=== PATIENT | male | born 1955 | race Caucasian/White ===

== ENCOUNTER 2017-06-12 23:48 | Emergency (ER) | payer OTHER ==
[2017-06-13] MEDS ORDERED: oxyCODONE/Acetamin 5/325 MG* TAB PO ONE (01:37)
[2017-06-13] MEDS ORDERED: Ketorolac INJ* 60 MG/2 ML VIAL IM ONE (01:37)
--- NOTE | 2017-06-13 01:38 | ED ---
Lower Extremity - HPI Summary HPI Summary: 62 male presents to ED with complaints left knee pain after a fall he sustained while trying to go up cement stairs just [employer] ~ 4 hours ago. Patient has been able to bear weight however it causes him significant pain. Pain is anterior knee. Denies bruising, swelling and numbness tingling. Patient has not taken any medication [employer]. Admits to some abrasions over both knees, no pain in right knee. No other complaints at this time. Did not hit head, no acute hip or back pain. PMHx significant for DM, diabetic neuropathy, chronic back pain and HTN. Pain is described as sharp and aching. Has some ROM with bending but causes pain. Patient states he is a chronic pain patient with Dr Cason. - History of Current Complaint Chief Complaint: EDExtremityLower Stated Complaint: LT KNEE PAIN Time Seen by Provider: 06/12/17 23:58 Hx Obtained From: Patient Mechanism Of Injury: Blunt Trauma, Fall From A Standing Position - walking up stairs Onset of Pain: Immediate Onset/Duration: Hours Severity Initially: Severe Severity Currently: Severe Pain Intensity: 9 Pain Scale Used: 0-10 Numeric Timing: Constant Location: Is Discrete @ - left anterior knee Character Of Pain: Sharp, Aching Associated Signs And Symptoms: Positive: Knee Pain - left Aggravating Factor(s): Standing, Ambulation, Weight Bearing Alleviating Factor(s): Rest Able to Bear Weight: Yes - but causes pain and favors right side - Allergies/Home Medications Allergies/Adverse Reactions: Allergies Allergy/AdvReac Type Severity Reaction Status Date / Time Sertraline [From Zoloft] Allergy Unknown Verified 12/30/15 14:50 Reaction Details PMH/Surg Hx/FS Hx/Imm Hx Endocrine/Hematology History: Reports: Hx Diabetes - DMII Cardiovascular History: Reports: Hx Cardiomegaly - FROM CARDIAC CATH, Hx Congestive Heart Failure, Hx Hypertension, Other Cardiovascular Problems/ Disorders - IDDM TYPE II Denies: Hx Pacemaker/ICD Respiratory History: Reports: Hx Chronic Obstructive Pulmonary Disease (COPD), Hx Sleep Apnea Denies: Hx Asthma GI History: Reports: Hx Gastroesophageal Reflux Disease - HX GASTRIC BYPASS, Other GI Disorders - PANCREATITIS Denies: Hx Cirrhosis History: Denies: Hx Dialysis, Hx Kidney Stones, Hx Renal Disease Musculoskeletal History: Reports: Hx Arthritis - BILATERAL SHOULDERS, Hx Tendonitis - BILATERAL SHOULDERS Denies: Other Musculoskeletal History Sensory History: Reports: Hx Contacts or Glasses - GLASSES Opthamlomology History: Reports: Hx Contacts or Glasses - GLASSES Neurological History: Reports: Hx Seizures - SEIZURE HISTORY LAST ONE 2004 ONLY TWO TIMES IN LIFE, Other Neuro Impairments/Disorders - SEIZURE R/T STOMACH ULCER - WITH ALCOHOL Denies: Hx Transient Ischemic Attacks (TIA) Comment Only: Hx Nerve Disease - DIABETIC NEUROPATHY Psychiatric History: Reports: Hx Anxiety, Hx Depression Denies: Hx Panic Disorder - Surgical History Surgery Procedure, Year, and Place: gastric bypass [facility], bilat elbows , [facility] Hx Anesthesia Reactions: No - Immunization History Immunizations Up to Date: Yes Infectious Disease History: No Infectious Disease History: Denies: Hx Hepatitis, Traveled Outside the [place] in Last 30 Days - Family History Known Family History: Positive: Other - mother - arthritis - Social History Alcohol Use: None Alcohol Amount: NONE FOR 10 YEARS AGO Hx Substance Use: No Substance Use Type: Reports: None Hx Tobacco Use: Yes Smoking Status (MU): Former Smoker Review of Systems Constitutional: Negative Cardiovascular: Negative Respiratory: Negative Positive: Arthralgia, Myalgia, Decreased ROM - left knee Neurological: Negative All Other Systems Reviewed And Are Negative: Yes Physical Exam Triage Information Reviewed: Yes Vital Signs On Initial Exam: Initial Vitals Temp Pulse Resp BP Pulse Ox 97.7 F 99 18 210/102 99 06/13/17 00:02 06/13/17 00:02 06/13/17 00:02 06/13/17 00:02 06/13/17 00:02 elevated BP, patient in pain and states he typically has that elevated of pressure, improved to 190/100. Encouraged follow up with PCP, patient states he was unable to take his meds today because of the fall. Wanted to take them at home, asymptomatic. States BP has been this high in past many times in times of pain. Vital Signs Reviewed: Yes Appearance: Positive: Well-Appearing, Well-Nourished, Pain Distress - with movement or palpation of left anterior knee Skin: Positive: Warm, Skin Color Reflects Adequate Perfusion, Dry, Other - abrasion not bleeding on both anterior knees. Negative: Cold, Numb, Cyanosis @ , Pale, Erythema @ Head/Face: Positive: Normal Head/Face Inspection Eyes: Positive: EOMI, Conjunctiva Clear ENT: Positive: Hearing grossly normal Neck: Positive: Supple, Nontender Respiratory/Lung Sounds: Positive: Clear to Auscultation, Breath Sounds Present. Negative: Rales, Rhonchi, Wheezes Cardiovascular: Positive: Normal, RRR, Pulses are Symmetrical in both Upper and Lower Extremities - 2+ pedal b/l. Negative: Murmur, Rub Abdomen Description: Positive: Nontender, Soft Bowel Sounds: Positive: Present Musculoskeletal: Positive: Normal, Limited @ - has some ROM of left knee with flexion, due to pain, able to extend, Pain @ - right anterior knee on palpation. no crepitus or step off, maybe some mild swelling over anterior knee , patella intact, no obvious deformity when compared to right. abrasion noted. distal tibia non tender. Negative: Interruption @ Neurological: Positive: Normal, Sensory/Motor Intact - sensation intact and normal for his baseline with neuropathy, Alert, Oriented to Person Place, Time, CN Intact II-III, NV Bundle Intact Distally, Unable to Assess Gait Psychiatric: Positive: Affect/Mood Appropriate Diagnostics - Vital Signs Vital Signs Temp Pulse Resp BP Pulse Ox 06/13/17 00:02 97.7 F 99 18 210/102 99 - Laboratory Lab Statement: Any lab studies that have been ordered have been reviewed, and results considered in the medical decision making process. - Radiology left knee Xray Interpretation: Positive (See Comments) - proximal tibial fracture, avulsion Radiology Interpretation Completed By: ED Physician - Dr Grant Lower Extremity Course/Dx - Course Course Of Treatment: given pain management. x-ray obtained and positive for fracture of proximal tibia, possibly avulsion. knee immobilzer, luci wrap, crutches, and ice applied. continue at home. patient already has pain management to take at home as needed. non weight bearing, follow up ortho. RICE. aware of worsening signs and symptoms to watch out for. no other concern at this time. - Diagnoses Differential Diagnosis/HQI/PQRI: Positive: Contusion, Dislocation, Fracture ( Closed), Sprain, Strain Provider Diagnoses: Fracture, tibia Discharge - Discharge Plan Condition: Stable Disposition: HOME Patient Education Materials: Leg Fracture (ED) Referrals: Stefan Bruno MD [Medical Doctor] - Maranda Lorenzana MD [Primary Care Provider] - Additional Instructions: Do not remove immobilizer. Do not bear weight, use crutches. Keep luci bandage applied. Rest, elevate and ice. Take prescribed pain medication as well as ibuprofen for pain and inflammation. Follow up with orthopedics, call tomorrow morning to make an appointment. If symptoms worsen or new symptoms develop please seek medical attention immediately.
[2017-06-13 02:29] VITALS: BP 198/108
--- NOTE | 2017-06-13 08:05 | RAD ---
INDICATION: Left knee injury COMPARISON: None TECHNIQUE: AP, lateral, tunnel, and sunrise views were obtained. FINDINGS: There is an incomplete, transverse fracture through the tibial apophysis. There is also small avulsion fracture from the inferior patella. The infrapatellar ligament is likely torn. This can be evaluated with MR imaging. 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 There is a joint effusion. IMPRESSION: TIBIAL APOPHYSEAL AND INFERIOR PATELLAR FRACTURES. PRESUMED INFRAPATELLAR LIGAMENT INJURY. JOINT EFFUSION
== END 2017-06-13 02:28 | disposition home or self-care (01) ==
LOC: ED 23:48
DX: S82.202A Unspecified fracture of shaft of left tibia, initial encounter for closed fracture (principal); M25.562 Pain in left knee; W19.XXXA Unspecified fall, initial encounter; Y93.9 Activity, unspecified; Y92.9 Unspecified place or not applicable
CPT/HCPCS: 96372; 99282; A9270-GY; J1885

== ENCOUNTER → 2017-06-21 12:30 | Day surgery (SDC) | payer OTHER ==
[~2017-06-21 12:30] MED LIST: Buffered Lidocaine 0.9% SYRIN* 5 ML/SYR SYRINGE INTRADERM ONE; Buffered Lidocaine 0.9% SYRIN* 5 ML/SYR SYRINGE ONE; Bupivacaine 0.5% SDV PF* 30 ML VIAL ONE; Dextrose 50% Syringe 50 ML* 25 GM/50 ML SYRINGE ONE; EPHEDrine (Pressors)* 50 MG/ML VIAL ONE; Famotidine IV* 10 MG/ML 2 ML (20 mg) IV ONE; Famotidine IV* 10 MG/ML 2 ML (20 mg) ONE; Flumazenil* 0.1 MG/ML 5 ML MDV ONE; KETAMINE HCL* 50 MG/ML 10 ML VIAL ONE; Lidocaine 2% EPI 1:200000 MPF* 20 ML VIAL ONE; Lidocaine 2% PF * 5 ML VIAL ONE; Lidocaine 2% PF* 10 ML AMP ONE; Metoclopramide IV* 5 MG/ML 2 ML VIAL IV SLOW PU ONE; Midazolam* 1 MG/ML 10 ML VIAL (10 MG) ONE; Morphine INJ* 10 MG/ML 1 ML CARPUJECT ONE; Morphine INJ* 2 MG/ML 1 ML CARPUJECT IV PRN; Ondansetron INJ* 2 MG/ML VIAL IV PRN; PROCHLORPERAZINE INJ 5 MG/ML 2 ML VIAL IV PRN; Phenylephrine INJ* 10 MG/ML 1 ML VIAL (10 MG) ONE; Propofol* 10 MG/ML 20 ML BTL IV PUSH ONE; Scopolamine 1.5 mg* PATCH TRANSDERM PRN; Scopolomine PATCH Remove* 1 NOTE MISC PATCH OFF ONE; ceFAZolin 2 GM PREMIX (*) 50 ML IVPB ONE; fentaNYL* 50 MCG/ML 2 ML VIAL (100 MCG VIAL) ONE; oxyCODONE/Acetamin 5/325 MG* TAB ONE; oxyCODONE/Acetamin 5/325 MG* TAB PO PRN
--- NOTE | 2017-06-21 19:13 | RAD ---
INDICATION: Tibial tuberosity surgery COMPARISON: None FINDINGS: 1 minute and 15 seconds seconds of fluoroscopy were provided for the with. 6 department. Fluoroscopic spot imaging of the left knee were obtained for operative control. CPT II Codes: 6045F (fluoro time doc)
[2017-06-21] MEDS: fentaNYL* 50 MCG/ML 2 ML VIAL (100 MCG VIAL) IV PRN ×2 (19:53→20:13)
[2017-06-21 21:33] VITALS: BP 160/82
--- NOTE | 2017-06-23 04:18 | OP ---
DATE OF OPERATION: 06/21/17 [facility] DATE OF : 59 SURGEON: Stefan Bruno MD EXECUTIVE ADMINISTRATIVE ASSISTANT: JOANN Fan. A physician assistant nurse manager was required for the length of the procedure for manipulation, instrumentation, retraction, and closure. ANESTHESIOLOGIST: Dr. Chris Nicole. ANESTHESIA: Epidural anesthesia. PRE-OP DIAGNOSIS: Left tibial tuberosity fracture, displaced. POST-OP DIAGNOSIS: Left tibial tuberosity fracture, displaced. OPERATIVE PROCEDURE: Open reduction internal fixation, left tibial tuberosity. ANTIBIOSIS: 2 g Ancef IV. IV FLUIDS: 1500cc crystalloid. TOURNIQUET TIME: 140 minutes at 300 mmHg. This was in several timed intervals with a long period of time down. The timing given to me by Anesthesia, led to the following calculations of 44 minutes up, then 17 minutes down, then 97 minutes up. These latter numbers cannot be entirely accurate as the total tourniquet time listed by the machine is 140 minutes and the times listed by those intervals add up to 151 minutes. COMPLICATIONS: None. SPECIMENS: None. IMPLANTS: 4.5 mm cannulated screw, partially threaded, 64 mm in length. A 2.7 mm screw, noncannulated, fully threaded, 50 mm in length. A double-loaded Mitek Gryphon suture anchor x1. Cancellous bone chips, 2 containers each of 5cc. ESTIMATED BLOOD LOSS: 100 cc. INDICATIONS FOR PROCEDURE: The patient is a 62-year-old man who does not work; who on 06/14/17, tripped and fell on to bilateral knees, and impacting ground about the anterior bilateral knees. The patient had significant left knee pain and was not able to walk well. An ambulance was called and the patient was brought to the ED at [facility] where x-rays demonstrated a displaced tibial tubercle fracture. The patient saw me in clinic 3 days later on 06/17/17. The patient's history is significant for a myocardial infarction, diabetes mellitus, and his weight as having formally been 460 pounds prior to having lost 200 pounds with a gastric bypass surgery. In clinic, the patient had tenderness to palpation at the tibial tuberosity. Straight leg raise could not be performed as the patient was in significant discomfort. X-rays were reviewed from the emergency department that showed 4 mm of diastasis or displacement at the distal fracture site. There was some irregularity of the distal patella on x-ray and the radiologist conjectured that this might be indicative of a proximal patellar tendon rupture. As the entire anterior aspect of the knee was tender and there was some irregularity of the distal patella on x-ray, I had chosen MRI for my advanced imaging modality rather than a CT, to both better define the fracture fragment, assess its amount of displacement, and determine whether there was in fact any patellar tendon injury. In the clinic with the patient, I spoke about the rarity of this injury, especially in the adult population. A literature review prior to clinic had revealed only 3 papers, 1 published in the [place]. The AO web site that did detail a technique for this fracture, despite its rarity. The patient and I in clinic spoke of nonoperative versus operative management. We spoke of how a fixation would allow for a sooner range of motion of the knee and how in some ways an avulsion in this location will be the functional equivalent of a patellar tendon rupture. Given the apparent 4 mm of displacement at the fracture site, difficult to determine the importance of that number, this was not intraarticular displacement of greater than 2 mm and there in fact was no evidence of any intraarticular extension of this fracture. I spoke to the patient about the rarity of this injury, that there was a described surgical technique and that, owing to the defect in his extensor mechanism and the displacement at the fracture site, surgical management might provide an advantage over nonoperative management, the latter of which would consist of immobilization in extension for a prolonged period of time. We do, however, certainly do that for nondisplaced patellar fractures and immobilize in extension and those patients do well. We discussed risks and potential complications of surgery including bleeding, infection, nerve and blood vessel injury, knee stiffness, knee pain and arthritis, hardware complications, blood clot, extensor mechanism reinjury. The patient understands that he is at a higher than average risk of infection because of his diabetes. The patient was cleared by his primary care physician for surgery. The patient had a trace amount of healed scab, partial thickness, minimal in clinic that I did not think should significantly delay surgery. DESCRIPTION OF PROCEDURE: Preoperative written consent was obtained. Operative extremity was marked in the preoperative holding. The patient was taken back to the operating room. Epidural anesthetic was placed by Dr. Nicole. Dr. Nicole had chosen epidural as it was not entirely clear how long the procedure would take and so he did not want to use a spinal anesthetic that would require a certain set period of anesthetic. The patient was placed supine. The patient's left lower extremity as well as his right both naturally externally rotates significantly at the hip. Therefore , we placed an aggressively large blanket bump under the left hemipelvis. A tourniquet was placed around the left proximal thigh, but not yet inflated. A bone foam was placed under the left lower leg. However, due to the large bump under the hemipelvis, we found that with the bone foam in place, there was only minimal, perhaps 5 degrees of angulation at the knee. Because I wanted more of this when the knee was in a resting position, we underlay the bone foam with a blanket bump. The left lower extremity was prepped. Due to the patient's diabetes, this was done with chlorhexidine foot to proximal thigh followed by ChloraPrep. The left lower extremity was draped. Gloves were changed. A surgical incision was marked. A tourniquet was inflated. A skin incision was made, anterior longitudinal midline. This incision started from the midpoint from proximal to distal of the patellar tendon level and continued distal to the level of the tibial tuberosity. Knifes were changed. With the deep knife, I continued this dissection straight down to the peritenon or just superficial to it and to the anterior aspect of the tibial tuberosity and tibial crest more distally. I extended the incision a little bit of the skin and soft tissues both proximally and distally. Fracture site was identified. A [place] was placed into the distal end of the fracture site and showed some clear mobility of the fracture fragments. I defined that fracture plane moving proximally both medial and lateral. As it had appeared in the MRI, the patellar tendon clearly inserted on to that fracture fragment. Attempted digital reduction with my digits of the fracture was not possible and it seemed as if there was some clear extension of the fracture fragment, consistent with MRI positioning on the sagittal slices of the MRI of the left knee. I wanted to make the fracture fragment reducible and to undo the extension of that fracture fragment caused by the injury. Therefore, my next step was to fully or partially outline the fracture line. I traced the fracture additionally proximal both medial and lateral. I did not fully visualize it superiorly as I did not want to compromise any patellar tendon in the process. I did create a small very limited, perhaps 1 cm, lateral parapatellar incision and a more lengthy incision about the medial aspect of the patellar tendon, perhaps half of its width from distal towards proximal. This allowed me to better define the extent superiorly of the tendon. But visibility was such that you could not quite see the fracture fragment proximally, but I was fine with that. With the knee in full extension and using my fingers, I was able to improve the reduction of the fracture fragment. Based on the appearance of the medullary bone in the fracture sites, the reduction of the bone, the MRI imaging, as well as the intraoperative position of the fragment, I decided that there may have been some impaction of bone and that some bone graft would help facilitate a more near anatomic reduction. I therefore called for cancellous bone chips. I used 2 containers, each containing 5 cc of cancellous bone chips. Using a rongeur and a flat object ( to smush), I made the cancellous bone chips a smaller size. I next placed them into the fracture site and reduced the fracture fragment. It should be noted that prior to placing the cancellous bone graft, I took a series of images using the C-arm, both confirming the reducibility of the fracture fragment as well as fully defining the extent superiorly of the fracture line. It was important for me to know for sure that the fracture did not propagate up into the joint. I wanted to know this for sure prior to placing any bone graft because I certainly wanted to avoid any bone graft entering the knee joint. This was the case and the fracture's superior extent was just superior to the incision of the patellar tendon and such was extraarticular. With the bone graft in place and the fragment of the tibial tuberosity manually reduced, the next step was to place hardware. My desire was to use a small screw as possible and place it just distal to the insertion of the patellar tendon such there be only minimal disruption of the tendon and that there would be an excellent bite near the center of the fracture fragment. Judging off of MRI preoperatively, I thought that a screw of length 56 mm would be required. This long length of screw limited me somewhat in terms of cannulated options and so I decided to try a 3.5 mm fully threaded screw using lag technique. I drilled this bicortical, overdrilled the near fragment, using standard lag technique. However, when I went to place the 3.5 mm screw, it would not exit the planned bone hole on the posterior aspect of the proximal tibia. This was tried several times. A different path was formed and I think that secondary to the larger aperture of the bone hole and the tibial tuberosity fracture fragment , different obliquities of flight could be chosen by this screw. Therefore, I decided to use a cannulated screw, which would obviate the same problem, but it would require a slightly larger screw to be placed. I therefore decided to use a cannulated partially threaded 4.5 mm screw. I placed a pin bicortical. I then used a cannulated drill. I then placed a partially threaded cannulated screw. The screw was placed bicortically with the distal end of the screw just past the second cortex within millimeters. Purchase was excellent. This was an incredible bite that the screw obtained. I considered placing a washer but due to the obliquity of the screw placement, I thought that it would be prominent and I did not want to disrupt anterior tissues any more than needed. At this point, C-arm imaging showed improved reduction of fracture fragment and well- placed 4.5 partially threaded cannulated screw. At this point, I had several options. One was to place K-wires. Another was to place a tension band construct. The third was to place an additional screw. Looking at the fracture fragment, I thought that another screw could be placed. The 4.5 mm cannulated screw had been placed more lateral in the fracture fragment, lateral and distal. This was different than the 3.5 mm screw hole that was more central. Therefore, I knew that I could place some hardware in the more lateral aspect of the distal fracture fragment. I decided to place a smaller screw, a 2.7 mm screw. I therefore drilled and then placed a 2.7 mm screw, noncannulated, 50 mm in length. This screw was placed bicortically and purchase was excellent. I was fortunate, given some limitations in screw length when you get to that length of screw, that my screw length fit very nicely for this fracture construct. With 2 screws well placed, confirmed on AP, lateral, and oblique views of the proximal tibia, I endeavored how to complete my construct. I considered a tension band. Tension bands have been described in literature for this as well as in the AO technique guide. I did not favor this as an option as I worried about the proximal aspect of the tension band putting unnecessary stress in the patellar tendon itself, causing a degloving or avulsing injury now or in the future. Seems like an unnecessary risk. Likewise , I did not favor K-wires, which can be used with or without a tension band construct. This is because the proximal tips would inevitably be more likely to cause hardware complications and pain and disrupt the patellar tendon and extensor mechanism. Therefore, I decided on using a suture anchor to reinforce my construct. I decided to use a Mitek Gryphon suture anchor. I drilled and then placed this a centimeter and a half distal to the distal fracture line. I next placed a whipstitch up to a third to a half of the patellar tendon length and then backed down with each of the two pairs of sutures from the Gryphon anchor. I then tied those. I then tested the construct. I flexed it to 90 degrees and saw no movement at the fracture site whatsoever. I took an x-ray image with the C-arm with the knee flexed 90 degrees. I then flexed the knee to perhaps 115 degrees with likewise no movement at the fracture site. I was convinced of the rigidity of my fixation construct and happy with my reduction. Irrigation. A closure of the medial stab and lateral partial parapatellar incisions with [id number] stitches using Vicryl 0 suture. A closure of stab incision in the distal patellar tendon used to place the 2.7 mm screw was closed with a [id number] stitch using Vicryl 0 suture. Closure of some periosteum about the fracture site with [id number] stitches using Vicryl 0 suture. Irrigation. Closure of the subcutaneous tissue with buried simple stitches using Vicryl 2-0 suture. Closure of the skin with silviano. Xeroform, 4x4, sterile Webril, Prosper bandage from foot to proximal thigh. A knee brace was placed on and locked in extension. It should be noted that the tourniquet was inflated after an Esmarch had been applied just prior to a skin incision on this case. The tourniquet was dropped when we were awaiting for some cancellous allograft, bone chips. It was then reinflated to minimize any bloody oozing from the fracture site after the bone graft had been placed. While the tourniquet time exceeded 120 minutes, there was at least a 17-minute period if not a 27-minute period of the tourniquet being down between periods of inflation. DISPOSITION: The patient was extubated and transferred to the PACU. The patient was discharged home when medically stable. The patient will be on crutches, touchdown weightbearing only, with the knee brace locked in extension. He will change his surgical dressing on postoperative day 3 and do a once daily dressing change thereafter. He will be on Keflex t.i.d. antibiotics for 7 days postoperative. Percocet for pain control. The patient is unable to take aspirin secondary to strict limitations by his medical, primary care, and information technology director physician secondary to being status post gastric bypass. We instead will use Lovenox but will limit it to 2 weeks because this is a knee procedure. Lovenox 40 mg subcu daily x2 weeks. The patient will follow up with me in clinic in 1 week rather than in 2 as I want to check on the patient's compliance. [id number]/CPS #: [id number] CHEN
== END | disposition home or self-care (01) ==
LOC: OR 12:30
PROVIDERS: ATTEND Orthopaedic Surgery
DX: S82.152A Displaced fracture of left tibial tuberosity, initial encounter for closed fracture (principal); W19.XXXA Unspecified fall, initial encounter; Y92.488 Other paved roadways as the place of occurrence of the external cause; E11.9 Type 2 diabetes mellitus without complications; Z79.4 Long term (current) use of insulin; I10 Essential (primary) hypertension; E66.01 Morbid (severe) obesity due to excess calories; I25.2 Old myocardial infarction
CPT/HCPCS: 76001; A9270-GY; C1713; C1776; J0690; J2001; J2250; J2270; J2704; J3010

== ENCOUNTER 2018-01-06 19:01 | Emergency (ER) | payer OTHER ==
--- OUTSIDE RECORDS SUMMARY | 2018-01-06 19:10 | XMS REPORT ---
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 CBC Auto Diff 12/20/2015 White Blood Count 5.3 10^3/uL 3.5-10.8 Red Blood Count 5.22 10^6/uL 4.0-5.4 Hemoglobin 13.9 g/dL Low 14.0-18.0 Hematocrit 43 % 42-52 Mean Corpuscular Volume 82 fL 80-94 Mean Corpuscular Hemoglobin 27 pg 27-31 Mean Corpuscular HGB Conc 33 g/dL 31-36 Red Cell Distribution Width 15 % 10.5-15 Platelet Count 126 10^3/uL Low 150-450 Mean Platelet Volume 10 um3 7.4-10.4 Abs Neutrophils 3.0 10^3/uL 1.5-7.7 Abs Lymphocytes 1.8 10^3/uL 1.0-4.8 Abs Monocytes 0.4 10^3/uL 0-0.8 Abs Eosinophils 0.2 10^3/uL 0-0.6 Abs Basophils 0 10^3/uL 0-0.2 Abs Nucleated RBC 0.01 10^3/uL Granulocyte % 55.3 % 38-83 Lymphocyte % 33.1 % 25-47 Monocyte % 7.1 % 1-9 Eosinophil % 3.6 % 0-6 Basophil % 0.9 % 0-2 Nucleated Red Blood Cells % 0.2 Laboratory test finding 12/20/2015 Erythrocyte Sed Rate 16 mm/Hr 0-20 Ua - Micro (Fma) 11/03/2015 Appearance CLEAR Color YELLOW Glucose, Urine (Fma/CMC/CTX) NEG Bilirubin NEG Ketones NEG SP Grav 1.015 Blood NEG PH 5.5 Protein NEG Urobil 0.2 Nitrite NEG Leukocytes (Fma/CMC/Centrex) NEG Hyaline - /Lpf Granular - /Lpf WBC (Fma,Centrex) - RBC - Mucus (Fma/CBC/Centrex) - /Lpf Epith RARE /Lpf Bacteria - /Hpf Amorphous (Fma/CMC/Centrex) - /Lpf Crystals, Fluid (Fma/CMC/CTX) - Z#Comments - Complete Blood Count 10/31/2015 WBC 4.3 x10^3/UL 3.6-9.6 RBC 5.75 x10^6/UL High 3.90-5.70 HGB 15.5 g/dL 12.1-17.2 HCT 48 % 36-50 MCV 84.0 fL 82.2-97.4 MCH 26.9 pg Low 27.6-33.3 MCHC 32.0 g/dL Low 33.0-35.5 RDW 13.9 % High 11.6-13.7 PLT 126 x10^3/UL Low 150-400 MPV 10.1 fL 7.4-10.4 Gran # 3.0 x10^3/UL 1.5-7.2 Lymph# 1.2 x10^3/UL 0.7-4.9 [place]# 0.1 x10^3/UL 0.1-0.9 Gran % 66.0 % 42.2-75.2 Lymph % 29.5 % 20.5-51.1 [place]% 4.5 % 1.7-9.3 Comprehensive Metabolic Prof 10/31/2015 Sodium 139 mEq/L 134-149 Potassium 4.4 mEq/L 3.6-5.5 Chloride 98 mEq/L 94-112 Carbon Dioxide 31 mEq/L 21-32 Glucose 110 mg/dL High 70-105 BUN 23 mg/dL 6-26 Creatinine 0.8 mg/dL 0.6-1.4 BUN/Creat Ratio 28.8 CALC 8.0-36.0 Calcium 8.7 mg/dL 8.6-10.2 Total Protein 7.0 g/dL 6.4-8.3 Albumin 4.3 g/dL 3.8-5.5 Globulin 2.7 g/dL 2.0-4.8 A/G Ratio 1.6 CALC 0.6-2.3 Alk. Phosphatase 91 U/L 22-95 Alt (SGPT) 15 U/L 7-35 Ast (Sgot) 23 U/L 5-34 Total Bilirubin 0.4 mg/dL 0.2-1.3 GFR Non- >60 ml/min/1.73m^ >=60 GFR >60 ml/min/1.73m^ >=60 Laboratory test finding 10/31/2015 Free T4 1.09 ng/dL 0.75-1.54 TSH 1.45 mIU/L 0.50-6.00 Lipid Profile 10/31/2015 Cholesterol 149 mg/dL 120-200 Triglycerides 96 mg/dL 30-200 HDL Cholesterol 40 mg/dL 30-70 LDL (Calculated) 90 CALC 0-129 VLDL Cholesterol 19 mg/dL 0-50 HDL Risk Factor 3.7 CALC 0.0-4.4 Laboratory test finding 03/18/2015 Blood Urea Nitrogen BUN 15 mg/dL 6-24 Creatinine 03/18/2015 Creatinine 0.92 mg/dL 0.67-1.17 Egfr Non- 84.5 >60 Egfr 108.7 >60 27 Laboratory test finding 03/18/2015 PSA Diagnostic 0.233 ng/mL 0-4.0 28 Testosterone 297.58 ng/dL 240-950 Laboratory test finding 03/15/2015 [facility] [place]ANNED PT + PTT No Therpy/Unkn 02/16/2015 PTT 36.4 seconds High 23.7-35.5 29 PT (No Therapy/Unknown) 12.8 seconds 11.7-14.5 29, 30 Inr 1.0 29, 31 Laboratory test finding 02/16/2015 Hemoglobin A1c 6.6 % High 4.1-5.7 (Fma/CMC,CX) Comprehensive Metabolic 02/16/2015 Sodium 141 mEq/L 134-149 Prof Potassium 4.4 mEq/L 3.6-5.5 Chloride 100 mEq/L 94-112 Carbon Dioxide 32 mEq/L 21-32 Glucose 80 mg/dL 70-105 BUN 11 mg/dL 6-26 Creatinine 0.8 mg/dL 0.6-1.4 BUN/Creat Ratio 13.8 CALC 8.0-36.0 Calcium 8.6 mg/dL 8.6-10.2 Total Protein 7.1 g/dL 6.4-8.3 Albumin 3.6 g/dL Low 3.8-5.5 Globulin 3.6 g/dL 2.0-4.8 A/G Ratio 1.0 CALC 0.6-2.3 Alk. Phosphatase 95 U/L 22-95 Alt (SGPT) 27 U/L 7-35 Ast (Sgot) 31 U/L 5-34 Total Bilirubin 0.4 mg/dL 0.2-1.3 Laboratory test finding 02/16/2015 PSA 0.2 ng/mL 0.0-4.0 Complete Blood Count 02/16/2015 WBC 4.6 x10^3/UL 3.6-9.6 RBC 5.25 x10^6/UL 3.90-5.70 HGB 14.0 g/dL 12.1-17.2 HCT 43 % 36-50 MCV 82.0 fL Low 82.2-97.4 MCH 26.6 pg Low 27.6-33.3 MCHC 32.6 g/dL Low 33.0-35.5 RDW 13.5 % 11.6-13.7 PLT 119 x10^3/UL Low 150-400 32 MPV 9.3 fL 7.4-10.4 Gran # 2.1 x10^3/UL 1.5-7.2 Lymph# 2.2 x10^3/UL 0.7-4.9 [place]# 0.3 x10^3/UL 0.1-0.9 Gran % 43.6 % 42.2-75.2 Lymph % 49.1 % 20.5-51.1 [place]% 7.3 % 1.7-9.3 Laboratory test finding 09/16/2014 Hemoglobin A1c 5.7 % 4.1-5.7 (Fma/CMC,CX) CBC Auto Diff 07/14/2014 White Blood Count 4.9 10^3/uL 4.8-10.8 33 Red Blood Count 4.41 10^6/uL 4.0-5.4 33 Hemoglobin 11.6 g/dL Low 14.0-18.0 33 Hematocrit 36 % Low 42-52 33 Mean Corpuscular Volume 82 fL 80-94 33 Mean Corpuscular Hemoglobin 26 pg Low 27-31 33 Mean Corpuscular HGB Conc 32 g/dL 31-36 33 Red Cell Distribution Width 17 % High 10.5-15 33 Platelet Count 215 10^3/uL 150-450 33 Mean Platelet Volume 11 um3 High 7.4-10.4 33 Abs Neutrophils 2.5 10^3/uL 1.5-7.7 33 Abs Lymphocytes 1.7 10^3/uL 1.0-4.8 33 Abs Monocytes 0.5 10^3/uL 0-0.8 33 Abs Eosinophils 0.1 10^3/uL 0-0.6 33 Abs Basophils 0 10^3/uL 0-0.2 33 Abs Nucleated RBC 0.01 10^3/uL 33 Granulocyte % 51.1 % 38-83 33 Lymphocyte % 35.5 % 25-47 33 Monocyte % 10.3 % High 1-9 33 Eosinophil % 2.2 % 0-6 33 Basophil % 0.9 % 0-2 33 Nucleated Red Blood Cells % 0.1 33 Comp Metabolic Panel 07/14/2014 Sodium 139 mmol/L 133-145 33 Potassium 4.1 mmol/L 3.7-5.6 33 Chloride 102 mmol/L 101-111 33 Co2 Carbon Dioxide 34 mmol/L High 22-32 33 Anion Gap 3 mmol/L 2-11 33 Glucose 83 mg/dL 70-100 33 Blood Urea Nitrogen 8 mg/dL 6-24 33 Creatinine 0.60 mg/dL Low 0.67-1.17 33 BUN/Creatinine Ratio 13.3 8-20 33 Calcium 9.1 mg/dL 8.6-10.3 33 Total Protein 6.6 g/dL 6.4-8.9 33 Albumin 3.3 g/dL 3.2-5.2 33 Globulin 3.3 g/dL 2-4 33 Albumin/Globulin Ratio 1.0 1-3 33 Total Bilirubin 1.80 mg/dL High 0.2-1.0 33 Alkaline Phosphatase 116 U/L High 34-104 33 Alt 25 U/L 7-52 33 Ast 26 U/L 13-39 33 Egfr Non- 138.9 >60 33 Egfr 178.6 >60 33, 34 Laboratory test finding 07/14/2014 Vitamin B12 1257 pg/mL High 180-914 33 , 35 Folate > 20.00 ng/mL >3.99 33, 36 Free T4 1.42 ng/mL High 0.61-1.12 33, 37 TSH (Thyroid Stimulating Horm) 0.90 IU/mL 0.34-5.60 33, 38 C Reactive Protein 4.47 mg/L < 5.00 33, 39 Anti Ssa/Ro Antibody <0.2 U 33, 40 SS-B/La Antibody <0.2 U 33, 41 Protein Electrophoresis 07/14/2014 Total Protein(Pep) 6.8 g/dL 6.3 - 7.9 33 Albumin 3.0 g/dL 3.4-4.7 33 Alpha-1 Globulin 0.3 g/dL 0.1-0.3 33 Alpha-2 Globulin 0.9 g/dL 0.6-1.0 33 Beta Globulin 1.0 g/dL 0.7-1.2 33 Gamma Globulin 1.7 g/dL 0.6-1.6 33 Albumin/Globulin Ratio 0.78 33 Impression See Comment 33, 42 Laboratory test finding 07/14/2014 Edna (Anti-Nuclear AB) Negative Negative 33 Screen Urinalysis Profile 06/29/2014 Urine Color Yellow Urine Appearance Clear Urine Specific [place] 1.023 1.010-1.030 Urine pH 6.0 5-9 Urine Urobilinogen Negative Negative Urine Ketones Negative Negative Urine Protein Negative Negative Urine Leukocytes Negative Negative Urine Blood Negative Negative Urine Nitrite Negative Negative Urine Bilirubin Negative Negative Urine Glucose 3+(>=500 mg/dL) Negative CBC Auto Diff 06/28/2014 White Blood Count 7.1 10^3/uL 4.8-10.8 Red Blood Count 5.50 10^6/uL High 4.0-5.4 Hemoglobin 14.6 g/dL 14.0-18.0 Hematocrit 45 % 42-52 Mean Corpuscular Volume 82 fL 80-94 Mean Corpuscular Hemoglobin 27 pg 27-31 Mean Corpuscular HGB Conc 32 g/dL 31-36 Red Cell Distribution Width 16 % High 10.5-15 Platelet Count 101 10^3/uL Low 150-450 Mean Platelet Volume 11 um3 High 7.4-10.4 Abs Neutrophils 5.6 10^3/uL 1.5-7.7 Abs Lymphocytes 1.2 10^3/uL 1.0-4.8 Abs Monocytes 0.2 10^3/uL 0-0.8 Abs Eosinophils 0 10^3/uL 0-0.6 Abs Basophils 0 10^3/uL 0-0.2 Abs Nucleated RBC 0 10^3/uL Granulocyte % 79.5 % 38-83 Lymphocyte % 17.0 % Low 25-47 Monocyte % 2.3 % 1-9 Eosinophil % 0.7 % 0-6 Basophil % 0.5 % 0-2 Nucleated Red Blood Cells % 0 Comp Metabolic Panel 06/28/2014 Sodium 137 mmol/L 133-145 Potassium 5.1 mmol/L 3.7-5.6 Chloride 101 mmol/L 101-111 Co2 Carbon Dioxide 29 mmol/L 22-32 Anion Gap 7 mmol/L 2-11 Glucose 186 mg/dL High 70-100 Blood Urea Nitrogen 12 mg/dL 6-24 Creatinine 0.80 mg/dL 0.67-1.17 BUN/Creatinine Ratio 15.0 8-20 Calcium 8.6 mg/dL 8.6-10.3 Total Protein 6.7 g/dL 6.4-8.9 Albumin 3.6 g/dL 3.2-5.2 Globulin 3.1 g/dL 2-4 Albumin/Globulin Ratio 1.2 1-3 Total Bilirubin 2.50 mg/dL High 0.2-1.0 Alkaline Phosphatase 323 U/L High 34-104 Alt 167 U/L High 7-52 Ast 292 U/L High 13-39 Egfr Non- 99.6 >60 Egfr 128.1 >60 43 Laboratory test finding 06/28/2014 Magnesium 1.9 mg/dL 1.9-2.7 Lipase 305 U/L High 11.0-82.0 Laboratory test finding 04/23/2014 Hemoglobin A1c (Fma/CMC,CX) 5.2 % 4.1- 5.7 Comp Metabolic Panel 02/21/2014 Sodium 140 mmol/L 133-145 Potassium 4.1 mmol/L 3.7-5.6 Chloride 100 mmol/L Low 101-111 Co2 Carbon Dioxide 35 mmol/L High 22-32 Anion Gap 5 mmol/L 2-11 Glucose 57 mg/dL Low 70-100 Blood Urea Nitrogen 11 mg/dL 6-24 Creatinine 0.82 mg/dL 0.67-1.17 BUN/Creatinine Ratio 13.4 8-20 Calcium 9.2 mg/dL 8.6-10.3 Total Protein 7.2 g/dL 6.4-8.9 Albumin 3.9 g/dL 3.2-5.2 Globulin 3.3 g/dL 2-4 Albumin/Globulin Ratio 1.2 1-3 Total Bilirubin 0.60 mg/dL 0.2-1.0 Alkaline Phosphatase 90 U/L 34-104 Alt 12 U/L 7-52 Ast 20 U/L 13-39 Egfr Non- 96.8 >60 Egfr 124.5 >60 44 Laboratory test 02/21/2014 D Dimer Quantitative 299 ng/mL High Less Than 230 45 finding CBC Auto Diff 02/21/2014 White Blood Count 6.6 10^3/uL 4.8-10.8 Red Blood Count 5.61 10^6/uL High 4.0-5.4 Hemoglobin 14.5 g/dL 14.0-18.0 Hematocrit 45 % 42-52 Mean Corpuscular Volume 80 fL 80-94 Mean Corpuscular Hemoglobin 26 pg Low 27-31 Mean Corpuscular HGB Conc 33 g/dL 31-36 Red Cell Distribution Width 17 % High 10.5-15 Platelet Count (SEE NOTE) 10^3/uL Low 150-450 46 Mean Platelet Volume (SEE NOTE) um3 High 7.4-10.4 47 Abs Neutrophils 3.6 10^3/uL 1.5-7.7 Abs Lymphocytes 2.3 10^3/uL 1.0-4.8 Abs Monocytes 0.4 10^3/uL 0-0.8 Abs Eosinophils 0.1 10^3/uL 0-0.6 Abs Basophils 0 10^3/uL 0-0.2 Abs Nucleated RBC 0.01 10^3/uL Granulocyte % 55.0 % 38-83 Lymphocyte % 35.3 % 25-47 Monocyte % 6.8 % 1-9 Eosinophil % 2.2 % 0-6 Basophil % 0.7 % 0-2 Nucleated Red Blood Cells % 0.1 Comprehensive Metabolic Prof 01/26/2014 Sodium 143 mEq/L 134-149 Potassium 4.3 mEq/L 3.6-5.5 Chloride 105 mEq/L 94-112 Carbon Dioxide 24 mEq/L 21-32 Glucose 85 mg/dL 70-105 BUN 12 mg/dL 6-26 Creatinine 0.8 mg/dL 0.6-1.4 BUN/Creat Ratio 15.0 CALC 8.0-36.0 Calcium 9.7 mg/dL 8.6-10.2 Total Protein 6.6 g/dL 6.3-8.1 Albumin 3.9 g/dL 3.8-5.5 Globulin 2.7 g/dL 2.0-4.8 A/G Ratio 1.4 CALC 0.6-2.3 Alk. Phosphatase 86 U/L 22-95 Alt (SGPT) 9 U/L Low 10-40 48 Ast (Sgot) 19 U/L 5-34 Total Bilirubin 0.5 mg/dL 0.2-1.3 Laboratory test finding 01/26/2014 TSH 1.02 mIU/L 0.50-6.00 Vitamin B-12 648 pg/mL 230-1050 Folate Level 15.29 ng/mL 3.00-16.00 CBC Manual Diff-Fma 01/26/2014 WBC 4.7 3.6-9.6 RBC 5.63 3.90-5.70 Hemoglobin (Fma/CMC/CTX) 14.8 g/dL 12.1 - 17.2 Hematocrit (Fma/CMC/CTX) 45.9 % 36.1 - 50.3 Mean Corpuscular Vol 81 Low 82.2-97.4 Mean Corpuscular Hemoglobin 26.4 Low 27.6-33.3 Mean Corpuscular Hemo Concen 32.4 32.0-36.0 Platelets 148 10^3/ul Low 150-400 49 RDW 15.3 High 11.6-13.7 Mean Platelet Volume 10.3 5.5-11.0 Neutrophil 39 Band 2 Lymphocytes 52 Monocyte 3 Eosinophils 3 Metamyelocytes 1 Microcytosis (Fma/CMC/Centrex) slight Z#Comment plts low norm Laboratory test finding 12/14/2013 Hemoglobin A1c 5.2 % 4.1-5.7 (Fma/CMC,CX) Laboratory test finding 11/13/2013 Testosterone 244.6 ng/dL 175-781 Laboratory test finding 10/12/2013 Testosterone 165.7 ng/dL Low 175-781 PSA Diagnostic 0.210 ng/mL 0-4.0 50 Laboratory test finding 09/18/2013 PSA 0.20 ng/mL 0.00-4.00 Iron/Tibc,%Sat Group 09/18/2013 Iron 59 g/dL 46-155 Total Iron Binding Cap. 216 g/dL Low 250-450 % Iron Saturation 27.3 % 13.0-45.0 CBC Electronic ([facility]) 09/18/2013 WBC 5.5 3.6-9.6 RBC 4.74 3.90-5.70 Hemoglobin (Fma/CMC/CTX) 12.5 g/dL 12.1 - 17.2 Hematocrit (Fma/CMC/CTX) 39.5 % 36.1 - 50.3 Platelets 154 10^3/ul 150-400 Lymph% 41.1 20.5-51.1 Mixed% 4.9 Neutrophils % 54.0 Mean Corpuscular Vol 93 82.2-97.4 Mean Corpuscular Hemoglobin 26.4 Low 27.6-33.3 Mean Corpuscular Hemo Concen 31.6 Low 32.0-36.0 RDW 13.2 11.6-13.7 Mean Platelet Volume 9.0 6.5-11.0 CBC Electronic ([facility]) 09/01/2013 WBC 6.1 3.6-9.6 RBC 4.90 3.90-5.70 Hemoglobin (Fma/CMC/CTX) 13.0 g/dL 12.1 - 17.2 Hematocrit (Fma/CMC/CTX) 40.1 % 36.1 - 50.3 Platelets 152 10^3/ul 150-400 Lymph% 21.7 20.5-51.1 Mixed% 3.9 Neutrophils % 74.4 Mean Corpuscular Vol 82 Low 82.2-97.4 Mean Corpuscular Hemoglobin 26.6 Low 27.6-33.3 Mean Corpuscular Hemo Concen 32.4 32.0-36.0 RDW 14.9 High 11.6-13.7 Mean Platelet Volume 9.1 6.5-11.0 Laboratory test finding 09/01/2013 Hemoglobin A1c 5.4 % 4.1-5.7 (Fma/CMC,CX) Comprehensive Metabolic 09/01/2013 Albumin 3.9 g/dL 3.8-5.5 Prof Alk. Phos. 141 U/L High 22-95 Alt (SGPT) 60 U/L High 10-40 Ast (Sgot) 21 U/L 5-34 BUN 12 mg/dL 6-26 Calcium 9.2 mg/dL 8.6-10.2 Chloride 100 mEq/L 94-112 Creatinine 0.7 mg/dL 0.6-1.4 Carbon Dioxide 28 mEq/L 21-32 Glucose 80 mg/dL 70-105 Sodium 142 mEq/L 134-149 Total Bilirubin 0.9 mg/dL 0.2-1.3 Total Protein 6.7 g/dL 6.3-8.1 Potassium 4.3 mEq/L 3.6-5.5 Globulin 2.8 g/dL 2.0-4.8 A/G Ratio 1.4 Calc 0.6-2.3 BUN/Creat Ratio 16.8 Calc 8.0-36.0 Laboratory test finding 09/01/2013 Testosterone, Serum 299 ng/dL Low 348- 1197 Laboratory test finding 07/20/2013 Inr 1.03 High 0.87-0.97 Activated Partial Thrombo Time 35.0 seconds 22.18-37.18 CBC Auto Diff 07/20/2013 White Blood Count 9.2 10^3/uL 4.8-10.8 Red Blood Count 5.07 10^6/uL 4.0-5.4 Hemoglobin 13.7 g/dL Low 14.0-18.0 Hematocrit 41 % Low 42-52 Mean Corpuscular Volume 81 fL 80-94 Mean Corpuscular Hemoglobin 27 pg 27-31 Mean Corpuscular HGB Conc 33 g/dL 31-36 Red Cell Distribution Width 17 % High 10.5-15 Platelet Count 143 10^3/uL Low 150-450 Mean Platelet Volume 11 um3 High 7.4-10.4 Abs Neutrophils 6.4 10^3/uL 1.5-7.7 Abs Lymphocytes 1.9 10^3/uL 1.0-4.8 Abs Monocytes 0.7 10^3/uL 0-0.8 Abs Eosinophils 0.1 10^3/uL 0-0.6 Abs Basophils 0 10^3/uL 0-0.2 Abs Nucleated RBC 0.01 10^3/uL Granulocyte % 69.5 % 38-83 Lymphocyte % 20.9 % Low 25-47 Monocyte % 7.5 % 1-9 Eosinophil % 1.6 % 0-6 Basophil % 0.5 % 0-2 Nucleated Red Blood Cells % 0.1 Laboratory test finding 07/20/2013 B Type Natriuretic Peptide 82.0 pg/mL 0-100 Comp Metabolic Panel 07/20/2013 Sodium 135 mmol/L 133-145 Potassium 3.8 mmol/L 3.5-5.0 Chloride 103 mmol/L 101-111 Co2 Carbon Dioxide 29.0 mmol/L 22-32 Anion Gap 3.0 mmol/L 2-11 Glucose 54 mg/dL Low 70-100 Blood Urea Nitrogen 12 mg/dL 6-24 Creatinine 0.70 mg/dL 0.50-1.40 BUN/Creatinine Ratio 17.1 8-20 Calcium 9.3 mg/dL 8.1-9.9 Total Protein 7.0 g/dL 6.2-8.1 Albumin 3.5 g/dL Low 3.6-5.4 Globulin 3.5 g/dL 2-4 Albumin/Globulin Ratio 1.0 1-3 Total Bilirubin 0.8 mg/dL 0.4-1.5 Alkaline Phosphatase 90 U/L 30-110 Alt 15 U/L 14-54 Ast 19 U/L 12-42 Egfr Non- 116.7 >60 Egfr 150.0 >60 51 Laboratory test finding 07/20/2013 Creatine Kinase 59 U/L 0-200 CKMB 07/20/2013 CKMB ng/mL 1.5 ng/mL 0.3-4.0 52 Laboratory test finding 07/20/2013 Troponin I 0.01 ng/mL 0-0.06 53 C Reactive Protein 0.8 mg/dL High Less than 0.5 Comprehensive Metabolic Prof 04/06/2013 Albumin 4.4 g/dL 3.8-5.5 Alk. Phos. 113 U/L High 22-95 54 Alt (SGPT) 17 U/L 10-40 Ast (Sgot) 24 U/L 5-34 BUN 25 mg/dL 6-26 Calcium 9.2 mg/dL 8.6-10.2 Chloride 96 mEq/L 94-112 Creatinine 1.0 mg/dL 0.6-1.4 Carbon Dioxide 34 mEq/L High 21-32 55 Glucose 106 mg/dL High 70-105 56 Sodium 139 mEq/L 134-149 Total Bilirubin 0.6 mg/dL 0.2-1.3 Total Protein 7.4 g/dL 6.3-8.1 Potassium 4.2 mEq/L 3.6-5.5 Globulin 2.9 g/dL 2.0-4.8 A/G Ratio 1.5 Calc 0.6-2.3 BUN/Creat Ratio 24.2 Calc 8.0-36.0 Laboratory test finding 04/06/2013 Hemoglobin A1c 8.0 % High 4.1-5.7 (Fma/CMC,CX) Lipid Profile 08/15/2012 Cholesterol 151 mg/dL 120-200 HDL 33 mg/dL 30-70 Triglycerides 158 mg/dL 30-200 HDL Risk Factor 4.6 CALC High 0.0-4.4 LDL (Calculated) 86 CALC 0-129 VLDL (Calculated) 32 mg/dL 0-50 Laboratory test finding 08/15/2012 Urine Culture No significant g <SEE 57 NOTE> Ua - Micro (a) 08/15/2012 Appearance CLEAR Color YELLOW Glucose NEG Bilirubin NEG Ketones NEG SP Grav 1.015 Blood NEG PH 5.0 Protein NEG Urobil 0.2 Nitrite NEG Leukocytes (Fma/CMC/Centrex) NEG Hyaline 30-40 /Lpf Granular - /Lpf WBC (a,Centrex) 2-3 RBC 0-3 Mucus SM AMT /Lpf Epith - /Lpf Bacteria TRACE /Hpf Amorphous - /Lpf Crystals, Fluid (Fma/CMC/CTX) - Z#Comments - CBC Electronic ([facility]) 08/15/2012 WBC 7.4 3.6-9.6 RBC 5.32 3.90-5.70 Hemoglobin (Fma/CMC/CTX) 13.6 g/dL 12.1 - 17.2 Hematocrit (Fma/CMC/CTX) 43.2 % 36.1 - 50.3 Platelets 114 10^3/ul Low 150-400 58 Lymph% 28.0 20.5-51.1 Mixed% 4.1 Neutrophils % 67.9 Mean Corpuscular Vol 81 Low 82.2-97.4 Mean Corpuscular Hemoglobin 25.6 Low 27.6-33.3 Mean Corpuscular Hemo Concen 31.5 Low 32.0-36.0 RDW 13.4 11.6-13.7 Mean Platelet Volume 9.2 6.5-11.0 Laboratory test finding 08/15/2012 Hemoglobin A1c 8.1 % High 4.1-5.7 (a/CMC,CX) Comprehensive Metabolic 08/15/2012 Albumin 4.2 g/dL 3.8-5.5 Prof Alk. Phos. 132 U/L High 22-95 59 Alt (SGPT) 20 U/L 10-40 Ast (Sgot) 28 U/L 5-34 BUN 29 mg/dL High 6-26 60 Calcium 9.1 mg/dL 8.6-10.2 Chloride 98 mEq/L 94-112 Creatinine 1.3 mg/dL 0.6-1.4 Carbon Dioxide 31 mEq/L 21-32 Glucose 153 mg/dL High 70-105 61 Sodium 138 mEq/L 134-149 Total Bilirubin 0.4 mg/dL 0.2-1.3 Total Protein 7.6 g/dL 6.3-8.1 Potassium 4.3 mEq/L 3.6-5.5 Globulin 3.4 g/dL 2.0-4.8 A/G Ratio 1.2 Calc 0.6-2.2 BUN/Creat Ratio 21.7 Calc 8.0-36.0 Urinalysis 10/11/2011 Ua Color YELLOW Yellow Appearance-Urine CLEAR Clear Specific [place]-Ur 1.004 Low 1.010-1.030 Esterase-Urine NEGATIVE Negative Nitrite NEGATIVE Negative [id number] NEGATIVE Negative Protein-Urine NEGATIVE Negative PH-Urine 7.5 5-9 Blood-Urine NEGATIVE Negative Ketones-Urine NEGATIVE Negative Bilirubin-Ur NEGATIVE Negative Glucose-Urine NEGATIVE Negative CBC Auto Diff 10/11/2011 White Blood Count 8.0 CUMM 4.8-10.8 Red Cell Count 5.66 CUMM 4.6-6.2 Hemoglobin 15.1 g/dL 14.0-18.0 Hematocrit 46 % 42-52 Mean Corpuscular Volume 81 um3 80-94 Mean Corpuscular Hemoglob 27 pg 27-31 Mean Corpuscular HGB Cone 33 g/dL 32-36 Redcell Distribution WDTH 18 % High 10.5-15 62 Platelet Count 105 CUMM Low 150-450 Mean Platelet Volume 10.3 um3 7.4-10.4 Gran % 75.0 % 38-83 Lymph % 15.0 % Low 25-47 Mononuclear % 6.5 % 1-9 Eosinophil % 2.3 % 0-6 Basophil % 1.2 % 0-2 Abs Lymphs 1.2 1.0-4.8 Abs Mononuclear 0.5 0-0.8 Absolute Neutrophil Count 6.0 1.5-7.7 Abs Eosinophils 0.2 0-0.6 Abs Basophils 0.1 0-0.2 Laboratory test finding 10/11/2011 BNP Evaluatr 46.0 pg/mL 0-100 Comp Metabolic Panel 10/11/2011 Sodium 135 mmol/L 135-145 Potassium 3.9 mmol/L 3.5-5.0 Chloride 91 mmol/L Low 101-111 Co2 (Carbon Dioxide) 37.0 mmol/L High 22-32 Anion Gap 7.0 mmol/L 2-11 63 Glucose 184 mg/dL High 70-100 BUN 14 mg/dL 6-24 Creatinine 0.8 mg/dL 0.50-1.40 One Over Creatinine 1.25 BUN/Creatinine Ratio 17.5 8-20 Calcium 8.8 mg/dL 8.1-9.9 Total Protein 7.9 GM/DL 6.2-8.1 Albumin 3.6 GM/DL 3.6-5.4 Globulin 4.3 GM/DL High 2-4 Albumin/Globulin Ratio 0.8 Low 1-3 Bilirubin Total 0.6 mg/dL 0.4-1.5 64 Alkaline Phosphatase 113 U/L 39-117 Alt (SGPT) 22 U/L 17-63 Ast (Sgot) 22 U/L 12-42 eGFR Non- 100.7 > 60 eGFR 129.6 > 60 65 Laboratory test finding 10/11/2011 CPK (Creatine Kinase) 113 U/L 0-200 CKMB 10/11/2011 CKMB In NG/ML 1.5 NG/ML 0.3-4.0 % CKMB 1 %MB 0-9 66 Laboratory test finding 10/11/2011 Troponin-I 0.01 NG/ML 0-0.06 67 D Dimer Quantitative 298 NG/ML High Less Than 230 68 Comp Metabolic Panel 08/13/2011 Sodium 140 mmol/L 135-145 Potassium 3.7 mmol/L 3.5-5.0 Chloride 97 mmol/L Low 101-111 Co2 (Carbon Dioxide) 35.0 mmol/L High 22-32 Anion Gap 8.0 mmol/L 2-11 69 Glucose 94 mg/dL 70-100 BUN 23 mg/dL 6-24 Creatinine 0.8 mg/dL 0.50-1.40 One Over Creatinine 1.25 BUN/Creatinine Ratio 28.8 High 8-20 Calcium 9.1 mg/dL 8.1-9.9 Total Protein 7.1 GM/DL 6.2-8.1 Albumin 3.5 GM/DL Low 3.6-5.4 Globulin 3.6 GM/DL 2-4 Albumin/Globulin Ratio 1.0 1-3 Bilirubin Total 1.1 mg/dL 0.4-1.5 70 Alkaline Phosphatase 90 U/L 39-117 Alt (SGPT) 29 U/L 17-63 Ast (Sgot) 25 U/L 12-42 eGFR Non- 100.7 > 60 eGFR 129.6 > 60 71 Laboratory test 08/13/2011 Hemoglobin A1c 8.7 % High Less Than 6.0 72 finding Surgical Pathology 08/07/2011 Surgical Pathology 73 --- <SEE NOTE> Basic Metabolic 07/26/2011 BUN 28 mg/dL High 6-26 74 Profile Calcium 9.5 mg/dL 8.6-10.2 Chloride 97 mEq/L 94-112 Creatinine 1.0 mg/dL 0.6-1.4 Carbon Dioxide 28 mEq/L 21-32 Glucose 100 mg/dL 70-105 Sodium 135 mEq/L 134-149 Potassium 3.9 mEq/L 3.6-5.5 BUN/Creat Ratio 27.0 Calc 8.0-36.0 CBC With Manual Diff 07/17/2011 White Blood Count 8.0 CUMM 4.8-10.8 Red Cell Count 6.68 CUMM High 4.6-6.2 Hemoglobin 16.6 g/dL 14.0-18.0 Hematocrit 51 % 42-52 Mean Corpuscular Volume 76 um3 Low 80-94 Mean Corpuscular Hemoglob 25 pg Low 27-31 Mean Corpuscular HGB Cone 33 g/dL 32-36 Redcell Distribution WDTH 19 % High 10.5-15 Platelet Count 136 CUMM Low 150-450 Mean Platelet Volume 10.9 um3 High 7.4-10.4 Polysegmented Neutrophil 72 % 38-83 Lymphocyte 21 % Low 25-47 Monocyte 4 % 0-13 Eosinophil 3 % 0-6 Absolute Neutrophil Count 5.7 Microcytosis 1+ Polychromasia SLIGHT Ovalocytes FEW Spherocytes FEW Basic Metabolic Panel 07/17/2011 Sodium 137 mmol/L 135-145 Potassium 4.7 mmol/L 3.5-5.0 Chloride 95 mmol/L Low 101-111 Co2 (Carbon Dioxide) 35.0 mmol/L High 22-32 Anion Gap 7.0 mmol/L 2-11 75 Glucose 100 mg/dL 70-100 BUN 25 mg/dL High 6-24 Creatinine 0.8 mg/dL 0.50-1.40 One Over Creatinine 1.25 BUN/Creatinine Ratio 31.3 High 8-20 Calcium 9.2 mg/dL 8.1-9.9 eGFR Non- 100.7 > 60 eGFR 129.6 > 60 76 Protime 07/17/2011 Inr 1.02 0.82-1.17 77 Protime 12.0 SEC 10.2-14.8 78 Laboratory test finding 07/17/2011 PTT (Aptt) 33.2 25.15-38.53 Laboratory test finding 05/24/2011 Vitamin B1 Whole SEE BELOW Blood H.Pylori Igg (Centrex) 05/24/2011 H Pylori Igg, Abs <0.9 U/mL 0.0-0.8 79 Laboratory test finding 05/24/2011 Vitamin D, 25 Oh 32.6 ng/mL 32.0- 100.0 80 Vitamin B1, Plasma 13.6 ug/L 4.0-20.0 Laboratory test finding 05/24/2011 Hemoglobin A1c (Fma/CMC,CX) 7.5 % High 4.1-5.7 CBC Electronic (Fma) 05/24/2011 WBC 7.0 3.6-9.6 RBC 6.33 High 3.90-5.70 Hemoglobin (Fma/CMC/CTX) 16.3 g/dL 12.1 - 17.2 Hematocrit (Fma/CMC/CTX) 52..3 % High 36.1 - 50.3 Platelets 186 10^3/ul 150-400 Lymph% 17.5 Low 20.5-51.1 Mixed% 6.3 Neutrophils % 76.2 Mean Corpuscular Vol 83 82.2-97.4 Mean Corpuscular Hemoglobin 25.7 Low 27.6-33.3 Mean Corpuscular Hemo Concen 31.1 Low 32.0-36.0 RDW 13.6 11.6-13.7 Mean Platelet Volume 10.1 6.5-11.0 Comprehensive Metabolic Prof 05/24/2011 Albumin 4.3 g/dL 3.8-5.5 Alk. Phos. 93 U/L 22-95 Alt (SGPT) 23 U/L 10-40 Ast (Sgot) 21 U/L 5-34 BUN 13 mg/dL 6-26 Calcium 9.5 mg/dL 8.6-10.2 Chloride 95 mEq/L 94-112 Creatinine 0.8 mg/dL 0.6-1.4 Carbon Dioxide 28 mEq/L 21-32 Glucose 210 mg/dL High 70-105 81 Sodium 137 mEq/L 134-149 Total Bilirubin 0.7 mg/dL 0.2-1.3 Total Protein 7.5 g/dL 6.3-8.1 Potassium 4.4 mEq/L 3.6-5.5 Globulin 3.2 g/dL 2.0-4.8 A/G Ratio 1.3 Calc 0.6-2.2 BUN/Creat Ratio 15.6 Calc 8.0-36.0 Laboratory test finding 05/24/2011 Iron 50 g/dL Low 60-150 82 Ferritin 38 ng/mL 22-415 Folate >22.00 ng/mL High 3.00-16.00 B12 793 pg/mL 230-1050 TSH 1.98 mIU/L 0.50-6.00 CBC With Manual Diff 04/25/2011 White Blood Count 6.5 CUMM 4.8-10.8 Red Cell Count 4.95 CUMM 4.6-6.2 Hemoglobin 13.5 g/dL Low 14.0-18.0 Hematocrit 42 % 42-52 Mean Corpuscular Volume 84 um3 80-94 Mean Corpuscular Hemoglob 27 pg 27-31 Mean Corpuscular HGB Cone 32 g/dL 32-36 Redcell Distribution WDTH 15 % 10.5-15 Platelet Count 129 CUMM Low 150-450 Mean Platelet Volume 10.9 um3 High 7.4-10.4 Polysegmented Neutrophil 69 % 38-83 Lymphocyte 23 % Low 25-47 Monocyte 6 % 0-13 Eosinophil 2 % 0-6 Absolute Neutrophil Count 4.4 RBC Morphology NORMAL Comp Metabolic Panel 04/25/2011 Sodium 139 mmol/L 135-145 Potassium 4.7 mmol/L 3.5-5.0 Chloride 97 mmol/L Low 101-111 Co2 (Carbon Dioxide) 36.0 mmol/L High 22-32 Anion Gap 6.0 mmol/L 2-11 83 Glucose 197 mg/dL High 70-100 BUN 12 mg/dL 6-24 Creatinine 0.80 mg/dL 0.50-1.40 One Over Creatinine 1.20 BUN/Creatinine Ratio 15.0 8-20 Calcium 8.9 mg/dL 8.1-9.9 Total Protein 6.1 GM/DL Low 6.2-8.1 Albumin 3.3 GM/DL Low 3.6-5.4 Globulin 2.8 GM/DL 2-4 Albumin/Globulin Ratio 1.2 1-3 Bilirubin Total 0.4 mg/dL 0.4-1.5 84 Alkaline Phosphatase 93 U/L 39-117 Alt (SGPT) 22 U/L 17-63 Ast (Sgot) 22 U/L 12-42 eGFR Non- 100.7 > 60 eGFR 129.6 > 60 85 Laboratory test finding 04/25/2011 Thyroxine 7.1 g/dL 5-12 T3 Free 2.73 pg/mL 2.39-6.79 TSH 2.49 MIU/ML 0.34-5.60 Estradiol 21 pg/mL 86 Progesterone,17 Hydroxy <40 ng/dL <220 87 Somatomedin C/Ins Growth Fact 60 ng/mL 84-233 88 PSA Free And Total 04/25/2011 Total PSA 0.40 ng/mL <=3.5 Free PSA <0.1 ng/mL () Free PSA/PSA Ratio . () 89 Testosterone Free & Total 04/25/2011 Free Testosterone 2.2 ng/dL 9- 30 90 Total Testosterone 81 ng/dL 240-950 91 Comprehensive Metabolic Prof 04/02/2011 Albumin 3.9 g/dL 3.8-5.5 Alk. Phos. 127 U/L High 22-95 92 Alt (SGPT) 21 U/L 10-40 Ast (Sgot) 15 U/L 5-34 BUN 18 mg/dL 6-26 Calcium 9.3 mg/dL 8.6-10.2 Chloride 94 mEq/L 94-112 Creatinine 0.8 mg/dL 0.6-1.4 Carbon Dioxide 30 mEq/L 21-32 Glucose 204 mg/dL High 70-105 93 Sodium 139 mEq/L 134-149 Total Bilirubin 0.3 mg/dL 0.2-1.3 Total Protein 7.3 g/dL 6.3-8.1 Potassium 4.1 mEq/L 3.6-5.5 Globulin 3.4 g/dL 2.0-4.8 A/G Ratio 1.1 Calc 0.6-2.2 BUN/Creat Ratio 21.5 Calc 8.0-36.0 Laboratory test 04/02/2011 Magnesium 1.8 mEq/L 1.2-2.1 finding Laboratory test 04/02/2011 Hemoglobin A1c 8.8 % High 4.1-5.7 finding (Fma/CMC,CX) Surgical Pathology 01/18/2011 Surgical Pathology 94 <SEE NOTE> Laboratory test 01/18/2011 Clotest NEGATIVE finding Creatinine Clearance 01/05/2011 Creatinine Random 54.26 mg/dL Urine Creat Clearance 126 mL/min High 80-125 Hours Of Collection 24 HR 24- Urine Volume Measurement 2350 ML Laboratory test 01/05/2011 Serum Creatinine/Creat 0.7 mg/dL 0.5-1.4 finding CL Laboratory test 12/07/2010 Hemoglobin A1c 10.2 % High Less Than 6.0 33, 95 finding Liver Function 12/07/2010 Bilirubin Direct 0.1 mg/dL 0.1-0.5 33 Panel Indirect Bilirubin 0.7 mg/dL 0.3-1.0 33, 96 Lipid Profile (Trig/Chol/HDL) 12/07/2010 Triglyceride 56 mg/dL 40-200 33 Cholesterol 153 mg/dL Less Than 200 33, 97 High Density Lipoprotein 52 mg/dL 40-60 33, 98 Cholesterol/HDL Ratio 2.94 AVERAGE 1-4.97 33 Low Density Lipoprotein 90 mg/dL Less Than 100 33, 99 Comp Metabolic Panel 12/07/2010 Sodium 137 mmol/L 135-145 33 Potassium 4.3 mmol/L 3.5-5.0 33 Chloride 99 mmol/L Low 101-111 33 Co2 (Carbon Dioxide) 32.0 mmol/L 22-32 33 Anion Gap 6.0 mmol/L 2-11 33, 100 Glucose 127 mg/dL High 70-100 33 BUN 11 mg/dL 6-24 33 Creatinine 0.70 mg/dL 0.50-1.40 33 One Over Creatinine 1.40 33 BUN/Creatinine Ratio 15.7 8-20 33 Calcium 9.1 mg/dL 8.1-9.9 33 Total Protein 7.0 GM/DL 6.2-8.1 33 Albumin 3.5 GM/DL Low 3.6-5.4 33 Globulin 3.5 GM/DL 2-4 33 Albumin/Globulin Ratio 1.0 1-3 33 Bilirubin Total 0.8 mg/dL 0.4-1.5 33, 101 Alkaline Phosphatase 129 U/L High 39-117 33 Alt (SGPT) 29 U/L 17-63 33 Ast (Sgot) 21 U/L 12-42 33 eGFR Non- 118.0 > 60 33 eGFR 151.7 > 60 33, 102 Ua - Non Micro (Fma) 11/23/2010 Appearance CLEAR Color YELLOW Glucose, Urine (Fma/CMC/CTX) NEG Bilirubin NEG Ketones NEG SP Grav 1.015 Blood NEG PH 5.0 Protein NEG Urobil 0.2 Nitrite NEG Leukocytes (Fma/CMC/Centrex) NEG 1 Serum levels of PSA measured using the [employer] DXI Hybritech immunoassay should not be interpreted as absolute evidence of the presence or absence of disease. The PSA value should be used in conjunction with other pertinent clinical diagnostic procedures. A PSA value in the range of 0.1 to 0.6 ng/ml is indeterminate if being used as an indicator of recurrent or residual disease. The values obtained with different assay methods or kits cannot be used interchangeably. 2 Because ethnic data is not always readily available, this report includes an eGFR for both -Americans and non- Americans. The National Kidney Disease Education Program (NKDEP) does not endorse the use of the MDRD equation for patients that are not between the ages of 18 and 70, are , have extremes of body size, muscle mass, or nutritional status, or are non- or non-. According to the National Kidney Foundation, irrespective of diagnosis, the stage of the disease is based on the level of kidney function: Stage Description GFR(mL/min/1.73 m(2)) 1 Kidney damage with normal or decreased GFR 90 2 Kidney damage with mild decrease in GFR 60-89 3 Moderate decrease in GFR 30-59 4 Severe decrease in GFR 15-29 5 Kidney failure <15 (or dialysis) 3 Desirable <150 Borderline high 150-199 High 200-499 Very High >500 4 Desirable <200 Borderline high 200-239 High >239 5 Low <40 Desirable: 40-60 High: >60 6 Desirable: <100 mg/dL Near Optimal: 100-129 mg/dL Borderline High: 130-159 mg/dL High: 160-189 mg/dL Very High: >189 mg/dL 7 Therapeutic target for the treatment of diabetes Mellitus patients is <7% HBA1C, and in selective patients <6.0%.Please refer to [place] [employer] Diabetic care guidelines for further information. 8 Because ethnic data is not always readily available, this report includes an eGFR for both -Americans and non- Americans. The National Kidney Disease Education Program (NKDEP) does not endorse the use of the MDRD equation for patients that are not between the ages of 18 and 70, are , have extremes of body size, muscle mass, or nutritional status, or are non- or non-. According to the National Kidney Foundation, irrespective of diagnosis, the stage of the disease is based on the level of kidney function: Stage Description GFR(mL/min/1.73 m(2)) 1 Kidney damage with normal or decreased GFR 90 2 Kidney damage with mild decrease in GFR 60-89 3 Moderate decrease in GFR 30-59 4 Severe decrease in GFR 15-29 5 Kidney failure <15 (or dialysis) 9 Serum levels of PSA measured using the [employer] DXI A-STARbritech immunoassay should not be interpreted as absolute evidence of the presence or absence of disease. The PSA value should be used in conjunction with other pertinent clinical diagnostic procedures. A PSA value in the range of 0.1 to 0.6 ng/ml is indeterminate if being used as an indicator of recurrent or residual disease. The values obtained with different assay methods or kits cannot be used interchangeably. 10 RESULTS VERIFIED BY REPEAT ANALYSIS 11 RESULTS VERIFIED BY REPEAT ANALYSIS 12 consistent w/ previous results 13 Director Voice: [id number] GREENE 14 consistent w/ previous results 15 consistent w/ previous results 16 consistent w/ previous results 17 RESULTS VERIFIED BY REPEAT ANALYSIS 18 RESULTS VERIFIED BY REPEAT ANALYSIS 19 PROTECT FROM LIGHT 20 Please note reference interval change 21 Because ethnic data is not always readily available, this report includes an eGFR for both -Americans and non- Americans. The National Kidney Disease Education Program (NKDEP) does not endorse the use of the MDRD equation for patients that are not between the ages of 18 and 70, are , have extremes of body size, muscle mass, or nutritional status, or are non- or non-. According to the National Kidney Foundation, irrespective of diagnosis, the stage of the disease is based on the level of kidney function: Stage Description GFR(mL/min/1.73 m(2)) 1 Kidney damage with normal or decreased GFR 90 2 Kidney damage with mild decrease in GFR 60-89 3 Moderate decrease in GFR 30-59 4 Severe decrease in GFR 15-29 5 Kidney failure <15 (or dialysis) 22 Director Voice: [id number] ROGERS 23 Please note: The following may produce a false positive D Dimer test: - Rheumatoid factor greater than 60 IU/ml - Plasma hemoglobin greater than 0.05 gm/dl - Bilirubin greater than 50 mg/dl - Lipids greater than 1000 mg/dl - FDP greater than 20 ug/ml 24 Because ethnic data is not always readily available, this report includes an eGFR for both -Americans and non- Americans. The National Kidney Disease Education Program (NKDEP) does not endorse the use of the MDRD equation for patients that are not between the ages of 18 and 70, are , have extremes of body size, muscle mass, or nutritional status, or are non- or non-. According to the National Kidney Foundation, irrespective of diagnosis, the stage of the disease is based on the level of kidney function: Stage Description GFR(mL/min/1.73 m(2)) 1 Kidney damage with normal or decreased GFR 90 2 Kidney damage with mild decrease in GFR 60-89 3 Moderate decrease in GFR 30-59 4 Severe decrease in GFR 15-29 5 Kidney failure <15 (or dialysis) 25 Acute inflammation: >10.00 26 Reference Range and Interpretation: TnI (ng/mL) Interpretation Less Than 0.03 ng/mL Not supportive of diagnosis of [place] 0.03 - 0.50 ng/mL Indeterminate: suggest serial studies if clinically indicated. Greater than 0.5 ng/mL Consistent with diagnosis of [place] 27 Because ethnic data is not always readily available, this report includes an eGFR for both -Americans and non- Americans. The National Kidney Disease Education Program (NKDEP) does not endorse the use of the MDRD equation for patients that are not between the ages of 18 and 70, are , have extremes of body size, muscle mass, or nutritional status, or are non- or non-. According to the National Kidney Foundation, irrespective of diagnosis, the stage of the disease is based on the level of kidney function: Stage Description GFR(mL/min/1.73 m(2)) 1 Kidney damage with normal or decreased GFR 90 2 Kidney damage with mild decrease in GFR 60-89 3 Moderate decrease in GFR 30-59 4 Severe decrease in GFR 15-29 5 Kidney failure <15 (or dialysis) 28 Serum levels of PSA measured using the [employer] DXI Hybritech immunoassay should not be interpreted as absolute evidence of the presence or absence of disease. The PSA value should be used in conjunction with other pertinent clinical diagnostic procedures. A PSA value in the range of 0.1 to 0.6 ng/ml is indeterminate if being used as an indicator of recurrent or residual disease. The values obtained with different assay methods or kits cannot be used interchangeably. 29 FASTING; 1 POUR OFF PLASMA FROM BT -- FROZEN 30 . 31 INTERNATIONAL NORMALIZED RATIO(INR) INDICATIONS INR RANGE PATIENTS NOT ON ANTICOAGULANT THERAPY * DEEP VENOUS THROMBOSIS 2.0-3.0 PULMONARY EMBOLISM 2.0-3.0 ATRIAL FIBRILLATION 2.0-3.0 PROPHYLAXIS: 2.0-3.0 HIGH-RISK SURGERY TISSUE HEART VALVES ATRIAL FIBRILLATION ACUTE MYOCARDIAL INFARCTION VALVULAR HEART DISEASE MECHANICAL PROSTHETIC VALVE 2.5-3.5 * USE OF INR VALUES SHOULD BE LIMITED TO PATIENTS WHO ARE ON STABLE ORAL ANTICOAGULANT THERAPY. AN INR ABOVE 5.0-5.5 APPEARS TO BE ASSOCIATED WITH AN UNACCEPTABLY HIGH RISK OF BLEEDING. 32 RESULTS VERIFIED BY REPEAT ANALYSIS 33 FASTING 34 Because ethnic data is not always readily available, this report includes an eGFR for both -Americans and non- Americans. The National Kidney Disease Education Program (NKDEP) does not endorse the use of the MDRD equation for patients that are not between the ages of 18 and 70, are , have extremes of body size, muscle mass, or nutritional status, or are non- or non-. According to the National Kidney Foundation, irrespective of diagnosis, the stage of the disease is based on the level of kidney function: Stage Description GFR(mL/min/1.73 m(2)) 1 Kidney damage with normal or decreased GFR 90 2 Kidney damage with mild decrease in GFR 60-89 3 Moderate decrease in GFR 30-59 4 Severe decrease in GFR 15-29 5 Kidney failure <15 (or dialysis) 35 Normal Range 180 to 914 Indeterminate Range 145 to 180 Deficient Range <145 36 FASTING 37 FASTING 38 FASTING 39 Acute inflammation: >10.00 40 REFERENCE VALUE <1.0 (Negative) Test Performed by: [place] [address] Information Delivery Analyst: Twin Neri M.D. 41 REFERENCE VALUE <1.0 (Negative) Test Performed by: [place] [address] Information Delivery Analyst: Twin Neri M.D. 42 RESULT: Polyclonal hypergammaglobulinemia Test Performed by: [place] [address] Information Delivery Analyst: Twin Neri M.D. 43 Because ethnic data is not always readily available, this report includes an eGFR for both -Americans and non- Americans. The National Kidney Disease Education Program (NKDEP) does not endorse the use of the MDRD equation for patients that are not between the ages of 18 and 70, are , have extremes of body size, muscle mass, or nutritional status, or are non- or non-. According to the National Kidney Foundation, irrespective of diagnosis, the stage of the disease is based on the level of kidney function: Stage Description GFR(mL/min/1.73 m(2)) 1 Kidney damage with normal or decreased GFR 90 2 Kidney damage with mild decrease in GFR 60-89 3 Moderate decrease in GFR 30-59 4 Severe decrease in GFR 15-29 5 Kidney failure <15 (or dialysis) 44 Because ethnic data is not always readily available, this report includes an eGFR for both -Americans and non- Americans. The National Kidney Disease Education Program (NKDEP) does not endorse the use of the MDRD equation for patients that are not between the ages of 18 and 70, are , have extremes of body size, muscle mass, or nutritional status, or are non- or non-. According to the National Kidney Foundation, irrespective of diagnosis, the stage of the disease is based on the level of kidney function: Stage Description GFR(mL/min/1.73 m(2)) 1 Kidney damage with normal or decreased GFR 90 2 Kidney damage with mild decrease in GFR 60-89 3 Moderate decrease in GFR 30-59 4 Severe decrease in GFR 15-29 5 Kidney failure <15 (or dialysis) 45 Please note: The following may produce a false positive D Dimer test: - Rheumatoid factor greater than 60 IU/ml - Plasma hemoglobin greater than 0.05 gm/dl - Bilirubin greater than 50 mg/dl - Lipids greater than 1000 mg/dl - FDP greater than 20 ug/ml 46 Platelets clumped. Unable to perform accurate count. 47 Platelets clumped. Unable to perform accurate count. 48 RESULTS VERIFIED BY REPEAT ANALYSIS 49 MARTINE'D 50 Serum levels of PSA measured using the [employer] DXI Hybritech immunoassay should not be interpreted as absolute evidence of the presence or absence of disease. The PSA value should be used in conjunction with other pertinent clinical diagnostic procedures. A PSA value in the range of 0.1 to 0.6 ng/ml is indeterminate if being used as an indicator of recurrent or residual disease. The values obtained with different assay methods or kits cannot be used interchangeably. 51 Because ethnic data is not always readily available, this report includes an eGFR for both -Americans and non- Americans. The National Kidney Disease Education Program (NKDEP) does not endorse the use of the MDRD equation for patients that are not between the ages of 18 and 70, are , have extremes of body size, muscle mass, or nutritional status, or are non- or non-. According to the National Kidney Foundation, irrespective of diagnosis, the stage of the disease is based on the level of kidney function: Stage Description GFR(mL/min/1.73 m(2)) 1 Kidney damage with normal or decreased GFR 90 2 Kidney damage with mild decrease in GFR 60-89 3 Moderate decrease in GFR 30-59 4 Severe decrease in GFR 15-29 5 Kidney failure <15 (or dialysis) 52 CKMB interpretation should be made in conjunction with clinical symptoms, patient history and EKG changes. 53 Reference Range and Interpretation: TnI (ng/mL) Interpretation Less Than 0.06 ng/mL Not supportive of diagnosis of [place] 0.06 - 0.50 ng/mL Indeterminate: suggest serial studies if clinically indicated. Greater than 0.5 ng/mL Consistent with diagnosis of [place] 54 RESULT MARTINE'D 55 RESULT MARTINE'D 56 RESULT MARTINE'D 57 No significant growth. 58 RECHECKED 59 result martine'd 60 result martine'd 61 result martine'd 62 CONSISTENT WITH PREVIOUS RESULTS 63 Anion gap measurement may be of limited value in the presence of any alkalosis, especially in a combined acid base disorder. . 64 A metabolite of Naproxen, O-desmethylnaproxen, has been shown to interfere with the Jendrassik-Addy method for measuring total bilirubin. Samples from patients who have taken Naproxen have shown spurious elevation in total bilirubin levels. 65 Because ethnic data is not always readily available, this report includes an eGFR for both -Americans and non- Americans. The National Kidney Disease Education Program (NKDEP) does not endorse the use of the MDRD equation for patients that are not between the ages of 18 and 70, are , have extremes of body size, muscle mass, or nutritional status, or are non- or non-. According to the National Kidney Foundation, irrespective of diagnosis, the stage of the disease is based on the level of kidney function: Stage Description GFR(mL/min/1.73 m(2)) 1 Kidney damage with normal or decreased GFR 90 2 Kidney damage with mild decrease in GFR 60-89 3 Moderate decrease in GFR 30-59 4 Severe decrease in GFR 15-29 5 Kidney failure <15 (or dialysis) 66 INTERPRETATION %CK-MB < 5% NOT SUPPORTIVE OF DIAGNOSIS OF [place] 5 - <10% INDETERMINATE; SUGGEST SERIAL STUDIES IF CLINICALLY INDICATED 10% OR > CONSISTENT WITH DIAGNOSIS OF [place] . 67 New Reference Range and Interpretation effective 07/10/2002 TnI (ng/ml) INTERPRETATION Less Than 0.06 ng/mL NOT SUPPORTIVE OF DIAGNOSIS OF [place] 0.06 - 0.50 ng/ml INDETERMINATE: SUGGEST SERIAL STUDIES IF CLINICALLY INDICATED. Greater than 0.5 ng/mL CONSISTENT WITH DIAGNOSIS OF [place] . [address] PHELAN BY ASHLIE at 0149 on 10/12/11. Results read back accurately. Please note: The following may produce a false positive D Dimer test: - Rheumatoid factor greater than 1400 IU/ml - Plasma hemoglobin greater than 0.5 gm/dl - Bilirubin greater than 18 mg/dl - Triglycerides greater than 1327 mg/dl - FDP greater than 10 ug/ml . 69 Anion gap measurement may be of limited value in the presence of any alkalosis, especially in a combined acid base disorder. . 70 A metabolite of Naproxen, O-desmethylnaproxen, has been shown to interfere with the [place] method for measuring total bilirubin. Samples from patients who have taken Naproxen have shown spurious elevation in total bilirubin levels. 71 Because ethnic data is not always readily available, this report includes an eGFR for both -Americans and non- Americans. The National Kidney Disease Education Program (NKDEP) does not endorse the use of the MDRD equation for patients that are not between the ages of 18 and 70, are , have extremes of body size, muscle mass, or nutritional status, or are non- or non-. According to the National Kidney Foundation, irrespective of diagnosis, the stage of the disease is based on the level of kidney function: Stage Description GFR(mL/min/1.73 m(2)) 1 Kidney damage with normal or decreased GFR 90 2 Kidney damage with mild decrease in GFR 60-89 3 Moderate decrease in GFR 30-59 4 Severe decrease in GFR 15-29 5 Kidney failure <15 (or dialysis) 72 THERAPEUTIC TARGET FOR THE TREATMENT OF DIABETES MELLITUS PATIENTS IS <7% HBA1C, AND IN SELECTIVE PATIENTS <6.0%. PLEASE REFER TO [place] [employer] DIABETIC CARE GUIDELINES FOR FURTHER INFORMATION. 73 ---- RUN DATE: 08/09/11 [facility] NMI LIVE PAGE 1 RUN TIME: 1251 Specimen Inquiry RUN USER: INTERFACE -- Name: STEFAN WOODSON Status: REG REF Re08/07/11 Age/Sex: 56/M Unit#: [id number] Location: [place]. : [birth year] -- Specimen: [id number] SOUT Spec Date: 08/07/[address]: Chris luna MD Spec Type: SURGICAL P Received: 08/08/11 Copies to: Maranda mares MD SPECIMEN RIGHT FOREARM LESION HISTORY CLINICAL INFORMATION: Present many years GROSS DESCRIPTION The specimen is received in formalin labelled Stefan Woodson, Right Forearm Lesion, and consists of a skin ellipse with subcutaneous tissues measuring 1.4 x 1.0 x 0.8 cm. The specimen is inked, serially sectioned along it's short axis. Submitted entirely, one cassette. DIAGNOSIS Skin, right forearm, excision: A. Basal cell carcinoma, nodular type. B. Deep, tip and lateral margins of resection are clear. Signed Electronically by: PERFECTO CAT MD 08/09/11 1247 -- -- DEPARTMENT OF PATHOLOGY, [address] [place] [address] [facility] Permit #[id number] Perfecto Cat M.D. Director Seema Hartley M.D. International Editorial Producer Dir tung -- 74 RESULT MARTINE'Rai 75 Anion gap measurement may be of limited value in the presence of any alkalosis, especially in a combined acid base disorder. . 76 Because ethnic data is not always readily available, this report includes an eGFR for both -Americans and non- Americans. The National Kidney Disease Education Program (NKDEP) does not endorse the use of the MDRD equation for patients that are not between the ages of 18 and 70, are , have extremes of body size, muscle mass, or nutritional status, or are non- or non-. According to the National Kidney Foundation, irrespective of diagnosis, the stage of the disease is based on the level of kidney function: Stage Description GFR(mL/min/1.73 m(2)) 1 Kidney damage with normal or decreased GFR 90 2 Kidney damage with mild decrease in GFR 60-89 3 Moderate decrease in GFR 30-59 4 Severe decrease in GFR 15-29 5 Kidney failure <15 (or dialysis) 77 Recommended INR for Patients on Oral Anticoagulants Prophylaxis 2.0 - 3.0 Treatment of thrombosis 2.0 - 3.0 Prevention of embolism 2.0 - 3.0 Prevention of embolism from prosthetic heart valves 2.5 - 3.5 78 DIAGNOSIS,TREATMENT,AND THERAPY MUST BE BASED ON THE INR VALUE ALONE. 79 Negative <0.9 Indeterminate 0.9 - 1.0 Positive >1.0 80 Recent studies consider the lower limit of 32.0 ng/mL to be a threshold for optimal health. Des [employer]. J Nutr. 2005 Nov;135(2):317-22. 81 RESULT MARTINE'D 82 RESULT MARTINE'D 83 Anion gap measurement may be of limited value in the presence of any alkalosis, especially in a combined acid base disorder. . 84 A metabolite of Naproxen, O-desmethylnaproxen, has been shown to interfere with the [place] method for measuring total bilirubin. Samples from patients who have taken Naproxen have shown spurious elevation in total bilirubin levels. 85 Because ethnic data is not always readily available, this report includes an eGFR for both -Americans and non- Americans. The National Kidney Disease Education Program (NKDEP) does not endorse the use of the MDRD equation for patients that are not between the ages of 18 and 70, are , have extremes of body size, muscle mass, or nutritional status, or are non- or non-. According to the National Kidney Foundation, irrespective of diagnosis, the stage of the disease is based on the level of kidney function: Stage Description GFR(mL/min/1.73 m(2)) 1 Kidney damage with normal or decreased GFR 90 2 Kidney damage with mild decrease in GFR 60-89 3 Moderate decrease in GFR 30-59 4 Severe decrease in GFR 15-29 5 Kidney failure <15 (or dialysis) 86 EXPECTED RESULTS (pg/ml) MALES 20-75 POSTMENOPAUSAL FEMALES 20-88 NON FEMALES Mid-Follicular Phase 24-114 Periovulatory 62-534 Mid Luteal Phase 80-273 87 Test Performed by: [facility] Dpt of Lab Med and Pathology [address] [place] [address] Information Delivery Analyst: Gerardo Montana III, M.D. 88 Test Performed by: [facility] Dpt of Lab Med and Pathology [address] [place] [address] Information Delivery Analyst: Gerardo Montana III, M.D. 89 Ratio was not calculated because free PSA is less than 0.1 ng/mL. Ratio not calculated because clinical usefulness is not defined except in the range of total PSA 4.0-10.0 ng/mL. The testing method is an electrochemiluminescence assay manufactured by [employer] and performed on the Modular or Quoteroller system. Values obtained with different assay methods or kits may be different and cannot be used interchangeably. Test results cannot be interpreted as absolute evidence for the presence or absence of malignant disease. Test Performed by: [facility] Dpt of Lab Med and Pathology [address] [place] [address] Information Delivery Analyst: Gerardo Montana III, M.D. 90 Test Performed by: [facility] Dpt of Lab Med and Pathology [address] [place] [address] Information Delivery Analyst: Gerardo Montana III, M.D. 91 Test Performed by: [facility] Dpt of Lab Med and Pathology [address] [place] [address] Information Delivery Analyst: Gerardo Montana III, M.D. 92 RESULT MARTINE'D 93 RESULT MARTINE'D 94 ---- RUN DATE: 01/19/11 [facility] NMI LIVE PAGE 1 RUN TIME: 1310 Specimen Inquiry RUN USER: INTERFACE -- Name: STEFAN WOODSON Status: REG REF Re01/18/11 Age/Sex: 56/M Unit#: [id number] Location: END : 59 -- Specimen: [id number] SOUT Spec Date: 01/18/[address]: Alexis ware MD Spec Type: SURGICAL P Received: 01/18/11-1243 Copies to: Ammon mares MD SPECIMEN BIOPSY RECTAL POLYP HISTORY POST-OP DIAGNOSIS: Esophagus - at 39 cm. grade A eosinophilic esophagitis ; stomach - gastritis, biopsied x2; duodenum - normal; Colon - to cecum, rectal poly p CLINICAL INFORMATION: Obesity; family history of colon cancer GROSS DESCRIPTION The specimen is received in formalin labelled Stefan Woodson, Biopsy Rectal Polyp, and consists of one fragment of brown tissue measuring 0.3 x 0.3 x 0.2 cm. Submitted entirely, one cassette. DIAGNOSIS Rectum, polyp, biopsy: Hyperplastic polyp. Signed Electronically by: SEEMA HARTLEY 01/19/11 0490 -- -- DEPARTMENT OF PATHOLOGY, [address] [place] [address] [facility] Permit #[id number] Perfecto Cat M.D. Director Seema Hartley M.D. International Editorial Producer Dir tung -- 95 THERAPEUTIC TARGET FOR THE TREATMENT OF DIABETES MELLITUS PATIENTS IS <7% HBA1C, AND IN SELECTIVE PATIENTS <6.0%. PLEASE REFER TO [employer] DIABETIC CARE GUIDELINES FOR FURTHER INFORMATION. 96 Please note updated reference range, effective 04/27/10 97 CHOLESTEROL INTERPRETATION: Desirable: Less than 200 MG/DL Borderline-High Risk: 200-239 MG/DL High-Risk: 240 MG/DL and over 98 HDL INTERPRETATION: Undesirable: High Risk: Less than 40 MG/DL Desirable: Low Risk: Greater than 60 MG/DL 99 LDL INTERPRETATION: Low Risk Optimal Level: LDL Less than 100 MG/DL Near or Above Optimal: LDL 100-129 MG/DL Borderline High Risk: LDL 130-159 MG/DL High Risk: LDL 160-189 MG/DL Very High Risk: LDL Greater than 189 MG/DL 100 Anion gap measurement may be of limited value in the presence of any alkalosis, especially in a combined acid base disorder. . 101 A metabolite of Naproxen, O-desmethylnaproxen, has been shown to interfere with the Jenskye-Addy method for measuring total bilirubin. Samples from patients who have taken Naproxen have shown spurious elevation in total bilirubin levels. 102 Because ethnic data is not always readily available, this report includes an eGFR for both -Americans and non- Americans. The National Kidney Disease Education Program (NKDEP) does not endorse the use of the MDRD equation for patients that are not between the ages of 18 and 70, are , have extremes of body size, muscle mass, or nutritional status, or are non- or non-. According to the National Kidney Foundation, irrespective of diagnosis, the stage of the disease is based on the level of kidney function: Stage Description GFR(mL/min/1.73 m(2)) 1 Kidney damage with normal or decreased GFR 90 2 Kidney damage with mild decrease in GFR 60-89 3 Moderate decrease in GFR 30-59 4 Severe decrease in GFR 15-29 5 Kidney failure <15 (or dialysis) Procedures Date CPT Code Description Status Comment 06/18/2017 12468 Electrocardiogram Complete Completed 03/22/2016 Colonoscopy Completed Normal. Hyperplastic polyp in 2010. father had colon cancer x2. repeat in 5years. 03/12/2016 Colonoscopy Completed 01/23/2016 Colonoscopy Completed 03/07/2015 Diabetic Retinal Eye Exam Completed no diabetic retinopathy. 02/14/2015 18230 Electrocardiogram Complete Completed 09/16/2014 93635 Finger Or Heel Stick Completed 04/23/2014 44321 Finger Or Heel Stick Completed 12/14/2013 15825 Finger Or Heel Stick Completed 06/29/2011 22808 Pulse Oximetry Completed 01/18/2011 Colonoscopy Completed Encounters Type Date Location Provider CPT E/M Dx Office Visit 06/18/2017 3:40p [facility] John Paul Brower M.D. 99171 E11.40 I10 M54.5 S82.112A Z01.818 Office Visit 04/25/2017 3:20p [facility] Maranda Lorenzana M.D. 26368 E11.40 I10 K59.09 F43.21 Office Visit 02/28/2017 1:40p [facility] Maranda Lorenzana M.D. 75063 R10.84 M54.5 E11.40 E55.9 Office Visit 11/08/2016 10:40a [facility] Maranda Lorenzana M.D. 31548 M54.5 M54.16 Office Visit 06/12/2016 3:40p [facility] Maranda Lorenzana M.D. 90010 E11.40 F43.21 Office Visit 05/08/2016 3:00p [facility] Maranda Lorenzana M.D. 21526 E11.40 I10 M53.3 Z98.84 Office Visit 01/31/2016 2:00p [facility] Maranda Lorenzana M.D. 09574 Z00.01 M48.07 I10 E11.40 I73.89 M53.3 E55.9 Z98.84 Office Visit 01/05/2016 2:40p [facility] Maranda Lorenzana M.D. 95489 M48.07 I10 E11.40 Z85.038 M53.3 Office Visit 10/31/2015 1:15p [facility] Jaye Pathak [facility] 51605 Z98.84 R63.4 M48.07 Office Visit 08/09/2015 4:00p [facility] Maranda Lorenzana M.D. 13372 K62.89 Office Visit 05/03/2015 2:50p [facility] Maranda Lorenzana M.D. 27494 786.05 564.09 724.02 Office Visit 02/14/2015 7:50p [facility] Maranda Lorenzana M.D. 76435 780.4 V72.83 788.64 Office Visit 11/02/2014 1:40p [facility] Maranda Lorenzana M.D. 79681 401.1 250.60 338.4 357.2 Office Visit 09/16/2014 3:20p [facility] Maranda Lorenzana M.D. 95934 250.60 338.4 357.2 401.1 724.02 Office Visit 07/16/2014 3:00p [facility] Maranda Lorenzana M.D. 18763 574.21 250.60 401.1 E885.9 724.02 Office Visit 05/29/2014 10:45a [facility] Office Bradley Wang 98705 401.1 250.00 Office Visit 04/23/2014 3:40p [facility] Maranda Lorenzana M.D. 48096 724.02 250.60 V45.86 357.2 Office Visit 03/11/2014 3:20p [facility] Maranda Lorenzana M.D. 56301 338.4 250.60 724.2 724.02 Office Visit 12/14/2013 6:00p [facility] Maranda Lorenzana M.D. 17627 354.2 250.00 338.4 428.0 Office Visit 11/10/2013 2:40p [facility] Maranda Lorenzana M.D. 37273 724.2 E885.9 Office Visit 09/18/2013 11:10a [facility] Maranda Lorenzana M.D. 19977 E880.9 780.79 257.2 250.00 Office Visit 09/01/2013 3:40p [facility] Maranda Lorenzana M.D. 32457 354.2 250.00 401.1 327.23 257.2 V04.81 V72.83 V72.84 Office Visit 05/25/2013 8:30p [facility] Maranda Lorenzana M.D. 39655 278.00 401.1 250.00 729.2 Office Visit 04/06/2013 7:30p [facility] Maranda Lorenzana M.D. 50594 719.44 250.00 278.00 788.1 Office Visit 08/15/2012 9:00a [facility] Maranda Lorenzana M.D. 12310 788.1 250.00 401.1 428.0 309.0 V03.82 Office Visit 05/29/2012 3:30p [facility] Chana Medley Afnp-C 80164 719.45 250.00 368.10 Office Visit 09/10/2011 7:30p [facility] Maranda Lorenzana M.D. 73707 728.85 719.99 Office Visit 08/03/2011 10:20a [facility] Maranda Lorenzana M.D. 41595 250.00 726.19 782.9 525.9 278.00 Office Visit 07/12/2011 11:00a [facility] Maranda Lorenzana M.D. 44442 278.00 428.0 327.23 401.1 Office Visit 06/29/2011 11:00a [facility] Maranda Lorenzana M.D. 11812 428.0 Office Visit 05/24/2011 1:30p [facility] Maranda Lorenzana M.D. 69889 278.00 250.00 428.0 783.1 300.5 530.81 327.23 Office Visit 05/01/2011 10:30a [facility] Maranda Lorenzana M.D. 70335 278.00 250.00 729.2 368.8 Office Visit 04/02/2011 5:30p [facility] Maranda Lorenzana M.D. 97711 278.00 250.00 782.3 728.85 Office Visit 01/25/2011 2:10p [facility] Maranda Lorenzana M.D. 52321 278.00 250.00 729.2 428.0 Office Visit 12/12/2010 1:00p [facility] Maranda Lorenzana M.D. 39979 729.2 278.00 250.00 Office Visit 11/23/2010 2:10p [facility] Maranda Lorenzana M.D. 76360 V70.0 250.00 401.1 357.2 278.00 Plan of Care Future Appointment(s):01/15/2018 3:20 pm - Maranda Lorenzana M.D. at [id number]/18/2017 - Maranda Lorenzana M.D.E11.40 Type 2 diabetes mellitus with diabetic neuropathy, unspComments:well controlled. Hemoglobin A1c=65.Refer to Dr. Nagel for dilated eye exam.I10 Essential (primary) hypertensionComments: return in 6 weeks to discuss blood pressure control. take your blood 3-4 times a week, write it down and bring it in. goal is numbers less than 140/90.M48.061 Spinal stenosis, lumbar region without neurogenic claudComments:chronic pain. Will be figuring out pain medicine in the future.I25.10 Athscl heart disease of [place] coronary artery w/o ang pctrsComments:Stable. Continue present meds. continue to follow up with Dr. Troy.AllComments:~B_~U_Medication Management~b_~ u_ Patient Understands medications he's taking? Yes No Are there Barriers to Adherence? Yes No Has the patient been asked about herbal supplements and therapies, and OTC meds? Yes No
--- OUTSIDE RECORDS SUMMARY | 2018-01-06 19:11 | XMS REPORT ---
:1955 External Reference #:[id number] Author Organization [facility] Address [address] [address] Phone [phone] Care Team Providers Name Role Phone Maranda Lorenzana MD Primary Care Physician Unavailable Payers Type Date Identification Numbers Payment Provider Subscriber Commercial Effective: Policy Number: [id number] [employer] Stefan Woodson 2010 Medicaid PayID: [id number] [place] [id number] Problems Date Description Provider Status Onset: 06/27/2011 Preoperative cardiovascular Taylor Santana D.O. Active examination Onset: 07/09/2011 Congestive heart failure Taylor Santana D.O. Active Onset: 11/19/2011 Chronic diastolic heart failure Taylor Santana D.O. Active Onset: 01/29/2014 Benign essential hypertension Bienvenido Troy M.D. Active Onset: 01/29/2014 Morbid obesity Bienvenido Troy M.D. Active Onset: 02/24/2015 Unsteady gait Trini Payne M.D. Active Onset: 02/24/2015 Polyneuropathy Trini Payne M.D. Active Onset: 02/24/2015 Dizziness Trini Payne M.D. Active Onset: 02/16/2016 Seizure Trini Payne M.D. Active Onset: 05/10/2016 Essential hypertension Bienvenido Troy M.D. Active Onset: 12/03/2016 Spinal stenosis of lumbar region Jose A Jeong M.D. Active Family History Date Family Member(s) Problem(s) Comments General Stroke : (age 81 Father due to Unknown Years) Causes Father Diabetes, Insulin Dependent : (age 62 Mother due to Unknown Years) Causes Mother Diabetes, Insulin Dependent Children 5 Children 3 with one lady, 2 with States he believes all another children are healthy. 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[place] [address] Patient drives ETOH Use Denies alcohol use Smoking Patient has never smoked Recreational Drug Use Denies Drug Use Daily Caffeine Iced Tea Snapple "every day all day" Enjoy Exercising Enjoys exercising Exercise Type/Frequency Walks 2 times a week Allergies, Adverse Reactions, Alerts Date Description Reaction Status Severity Comments 08/31/2014 NKDA active Medications Medication Date Status Form Strength Qnty SIG Indications Ordering Provider Bumetanide Active Tablets 2mg 2 tabs po Unknown /0000 qam and 1 po q afternoon prn Singulair Active Tablets 10mg 30tab 1 po qd Unknown /0000 s Xanax Active Tablets 2mg 60tab 1 po qhs Unknown /0000 s Trental Active Tablets ER 400mg 90tab take 1 Unknown /0000 s tablet by mouth bid with meals Clonidine HCL Active Tablets 0.1mg 60tab 1 po bid Unknown /0000 s Diovan Active Tablets 160mg 1 po bid Unknown /0000 Multiple Active Tablets 1 by mouth Unknown Vitamins /0000 every day Potassium Active Capsules ER 10Meq 200ca 1 by mouth Unknown Chloride ER /0000 ps every day as needed Nucynta ER Active Tablets ER 150mg one by Unknown /0000 12HR mouth twice daily Cymbalta Active Caps DR Part 60mg 1 by mouth E11.42 Unknown /0000 bid Gabapentin Active Capsules 400mg 150ca 2 in in the Trini M. ps morning, 3 [place], at at M.D. bedtime Oxycodone HCL Active Concentrate 100mg/5ML as needed Unknown Omeprazole Active Capsules DR 20mg 1 po qd Harriett, MD Tulio Lemus Active long acting Unknown insulin, not sure of name Oxycodone-Acet 06/21 Hx Tablets 5-325mg 45tab 1-2 by Stefan Nino aminophen s mouth every Kiana, - 4-6 hours 08/21 as needed for pain. Enoxaparin 06/21 Hx Solution 40mg/0.4M 9unit administer Stefan Nino Sodium Madhav L s once per Kiana, - day until 08/21 done Cephalexin 06/21 Hx Tablets 500mg 20tab take 1 by Stefan Nino s mouth four Kiana, - times a day 08/21 x 5 days Cymbalta 06/[address] Hodges 30mg 60cap 1-2 tabs by 357.2 Trini Ortiz s mouth every Stackman, - day as M.D. 10/27. Gabapentin 02/24 Hx Tablets 600mg 120ta 2 tabs by Trini Ortiz bs mouth in am , - , 3 tabs at M.D. 02/15 Fentanyl 06/17 Hx Patches 72HR 100mcg/HR topical, /2012 change Ordering - every 3 Provider Toprol XL 07/09 Hx Tablets ER 25mg 90tab 1/2 (12.5 Taylor /2011 24HR s mg) po qd Esther, - D.OSaw 07/07 Oxygen 07/09 Hx 5L nasal cannula qhs - and prn 01/28 Diovan 06/26 Hx Tablets 160mg 30tab 1 tablet po s bid - 06/17 Lac-Hydrin Hx Cream 12% 385gm apply bid prn 385 - gm tube 3 /2012 supply Potassium Hx Granules 20Meq prn Unknown Chloride - 07/13 Plavix 00/00 Hx Tablets 75mg 90tab 1 po qd Unknown /0000 s - 07/07 Gabapentin 00/00 Hx Capsules 400mg 30cap 2 tablet po Unknown /0000 s qam and 3 - qhs 02/24 Morphine 00/00 Hx Tablets ER 100mg 60tab 1 tablet Unknown Sulfate ER /0000 12HR s every 12 - hours 06/17 Morphine 00/00 Hx Tablets 30mg Immediate Unknown Sulfate /0000 release - tid 06/17 Lantus 00 Hx Solution 100Unit/M 1mont sliding Unknown Solostar /0000 L ivory scale in - the evening 09/26 Humalog Mix 00/ Hx Suspension 75-25% Unknown 75/25 Kwikpen /0000 - 11/19 Procardia XL 00/ Hx Tablets ER 30mg 90tab 1 po qd Unknown /0000 24HR s - 07/09 Norvasc 00/00 Hx Tablets 10mg 100ta 1 po qd Unknown /0000 bs - 07/09 Fentanyl 00/00 Hx Patches 72HR 50mcg/HR 10uni one every Unknown /0000 ts 3rd day - 06/27 Fentanyl 00/00 Hx Patches 72HR 25mcg/HR 10uni apply one Unknown /0000 ts patch once - every 3 Nifedipine ER 00/00 Hx Tablets ER 30mg 60tab take one Unknown /0000 24HR s tablet by - mouth a Alpha Lipoic / Hx Capsules 600mg 1 tab daily Unknown Acid /0000 - 06/17 Vitamin D-3 00/ Hx Tablets 1000Unit 90tab 1 po qd Unknown /0000 s - 06/17 Calcium & 00/00 Hx Tablets 1000mg/50 2 po qam, 1 Unknown Magnesium /0000 0mg po qpm - 06/17 Novolog 00/00 Hx Solution 100Unit/M 1box sliding Unknown Flexpen /0000 L scale - insulin 02/24 meals Dilaudid 00/ Hx Tablets 4mg 180ta 1-2 po q12h Unknown /0000 bs - 06/17 Morphine 00/00 Hx Tablets 30mg 2 tablets Unknown Sulfate /0000 po daily - 06/17 Oxycontin 00/00 Hx Suspension 100ML/5ML 5mL q 4h Unknown /0000 - 05/09 [address]alta [address] Part 60mg 1 by mouth E11.42 Unknown /0000 bid - 02/15 Aripiprazole Hx Tablets 2mg 1 by mouth Unknown /0000 every day - 06/20 Medications Administered in Office Medication Date Status Form Strength Qnty SIG Indications Ordering Provider Depomedrol Administered Injection Urban 80MG 011 Geovanni Armenta Vital Signs Date Vital Result Comment 12/12/2017 Height 69 inches 5'9" Heart Rate 83 /min BP Systolic 168 mmHg BP Diastolic 90 mmHg Respiratory Rate 16 /min Body Temperature 97.6 F Pain Level 10 10/14/2017 Height 69 inches 5'9" Heart Rate 66 /min BP Systolic 140 mmHg BP Diastolic 58 mmHg Respiratory Rate 18 /min Body Temperature 97.5 F Pain Level 0 09/27/2017 Height 69 inches 5'9" Weight 260.00 lb with shoes and leg brace on Heart Rate 60 /min BP Systolic Sitting 142 mmHg Lue large cuff BP Diastolic Sitting 82 mmHg Lue large cuff BP Systolic Standing 136 mmHg Lue large cuff BP Diastolic Standing 72 mmHg Lue large cuff Respiratory Rate 16 /min BMI (Body Mass Index) 38.4 kg/m2 Ejection Fraction 50-55% echo 01/21/13 08/22/2017 Height 69 inches 5'9" Weight 253.00 lb Heart Rate 71 /min Respiratory Rate 19 /min Pain Level 8 BMI (Body Mass Index) 37.4 kg/m2 08/19/2017 Height 69 inches 5'9" Weight 253.00 lb BMI (Body Mass Index) 37.4 kg/m2 07/22/2017 Height 69 inches 5'9" Weight 253.00 lb BP Systolic 160 mmHg BP Diastolic 90 mmHg Respiratory Rate 18 /min Body Temperature 96.4 F Pain Level 8 BMI (Body Mass Index) 37.4 kg/m2 06/25/2017 Heart Rate 92 /min BP Systolic Sitting 165 mmHg BP Diastolic Sitting 100 mmHg Body Temperature 96.8 F 06/17/2017 Height 69 inches 5'9" Weight 260.00 lb pt. states Heart Rate 68 /min BP Systolic Sitting 210 mmHg BP Diastolic Sitting 135 mmHg Body Temperature 97.7 F BMI (Body Mass Index) 38.4 kg/m2 02/22/2017 Height 69 inches 5'9" Weight 268.00 lb Heart Rate 65 /min BP Systolic Sitting 122 mmHg BP Diastolic Sitting 64 mmHg Respiratory Rate 15 /min Pain Level 10 BMI (Body Mass Index) 39.6 kg/m2 12/03/2016 Height 69 inches 5'9" Weight 270.00 lb Heart Rate 58 /min BP Systolic Sitting 140 mmHg BP Diastolic Sitting 88 mmHg Pain Level 9 BMI (Body Mass Index) 39.9 kg/m2 06/21/2016 Height 69 inches 5'9" Weight 261.00 lb Heart Rate 56 /min BP Systolic Sitting 132 mmHg BP Diastolic Sitting 80 mmHg Respiratory Rate 18 /min O2 % BldC Oximetry 89 % BMI (Body Mass Index) 38.5 kg/m2 05/10/2016 Height 69 inches 5'9" Weight 267.00 lb Heart Rate 64 /min BP Systolic Sitting 144 mmHg LA large cuff BP Diastolic Sitting 100 mmHg LA large cuff BP Systolic Standing 140 mmHg LA BP Diastolic Standing 88 mmHg LA Respiratory Rate 18 /min BMI (Body Mass Index) 39.4 kg/m2 Ejection Fraction 50-55% 01/21/13 02/16/2016 Height 69 inches 5'9" Weight 242.00 lb Heart Rate 72 /min BP Systolic Sitting 128 mmHg BP Diastolic Sitting 84 mmHg Respiratory Rate 16 /min BMI (Body Mass Index) 35.7 kg/m2 10/27/2015 Height 69 inches 5'9" Weight 242.00 lb Heart Rate 52 /min BP Systolic Sitting 122 mmHg BP Diastolic Sitting 70 mmHg Respiratory Rate 14 /min BMI (Body Mass Index) 35.7 kg/m2 06/23/2015 Height 69 inches 5'9" Heart Rate 64 /min BP Systolic Sitting 134 mmHg BP Diastolic Sitting 76 mmHg Respiratory Rate 16 /min 02/24/2015 Height 69 inches 5'9" Weight 241.00 lb Heart Rate 52 /min BP Systolic Sitting 126 mmHg BP Diastolic Sitting 68 mmHg Respiratory Rate 20 /min BMI (Body Mass Index) 35.6 kg/m2 08/31/2014 Height 69 inches 5'9" Weight 241.25 lb Heart Rate 56 /min BP Systolic Sitting 128 mmHg BP Diastolic Sitting 76 mmHg Respiratory Rate 16 /min BMI (Body Mass Index) 35.6 kg/m2 07/13/2014 Height 69 inches 5'9" Weight 242.00 lb Heart Rate 72 /min BP Systolic Sitting 154 mmHg BP Diastolic Sitting 72 mmHg Respiratory Rate 16 /min BMI (Body Mass Index) 35.7 kg/m2 01/29/2014 Height 69 inches 5'9" Weight 242.00 lb without shoes Heart Rate 56 /min BP Systolic Sitting 160 mmHg Ra lg cuff BP Diastolic Sitting 80 mmHg Ra lg cuff BP Systolic Standing 154 mmHg Ra lg cuff BP Diastolic Standing 70 mmHg Ra lg cuff Respiratory Rate 16 /min BMI (Body Mass Index) 35.7 kg/m2 12/24/2013 Heart Rate 51 /min BP Systolic 133 mmHg BP Diastolic 70 mmHg 12/03/2013 Heart Rate 55 /min BP Systolic 114 mmHg BP Diastolic 66 mmHg 09/10/2013 Height 69 inches 5'9" Weight 260.00 lb Heart Rate 60 /min BP Systolic Sitting 140 mmHg BP Diastolic Sitting 84 mmHg BMI (Body Mass Index) 38.4 kg/m2 06/18/2013 Height 69 inches 5'9" Weight 291.81 lb Heart Rate 62 /min BP Systolic 125 mmHg BP Diastolic 72 mmHg BMI (Body Mass Index) 43.1 kg/m2 06/17/2013 Height 69 inches 5'9" Weight 286.00 lb Heart Rate 60 /min Regular BP Systolic Sitting 132 mmHg BP Diastolic Sitting 70 mmHg BMI (Body Mass Index) 42.2 kg/m2 03/31/2013 Height 69 inches 5'9" Weight 340.00 lb Heart Rate 72 /min BP Systolic Sitting 120 mmHg BP Diastolic Sitting 64 mmHg BMI (Body Mass Index) 50.2 kg/m2 11/19/2011 Height 69 inches 5'9" Weight 340.00 lb with heavy steel toe boots on Heart Rate 96 /min BP Systolic Sitting 158 mmHg BP Diastolic Sitting 68 mmHg BMI (Body Mass Index) 50.2 kg/m2 08/01/2011 Height 69 inches 5'9" Weight 327.00 lb Heart Rate 78 /min BP Systolic 122 mmHg BP Diastolic 64 mmHg BMI (Body Mass Index) 48.3 kg/m2 07/09/2011 Height 69 inches 5'9" Weight 331.00 lb Heart Rate 72 /min BP Systolic 126 mmHg BP Diastolic 70 mmHg O2 % BldC Oximetry 80 % on room air ` BMI (Body Mass Index) 48.9 kg/m2 06/27/2011 Height 69 inches 5'9" Weight 338.00 lb Heart Rate 74 /min BP Systolic Sitting 118 mmHg BP Diastolic Sitting 64 mmHg Respiratory Rate 22 /min BMI (Body Mass Index) 49.9 kg/m2 Results Test Date Test Result H/L Range Note Laboratory test finding 07/14/2014 Anti Ssa/Ro Antibody <0.2 U 1, 2 SS-B/La Antibody <0.2 U 1, 3 Protein Electrophoresis 07/14/2014 Total Protein(Pep) 6.8 g/dL 6.3 - 7.9 1 Albumin 3.0 g/dL 3.4-4.7 1 Alpha-1 Globulin 0.3 g/dL 0.1-0.3 1 Alpha-2 Globulin 0.9 g/dL 0.6-1.0 1 Beta Globulin 1.0 g/dL 0.7-1.2 1 Gamma Globulin 1.7 g/dL 0.6-1.6 1 Albumin/Globulin Ratio 0.78 1 Impression See Comment 1, 4 Laboratory test finding 07/14/2014 TSH (Thyroid 0.90 IU/mL 0.34-5.60 1, 5 Stimulating Horm) Free T4 1.42 ng/mL High 0.61-1.12 1, 6 Vitamin B12 1257 pg/mL High 180-914 1, 7 Folate > 20.00 ng/mL >3.99 1, 8 Edna (Anti-Nuclear AB) Screen Negative Negative 1 C Reactive Protein 4.47 mg/L < 5.00 1, 9 Comp Metabolic Panel 07/14/2014 Sodium 139 mmol/L 133-145 1 Potassium 4.1 mmol/L 3.7-5.6 1 Chloride 102 mmol/L 101-111 1 Co2 Carbon Dioxide 34 mmol/L High 22-32 1 Anion Gap 3 mmol/L 2-11 1 Glucose 83 mg/dL 70-100 1 Blood Urea Nitrogen 8 mg/dL 6-24 1 Creatinine 0.60 mg/dL Low 0.67-1.17 1 BUN/Creatinine Ratio 13.3 8-20 1 Calcium 9.1 mg/dL 8.6-10.3 1 Total Protein 6.6 g/dL 6.4-8.9 1 Albumin 3.3 g/dL 3.2-5.2 1 Globulin 3.3 g/dL 2-4 1 Albumin/Globulin Ratio 1.0 1-3 1 Total Bilirubin 1.80 mg/dL High 0.2-1.0 1 Alkaline Phosphatase 116 U/L High 34-104 1 Alt 25 U/L 7-52 1 Ast 26 U/L 13-39 1 Egfr Non- 138.9 >60 1 Egfr 178.6 >60 1, 10 CBC Auto Diff 07/14/2014 White Blood Count 4.9 10^3/uL 4.8-10.8 1 Red Blood Count 4.41 10^6/uL 4.0-5.4 1 Hemoglobin 11.6 g/dL Low 14.0-18.0 1 Hematocrit 36 % Low 42-52 1 Mean Corpuscular Volume 82 fL 80-94 1 Mean Corpuscular Hemoglobin 26 pg Low 27-31 1 Mean Corpuscular HGB Conc 32 g/dL 31-36 1 Red Cell Distribution Width 17 % High 10.5-15 1 Platelet Count 215 10^3/uL 150-450 1 Mean Platelet Volume 11 um3 High 7.4-10.4 1 Abs Neutrophils 2.5 10^3/uL 1.5-7.7 1 Abs Lymphocytes 1.7 10^3/uL 1.0-4.8 1 Abs Monocytes 0.5 10^3/uL 0-0.8 1 Abs Eosinophils 0.1 10^3/uL 0-0.6 1 Abs Basophils 0 10^3/uL 0-0.2 1 Abs Nucleated RBC 0.01 10^3/uL 1 Granulocyte % 51.1 % 38-83 1 Lymphocyte % 35.5 % 25-47 1 Monocyte % 10.3 % High 1-9 1 Eosinophil % 2.2 % 0-6 1 Basophil % 0.9 % 0-2 1 Nucleated Red Blood Cells % 0.1 1 Protime 07/17/2011 Inr 1.02 0.82-1.17 11 Protime 12.0 SEC 10.2-14.8 12 Basic Metabolic Panel 07/17/2011 Sodium 137 mmol/L 135-145 Potassium 4.7 mmol/L 3.5-5.0 Chloride 95 mmol/L Low 101-111 Co2 (Carbon Dioxide) 35.0 mmol/L High 22-32 Anion Gap 7.0 mmol/L 2-11 13 Glucose 100 mg/dL 70-100 BUN 25 mg/dL High 6-24 Creatinine 0.8 mg/dL 0.50-1.40 One Over Creatinine 1.25 BUN/Creatinine Ratio 31.3 High 8-20 Calcium 9.2 mg/dL 8.1-9.9 eGFR Non- 100.7 > 60 eGFR 129.6 > 60 14 CBC With Manual Diff 07/17/2011 White Blood [...] 1+ Polychromasia SLIGHT Ovalocytes FEW Spherocytes FEW Cath Panel 07/17/2011 PTT (Aptt) 33.2 25.15-38.53 Basic Metabolic Panel 07/12/2011 Sodium 134 mmol/L Low 135-145 Potassium 5.1 mmol/L High 3.5-5.0 Chloride 98 mmol/L Low 101-111 Co2 (Carbon Dioxide) 26.0 mmol/L 22-32 Anion Gap 10.0 mmol/L 2-11 15 Glucose 160 mg/dL High 70-100 BUN 31 mg/dL High 6-24 Creatinine 0.9 mg/dL 0.50-1.40 One Over Creatinine 1.11 BUN/Creatinine Ratio 34.4 High 8-20 Calcium 8.7 mg/dL 8.1-9.9 eGFR Non- 87.9 > 60 eGFR 113.1 > 60 16 1 FASTING 2 REFERENCE VALUE <1.0 (Negative) Test Performed by: [facility] - [address] [address] Bin Filler: Twin Neri M.D. 3 REFERENCE VALUE <1.0 (Negative) Test Performed by: [facility] [place] [address] Bin Filler: Twin Neri M.D. 4 RESULT: Polyclonal hypergammaglobulinemia Test Performed by: [facility] [place] [address] Bin Filler: Twin Neri M.D. 5 FASTING 6 FASTING 7 Normal Range 180 to 914 Indeterminate Range 145 to 180 Deficient Range <145 8 FASTING 9 Acute inflammation: >10.00 10 Because ethnic data is not always readily [...] 15-29 5 Kidney failure <15 (or dialysis) 11 Recommended INR for Patients on Oral Anticoagulants Prophylaxis 2.0 - 3.0 Treatment of thrombosis 2.0 - 3.0 Prevention of embolism 2.0 - 3.0 Prevention of embolism from prosthetic heart valves 2.5 - 3.5 12 DIAGNOSIS,TREATMENT,AND THERAPY MUST BE BASED ON THE INR VALUE ALONE. 13 Anion gap measurement may be of limited value in the presence of any alkalosis, especially in a combined acid base disorder. . 14 Because ethnic data is not always readily [...] 15-29 5 Kidney failure <15 (or dialysis) 15 Anion gap measurement may be of limited value in the presence of any alkalosis, especially in a combined acid base disorder. . 16 Because ethnic data is not always readily [...] Procedures Date CPT Code Description Status Comment 09/27/2017 58266 EKG Tracing & Completed Interpretation 06/21/2017 75371 Open TX Intercondylar Completed Spine(S) And/Or Tuberosity FX Of Knee 06/21/2017 18188 Open TX Intercondylar Completed Spine(S) And/Or Tuberosity FX Of Knee 06/22/2016 37713 EEG Recording Awake & Completed Asleep 05/10/2016 76385 EKG Tracing & Completed Interpretation 09/14/2014 09681 Nerve Conduction 03-04 Completed Studies 08/31/2014 81184 Nerve Conduction 03-04 Completed Studies 07/02/2014 64364 Laparoscopy Cholecystectomy Completed 06/29/2014 61262 EKG, Interpretation Only Completed 01/29/2014 75282 EKG Tracing & Completed Interpretation 12/11/2013 54452 Neuroplasty &/Or Completed Transposition; Ulnar Nerve At Elbow 09/15/2013 02212 Neuroplasty &/Or Completed Transposition; Ulnar Nerve At Elbow 08/15/2011 80329 Inject/Drain Joint/Bursa Completed Major 07/19/2011 31519 Left Heart Cath. Incl S/I Completed Coronaries, Angio S/I V Gram If Done 07/19/2011 19000 EKG, Interpretation Only Completed 06/27/2011 91337 EKG Tracing & Completed Interpretation 01/18/2011 Colonoscopy Completed Hyperplastic polyp repeat in 5 years 09/19/2010 64506 Color Flow Doppler/Interp Completed & Reprt 09/19/2010 76284 Pulse Completed Wave/Continuous-Interp.RPT 09/19/2010 00267 ECHO Transthorasic Realtime Completed 2D W Doppler & Color Flow Hosp Encounters Type Date Location Provider CPT E/M Dx Office Visit 10/14/2017 [facility] Stefan Bruno, 43017 S82.152D 3:00p Of Amanda VILLEGAS Office Visit 09/27/2017 [facility] Bienvenido Troy, 90703 R94.31 2:30p Jamshid Galarza I10 I25.10 Office Visit 06/17/2017 2:15p [facility] Stefan Nino 03153 S82.152A Of Amanda Bruno MD Office Visit 02/22/2017 3:15p [place]Ronak Payne, 56250 R55 [facility] Of Geovanni Breen R26.81 Office Visit 12/03/2016 4:00p [facility] Of Summer Ba PA-C 25600 M48.06 [facility] Office Visit 06/21/2016 2:30p Ronak Payne 88518 R26.81 Services Of Jamshid Galarza R55 Office Visit 05/10/2016 11:30a [facility] Tiffani Troy 40507 R94.31 Jamshid Galarza I10 E66.01 Z68.39 Office Visit 02/16/2016 2:00p Ronak Payne 62146 R55 Services Of Jamshid Galarza E11.40 Office Visit 10/27/2015 2:45p [facility] Trini Payne, 61774 E11.42 Services Of Tool Trouble Shooter M.D. R26.81 Office Visit 06/23/2015 1:45p [facility] Trini Payne, 91209 250.60 Services Of Tool Trouble Shooter M.D. 357.2 781.2 780.4 Office Visit 02/24/2015 2:15p [facility] Trini Payne, 85441 357.2 Services Of Tool Trouble Shooter M.D. 781.2 780.4 250.60 Office Visit 09/14/2014 2:00p [facility] Trini Payne, 39545 356.9 Services Of Tool Trouble Shooter M.D. 780.4 Office Visit 07/13/2014 11:00a [facility] Trini Payne, 92274 250.60 Services Of Tool Trouble Shooter M.D. 357.2 781.2 Office Visit 07/06/2014 10:33a [facility], Samia Sesay, 37696 790.7 Hospitalists M.DSaw 576.1 038.9 250.00 Office Visit 07/05/2014 10:32a [facility], Samia Sesay, 69285 576.1 Hospitalists M.DSaw 790.7 250.00 038.9 Office Visit 07/04/2014 10:32a [facility], Samia Sesay, 33770 576.1 Hospitalists M.DSaw 790.7 038.9 250.00 Office Visit 07/03/2014 10:32a [facility], Samia Sesay, 75055 576.1 Hospitalists M.DSaw 574.50 038.9 250.00 Office Visit 07/02/2014 10:31a [facility], Samia Sesay, 18620 575.0 Hospitalists M.DSaw 576.1 250.00 038.9 Office Visit 07/01/2014 10:31a [facility], Samia Sesay, 88946 576.1 Hospitalists M.DSaw 574.50 575.0 038.9 Office Visit 06/30/2014 10:30a [facility] Naun Fernando M.D. 74747 576.1 Hospitalists 574.50 038.9 250.00 Office Visit 06/29/2014 10:30a [facility] [place], [address] 575.0 Assoc,pc Hospitalists Geovanni 577.0 535.60 250.00 Office Visit 01/29/2014 12:45p [facility] Of Bienvenido Troy, 40272 401.1 Jamshid Galarza 278.01 428.32 Office Visit 09/10/2013 1:20p [facility] At [place], 78826 V72.81 [facility] D.O. 401.1 250.02 278.01 Office Visit 08/27/2013 11:45a [facility] Taylor Garvey 01886 354.2 Of Amanda Galarza Office Visit 06/18/2013 9:30a [facility] Taylor Garvey 19015 354.2 Of Amanda Galarza Office Visit 06/17/2013 10:20a [facility] Taylor Santana 04732 V45.89 D.O. 401.1 250.02 278.01 Office Visit 03/31/2013 2:00p [facility] [place], 29809 V72.81 [facility] D.O. 401.1 428.32 250.02 278.01 780.53 Office Visit 11/19/2011 2:20p [facility] Taylor Santana D.O. 90730 278.01 428.32 250.02 401.1 Office Visit 10/15/2011 11:15a [facility] Of Urban Armenta M.D. 33591 726.10 CGregg 726.2 Office Visit 08/15/2011 9:30a [facility] Urban Armenta M.D. 77945 726.10 Of C.M.Greg Office Visit 08/01/2011 1:20p [facility] Taylor Santana 87353 V72.81 D.O. 428.33 250.02 278.01 Office Visit 07/17/2011 3:00p [facility] Nurse Visit 90113 V72.81 428.0 780.53 250.02 401.9 278.01 Office Visit 07/09/2011 2:40p [facility] Taylor Santana D.O. 42401 428.0 V72.81 780.53 250.02 401.9 278.01 Office Visit 06/27/2011 10:20a [facility] Taylor Santana D.O. 42384 V72.81 250.02 401.9 278.03 Plan of Care Future Appointment(s):06/12/2018 3:30 pm - Stefan Bruno MD at [facility].12/12/2017 - Stefan Bruno, MDS82.152D Disp fx of l tibial tuberosity, 7thDFollow up:Follow up: 6 months with xrays
[2018-01-06] MEDS ORDERED: Tetan/Diph/Pertus SYR(Tdap)* 0.5 ML SYR(BOOSTRIX) use SYR IM ONE (19:21)
[2018-01-06] MEDS ORDERED: Amoxicillin/Clavulanate TAB* 875 MG PO ONE (19:29)
[2018-01-06 19:30] VITALS: BP 132/64
--- NOTE | 2018-01-06 20:10 | UC ---
Master Redmond Stephanie, scribed for Rodney Vanegas MD on 01/06/18 at 1923 . Bite Injury/Animal HPI - HPI Summary HPI Summary: The pt is a 62 y/o M presenting to with c/o finger pain that occurred at 18: 00 s/p wild animal bite. The pt states a wild squirrel bit him on his R index finger. He states he attempted to feed the squirrel a peanut when the squirrel attempted to bite the peanut but it bit his finger instead. The pt states he attempted to clean out the bite with rubbing alcohol. - History of Current Complaint Stated Complaint: ANIMAL BITE Time Seen by Provider: 01/06/18 19:20 Hx Obtained From: Patient Severity Initially: Mild Onset/Duration: Sudden Onset, Lasting Hours - 1, Still Present Type of Bite: Animal Has Animal Been Immunized?: No Character: Abrasion/Laceration Aggravating Factor(s): Nothing Alleviating Factor(s): Nothing Associated Signs And Symptoms: Positive: Negative Animal Available for Observation: No Animal Control Notified: Yes - Allergies/Home Medications Allergies/Adverse Reactions: Allergies Allergy/AdvReac Type Severity Reaction Status Date / Time No Known Allergies Allergy Verified 01/06/18 19:11 Home Medications: Home Medications Insulin Glargine,Hum.rec.anlog [Basaglar Kwikpen U-100] 100 unit SQ BEDTIME 11/24 [History Confirmed 01/06/18] Morphine Sulfate [Morphine Sulfate ER] 30 mg PO Q8H 01/06/18 [History Confirmed 01/06/18] PMH/Surg Hx/FS Hx/Imm Hx Previously Healthy: Yes - The pt denies past medical hx. - Surgical History Surgical History: Yes Surgery Procedure, Year, and Place: gastric bypass [facility], bilat elbows , [facility]. HEART STENT 07/17 [facility]. G[facility]DER [facility] - Family History Known Family History: Positive: Other - mother - arthritis - Social History Occupation: Unemployed Lives: Dormitory/Roommates Alcohol Use: None Alcohol Amount: NONE FOR 14 YEARS AGO Substance Use Type: None Smoking Status (MU): Never Smoked Tobacco Have You Smoked in the Last Year: No Review of Systems Constitutional: Negative Skin: Other - 3 mm lac on R index finger Eyes: Negative ENT: Negative Respiratory: Negative Cardiovascular: Negative Gastrointestinal: Negative Genitourinary: Negative Motor: Negative Neurovascular: Negative Musculoskeletal: Negative Neurological: Negative Psychological: Negative Is Patient Immunocompromised?: No All Other Systems Reviewed And Are Negative: Yes Physical Exam - Summary Physical Exam Summary: General: well-appearing, no pain distress Skin: warm, color reflects adequate perfusion, dry, on the distal ulnar aspect of the R index finger there is a 3 mm laceration. No active bleeding. Head: normal Eyes: EOMI, NIA ENT: normal Neck: supple, nontender Respiratory: CTA, breath sounds present Cardiovascular: RRR Abdomen: soft, nontender Bowel: present Musculoskeletal: normal, strength/ROM intact Neurological: normal, sensory/motor intact, A&O x3 Psychological: affect/mood appropriate Triage Information Reviewed: Yes Vital Signs: Initial Vital Signs Temp 96.1 F 01/06/18 19:24 Pulse 60 01/06/18 19:24 Resp 20 01/06/18 19:24 BP 132/64 01/06/18 19:24 Pulse Ox 95 01/06/18 19:24 Vital Signs Reviewed: Yes Bite Injury Course/Dx - Course Course Of Treatment: DISCUSSED WITH RESHMA GALEANO. NO NEED FOR PEP. RX AUGMENTIN. F/U PMD OR RETURN IF WORSE. - Differential Dx/Diagnosis Provider Diagnoses: SQUIRREL BITE RIGHT INDEX FINGER Discharge - Sign-Out/Discharge Documenting (check all that apply): Discharge - Discharge Plan Condition: Stable Disposition: HOME Prescriptions: Amoxicillin/Clavulanate TAB* [Augmentin TAB 875*] 875 mg PO BID #13 tab Patient Education Materials: Animal Bite (ED) Referrals: Maranda Lorenzana MD [Primary Care Provider] - Additional Instructions: FOLLOW UP WITH YOUR DOCTOR IF NOT COMPLETELY IMPROVED. GET RECHECKED FOR ANY WORSENING OF YOUR CONDITION; SIGNS OF INFECTION OR QUESTIONS OR CONCERNS. - Billing Disposition and Condition Condition: STABLE Disposition: HOME The documentation as recorded by the Master light Stephanie accurately reflects the service I personally performed and the decisions made by me, Rodney Vanegas MD.
== END 2018-01-06 20:05 | disposition home or self-care (01) ==
LOC: UCEAST 19:01
DX: S61.210A Laceration without foreign body of right index finger without damage to nail, initial encounter (principal); W53.21XA Bitten by squirrel, initial encounter; Y93.89 Activity, other specified; Y92.9 Unspecified place or not applicable; Z23 Encounter for immunization
CPT/HCPCS: 90471; 90715; 96372; 99212; A9270-GY; G0463

== ENCOUNTER 2018-04-17 16:31 | Observation (INO) | payer OTHER ==
[2018-04-17 17:08] LABS: ABS Basophils 0 10^3/ul (0-0.2); ABS Eosinophils 0 10^3/ul (0-0.6); ABS Lymphocytes 0.4 10^3/ul (1.0-4.8); ABS Monocytes 0.4 10^3/ul (0-0.8); ABS Neutrophils 5.6 10^3/ul (1.5-7.7); ABS Nucleated RBC 0 10^3/ul; Eosinophil % 0.4 % (0-6); Hematocrit 43 % (42-52); Hemoglobin 14.2 g/dl (14.0-18.0); Lymphocyte % 5.9 % (25-47); Mean Corpuscular HGB Conc 33 g/dl (31-36); Mean Corpuscular Hemoglobin 26 pg (27-31); Mean Corpuscular Volume 79 fL (80-94); Mean Platelet Volume 9.8 um3 (7.4-10.4); Nucleated Red Blood Cells % 0.2; Platelet Count 108 10^3/ul (150-450); Red Blood Count 5.46 10^6/ul (4.00-5.40); Red Cell Distribution Width 16 % (10.5-15); White Blood Count 6.4 10^3/ul (3.5-10.8)
[2018-04-17 17:29] LABS: EGFR Non-African American 104.3 (>60)
--- NOTE | 2018-04-17 17:29 | RAD ---
Indication: Chest pain. Shortness of breath. Comparison: December 20, 2015 Technique: Upright AP 1710 hours Report: Clear lungs and pleural spaces. Negative for pneumothorax. The heart, pulmonary vasculature, and mediastinal contours are unremarkable. Unremarkable osseous structures and soft tissue contours. IMPRESSION: #. No evidence for acute intrathoracic disease.
--- NOTE | 2018-04-17 17:38 | ED ---
HPI Chest Pain - HPI Summary HPI Summary: 63 y/o male presents to the ED c/o sudden onset CP at 03:00 last night. Associated sx: diaphoresis, CP, SOB, bilateral arm tingling. Chest felt like "someone was sitting on it". Not alleviated with home O2. PMHx DM, sleep apnea, [place] 1983 - pt has a stent done by Dr. Santana. CP now resolved. Pt seen at PCP this morning; given 81 mg ASA and NTG. - History of Current Complaint Chief Complaint: EDChestPainROMI Time Seen by Provider: 04/17/18 17:24 Hx Obtained From: Patient Onset/Duration: Started Hours Ago, Resolved Pain Intensity: 4 Pain Scale Used: 0-10 Numeric Character: Other: - "someone sitting on it" Aggravating Factor(s): Nothing Alleviating Factor(s): Nothing Associated Signs and Symptoms: Positive: Chest Pain, Tingling, Shortness of Breath, Diaphoresis - Allergy/Home Medications Allergies/Adverse Reactions: Allergies Allergy/AdvReac Type Severity Reaction Status Date / Time No Known Allergies Allergy Verified 04/17/18 16:38 Home Medications: Home Medications Ciloxan 0.3% 2 drop LEFT EYE .Q1-6H 04/17/18 [History Confirmed 04/17/18] DULoxetine DR CAP* [Cymbalta CAP*] 60 mg PO BID 04/17/18 [History Confirmed 09/23] Gabapentin CAP(*) [Neurontin 400 mg CAP(*)] 1,200 mg PO BEDTIME 04/17/18 [ History Confirmed 04/17/18] Gabapentin CAP(*) [Neurontin 400 mg CAP(*)] 800 mg PO BID 04/17/18 [History Confirmed 04/17/18] Insulin Glargine,Hum.rec.anlog [Basaglar Kwikpen U-100] 36 unit SUBCUT DAILY 09/23 [History Confirmed 04/17/18] Lactic Acid CR 12% (NF) [Lac-Hydrin 12% (NF)] 12 % TOPICAL BID 04/17/18 [ History Confirmed 04/17/18] Montelukast Sodium TAB* [Singulair 10 MG TAB*] 10 mg PO DAILY 04/17/18 [History Confirmed 04/17/18] Morphine TAB (NF) [Morphine 30 MG TAB (NF)] 30 mg PO TID PRN 04/17/18 [History Confirmed 04/17/18] Multivitamins/Minerals TAB* [Theragran/minerals TAB*] 1 tab PO DAILY 04/17/18 [ History Confirmed 04/17/18] Pentoxifylline CR TAB* [Trental CR TAB*] 400 mg PO BID 04/17/18 [History Confirmed 04/17/18] busPIRone TAB* [Buspar TAB*] 7.5 mg PO BID 04/17/18 [History Confirmed 04/17/18] cloNIDine TAB* [Catapres 0.1 MG TAB*] 0.1 mg PO BID 04/17/18 [History Confirmed 04/17/18] PMH/Surg Hx/FS Hx/Imm Hx Previously Healthy: No Endocrine/Hematology History: Reports: Hx Diabetes - DMII Cardiovascular History: Reports: Hx Cardiomegaly - FROM CARDIAC CATH, Hx Congestive Heart Failure - on prn bumex, Hx Hypertension - on meds, Hx Valvular Heart Disease - had a cardiac stent, Other Cardiovascular Problems/Disorders - IDDM TYPE II Denies: Hx Pacemaker/ICD Respiratory History: Reports: Hx Asthma - as a child- outgrew, Hx Chronic Obstructive Pulmonary Disease (COPD), Hx Sleep Apnea GI History: Reports: Hx Gastroesophageal Reflux Disease - omeprazole, Other GI Disorders - hx of PANCREATITIS Denies: Hx Cirrhosis History: Denies: Hx Dialysis, Hx Kidney Stones, Hx Renal Disease Musculoskeletal History: Reports: Hx Arthritis - BILATERAL SHOULDERS, Hx Tendonitis - BILATERAL SHOULDERS Denies: Other Musculoskeletal History Sensory History: Reports: Hx Contacts or Glasses Denies: Hx Hearing Aid Opthamlomology History: Reports: Hx Contacts or Glasses Neurological History: Reports: Hx Nerve Disease - DM neuropathy, Hx Seizures - SEIZURE HISTORY LAST 2004 ONLY TWO TIMES IN LIFE, Other Neuro Impairments/ Disorders - SEIZURE R/T STOMACH ULCER - WITH ALCOHOL Denies: Hx Transient Ischemic Attacks (TIA) Psychiatric History: Reports: Hx Anxiety, Hx Depression Denies: Hx Panic Disorder - Cancer History Hx Chemotherapy: No - Surgical History Surgery Procedure, [place], and [place] [facility] Hx Anesthesia Reactions: Yes - woke up angry and swinging after 1 surgery Infectious Disease History: No Infectious Disease History: Denies: Hx Hepatitis, Traveled Outside the [place] in Last 30 Days - Family History Known Family History: Positive: Other - mother - arthritis - Social History Alcohol Use: None Alcohol Amount: NONE FOR 14 YEARS AGO Hx Substance Use: No Substance Use Type: Reports: None Hx Tobacco Use: Yes Smoking Status (MU): Never Smoked Tobacco Have You Smoked in the Last Year: No Review of Systems Positive: Skin Diaphoresis. Negative: Fever, Chills Negative: Erythema Negative: Sore Throat Positive: Chest Pain Positive: Shortness Of Breath. Negative: Cough Negative: Abdominal Pain, Vomiting, Nausea Negative: dysuria, hematuria Negative: Myalgia, Edema Negative: Rash Neurological: Other - Dizziness Positive: Numbness - bilateral arms All Other Systems Reviewed And Are Negative: Yes Physical Exam - Summary Physical Exam Summary: Constitutional: Well-developed, Well-nourished, Alert. (-) Distressed Skin: Warm, Dry HENT: Normocephalic; Atraumatic Eyes: Conjunctiva normal Neck: Musculoskeletal ROM normal neck. (-) JVD, (-) Stridor, (-) Tracheal deviation Cardio: Rhythm regular, rate normal, Heart sounds normal; Intact distal pulses; The pedal pulses are 2+ and symmetric. Radial pulses are 2+ and symmetric. (-) Murmur Pulmonary/Chest wall: Effort normal. (-) Respiratory distress, (-) Wheezes, (-) Rales Abd: Soft, (-), epigastric tenderness, (-) Distension, (-) Guarding, (-) Rebound Musculoskeletal: (-) Edema Lymph: (-) Cervical adenopathy Neuro: Alert, Oriented x3 Psych: Mood and affect Normal Triage Information Reviewed: Yes Vital Signs On Initial Exam: Initial Vitals Temp Pulse Resp BP Pulse Ox 97.5 F 76 18 139/62 92 04/17/18 16:35 04/17/18 16:35 04/17/18 16:35 04/17/18 16:35 04/17/18 16:35 Vital Signs Reviewed: Yes Diagnostics - Vital Signs Vital Signs Temp Pulse Resp BP Pulse Ox 04/17/18 16:35 97.5 F 76 18 139/62 92 - Laboratory Lab Results: Lab Results 04/17/18 04/17/18 04/17/18 Range/Units 16:56 16:56 16:56 WBC 6.4 (3.5-10.8) 10^3/ul RBC 5.46 H (4.00-5.40) 10^6/ul Hgb 14.2 (14.0-18.0) g/dl Hct 43 (42-52) % MCV 79 L (80-94) fL MCH 26 L (27-31) pg MCHC 33 (31-36) g/dl RDW 16 H (10.5-15) % Plt Count 108 L (150-450) 10^3/ul MPV 9.8 (7.4-10.4) um3 Neut % (Auto) 87.6 H (38-83) % Lymph % (Auto) 5.9 L (25-47) % [place] % (Auto) 5.7 (0-7) % Eos % (Auto) 0.4 (0-6) % Baso % (Auto) 0.4 (0-2) % Absolute Neuts (auto) 5.6 (1.5-7.7) 10^3/ul Absolute Lymphs (auto) 0.4 L (1.0-4.8) 10^3/ul Absolute Monos (auto) 0.4 (0-0.8) 10^3/ul Absolute Eos (auto) 0 (0-0.6) 10^3/ul Absolute Basos (auto) 0 (0-0.2) 10^3/ul Absolute Nucleated RBC 0 10^3/ul Nucleated RBC % 0.2 Sodium 131 L (135-145) mmol/L Potassium 3.9 (3.5-5.0) mmol/L Chloride 95 L (101-111) mmol/L Carbon Dioxide 30 (22-32) mmol/L Anion Gap 6 (2-11) mmol/L BUN 15 (6-24) mg/dL Creatinine 0.76 (0.67-1.17) mg/dL Est GFR ( Amer) 126.2 (>60) Est GFR (Non-Af Amer) 104.3 (>60) BUN/Creatinine Ratio 19.7 (8-20) Glucose 178 H (70-100) mg/dL Lactic Acid 0.9 (0.5-2.0) mmol/L Calcium 8.7 (8.6-10.3) mg/dL Total Bilirubin 1.50 H (0.2-1.0) mg/dL AST 88 H (13-39) U/L ALT 159 H (7-52) U/L Alkaline Phosphatase 168 H (34-104) U/L Troponin I 0.06 H* (<0.04) ng/mL Total Protein 6.0 L (6.4-8.9) g/dL Albumin 3.1 L (3.2-5.2) g/dL Globulin 2.9 (2-4) g/dL Albumin/Globulin Ratio 1.1 (1-3) Result Diagrams: 04/18/18 05:47 04/18/18 05:47 Lab Statement: Any lab studies that have been ordered have been reviewed, and results considered in the medical decision making process. - Radiology CXR Xray Interpretation: No Acute Changes - No evidence for acute intrathoracic disease Radiology Interpretation Completed By: Radiologist - EKG 1 EKG Interpretation: 16:45 - SR @ 75 BPM. No STEMI Chest Pain Course/Dx - Course Assessment/Plan: Chest pain resolved. Known CAD. EKG wnl. Trop will be trended, likely cardiology consult. - Diagnoses Provider Diagnoses: NSTEMI (non-ST elevated myocardial infarction) - Provider Notifications Discussed Care Of Patient With: Samia Sesay Time Discussed With Above Provider: 19:15 Instructed by Provider To: Admit As Inpatient Discharge - Sign-Out/Discharge Documenting (check all that apply): Patient Departure - Discharge Plan Condition: Stable Disposition: ADMITTED TO [facility] - Billing Disposition and Condition Condition: STABLE Disposition: Admitted to [facility]
[2018-04-17] MEDS ORDERED: Aspirin 81 mg CHEW TAB* 81 MG TAB.CHEW PO ONE (17:59)
[2018-04-17] MEDS ORDERED: Nitroglycerin 2% OINT* 1 GM PAK TOPICAL ONE (17:59)
[2018-04-17 18:26] LABS: INR 1.06 (0.77-1.02)
[2018-04-17] MEDS ORDERED: Dextrose 50% Syringe 50 ML* 25 GM/50 ML SYRINGE IV PUSH PRN (18:45)
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
--- NOTE | 2018-04-17 18:53 | RAD ---
Indication: Elevated LFTs. Comparison: June 29, 2014 CT Technique: RIGHT upper quadrant ultrasound. Report: Acoustic window limited due to morbid obesity and bowel gas. Appropriate direction flow documented in the portal and hepatic veins. 18.2 cm liver is increased in echogenicity. Negative for focal hepatic lesions. Negative for intrahepatic biliary dilatation. 11 mm common bile duct. No conspicuous stones within the visualized segment of the common bile duct. Post cholecystectomy. The pancreas is largely obscured due to bowel gas with the visualized pancreas is echogenic consistent with partial fatty replacement. Negative for ascites. 12.1 cm RIGHT kidney is unremarkable. IMPRESSION: #. Hepatosteatosis. #. Post cholecystectomy which may account for dilated common bile duct measuring up to 11 mm. Negative for intrahepatic biliary dilatation to suggest true biliary dilatation.
--- NOTE | 2018-04-17 20:59 | HP ---
HISTORY AND PHYSICAL: DATE OF ADMISSION: 04/17/18 PROVIDER: Chuy Cunningham NP ATTENDING PHYSICIAN: Dr. Sesay * (report dictated by Chuy Cunningham NP). PRIMARY CARE PROVIDER: Dr. Maranda Lorenzana. NURSERY NURSE: Dr. Troy. CHIEF COMPLAINT: Chest pain. HISTORY OF PRESENT ILLNESS: Mr. Woodson is a 63-year-old male with a past medical history of coronary artery disease status post [place] and stent placement; insulin- dependent type 2 diabetes; morbid obesity, status post bypass; hypertension; GERD, who presents to the emergency department today with report of chest pain at 3 a.m. in the morning lasting approximately 15 minutes. The patient reports that he was awake at 3 a.m. when all of a sudden he had right upper chest wall pain that radiated to his back and which he then noted bilateral arm numbness. At that time, he reports that he took some of his oral morphine and then took some ibuprofen and states that he fell asleep and when he woke up this morning, the chest pain had resolved. He does report when he experienced the chest pain, he had accompanied symptoms of diaphoresis, nausea, and mild shortness of breath. He reports "it felt like someone was sitting on my chest." Again, when he woke up this morning, the chest pain was gone, but he did not feel that he was at his baseline. He had had a previously scheduled followup appointment with his PCP, Dr. Lorenzana, and went to the office and she noted that he looked reilly when he came in and reported what had happened. In the office, he was given 1 nitro and an aspirin and EKG was performed. The EKG showed no acute changes compared to prior EKGs. He was recommended to come to the emergency department and refused an ambulance and drove himself to the hospital. In the emergency department, he was found to have a troponin of 0.06. He has had no return of chest pain since 3 a.m. this morning. EKG was repeated and showing no acute ST changes or changes compared to prior EKGs. He was noted to have an elevated C-reactive protein of 62 and elevated liver enzymes with an AST of 88, an ALT of 159, and a bilirubin of 1.50. Of note, he had elevated liver enzymes in 2013; however, that was around the time that he had his gallbladder out. Per the patient, he denies alcohol use. He denies any abdominal or right upper quad pain. He does report approximately 3 months ago, he started taking "fat burner supplements," reporting he is taking 3 different types of supplements he buys at [employer] that he thinks has herbal products in it. He denies drug or alcohol use. He reports otherwise he has been feeling that he is in good health and denies any recent illnesses. He does report he gets pretty winded easily going upstairs. He thinks this is secondary to his weight. He denies ever having chest pain at rest or exertion. He denies any recent fevers or chills. He reports his diabetes is fairly well controlled, but he reports his hemoglobin A1c was close to 11 and reporting now is down to 5.8; however, I do note the last hemoglobin A1c we have on him is 7.7. PAST MEDICAL HISTORY: 1. Insulin-dependent type 2 diabetes. 2. Morbid obesity. 3. Hypertension. 4. Coronary artery disease status post WA, 1983 and stent placement in 2010. 5. Chronic pain. 6. Diabetic neuropathy. 7. GERD. 8. Asthma. 9. Anxiety/depression. 10. Thrombocytopenia. PAST SURGICAL HISTORY: 1. Gastric bypass in 2012. 2. Carpal tunnel release. 3. Ulnar nerve decompression. ALLERGIES: No known allergies. FAMILY HISTORY: Both mother and father are . There is a family history of diabetes, coronary artery disease. SOCIAL HISTORY: Denies any tobacco or alcohol use. Denies recreational drug use. 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 He is currently , has 4 children, and lists Dr. Cason as his healthcare proxy. He currently reports Dr. Johann Cason is his roommate. REVIEW OF SYSTEMS: A 14-point review of systems was performed. All the pertinent positives and negatives are mentioned in the history of present illness, otherwise negative. PHYSICAL EXAMINATION GENERAL APPEARANCE: A morbidly obese 63-year-old male, lying on the emergency department stretcher, alert and oriented x3, in no acute distress. VITAL SIGNS: Temperature 97.5, heart rate 76, respirations 18, O2 sat 96% on room air, blood pressure is 139/62. HEENT: Head is normocephalic, atraumatic. Pupils are equal and reactive to light. Oropharynx is clear. Moist mucous membranes. LUNGS: Clear to auscultation bilaterally. Good aeration throughout. CARDIAC: S1, S2. Regular rate and rhythm. No murmur, rub, or gallop appreciated. No lower extremity edema noted. ABDOMEN: Obese, soft, nontender, nondistended. Normal bowel sounds throughout. EXTREMITIES: No clubbing, cyanosis, or edema. NEURO: Cranial nerves II through XII are grossly intact. Strength is 5/5 throughout. No focal deficits noted. DIAGNOSTIC STUDIES/LAB DATA: Sodium 131, potassium 3.9, chloride 95, carbon dioxide 30, anion gap 6, BUN 15, creatinine 0.76, glucose 178, lactic acid 0.9, calcium 8.7. Total bilirubin 1.50, AST 88, ALT 159, alkaline phosphatase 168. Troponin 0.06. C-reactive protein 62.02. Total protein 6.0, albumin 3.1. Amylase 14, lipase 21. INR 1.06. WBC is 6.4, RBC 5.46, Hgb 14.2, Hct 43, MCV 79, MCH 26, MCHC 33, RDW 16, platelet count 108. Chest x-ray, impression: "No evidence for acute intrathoracic disease." EKG: Sinus rhythm with a rate of 75. In comparison to prior EKGs, there are no acute changes noted. ASSESSMENT AND PLAN: Mr. Woodson is a 63-year-old male with past medical history of morbid obesity, insulin-dependent type 2 diabetes, coronary artery disease, gastroesophageal reflux disease, hypertension, who presents to the emergency department today with report of acute onset of chest pain at 3 a.m. this morning lasting approximately 15 minutes. 1. Chest pain. The patient will be admitted to observation on telemetry. Again, he has had no further chest pain since 3 a.m. this morning. He was seen and evaluated by his primary, who was concerned that he looked reilly and he continued to feel unwell. His initial troponin was 0.06. He has no EKG changes. Plan will be to monitor him on telemetry, trend troponins, obtain EKGs if he has any further acute onset of chest pain. Plan will be for n.p.o. after midnight with cardiac nuclear stress test in the morning. His FARHANA score is 3. His primary district loss prevention manager is Dr. Troy, who he follows with once a year. The patient did receive aspirin in the emergency department. He will continue on aspirin 81 mg p.o. daily. 2. Transaminitis, unclear etiology. Right upper quadrant ultrasound had been obtained in the emergency department and results are pending at this time. His amylase and lipase are normal. I do have high suspicion for these "fat burning " supplements he has been taking in the last 3 months, which could possibly have increased his liver enzymes. He denies alcohol or recreational drug abuse. I will add on a drug tox screen. 3. Elevated CRP, unclear etiology. No obvious signs of infection. 4. Insulin-dependent type 2 diabetes. Hold oral diabetic medication. We will start lispro sliding scale a.c. and h.s. 5. Peripheral neuropathy. Continue home dose gabapentin. 6. Hypertension, controlled. Continue home dose valsartan, clonidine. 7. Anxiety/depression. Continue BuSpar and Cymbalta. 8. Gastroesophageal reflux disease. Continue omeprazole. 9. Thrombocytopenia. It appears the patient has a history of thrombocytopenia. Appears to be around his baseline. Continue to monitor. 10. DVT prophylaxis: Heparin subcu. 11. Code status: Full code. TIME SPENT: Approximately 60 minutes was spent on this admission. CHUY CUNNINGHAM, LIBBY [id number]/CPS #: [id number] CHEN
[2018-04-17] MEDS ORDERED: Gabapentin CAP(*) 400 MG PO SCH (21:00)
[2018-04-17] MEDS: Valsartan TAB* 160 MG PO SCH (21:09)
[2018-04-17] MEDS: cloNIDine TAB* 0.1 MG PO SCH (21:09)
[2018-04-17] MEDS: busPIRone TAB* 5 MG PO SCH (21:09)
[2018-04-17] MEDS: Insulin LISPRO* 1 UNITS UNIT SUBCUT SCH (21:10)
[2018-04-17] MEDS: DULoxetine DR CAP* 60 MG CAP.DR PO SCH (21:11)
[2018-04-17] MEDS: Pentoxifylline CR TAB* 400 MG PO SCH (21:11)
[2018-04-17] MEDS: Heparin VIAL(*) 5000 UNITS/ML VIAL (FIVE THOUSAND) SUBCUT SCH (21:12)
[2018-04-17] MEDS ORDERED: Metoprolol Tartrate IV* 1 MG/ML 5 ML VIAL IV ONE (23:47)
[2018-04-18] MEDS ORDERED: hydrALAZINE IV* 20 MG/ML VIAL IV ONE (03:56)
[2018-04-18] MEDS: Morphine ORAL.SOLN 10 mg* 2 MG/ML UDC 5 ml PO PRN ×2 (05:25→14:22)
[2018-04-18] MEDS: Heparin VIAL(*) 5000 UNITS/ML VIAL (FIVE THOUSAND) SUBCUT SCH ×2 (05:27→14:22)
[2018-04-18 06:34] LABS: ABS Basophils 0 10^3/ul (0-0.2); ABS Eosinophils 0 10^3/ul (0-0.6); ABS Lymphocytes 0.7 10^3/ul (1.0-4.8); ABS Monocytes 0.3 10^3/ul (0-0.8); ABS Neutrophils 3.6 10^3/ul (1.5-7.7); ABS Nucleated RBC 0 10^3/ul; Eosinophil % 0.3 % (0-6); Hematocrit 48 % (42-52); Hemoglobin 15.9 g/dl (14.0-18.0); Mean Corpuscular HGB Conc 34 g/dl (31-36); Mean Corpuscular Hemoglobin 26 pg (27-31); Mean Corpuscular Volume 79 fL (80-94); Mean Platelet Volume 10.5 um3 (7.4-10.4); Nucleated Red Blood Cells % 0.2; Platelet Count 114 10^3/ul (150-450); Red Blood Count 6.05 10^6/ul (4.00-5.40); Red Cell Distribution Width 16 % (10.5-15); White Blood Count 4.6 10^3/ul (3.5-10.8)
[2018-04-18 06:59] LABS: EGFR Non-African American 112.8 (>60)
[2018-04-18] MEDS ORDERED: hydrALAZINE IV* 20 MG/ML VIAL IV SLOW PU ONE (08:30)
[2018-04-18] MEDS: Valsartan TAB* 160 MG PO SCH (08:31)
[2018-04-18] MEDS: Gabapentin CAP(*) 400 MG PO SCH ×2 (08:31→11:59)
[2018-04-18] MEDS: busPIRone TAB* 5 MG PO SCH (08:32)
[2018-04-18] MEDS: Pentoxifylline CR TAB* 400 MG PO SCH (08:33)
[2018-04-18] MEDS: DULoxetine DR CAP* 60 MG CAP.DR PO SCH (08:33)
[2018-04-18] MEDS: cloNIDine TAB* 0.1 MG PO SCH (08:33)
[2018-04-18] MEDS: Insulin LISPRO* 1 UNITS UNIT SUBCUT SCH ×2 (08:34→12:00)
[2018-04-18] MEDS ORDERED: Multivitamins/Minerals TAB PO SCH (09:00)
[2018-04-18] MEDS ORDERED: Montelukast Sodium TAB* 10 MG PO SCH (09:00)
[2018-04-18] MEDS ORDERED: Omeprazole CAP* 20 MG PO SCH (09:00)
[2018-04-18] MEDS ORDERED: Labetalol IV* 5 MG/ML 20 ML VIAL IV PUSH ONE (11:25)
[2018-04-18] MEDS ORDERED: oxyCODONE TAB* 5 MG TAB PO ONE (11:26)
--- NOTE | 2018-04-18 11:52 | RAD ---
Edited for charges. Indication: Chest pain, elevated troponin. Myocardial perfusion scan was performed utilizing 1 day protocol. Rest myocardial perfusion was performed after intravenous injection of 10.5 mCi of technetium 99m tetrofosmin. Pharmacological stress was applied and 25.8 mCi of technetium 99m tetrofosmin was injected. No CT for attenuation correction couldn't be performed. There is a small to moderate-sized area of photopenia involving the lateral wall extending to the anterior wall. This is close to the apex. This appears to improve on the rest images and may represent a small area of anterior apical ischemia. The ejection fraction at stress is 68%. Evaluation of wall motion demonstrates no evidence of focal wall motion abnormality. IMPRESSION: There is a small area of photopenia in the anterior apical wall which appears to thicken on the rest images and is consistent with a small area of anterior reversible change. Normal ejection fraction. ASSESSMENT: Low risk Based on imaging criteria from ACC/AHA 2002 Guideline Update for the Management of Patients With Chronic Stable Angina Table 23. Noninvasive Risk Stratification. Reference. MTDD
[2018-04-18] MEDS ORDERED: Tapentadol(NF) 50 MG TAB PO ONE (12:40)
[2018-04-18] MEDS ORDERED: Regadenoson* 0.4 MG/5 ML SYRINGE ONE (13:26)
[2018-04-18] MEDS ORDERED: amLODIPine TAB* 5 MG PO ONE (14:09)
[2018-04-18] MEDS ORDERED: cloNIDine TAB* 0.1 MG PO ONE (14:09)
--- NOTE | 2018-04-18 14:22 | PN ---
Hospitalist Progress Note Date of Service: 04/18/18 patient missed his long acting pain medication last night Tapentadol and this morning. One time dose of short acting Tapentadol 100 mg was given around 1245. Pt reports he has a SOSA and has a lot of back pain which is his chronic, he appears to be comfortable on exam. His blood pressures have been quite elevated thought to be secondary to narcotic withdrawal?? He has been given hydralazine x2 (once by crm marketing manager) and labetolol 20 mg IV w/o any response. Plan to give clonidine 0.1 mg x 1 and norvasc 5 mg x 1 - can be discharged when blood pressure is better controlled.
[2018-04-18 15:14] VITALS: BP 155/67
[2018-04-18] MEDS ORDERED: TAPENTADOL 200 MG PO SCH (21:00)
--- NOTE | 2018-04-19 00:52 | DS ---
CC: Dr. Maranda Lorenzana; Dr. Troy * DISCHARGE SUMMARY: DATE OF ADMISSION: 04/17/18 DATE OF DISCHARGE: 04/18/18 PROVIDER: Chuy Cunningham NP ATTENDING PHYSICIAN: Dr. Sesay * (report dictated by Chuy Cunningham NP) PRIMARY CARE PROVIDER: Dr. Maranda Lorenzana. PACKAGING SALES CONSULTANT: Dr. Troy. DISCHARGE DIAGNOSES: 1. Chest pain, unclear etiology. 2. Transaminitis. 3. Chronic pain. 4. Hypertension. SECONDARY DIAGNOSES: 1. Insulin dependent type 2 diabetes. 2. Morbid obesity, status post bypass. 3. History of coronary artery disease, status post stent placement. 4. Gastroesophageal reflux disease. HISTORY OF PRESENT ILLNESS AND HOSPITAL COURSE: Please see history and physical by this author for full admission details; but in summary, this is a 63 -year-old male who presented to the emergency department yesterday, on 04/17/18 , after report of having acute onset of chest pain around 3 a.m. the morning prior reporting that he was already awake watching TV when he had right upper chest wall pain which radiated to his back and felt mildly short of breath, nauseous and may be as he reports "little sweaty." He reports this lasted for approximately 15 minutes and then he took some pain medication and fell asleep and when he woke up, reported the chest pain had resolved. He followed up with his primary care that day due to an already previously scheduled appointment and he noted to look slightly reilly when he came in, he explained what happened and EKG was performed and he was referred to the emergency department for further evaluation. EKG showed no acute ST changes and there was no change when compared to prior EKGs. The patient has had no further chest pain since 3 a.m. that morning. The patient underwent a cardiac nuclear stress test this morning, which placed this patient at low risk. The patient is noted to have some noted hypertension throughout his hospitalization, but his home medication , Nucynta, was held last night and this morning due to being non formulary, this is an opiate medication. I did discuss this with the pharmacy and we are giving him a short acting 100 mg p.o. x1 now. The patient reports that he is in more pain than normal. As well, he has a headache. I suspect his headache is secondary to missing 2 doses of this medication from slight withdrawal. Otherwise, the patient reports that he is doing well today. Offers no complaints. States he has had no further chest pain, shortness of breath, diaphoresis. He was steady on his feet, would like to go home. On admission, the patient was noted to have elevated liver enzymes, which are trending down on labs this morning. He does report that he started taking the supplements approximately 2 months ago from [employer] reporting 3 different supplements, one being "fat burner." He is instructed to discontinue these. He denies any alcohol or recreational drug use. I did run a tox screen on him and his urine is positive for opiates which is to be expected with his pain medication, but also positive for benzodiazepines which I do not see that he has a prescription for. The patient was instructed to hold alcohol use; however , he states that he does not drink alcohol. He did undergo a liver ultrasound, which showed no stones and did show hepatosteatosis. Postcholecystectomy which may account for dilatated common bile duct measuring up to 11 cm. Negative for intrahepatic biliary dilatation to suggest true biliary dilatation. The patient was instructed to have his labs drawn on Saturday with results going to his PCP and follow up with his primary care next week. As well, he was noted to be slightly hypertensive again which I believe this is from his narcotic medication being held. His high blood pressures are right now resolving. However, I did mention this to the patient to check his blood pressures at home and follow up with his primary care provider and/or Dr. Troy as an outpatient. REVIEW OF SYSTEMS: A 14-point review of systems was performed. All the pertinent positives and negatives are mentioned up above, otherwise were negative. PHYSICAL EXAMINATION: Vital Signs: Temperature 98.3, heart rate 74, respirations 18, O2 sat 95% on room air, blood pressure is 142/64. Appearance: Obese male, lying in bed, alert and oriented x3, in no acute distress. HEENT : Head is normocephalic, atraumatic. Pupils are equal and reactive to light. Oropharynx is clear. Moist mucous membranes. Neck: Supple. Cardiac: S1, S2. Regular rate and rhythm. No murmur, rub, or gallop appreciated. No lower extremity edema noted. Lungs: Clear to auscultation bilaterally. Good aeration throughout. Abdomen: Soft, nontender, nondistended. Normal bowel sounds throughout. Extremities: Lower extremity strength is 5/5. Neuro: Alert and oriented x3. No focal deficits noted. DISCHARGE PLAN: 1. Follow up with Dr. Lorenzana next week. He is to have his labs drawn on Saturday with a CMP to monitor transaminitis. He was instructed to hold all supplements. As well, he will need to have his blood pressure rechecked. 2. The patient is stable for discharge to home. TIME SPENT: Approximately 60 minutes were spent on this discharge. CHUY CUNNINGHAM, LIBBY [id number]/CPS #: [id number] CHEN
== END 2018-04-18 16:06 | disposition home or self-care (01) ==
LOC: ED 16:31 → MEDTELE 18:43
PROVIDERS: ADMIT Internal Medicine; ATTEND Internal Medicine
DX: R07.9 Chest pain, unspecified (principal); R74.0 Nonspecific elevation of levels of transaminase and lactic acid dehydrogenase [LDH]; R06.02 Shortness of breath; G89.29 Other chronic pain; I10 Essential (primary) hypertension; R61 Generalized hyperhidrosis; I25.2 Old myocardial infarction; G47.30 Sleep apnea, unspecified; E11.9 Type 2 diabetes mellitus without complications; Z87.19 Personal history of other diseases of the digestive system; E66.01 Morbid (severe) obesity due to excess calories; Z98.84 Bariatric surgery status; I25.10 Atherosclerotic heart disease of native coronary artery without angina pectoris; Z95.5 Presence of coronary angioplasty implant and graft; K21.9 Gastro-esophageal reflux disease without esophagitis
CPT/HCPCS: 36415; 71045; 76705; 78452; 80053; 80307; 82150; 83605; 83690; 84484; 85025; 85610; 85730; 86140; 93005; 93017; 96374; 96375; 99282; A9270-GY; A9502; G0378; J0360; J1644; J2785; J3490

== ENCOUNTER 2018-04-30 14:36 | Inpatient (IN) | payer OTHER ==
[2018-04-30] MEDS ORDERED: NS 0.9% 1000 ML* 1,000 ML IV ONE (14:43)
--- NOTE | 2018-04-30 14:47 | ED ---
Headache - History Of Current Complaint Chief Complaint: EDNeurologicalDeficit Stated Complaint: HEADACHE - Allergies/Home Medications Allergies/Adverse Reactions: Allergies Allergy/AdvReac Type Severity Reaction Status Date / Time No Known Allergies Allergy Verified 04/17/18 16:38 Home Medications: Home Medications ALPRAZolam TAB* [Xanax TAB*] 2 mg PO QPM 04/30/18 [History Confirmed 04/30/18] Albuterol/Ipratropium RESP(NF) [Combivent Respimat(NF)] 1 aer IN BID 04/30/18 [ History Confirmed 04/30/18] DULoxetine CAP* [Cymbalta CAP*] 60 mg PO Q12H 04/30/18 [History Confirmed ] Fluticasone-Salmeterol 500-50* [Advair Diskus 500-50*] 1 puff INH BID 04/30/18 [ History Confirmed 04/30/18] Hydrochlorothiazide TAB* [Hydrodiuril TAB*] 25 mg PO DAILY 04/30/18 [History Confirmed 04/30/18] Insulin Glargine,Hum.rec.anlog [Basaglar Kwikpen] 36 unit SC DAILY 04/30/18 [ History Confirmed 04/30/18] Lisinopril TAB* [Prinivil TAB*] 30 mg PO DAILY 04/30/18 [History Confirmed 04/30] Morphine ORAL CONCENTRATE* 1 ml PO Q4H PRN 04/30/18 [History Confirmed 04/30/18] Morphine Sulfate [Morphine Sulfate ER] 30 mg PO Q8H 04/30/18 [History Confirmed 04/30/18] Nitroglycerin TAB 0.4 MG* 0.4 mg SL Q5M PRN 04/30/18 [History Confirmed 04/30/18 ] Pentoxifylline CR TAB* [TRENtal CR TAB*] 400 mg PO Q8H PRN 04/30/18 [History Confirmed 04/30/18] Polyethylene Glycol 3350* [Miralax*] 17 gm PO DAILY PRN 04/30/18 [History Confirmed 04/30/18] Sildenafil (NF) [Viagra (NF)] 100 mg PO DAILY PRN 04/30/18 [History Confirmed ] Tadalafil (Nf) [Cialis (NF)] 20 mg PO DAILY PRN 04/30/18 [History Confirmed ] Tapentadol ER (NF) [Nucynta ER (NF)] 150 mg PO Q12H PRN 04/30/18 [History Confirmed 04/30/18] busPIRone TAB* [Buspar TAB*] 7.5 mg PO BID 04/30/18 [History Confirmed 04/30/18] PMH/Surg Hx/FS Hx/Imm Hx Endocrine/Hematology History: Reports: Hx Diabetes - DMII Cardiovascular History: Reports: Hx Angina, Hx Cardiomegaly - FROM CARDIAC CATH , Hx Congestive Heart Failure - on prn bumex, Hx Coronary Artery Disease, Hx Hypertension - on meds, Hx Myocardial Infarction, Hx Valvular Heart Disease - had a cardiac stent, Other Cardiovascular Problems/Disorders - IDDM TYPE II Denies: Hx Hypercholesterolemia, Hx Pacemaker/ICD Respiratory History: Reports: Hx Asthma - as a child- outgrew, Hx Chronic Obstructive Pulmonary Disease (COPD), Hx Sleep Apnea GI History: Reports: Hx Gastroesophageal Reflux Disease - omeprazole, Other GI Disorders - hx of PANCREATITIS Denies: Hx Cirrhosis History: Denies: Hx Dialysis, Hx Kidney Stones, Hx Renal Disease Musculoskeletal History: Reports: Hx Arthritis - BILATERAL SHOULDERS, Hx Tendonitis - BILATERAL SHOULDERS Denies: Other Musculoskeletal History Sensory History: Reports: Hx Contacts or Glasses Denies: Hx Hearing Aid Opthamlomology History: Reports: Hx Contacts or Glasses Neurological History: Reports: Hx Nerve Disease - DM neuropathy, Hx Seizures - SEIZURE HISTORY LAST 2004 ONLY TWO TIMES IN LIFE, Other Neuro Impairments/ Disorders - SEIZURE R/T STOMACH ULCER - WITH ALCOHOL Denies: Hx Transient Ischemic Attacks (TIA) Psychiatric History: Reports: Hx Anxiety, Hx Depression Denies: Hx Panic Disorder - Cancer History Hx Chemotherapy: No - Surgical History Surgery Procedure, Year, and Place: gastric bypass [facility], bilat elbows , [facility]. HEART STENT 07/17 [facility]. GALLBLADDER [facility] Hx Anesthesia Reactions: Yes - woke up angry and swinging after 1 surgery Infectious Disease History: No Infectious Disease History: Denies: Hx Hepatitis, Traveled Outside the [place] in Last 30 Days - Family History Known Family History: Positive: Other - mother - arthritis - Social History Alcohol Use: None Alcohol Amount: NONE FOR 14 YEARS AGO Hx Substance Use: No Substance Use Type: Reports: None Hx Tobacco Use: Yes Smoking Status (MU): Never Smoked Tobacco Have You Smoked in the Last Year: No Physical Exam Vital Signs On Initial Exam: Initial Vitals Temp Pulse Resp BP Pulse Ox 98 F 77 17 122/60 94 04/30/18 14:37 04/30/18 14:37 04/30/18 14:37 04/30/18 14:37 04/30/18 14:37 Diagnostics - Vital Signs Vital Signs Temp Pulse Resp BP Pulse Ox 04/30/18 14:37 98 F 77 17 122/60 94 - Laboratory Lab Statement: Any lab studies that have been ordered have been reviewed, and results considered in the medical decision making process. Discharge - Discharge Plan Referrals: Maranda Lorenzana MD [Primary Care Provider] -
--- NOTE | 2018-04-30 15:03 | ED ---
Neurological HPI - HPI Summary HPI Summary: This is scribe Freddy Narayanan documenting for attending William Richard M.D. Patient is a 63 y/o M w/ c/o SOSA, difficulty walking, blurred vision, and dizziness onsetting yesterday at around 1400. Headache is rated 10/10, located in frontal area and radiates to occipital area. Before Sx onset, patient reports having been in normal health. Fever, chills, neck pain, chest pain, and palpitations are denied. Patient has PMHx of diabetes, HTN, CAD, GERD, insulin- dependent diabetes, morbid obesity, and chronic pain, PSHx of stomach reduction , and FMHx of CVA (sister). - History of Current Complaint Chief Complaint: EDNeurologicalDeficit Stated Complaint: HEADACHE Time Seen by Provider: 04/30/18 14:49 Hx Obtained From: Patient Onset/Duration: Started days ago - yesterday at around 1400 Current Severity: Severe Headache Location: Frontal, Radiates to : - occipital area Pain Intensity: 10 Pain Scale Used: 0-10 Numeric - 10/10 Character: Dizzy, Other: - POSITIVE: headache, dizziness, blurred vision, difficulty walking NEGATIVE: fever, chills, neck pain, chest pain, and palpitations - Allergy/Home Medications Allergies/Adverse Reactions: Allergies Allergy/AdvReac Type Severity Reaction Status Date / Time No Known Allergies Allergy Verified 04/17/18 16:38 Home Medications: Home Medications ALPRAZolam TAB* [Xanax TAB*] 2 mg PO QPM 04/30/18 [History Confirmed 04/30/18] Albuterol/Ipratropium RESP(NF) [Combivent Respimat(NF)] 1 aer IN BID 04/30/18 [ History Confirmed 04/30/18] DULoxetine DR CAP* [Cymbalta CAP*] 60 mg PO Q12H 04/30/18 [History Confirmed ] Fluticasone-Salmeterol 500-50* [Advair Diskus 500-50*] 1 puff INH BID 04/30/18 [ History Confirmed 04/30/18] Hydrochlorothiazide TAB* [Hydrodiuril TAB*] 25 mg PO DAILY 04/30/18 [History Confirmed 04/30/18] Insulin Glargine,Hum.rec.anlog [Chaseshaynequentin Reddybran] 36 unit SC DAILY 04/30/18 [ History Confirmed 04/30/18] Lisinopril TAB* [Prinivil TAB*] 30 mg PO DAILY 04/30/18 [History Confirmed 04/30] Morphine ORAL CONCENTRATE* 1 ml PO Q4H PRN 04/30/18 [History Confirmed 04/30/18] Morphine Sulfate [Morphine Sulfate ER] 30 mg PO Q8H 04/30/18 [History Confirmed 04/30/18] Nitroglycerin TAB 0.4 MG* 0.4 mg SL Q5M PRN 04/30/18 [History Confirmed 04/30/18 ] Pentoxifylline CR TAB* [TRENtal CR TAB*] 400 mg PO Q8H PRN 04/30/18 [History Confirmed 04/30/18] Polyethylene Glycol 3350* [Miralax*] 17 gm PO DAILY PRN 04/30/18 [History Confirmed 04/30/18] Sildenafil (NF) [Viagra (NF)] 100 mg PO DAILY PRN 04/30/18 [History Confirmed ] Tadalafil (Nf) [Cialis (NF)] 20 mg PO DAILY PRN 04/30/18 [History Confirmed ] Tapentadol ER (NF) [Nucynta ER (NF)] 150 mg PO Q12H PRN 04/30/18 [History Confirmed 04/30/18] busPIRone TAB* [Buspar TAB*] 7.5 mg PO BID 04/30/18 [History Confirmed 04/30/18] PMH/Surg Hx/FS Hx/Imm Hx Endocrine/Hematology History: Reports: Hx Diabetes - DMII Cardiovascular History: Reports: Hx Angina, Hx Cardiomegaly - FROM CARDIAC CATH , Hx Congestive Heart Failure - on prn bumex, Hx Coronary Artery Disease, Hx Hypertension - on meds, Hx Myocardial Infarction, Hx Valvular Heart Disease - had a cardiac stent, Other Cardiovascular Problems/Disorders - IDDM TYPE II Denies: Hx Hypercholesterolemia, Hx Pacemaker/ICD Respiratory History: Reports: Hx Asthma - as a child- outgrew, Hx Chronic Obstructive Pulmonary Disease (COPD), Hx Sleep Apnea GI History: Reports: Hx Gastroesophageal Reflux Disease - omeprazole, Other GI Disorders - hx of PANCREATITIS Denies: Hx Cirrhosis History: Denies: Hx Dialysis, Hx Kidney Stones, Hx Renal Disease Musculoskeletal History: Reports: Hx Arthritis - BILATERAL SHOULDERS, Hx Tendonitis - BILATERAL SHOULDERS Denies: Other Musculoskeletal History Sensory History: Reports: Hx Contacts or Glasses Denies: Hx Hearing Aid Opthamlomology History: Reports: Hx Contacts or Glasses Neurological History: Reports: Hx Nerve Disease - DM neuropathy, Hx Seizures - SEIZURE HISTORY LAST 2004 ONLY TWO TIMES IN LIFE, Other Neuro Impairments/ Disorders - SEIZURE R/T STOMACH ULCER - WITH ALCOHOL Denies: Hx Transient Ischemic Attacks (TIA) Psychiatric History: Reports: Hx Anxiety, Hx Depression Denies: Hx Panic Disorder - Cancer History Hx Chemotherapy: No - Surgical History Surgery Procedure, Year, and Place: gastric bypass [facility], bilat elbows , [facility]. HEART STENT 07/17 [facility] [place]. [facility] Hx Anesthesia Reactions: Yes - woke up angry and swinging after 1 surgery Infectious Disease History: No Infectious Disease History: Denies: Hx Hepatitis, Traveled Outside the [place] in Last 30 Days - Family History Known Family History: Positive: Other - mother - arthritis - Social History Alcohol Use: None Alcohol Amount: NONE FOR 14 YEARS AGO Hx Substance Use: No Substance Use Type: Reports: None Hx Tobacco Use: Yes Smoking Status (MU): Never Smoked Tobacco Have You Smoked in the Last Year: No Review of Systems Negative: Fever, Chills Positive: Blurred Vision Negative: Palpitations, Chest Pain Positive: Other - NEGATIVE: neck pain Neurological: Other - dizziness, confusion, difficulty walking Positive: Headache All Other Systems Reviewed And Are Negative: Yes Physical Exam - Summary Physical Exam Summary: VITAL SIGNS: Reviewed. GENERAL: Patient is an obese male who is lying comfortable in the stretcher. Patient is not in any acute respiratory distress. HEAD AND FACE: No signs of trauma. No ecchymosis, hematomas or skull depressions. No sinus tenderness. EYES: PERRLA, EOMI x 2, No injected conjunctiva, no nystagmus. No photophobia. EARS: Hearing grossly intact. Ear canals and tympanic membranes are within normal limits. MOUTH: Oropharynx within normal limits. NECK: Supple, trachea is midline, no adenopathy, no JVD, no carotid bruit, no c- spine tenderness, neck with full ROM. No meningeal signs, no Kernig's or brudzinskis signs. CHEST: Symmetric, no tenderness at palpation LUNGS: Clear to auscultation bilaterally. No wheezing or crackles. CVS: Regular rate and rhythm, S1 and S2 present, no murmurs or gallops appreciated. ABDOMEN: Soft, non-tender. No signs of distention. No rebound no guarding, and no masses palpated. Bowel sounds are normal. EXTREMITIES: FROM in all major joints, no edema, no cyanosis or clubbing. NEURO: Alert and oriented x 3. patient seems to be ataxic. He is unable to stay standing. He has hemianopsia. GCS score: 15 SKIN: Dry and warm Triage Information Reviewed: Yes Vital Signs On Initial Exam: Initial Vitals Temp Pulse Resp BP Pulse Ox 98 F 77 17 122/60 94 04/30/18 14:37 04/30/18 14:37 04/30/18 14:37 04/30/18 14:37 04/30/18 14:37 Vital Signs Reviewed: Yes Diagnostics - Vital Signs Vital Signs Temp Pulse Resp BP Pulse Ox 04/30/18 14:37 98 F 77 17 122/60 94 - Laboratory Result Diagrams: 04/30/18 14:55 04/30/18 14:55 Lab Statement: Any lab studies that have been ordered have been reviewed, and results considered in the medical decision making process. - Radiology CXR Xray Interpretation: No Acute Changes Radiology Interpretation Completed By: Radiologist - No evidence for acute disease. This report was reviewed by ED physician. - CT CT Head CT Interpretation: No Acute Changes CT Interpretation Completed By: Radiologist - no acute intracranial findings. This report was reviewed by ED physician. - EKG 1455 Cardiac Rate: NL - Rate of 75 BPM EKG Rhythm: Sinus Rhythm EKG Interpretation: No ST elevation, q-wave in 3 and avF; similar EKG to one taken on 04/17/18 NIH Scale - NIH Scale Level of Consciousness: Alert/Keenly Responsive Ask Patient the Month and His/Her Age: Both Correct Ask Pt to Open/Close Eyes and Hospital Intern/Release Non-Paretic Hand: Both Correctly Best Gaze (Only Horizontal Eye Movement): Normal Visual Field Testing: Partial Hemianopia Facial Paresis-Pt to Smile & Close Eyes or Grimace Symmetry: Normal/Symmetrical Motor Function - Right Arm: No Drift-Holds 10 Seconds Motor Function - Left Arm: No Drift-Holds 10 Seconds Motor Function - Right Leg: No Drift-Holds 10 Seconds Motor Function - Left Leg: No Drift-Holds 10 Seconds Limb Ataxia-Must be out of Proportion to Weakness Present: Present in Two Limbs Sensory (Use Pinprick to Test Arms/Legs/Trunk/Face): Normal Best Language (Describe Picture, Name Items): No Aphasia Dysarthria (Read Several Words): Normal Extinction and Inattention: No Abnormality Total Score: 3 Re-Evaluation - Re-Evaluation First Eval Re-Evaluation Time: 17:00 Comment: Discussed care of patient and admission to hospital. Course/Dx - Course Assessment/Plan: This patient is a 63-year-old male who presents to the emergency room with a friend with a chief complaint of the patient has inability to ambulate on his own since yesterday. Patient reports that he was in his usual state of health until yesterday when he noticed that he was not able to ambulate. The patient has a any chest pain shows about palpitations. Patient also reports days he is having a headache since yesterday. The pain is in the frontal area with radiation to the occipital area. Patient denies any fever or chills he denies any neck pain. His past medical history significant for morbid obesity, diabetes, hypertension, chronic pain, coronary artery disease, GERD and insulin-dependent diabetes. EKG is a sinus rhythm at [address] elevations. Blood test results without any significant abnormality except for albumin of 30 and creatinine of 2 which seems to have an acute renal failure. Head CT impression: No acute interconnected findings. I discussed the case with Dr. Triplett from neurology and he will be coming to consult for the patient. After Dr. Triplett from neurology son examined the patient and reviewed the CAT scan he thinks that the patient has a ischemic subacute stroke. He thinks that at this point the patient is not candidate for TPA. The patient was given an aspirin and he recommends admission to the hospitalist services. Therefore, I discussed my physical exam, findings and test results with Dr. Eaton who accepted the patient for admission. Patient is hemodynamically stable alert and oriented 3. - Diagnoses Provider Diagnoses: Ischemic stroke - Physician Notifications Discussed Care Of Patient With: Nereyda Triplett Time Discussed With Above Provider: 16:21 Instructed by Provider To: Other - 16:21 -- Dr. Triplett was consulted with regards to this case, will come to consult the patient. 16:50 -- Dr. Triplett reviewed patient and discussed with Dr. Richard; believes he had a ischemic stroke and recommends admission to hospital 16:57 -- Dr. Eaton was consulted on this case. She accepts patient for admission to hospital. Discharge - Sign-Out/Discharge Documenting (check all that apply): Patient Departure - admit - Discharge Plan Condition: Good Disposition: ADMITTED TO [facility] Referrals: Maranda Lorenzana MD [Primary Care Provider] -
[2018-04-30 15:04] LABS: ABS Basophils 0.1 10^3/ul (0-0.2); ABS Eosinophils 0.2 10^3/ul (0-0.6); ABS Lymphocytes 2.1 10^3/ul (1.0-4.8); ABS Monocytes 0.8 10^3/ul (0-0.8); ABS Neutrophils 5.5 10^3/ul (1.5-7.7); ABS Nucleated RBC 0 10^3/ul; Eosinophil % 2.4 % (0-6); Hematocrit 44 % (42-52); Hemoglobin 14.1 g/dl (14.0-18.0); Mean Corpuscular HGB Conc 32 g/dl (31-36); Mean Corpuscular Hemoglobin 26 pg (27-31); Mean Corpuscular Volume 80 fL (80-94); Mean Platelet Volume 9.1 um3 (7.4-10.4); Nucleated Red Blood Cells % 0.2; Platelet Count 169 10^3/ul (150-450); Red Blood Count 5.45 10^6/ul (4.00-5.40); Red Cell Distribution Width 17 % (10.5-15); White Blood Count 8.6 10^3/ul (3.5-10.8)
[2018-04-30 15:12] LABS: INR 0.94 (0.77-1.02)
--- NOTE | 2018-04-30 15:22 | RAD ---
INDICATION: Ataxia COMPARISON: None TECHNIQUE: Noncontrast axial source images were acquired from the skull base to the vertex. FINDINGS: Ventricles/sulci: The ventricles and cisterns are normal in size and configuration for age. Brain parenchyma: There is no focal parenchymal finding, evidence of intracranial mass, or intracranial mass effect. Intracranial hemorrhage:None. Extra-axial spaces: There are no abnormal extra axial fluid collections or evidence of extra-axial mass. Calvarium: There is no calvarial fracture or other calvarial abnormality. There is mild calvarial thickening Scalp: There is no evidence of scalp or extracalvarial soft tissue abnormality. Paranasal sinuses/mastoid: The paranasal sinuses and mastoid air cells are clear. Other: None. IMPRESSION: NO ACUTE INTRACRANIAL FINDINGS
[2018-04-30 15:25] LABS: EGFR Non-African American 34.1 (>60)
--- NOTE | 2018-04-30 15:28 | RAD ---
INDICATION: Shortness of breath. COMPARISON: Comparison is made with prior study from April 17, 2018. TECHNIQUE: A portable view of the chest was obtained. FINDINGS: Cardiac and mediastinal contours appear to be within normal limits. The lungs are clear. No pleural effusion is seen. IMPRESSION: NO EVIDENCE FOR ACUTE DISEASE.
[2018-04-30] MEDS ORDERED: Ondansetron INJ* 2 MG/ML VIAL IV PRN (18:26)
[2018-04-30] MEDS ORDERED: Magnesium Hydroxide LIQ* 30 ML UDC PO PRN (18:26)
[2018-04-30] MEDS ORDERED: Albuterol 2.5 MG/3 ML NEB.SOL* (0.083%) INH PRN (18:26)
[2018-04-30] MEDS ORDERED: Al Hydrox/Mg Hydrox/Simet LIQ* 30 ML UDC PO PRN (18:26)
[2018-04-30] MEDS ORDERED: Morphine ORAL.SOLN 10 mg* 2 MG/ML UDC 5 ml PO PRN (18:30)
[2018-04-30] MEDS ORDERED: Pentoxifylline CR TAB* 400 MG PO PRN (18:30)
[2018-04-30] MEDS ORDERED: Tapentadol(NF) 50 MG TAB PO PRN (18:30)
[2018-04-30] MEDS ORDERED: NS 0.9% 1000 ML* 1,000 ML IV SCH (18:30)
[2018-04-30] MEDS ORDERED: Nitroglycerin TAB 0.4 MG* 0.4 MG TAB SL PRN (18:30)
[2018-04-30] MEDS ORDERED: Dextrose 50% Syringe 50 ML* 25 GM/50 ML SYRINGE IV PUSH PRN (18:33)
[2018-04-30] MEDS ORDERED: DULoxetine DR CAP* 60 MG CAP.DR PO SCH (19:00)
[2018-04-30] MEDS: Mometasone/Formoter 200/5 MDI INH SCH (19:50)
[2018-04-30] MEDS ORDERED: Fluticasone-Salmeterol 500-50* DISKUS INH SCH (21:00)
--- NOTE | 2018-04-30 22:21 | HP ---
ADMISSION HISTORY AND PHYSICAL: DATE OF ADMISSION: 04/30/18 PATIENT OF: Li Eaton DO * (DICTATED BY JOANN PAIZ) PRIMARY CARE PROVIDER: Maranda Lorenzana MD PRIMARY SOFTWARE LEAD: Dr. Troy. CHIEF COMPLAINT: Headache, dizziness, and confusion today. HISTORY OF PRESENT ILLNESS: Mr. Woodson is a 63-year-old gentleman with past medical history significant for hypertension, asthma, GERD, and insulin- dependent diabetes mellitus as well as history of coronary artery disease, status post OK and stent placement in 2010, who presented to the emergency room today after he started feeling dizzy since yesterday approximately 2 o'clock in the afternoon. He reports episode of severe headaches with associated difficulty walking, blurred vision, dizziness, described as some of the worst headache of his life. He denies any stroke symptoms in the past. The patient himself is very vague about his symptoms. He appears drowsy at times, but easily aroused and answered question properly; however, he is quickly to close his eye and go back to sleep. He reports that he has been feeling tired and he did not sleep much last night. He reports occasional headache that still persists, but denies any chest pain, double vision, weakness or numbness in the extremities. He reports some confusion as well; however, he answers questions properly and he is oriented to place and person. He was evaluated in the emergency room and had a neurological consult by Dr. Triplett, who reviewed the CT scan of his head that was read as being negative. The patient had multiple risk factors for ischemic stroke for which he was kept n.p.o. and we will obtain a swallowing evaluation and Dr. Triplett already ordered MRI of the head as well as MRA of the head and neck. We were asked to see the patient to arrange for admission and to rule out any ischemic stroke. PAST MEDICAL HISTORY: As mentioned above significant for: 1. Insulin-dependent type 2 diabetes mellitus. 2. Morbid obesity. 3. Hypertension. 4. Coronary artery disease status post OK in 1983 and stent placement in 2010. 5. Chronic pain. 6. Diabetic neuropathy. 7. GERD. 8. Asthma. 9. Anxiety and depression. 10. Thrombocytopenia. PAST SURGICAL HISTORY: Significant for: 1. Gastric bypass in [place] in 2012. 2. Also history of carpal tunnel release. 3. Ulnar nerve decompression. CURRENT MEDICATIONS: His medications at home include: 1. Combivent inhaler 1 puff MDI b.i.d. 2. Xanax 2 mg p.o. q.h.s. 3. BuSpar 7.5 mg p.o. b.i.d. 4. Cymbalta 60 mg p.o. q.12 hours. 5. Advair Diskus 500/50 one puff inhaled b.i.d. 6. Hydrochlorothiazide 25 mg p.o. daily. 7. Lantus insulin 36 units subcu q.h.s. 8. Morphine oral concentrate 20 mg p.o. q.4 hours p.r.n. 9. Morphine sulfate 30 mg p.o. q.8 hours as needed for pain. 10. Nitroglycerin 0.4 mg sublingual q.5 minutes as needed for angina. 11. Trental 400 mg q.8 hours p.r.n. for pain. 12. MiraLAX 17 g p.o. daily. Viagra and Cialis as needed for erectile dysfunction, and Nucynta 150 mg p.o. q.12 hours as needed for pain. ALLERGIES: He has no known drug allergies. SOCIAL HISTORY: The patient is retired. 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 He is and has four children. He lists Dr. Cason as healthcare proxy and also his roommate. He is a nonsmoker, who denies alcohol intake. FAMILY HISTORY: Significant for diabetes and coronary artery disease. REVIEW OF SYSTEMS: See HPI. Otherwise, 14 points of review of systems were examined and were essentially negative. PHYSICAL EXAMINATION GENERAL: He is a morbidly obese gentleman, drowsy at times; however, alert when awakened and answers questions properly. He appears comfortable and in no acute distress or discomfort at the time of admission. VITAL SIGNS: Reveal blood pressure of 109/77, temperature of 98, pulse of 92, respiratory rate of 10 with O2 sats of 98%. HEENT: Head is normocephalic, atraumatic. Sclerae anicteric. PERRLA. EOMs intact. Oropharynx is pink and moist. NECK: Supple. Trachea midline. No cervical adenopathy, thyromegaly or JVD. LUNGS: Clear to auscultation bilaterally. HEART: Regular rate and rhythm. Normal S1 and S2 without rubs, murmurs, or gallops. BACK: With normal curvature. No CVA tenderness. ABDOMEN: Soft, nontender, and nondistended. No hernias, masses, or hepatosplenomegaly. RECTAL: Exam deferred at this time. EXTREMITIES: Without cyanosis, clubbing, or edema. There is dark pigmentation on both lower extremities consistent with chronic venous ulceration. NEUROLOGIC: He is awake at times, alert upon arousing him with orientation to place, time, and person. His handgrip is equally bilaterally. His tongue is midline and his sensation is intact throughout. The remainder of the neurological exam is deferred to the neurological consult. LABORATORY WORKUP: CBC with white count of 8600, hemoglobin of 14.1, hematocrit of 44, and platelets of 169. His chemistry panel with sodium of 137 , potassium 4.5, chloride 100, CO2 of 28, BUN of 30, and creatinine of 2, which appears to be significantly elevated compared to his baseline from last admission. His LFTs, lactic acid are all within normal limits. Serum alcohol was less than 10. ACCESSORY DIAGNOSTIC DATA: CT scan of the head was read as being negative with no evidence of hemorrhagic event in the brain. Chest x-ray with no evidence for acute disease. IMPRESSION: A 63-year-old gentleman with complex past medical history significant for morbid obesity, hypertension, coronary artery disease, insulin- dependent diabetes mellitus with diabetic neuropathy and nephropathy given his elevated BUN and creatinine who presented to the emergency room with intermittent dizziness, blurred vision and headaches since yesterday afternoon. ASSESSMENT AND PLAN: 1. Questionable cerebrovascular accident. CT was reviewed by Dr. Triplett and he ordered an MRI and MRA as well. The patient has experiencing some periods of confusion as well as occasional headaches with blurred vision and dizziness. His history of present illness is difficult to obtain due to his drowsiness and unwillingness to answer questions in full. He will be admitted to the telemetry unit for close observation. We will obtain a swallowing study and await the results of the MRI as well as MRA of his head and neck for further evaluation of possible carotid occlusion or ischemic stroke. We will keep him n.p.o. until passing the swallowing evaluation and to hold his blood pressure medication as well since he is borderline hypotensive and we would like to increase his blood pressure in case of ischemic event. 2. History of coronary artery disease. I would like to start the patient back on aspirin, but we will wait for him to pass his swallowing evaluation. He has significant risk factors and we will continue to observe him at the telemetry unit. His troponin today was negative and his EKG showed no significant ST changes. 3. Insulin-dependent diabetes mellitus. I will continue covering him with a sliding scale q.6 hours while he is fasting. 4. Peripheral neuropathy. We will continue his gabapentin. 5. Anxiety and depression. We will continue his BuSpar and Cymbalta. 6. Gastroesophageal reflux disease. We will continue his PPI coverage. 7. DVT prophylaxis. For the time being, we will use SCDs to covert to heparin subcu since he is a high risk. 8. Code status. He is a full code. TIME SPENT: Approximately 60 minutes were spent admitting this patient with greater than 50% on obtaining history, performing physical exam. I have discussed the case with my attending, Dr. Eaton who agreed to plan of care and we will await recommendation from Neurology after MRI hopefully done this evening. JOANN PAIZ [id number]/[facility] #: [id number] CHEN
[2018-04-30] MEDS: DULoxetine DR CAP* 30 MG CAP.DR PO SCH (22:34)
[2018-04-30] MEDS: busPIRone TAB* 5 MG PO SCH (22:34)
[2018-04-30] MEDS: Morphine VIAL* 4 MG/ML VIAL (1 ml vial) IV PRN (23:26)
--- NOTE | 2018-05-01 00:48 | CONS ---
CC: Dr. Richard* NEUROLOGY CONSULTATION REPORT: DATE OF CONSULT: 04/30/18 CONSULTING PHYSICIAN: Dr. William Richard. REASON FOR NEUROLOGICAL CONSULTATION: Ataxia and visual disturbance. CHIEF COMPLAINT: Headaches and inability to ambulate. HISTORY OF PRESENT ILLNESS: Mr. Woodson is a 63-year-old right handed obese man with a past medical history of coronary artery disease, status post NH and stent placement, insulin-dependent type 2 diabetes for 15 years, hypertension, GERD, who presented to the emergency department today with a 24 hour history of unsteady gait, visual disturbance, and abnormal behavior. The patient lives within the same building complex as Dr. 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 I personally contacted Dr. Cason today to obtain further history. Apparently, yesterday the patient went to Dr. Cason's office at approximately 12 -1 p.m. The patient was not feeling well. The patient did independently drive to the office. At the office, the patient slept for [address] Cason informed me that he examined the patient around 2:30-3 o'clock yesterday and did not notice any neurological deficits. The patient was then advised to go home. At 5:45 in the morning today, the patient woke up and was knocking on Dr. Cason's home door. He was waking Dr. Cason up to make sure he does not miss work. When asked what time it was, the patient stated that it was 10:45 when it was actually 5:45 a.m. The patient was informed to go back to his apartment complex and get some more rest. Dr. Cason went to check up on the patient at around 12-1 p.m. to notice that the patient was lying on his bed ill appearing. He had some disconjugate gaze and was having trouble seeing on the left side. He was swaying towards the left when ambulating as if he was drunk. That is when EMS was contacted to take the patient to the hospital for further evaluation. The patient today is complaining of mostly occipital headache 5/10 in severity, nonradiating, and not associated with any photo or phonophobia. He denied any nausea or vomiting. He denied any Valsalva-induced headaches. The patient was hospitalized at [facility] last week for chest pain, which ACS was ruled out. He was then discharged on lisinopril. He presents today with abnormal kidney function and what appears to be asterixis on examination. PAST MEDICAL HISTORY: Type 2 diabetes, coronary artery disease, hypertension, dyslipidemia, morbidly obese, peripheral neuropathy, probable undiagnosed obstructive sleep apnea. The patient has a history of chronic pain syndrome and is on morphine and duloxetine. MEDICATIONS: 1. Insulin glargine 36 units subcutaneously daily. 2. Morphine sulfate 30 mg p.o. every 8 hours. 3. Albuterol 1 puff twice daily. 4. Viagra 100 mg p.o. daily as needed. 5. Alprazolam 2 mg p.o. at night. 6. Tapentadol 150 mg p.o. every 12 hours. 7. Duloxetine 60 mg p.o. every 12 hours. 8. Pentoxifylline 400 mg p.o. every 8 hours as needed. 9. Tadalafil 20 mg p.o. daily as needed. 10. BuSpar 7.5 mg p.o. twice daily. 11. Lisinopril 30 mg p.o. daily. 12. Nitroglycerin 0.4 mg by mouth p.r.n. every 5 minutes for chest pain. FAMILY HISTORY: The patient's both parents suffered from strokes. His sister had stroke at a young age. 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 He denied any tobacco or alcohol use. He used to live in [place]. He moved to [place] and now he is in [place]. He denied any drug use. REVIEW OF SYSTEMS: A 14-point review of systems was obtained and otherwise negative except for what was mentioned in the HPI. In addition, the patient denied any chest pain, shortness of breath, palpations, or fever/chills. NIH stroke scale total score is 4, 1 for spastic dysarthria, 2 for partial homonymous hemianopsia, and 1 for tactile extension. PHYSICAL EXAMINATION: Vital Signs: Temperature of 98, heart rate of 87, respiratory rate of 21, oxygen saturation of 98, blood pressure of 120/70. General: Ill appearing, obese man, in no acute distress. He is resting comfortably near his friend, Mendez. Head is normocephalic, atraumatic without any obvious abnormality. Eyes: Conjunctivae/corneas are clear with no scleral icterus. Neck is supple and symmetrical with no carotid bruits. Lungs are clear to auscultation bilaterally and nonlabored breathing. Cardiovascular: Regular rate and rhythm and normal S1, S2 with radial pulses that are palpable. Extremities: Normal range of motion with no cyanosis. Skin: No skin lesions or lacerations. Psych: Affect is broad and normal mood. Easy to establish rapport. Neurological Examination: Mental Status: Awake and alert, oriented to person, place, time, and general circumstances. He does have spastic dysarthria. Cranial Nerves: Abnormal confrontation bilaterally. He has left homonymous hemianopsia. Pupils mid range and reactive to light. Normal consensual response. Extraocular muscles are intact. Sensation is intact on the forehead, cheeks, and jaw region bilaterally. He does have mild left facial droop. Able to hear throughout the history process. Symmetrical palatal elevation. Normal strength against resistance to shoulder shrug. The tongue is symmetrical and midline with no atrophy or fasciculation. Motor: He does have abnormal movements. He has negative myoclonus (asterixis). He has pronator drift on the left upper extremity. Otherwise, strength is 5/5 in the upper and lower extremities. Reflexes Right/Left: Brachioradialis trace/trace , biceps trace/trace, triceps trace/trace, patella trace/trace, ankle 0/0, plantar flexor/extensor. Sensation: He has left hemineglect and left tactile extinction. Otherwise, absent vibratory sensation at the toes and ankles. Impaired proprioception at the great toes bilaterally. He has got hammertoes and distal to proximal sensory gradient up to the knees bilaterally. Coordination: Normal [id number], but decreased rapid alternating movement on the left. Gait was not assessed as the patient has visual disturbance, but it was reported to me that the patient was ataxic and having difficulty ambulating earlier today. LABS/IMAGING AND OTHER DIAGNOSTIC TESTING: WBC 8.6, hemoglobin 14.1, hematocrit 44, platelet count 169. INR is 0.94. Sodium of 137, potassium 4.5, chloride of 100, carbon dioxide 28, BUN is 30, creatinine of 2.00. I reviewed his creatinine level and it has always been within normal range. Serum alcohol level is less than 10. CT head was completed today and it was read to show no acute intracranial abnormality. However, upon review, the patient has evidence of hypodensity in the right occipital region, which is moderate in size consistent with an acute- subacute right PIPELINES MANAGER infarction. ASSESSMENT: 1. Mr. Stefan Woodson is a 63-year-old man with a history of type 2 diabetes, coronary artery disease, status post stenting, hypertension, morbid obesity, probable obstructive sleep apnea, peripheral neuropathy, who presented with gait imbalance and visual disturbance. The patient was found to have an acute right PIPELINES MANAGER ischemic infarction on brain and head CT. NIH stroke scale was 4. The patient is not a candidate for IV TPA given that his known well time was approximately 2-3 p.m. yesterday on 04/29/18. The mechanism of the stroke can be cardioembolic, although the patient has numerous risk factors for intracranial atherosclerosis. The patient is aspirin naive, although he was advised to take aspirin last week when he was discharged after he was evaluated for chest pain. 2. Coronary artery disease, status post stent placement. 3. Acute kidney injury - the patient was recently started on lisinopril. He is also taking hydrochlorothiazide. Both may contribute to his current acute kidney injury. 4. Diabetic neuropathy, on Cymbalta. 5. History of hypertension, allow permissive hypertension given the acute stroke. RECOMMENDATIONS: Again, the patient is outside the therapeutic window for IV TPA or mechanical thrombectomy. Admit to the hospitalist service for further stroke workup and post stroke monitoring. The patient may benefit from ICU admission for at least 24 hours given his multiple comorbid conditions including the JORDIN, history of chest pain last week, current PIPELINES MANAGER stroke. Neuro checks every 4 hours for the next 24 hours. Check fasting lipid panel, TSH, B12. Start him on aspirin 325 mg once now and continue aspirin 81 mg daily thereafter. Follow up with the lipid panel and LFT and start statin therapy if indicated. Permissive blood pressure control of systolic blood pressure keep less than 180 and diastolic blood pressure less than 110 mmHg. Please give 1 bolus of normal saline 500 cc x1 now to elevate his blood pressure. Please hold all antihypertensive agents for the next 24 hours. If his systolic blood pressure goes above 180 mmHg, then restart one of his antihypertensive agent, preferably not the SHANKAR or diuretics in the setting of JORDIN, with holding parameters of hold if systolic blood pressure drops less than 140 mmHg. Bedside swallow evaluation should be done. Secondary stroke education was implemented and we discussed the importance of taking antiplatelet agent on a regular basis. Do not place the urinary catheter unless there is evidence of urinary retention. DVT prophylaxis subcutaneous heparin injection 5000 units 3 times a day. Anticoagulation therapy - there is no indication for atrial fibrillation or documented arrhythmia, therefore, there is no indication for anticoagulation therapy. TIME SPENT: I spent a total of 75 minutes and greater than 50% was spent directly reviewing the medical chart, obtaining history, examining the patient, reviewing the imaging, education and counseling, and discussing the treatment plan as mentioned above. I also discussed the prognosis where hopefully the ataxia will improve over time; however, the vision is unlikely to improve. The visual deficit is unlikely to improve. I also briefly discussed the case with Dr. Rodney Morris to discuss the brain CT, head results, but unfortunately due to phone signal, we were unable to complete our conversation. We will repeat the CT head if an MRI cannot be obtained. ADDENDUM 05/01/2018 at 830 a.m.: I was contacted multiple times last night by the geospatial information technologist. The patient was unable to lay still to complete the study. The study had to be aborted due to the lack of cooperation. We will try to repeat the study today or obtain a repeat CT head without contrast [id number] #: [id number] [facility] HOSPITALRai
[2018-05-01] MEDS: Insulin LISPRO* 1 UNITS UNIT SUBCUT SCH ×4 (01:47→18:14)
[2018-05-01] MEDS: Morphine VIAL* 4 MG/ML VIAL (1 ml vial) IV PRN ×2 (04:13→13:28)
[2018-05-01 05:56] LABS: Urine Appearance Cloudy; Urine Blood Negative (Negative); Urine Color Yellow; Urine Ketones Negative (Negative); Urine Protein Negative (Negative); Urine Specific Gravity 1.011 (1.010-1.030); Urine Urobilinogen Negative (Negative)
[2018-05-01 06:18] LABS: ABS Basophils 0 10^3/ul (0-0.2); ABS Eosinophils 0.1 10^3/ul (0-0.6); ABS Lymphocytes 1.3 10^3/ul (1.0-4.8); ABS Monocytes 0.9 10^3/ul (0-0.8); ABS Neutrophils 5.7 10^3/ul (1.5-7.7); ABS Nucleated RBC 0 10^3/ul; Eosinophil % 1.7 % (0-6); Hematocrit 44 % (42-52); Hemoglobin 14.3 g/dl (14.0-18.0); Lymphocyte % 16.2 % (25-47); Mean Corpuscular HGB Conc 33 g/dl (31-36); Mean Corpuscular Hemoglobin 26 pg (27-31); Mean Corpuscular Volume 81 fL (80-94); Mean Platelet Volume 10.2 um3 (7.4-10.4); Nucleated Red Blood Cells % 0.1; Platelet Count 161 10^3/ul (150-450); Red Blood Count 5.42 10^6/ul (4.00-5.40); Red Cell Distribution Width 17 % (10.5-15); White Blood Count 8.2 10^3/ul (3.5-10.8)
[2018-05-01 06:33] LABS: EGFR Non-African American 26.5 (>60)
[2018-05-01] MEDS: Mometasone/Formoter 200/5 MDI INH SCH ×2 (08:09→21:52)
--- NOTE | 2018-05-01 09:13 | PN ---
Subjective Date of Service: 05/01/18 Interval History: Mr. Woodson did not cooperate with obtaining the MRIs yesterday. I was contacted multiple times by the x ray technologist last night trying to work-out a way to not give him sedation since he was disoriented but still obtain the MRI. That was not successful. This morning, the patient is more awake and cooperative. He is in no distress. He has significant visual deficits with neglect towards the left side. He also has word finding difficulties. The patient was able to drive 2 days ago without assistance. He continues to have involuntary myoclonus. ROS: He denied CP, SOB, or palpitations. He has chronic low back pain. He denied any headaches this morning. Objective Active Medications: Acetaminophen (Tylenol Tab*) 650 mg PO Q4H PRN PRN Reason: FEVER/PAIN Al Hydrox/Mg Hydrox/Simethicone (Maalox Plus*) 30 ml PO Q6H PRN PRN Reason: INDIGESTION Albuterol (Ventolin 2.5 Mg/3 Ml Neb.Yancy*) 2.5 mg INH [id number] AWAKE PRN PRN Reason: sob/wheezing Alprazolam (Xanax Tab*) 2 mg PO QPM LATANYA Buspirone HCl (Buspar Tab*) 7.5 mg PO BID [facility] Last Admin: 04/30/18 22:34 Dose: Not Given Dextrose (D50w Syringe 50 Ml*) 12.5 gm IV PUSH .FOR FS < 60 - SS PRN PRN Reason: FS < 60 Duloxetine HCl (Cymbalta Cap*) 60 mg PO Q12H [facility] Last Admin: 04/30/18 22:34 Dose: Not Given Insulin Human Lispro (Humalog*) 0 units SUBCUT Q6HR [facility]; Protocol Last Admin: 05/01/18 06:03 Dose: Not Given Magnesium Hydroxide (Milk Of Magnesia Liq*) 30 ml PO Q4H PRN PRN Reason: CONSTIPATION Mometasone Furoate/Formoterol Fumar (Dulera 200/5 Mdi*) 2 puff INH BID LATANYA Last Admin: 05/01/18 08:09 Dose: 2 puff Morphine Sulfate (Morphine Vial*) 2 mg IV Q2H PRN PRN Reason: PAIN Last Admin: 05/01/18 04:13 Dose: 2 mg Nitroglycerin (Nitroglycerin Tab 0.4 Mg*) 0.4 mg SL Q5M PRN PRN Reason: PAIN - CHEST Ondansetron HCl (Zofran Inj*) 4 mg IV Q4H PRN PRN Reason: NAUSEA/VOMITING Pentoxifylline (Trental Cr Tab*) 400 mg PO Q8H PRN PRN Reason: PAIN Tapentadol (Nucynta(Nf)) 150 mg PO Q12H PRN PRN Reason: PAIN Vital Signs 04/30/18 04/30/18 04/30/18 14:37 16:04 16:06 Temperature 98 F Pulse Rate 77 77 Respiratory 17 12 Rate Blood Pressure 122/60 113/69 (mmHg) O2 Sat by Pulse 94 98 98 Oximetry 04/30/18 04/30/18 04/30/18 16:12 16:35 17:00 Temperature Pulse Rate 79 Respiratory 16 21 17 Rate Blood Pressure 120/70 (mmHg) O2 Sat by Pulse 98 Oximetry 04/30/18 04/30/18 04/30/18 17:05 17:35 18:00 Temperature Pulse Rate 91 Respiratory 12 21 12 Rate Blood Pressure 133/73 127/75 (mmHg) O2 Sat by Pulse 98 Oximetry 04/30/18 04/30/18 04/30/18 18:06 19:00 20:46 Temperature 98.0 F Pulse Rate 92 Respiratory 10 14 18 Rate Blood Pressure 109/77 101/92 (mmHg) O2 Sat by Pulse 98 Oximetry 04/30/18 04/30/18 04/30/18 21:30 22:11 23:15 Temperature 98.5 F 99.5 F Pulse Rate 72 106 Respiratory 20 20 16 Rate Blood Pressure 148/65 134/100 (mmHg) O2 Sat by Pulse 95 98 Oximetry 04/30/18 05/01/18 05/01/18 23:26 01:18 01:47 Temperature 100.2 F Pulse Rate Respiratory 18 18 Rate Blood Pressure (mmHg) O2 Sat by Pulse Oximetry 05/01/18 05/01/18 05/01/18 03:15 04:13 06:01 Temperature 98.9 F Pulse Rate 84 Respiratory 16 16 16 Rate Blood Pressure 142/71 (mmHg) O2 Sat by Pulse 98 Oximetry 05/01/18 08:17 Temperature 100.1 F Pulse Rate 99 Respiratory 20 Rate Blood Pressure 154/58 (mmHg) O2 Sat by Pulse 87 Oximetry Oxygen Devices in Use Now: Nasal Cannula Neurology Exam: General: Ill appearing obese man in no significant distress. He informed me that he gets sad when we talk about his stroke. He is very pleasant and cooperate but dysphasic. Generalized asterixis worse when standing. HEENT: Normocephelic/atraumstic, sclera anicteric, mucous membranes moist Neck: Supple Chest: Clear to auscultation bilaterally Cardiovascular: Regular rate and rhythm without murmurs, rubs, gallops Extremities: No clubbing, cyanosis, or edema. Hammer toes. Neurological Findings: Awake, alert and oriented to self, place and time. He has mild-moderate expressive aphasia where he is able to comprehend but is not fluent and cannot repeat long sentences. Mild right-left confusion. Cranial Nerve: dysconjugate gaze. He left visual neglect and cannot cross eyes past midline to left. He has severe homonymous hemianopsia. Right facial droop this morning. Motor: s/s throughout, proximal and distal extremities x4 tone/bulk normal. Partial daniel-neglect towards the left. Sensation: distal to proximal sensory gradient demarcated at the mid shins bilaterally. Absent vibration and impaired propioception at the toes. Deep Tendon Reflex: trace throughout, absent at knees and ankles bilaterally. Finger to nose, rapid alternating movements intact Gait: moderate to severe ataxia, wide based. Unsteady with swaying towards the right and left. Required one person assist. Result Diagrams: 05/01/18 05:55 05/01/18 05:55 Additional Lab and Data: Total cholesterol: 141 LDL: 85 Diagnostic Imaging: CT head without contrast 04/30/18: hypodensity in the right occipital lobe consistent with an acute infarction. Assessment/Plan Mr. Stefan Woodson is a 63-year-old man with history of hypertension, hypercholestrolemia, coronary artery disease, gastric bypass surgery, who presented with visual disturbance and abnormal movements. The patient was found to have stroke. 1. Suspect acute multifocal cerebral infarctions largest one in the right SUBWAY TRAIN OPERATOR vascular territory distribution- he has significant left hemianopsia, neglect, and expressive aphasia suggesting involvement in multiple vascular distribution. He has an Damian like syndrome where he is not aware of his visual deficits. Mechanism- rule out cardio-embolic etiology. He was not a candidate for IV tPA or mechanical thrombectomy since he was outside the therapeutic window on presentation. I don't see a hyperdense basilar or MCA signs on CT. We couldn't obtain CTAs due to his acute kidney injury which continues to worsen. He was unable to tolerate the MRI last night. I spoke to Kasia from MRI this morning who will be taking the patient to MRI at 1030 a.m. I informed Kasia that the most important sequences to obtain for now are the DWI, ADC, T2 flair, then MRA of the head without contrast. We can cancel the MRA neck if he cannot tolerate the study and order a carotid ultrasound instead. Plan: - re-attempt the MRI today. If we cannot get this done, then repeat CT head without contrast to evaluate for evolution of stroke. - I started him on aspirin 325 mg daily. - We need a TTE, and if negative, then MARCO to evaluate for atrial or ventricular thrombus. 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 He will need acute rehabilitation. - I also started him on high intensity atorvastatin 80 mg nightly. - SBP goal: 140-<180 mmHg for the next 24 hours. - VTE prophylaxis: heparin 5,000 units subcutaneous injection every 8 hours. He is not a candidate for anticoagulation therapy at this time. - We discussed stroke education again today and the important of a health diet and routine exercise. 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 - Discussed fall precautions with patient and bedside nurse aid. - Neuro checks every 4 hours. 2. JORDIN- creatinine is worst this morning. Please continue IV fluids. Hold all nephrotoxic medications. Defer to the primary team. 3. Negative myoclonus- probably related to a metabolic disturbance such JORDIN or hyperammonemia. Ordered ammonia level. The patient is extremely ill and will require close monitoring. Time spent: 40 minutes examining the patient, reviewing imaging study, and discussing his plan with the team including radiology.
[2018-05-01] MEDS ORDERED: LORazepam INJ* 2 MG/ML 1 ML VIAL IV PUSH ONE ×2 (09:20→10:23)
[2018-05-01] MEDS ORDERED: NS 0.9% 1000 ML* 1,000 ML IV ONE ×2 (11:48→12:04)
[2018-05-01] MEDS ORDERED: NS 0.9% 1000 ML* 1,000 ML IV SCH (12:00)
--- NOTE | 2018-05-01 12:01 | PN ---
Subjective Date of Service: 05/01/18 Interval History: Continues to have unpurposeful movements to all ext. Patient unable to carry on conversation, responds with unrelated sentences Patient asked when he is and answers with "my eyes are green and need to go in the trash". Unable to obtain review of systems d/t patients capacity. MRI/MRA pending Family History: Unchanged from Admission Social History: Unchanged from Admission Past Medical History: Unchanged from Admission Objective Active Medications: Acetaminophen (Tylenol Tab*) 650 mg PO Q4H PRN PRN Reason: FEVER/PAIN Al Hydrox/Mg Hydrox/Simethicone (Maalox Plus*) 30 ml PO Q6H PRN PRN Reason: INDIGESTION Albuterol (Ventolin 2.5 Mg/3 Ml Neb.Yancy*) 2.5 mg INH [id number] AWAKE PRN PRN Reason: sob/wheezing Alprazolam (Xanax Tab*) 2 mg PO QPM [facility] Aspirin (Aspirin Tab*) 325 mg PO DAILY [facility] Atorvastatin Calcium (Lipitor*) 80 mg PO 1700 [facility] Buspirone HCl (Buspar Tab*) 7.5 mg PO BID [facility] Last Admin: 04/30/18 22:34 Dose: Not Given Dextrose (D50w Syringe 50 Ml*) 12.5 gm IV PUSH .FOR FS < 60 - SS PRN PRN Reason: FS < 60 Duloxetine HCl (Cymbalta Cap*) 60 mg PO Q12H [facility] Last Admin: 04/30/18 22:34 Dose: Not Given Sodium Chloride (Ns 0.9% 1000 Ml*) 1,000 mls @ 1,000 mls/hr IV ONCE ONE Stop: 05/01/18 12:47 Sodium Chloride (Ns 0.9% 1000 Ml*) 1,000 mls @ 100 mls/hr IV PER RATE [facility] Stop: 05/01/18 21:59 Insulin Human Lispro (Humalog*) 0 units SUBCUT Q6HR [facility]; Protocol Last Admin: 05/01/18 06:03 Dose: Not Given Magnesium Hydroxide (Milk Of Magnesia Liq*) 30 ml PO Q4H PRN PRN Reason: CONSTIPATION Mometasone Furoate/Formoterol Fumar (Dulera 200/5 Mdi*) 2 puff INH BID [facility] Last Admin: 07/26/18 08:09 Dose: 2 puff Morphine Sulfate (Morphine Vial*) 2 mg IV Q2H PRN PRN Reason: PAIN Last Admin: 05/01/18 04:13 Dose: 2 mg Nitroglycerin (Nitroglycerin Tab 0.4 Mg*) 0.4 mg SL Q5M PRN PRN Reason: PAIN - CHEST Ondansetron HCl (Zofran Inj*) 4 mg IV Q4H PRN PRN Reason: NAUSEA/VOMITING Pentoxifylline (Trental Cr Tab*) 400 mg PO Q8H PRN PRN Reason: PAIN Tapentadol (Nucynta(Nf)) 150 mg PO Q12H PRN PRN Reason: PAIN Thiamine HCl (Vitamin B-1 Tab*) 100 mg PO DAILY [facility] Vital Signs - 8 hr 05/01/18 05/01/18 05/01/18 03:59 04:13 06:01 Temperature 98.9 F Pulse Rate 84 Respiratory 16 16 16 Rate Blood Pressure 142/71 (mmHg) O2 Sat by Pulse 98 Oximetry 05/01/18 05/01/18 05/01/18 08:00 08:17 10:00 Temperature 100.1 F 100.1 F Pulse Rate 99 99 Respiratory 20 20 16 Rate Blood Pressure 154/58 154/58 (mmHg) O2 Sat by Pulse 87 87 Oximetry 05/01/18 10:32 Temperature Pulse Rate Respiratory 16 Rate Blood Pressure (mmHg) O2 Sat by Pulse Oximetry Oxygen Devices in Use Now: Nasal Cannula Appearance: appears restless, respirations easy and even. Ears/Nose/Mouth/Throat: Mucous Membranes Moist Neck: NL Appearance and Movements; NL JVP, Trachea Midline Respiratory: Symmetrical Chest Expansion and Respiratory Effort, Clear to Auscultation Cardiovascular: NL Sounds; No Murmurs; No JVD, No Edema Abdominal: NL Sounds; No Tenderness; No Distention Extremities: No Edema, No Clubbing, Cyanosis Skin: No Rash or Ulcers Neurological: - - responds to name, responds with unpurposeful statements Nutrition: Taking PO's Result Diagrams: 05/01/18 05:55 05/01/18 05:55 Additional Lab and Data: Total cholesterol: 141 LDL: 85 Diagnostic Imaging: CT head without contrast 04/30/18: hypodensity in the right occipital lobe consistent with an acute infarction. Assess/Plan/Problems-Billing Mr. Stefan Woodson is a 63-year-old man with history of hypertension, hypercholestrolemia, coronary artery disease, gastric bypass surgery, who presented with visual disturbance and abnormal movements. The patient was found to have stroke. 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 OPERATOR infarct on CT - Will continue ASA - Lipitor 80 mg po daily - neurology consulted- MRI/MRA attempted but unsuccessful today - will need PT/OT - Neuro checks Q 4 hours (2) Altered mental status Current Visit: No Status: Acute Priority: High Onset Date: 06/29/14 Code (s): R41.82 - ALTERED MENTAL STATUS, UNSPECIFIED SNOMED Code(s): 518105010 Comment: -suspect this is related to CVA- Right AUTOMATIC NAILING MACHINE OPERATOR - Supportive care - Ammonia level pending - (3) JORDIN (acute kidney injury) Current Visit: Yes Status: Acute Code(s): N17.9 - ACUTE KIDNEY FAILURE, UNSPECIFIED SNOMED Code(s): 88213534 Comment: - will give 1000 cc no NS and then ns at 100 cc/ hr - will repeat BMP in the AM - I suspect that this could be related to lisinopril as the patient recently was started on lisinopril or could be related to dehydration. (4) Hypertension Current Visit: No Status: Chronic Priority: Medium Code(s): I10 - ESSENTIAL (PRIMARY) HYPERTENSION SNOMED Code(s): 21328144 Comment: Per Neurology blood pressure should remain between 140 and less than 180 - will hold HCTZ. Lisinopril (5) Chronic pain Current Visit: Yes Status: Acute Code(s): G89.29 - OTHER CHRONIC PAIN SNOMED Code(s): 16262940 Comment: - Patient is on several medications as an outpatient for chronic pain - Will continue morphine iv as needed for pain - continue Nucynta (6) DVT prophylaxis Current Visit: Yes Status: Acute Code(s): LFS2021 - SNOMED Code(s): 137355284 Comment: HSQ ok - per neurology (7) Full code status Current Visit: Yes Status: Acute Code(s): Z78.9 - OTHER SPECIFIED HEALTH STATUS SNOMED Code(s): 831280162
[2018-05-01] MEDS ORDERED: NS 0.9% 500 ML* 500 ML IV ONE (12:11)
[2018-05-01] MEDS: busPIRone TAB* 5 MG PO SCH (12:28)
[2018-05-01] MEDS: DULoxetine DR CAP* 30 MG CAP.DR PO SCH (12:28)
--- NOTE | 2018-05-01 12:28 | RAD ---
HISTORY: right homonymous hemianopsia- hemiballismus COMPARISONS: April 30, 2018 TECHNIQUE: Multiple contiguous axial CT scans were obtained of the head without intravenous contrast. FINDINGS: The study is technically limited. HEMORRHAGE/INFARCT: There is loss of reilly-white differentiation within the right posterior temporal lobe and occipital lobe consistent with subacute nonhemorrhagic infarct. Elsewhere, there is no hemorrhage or acute infarct. MASSES/SHIFT: There is no mass or shift. EXTRA-AXIAL SPACES: There are no extra-axial fluid collections. SULCI AND VENTRICLES: The sulci and ventricles are normal in size and position for the patient's stated age. CEREBRUM: As noted above, there is hypoattenuation within the right posterior temporal lobe and occipital lobe. BRAINSTEM: There are no focal parenchymal abnormalities. CEREBELLUM: There are no focal parenchymal abnormalities. VESSELS: The vessels are grossly normal. PARANASAL SINUSES: The paranasal sinuses are clear. ORBITS: The orbits are unremarkable. BONES AND SOFT TISSUE: No bone or soft tissue abnormalities are noted. OTHER: None IMPRESSION: 1. LIMITED STUDY. 2. HYPOATTENUATION CONSISTENT WITH SUBACUTE NONHEMORRHAGIC INFARCT OF THE RIGHT POSTERIOR TEMPORAL AND OCCIPITAL LOBES, CORRESPONDING TO THE RIGHT BELT BUILDER TERRITORY.
[2018-05-01] MEDS: Aspirin TAB* 325 MG PO SCH (13:14)
[2018-05-01] MEDS: Thiamine TAB* 100 MG TAB PO SCH (13:14)
[2018-05-01] MEDS: Atorvastatin* 80 MG TAB PO SCH (18:06)
[2018-05-01] MEDS: ALPRAZolam TAB* 0.5 MG PO SCH (18:07)
[2018-05-01] MEDS: Heparin VIAL(*) 5000 UNITS/ML VIAL (FIVE THOUSAND) SUBCUT SCH (21:43)
[2018-05-02] MEDS: Insulin LISPRO* 1 UNITS UNIT SUBCUT SCH ×4 (01:10→20:04)
[2018-05-02] MEDS: hydrALAZINE IV* 20 MG/ML VIAL IV PRN (01:31)
[2018-05-02] MEDS ORDERED: amLODIPine TAB* 5 MG PO SCH (04:00)
[2018-05-02 05:26] LABS: ABS Basophils 0.1 10^3/ul (0-0.2); ABS Eosinophils 0 10^3/ul (0-0.6); ABS Lymphocytes 0.7 10^3/ul (1.0-4.8); ABS Monocytes 0.5 10^3/ul (0-0.8); ABS Neutrophils 6.3 10^3/ul (1.5-7.7); ABS Nucleated RBC 0 10^3/ul; Eosinophil % 0.3 % (0-6); Hematocrit 47 % (42-52); Hemoglobin 15.1 g/dl (14.0-18.0); Lymphocyte % 9.4 % (25-47); Mean Corpuscular HGB Conc 33 g/dl (31-36); Mean Corpuscular Hemoglobin 26 pg (27-31); Mean Corpuscular Volume 81 fL (80-94); Mean Platelet Volume 9.8 um3 (7.4-10.4); Nucleated Red Blood Cells % 0.1; Platelet Count 128 10^3/ul (150-450); Red Blood Count 5.76 10^6/ul (4.00-5.40); Red Cell Distribution Width 17 % (10.5-15); White Blood Count 7.6 10^3/ul (3.5-10.8)
[2018-05-02 05:43] LABS: EGFR Non-African American 31.2 (>60)
[2018-05-02] MEDS: Heparin VIAL(*) 5000 UNITS/ML VIAL (FIVE THOUSAND) SUBCUT SCH ×3 (05:52→23:14)
[2018-05-02] MEDS: Acetaminophen TAB* 325 MG PO PRN ×2 (06:10→13:59)
[2018-05-02] MEDS: Mometasone/Formoter 200/5 MDI INH SCH ×2 (07:38→20:02)
[2018-05-02] MEDS ORDERED: Perflutren Lipid Microsphere* 3 ML VIAL ONE (08:43)
[2018-05-02] MEDS ORDERED: Morphine INJ* 2 MG/ML 1 ML SYRINGE (TWO MG - NEW SYRINGE VERSION) IV PRN (11:00)
[2018-05-02] MEDS: Morphine TAB Extended Release (*) 15 MG TAB.ER PO SCH ×2 (11:25→19:29)
[2018-05-02] MEDS: Thiamine TAB* 100 MG TAB PO SCH (11:26)
[2018-05-02] MEDS: Aspirin TAB* 325 MG PO SCH (11:27)
--- NOTE | 2018-05-02 11:48 | ECHO ---
Patient: JOHN HOROWITZ [facility] Rec#: [id number] : 1955 Date: 05/02/2018 Age: 63y Height: 175 cm / 68.9 in Weight: 117.9 kg / 259.9 lbs Sex: M BSA: 2.3 Room#: [facility] Admit Date#: 04/30/2018 Type: Inpatient Referring: Nereyda Triplett Reading: Greg Yoon MD Color Separation Photographer: Alie Painter RN RDCS CC: Bienvenido Troy MD CC: CHIVO VALDERRAMA Transthoracic Echocardiogram Indication: CVA BP: 180/78 HR: 71 Rhythm: NSR with PACs Findings History: CAD, MS, PCI, DM, HTN, HLD, asthma, morbid obesity Technical Comments: The study is technically limited due to poor acoustic windows. The study is technically limited due to patient body habitus. A bubble study was not performed due to poor image quality. Dr. Triplett aware. Left Ventricle: The left ventricular chamber size is normal. Moderate concentric left ventricular hypertrophy is observed. Global left ventricular wall motion and contractility are within normal limits. The left ventricle appears hyperdynamic. The estimated ejection fraction is greater than 65%. There is an E to A reversal in the mitral valve flow pattern suggestive of diastolic dysfunction.grade is indeterminate. Left Atrium: The left atrium is not well visualized. The left atrium is mild to moderately dilated. Right Ventricle: The right ventricle is mildly dilated. The right ventricular global systolic function is normal. Right Atrium: The right atrium is not well visualized. Aortic Valve: The aortic valve leaflets are mildly thickened. There is no evidence of aortic regurgitation. There is no evidence of aortic stenosis. Mitral Valve: The mitral valve structure is not well visualized. Moderate mitral annular calcification present.with restriction of the posterior leaflet. The mitral valve leaflets are mildly thickened. There is a trace of mitral regurgitation. There is mild to moderate mitral stenosis. by mean gradient whci can vary with heart rate. The mean gradient across the mitral valve is 5.6 mmHg. The peak gradient across the mitral valve is 10.7 mmHg. The pressure half time of the mitral valve is 94 msec. The mitral valve area, by pressure half time, is calculated at 2.3 cm2. Tricuspid Valve: The tricuspid valve structure is not well visualized. There is trace tricuspid regurgitation. Unable to estimate the right ventricular systolic pressure. Pulmonic Valve: The pulmonic valve appears normal. There is mild pulmonic regurgitation. There is no pulmonic stenosis. Pericardium: There is no significant pericardial effusion. A pericardial fat pad is visualized. Aorta: There is mild dilatation of the ascending aorta. The aortic arch is not well visualized. There is mild dilatation of the aortic root. Pulmonary Artery: The main pulmonary artery is not well visualized. Venous: The venous system is not well visualized. The inferior vena cava is not visualized. Contrast: Definity was used to optimize study. A total of 5 ml of diluted Definity was given IV. Conclusions The study is suboptimal due to patient body habitus. A bubble study was not performed due to poor image quality. Moderate concentric left ventricular hypertrophy is observed. The left ventricle appears hyperdynamic. The estimated ejection fraction is greater than 65%. There is an E to A reversal in the mitral valve flow pattern suggestive of diastolic dysfunction; grade is indeterminate. Moderate mitral annular calcification present with restriction of the posterior leaflet. There is mild to moderate mitral stenosis. by mean gradient whci can vary with heart rate. There is trace tricuspid regurgitation. There is mild pulmonic regurgitation. There is mild dilatation of the aortic root. There is mild dilatation of the ascending aorta. Prior study of 01/2013 reported an ef of 50-55% and did not mention MS. There was LVH measured but not reported. Images were suboptimal at that time. Measurements Name Value Normal Range RVIDd (AP) 2D 3.1 cm (0.9 - 2.6) IVSd (2D) 1.7 cm (0.6 - 1) LVPWd (2D) 1.4 cm (0.6 - 1) LVIDd (2D) 4 cm (3.6 - 5.4) LVIDs (2D) 2.8 cm - LV FS (2D) 30 % (25 - 45) Aortic Annulus 2.5 cm (1.4 - 2.6) Ao root diameter (2D) 3.7 cm (2.1 - 3.5) Ascending Ao 3.6 cm (2.1 - 3.4) LA dimension (AP) 2D 4 cm (2.3 - 3.8) LAd ISD 4CH 6.2 cm (2.9 - 5.3) LA ISD 4CH W 5.5 cm (2.5 - 4.5) Name Value Normal Range MV E-wave Vmax 1.2 m/sec - MV deceleration time 393 msec - MV A-wave Vmax 1.6 m/sec - MV E:A ratio 0.79 ratio - LV septal e' Vmax 0.08 m/sec - LV lateral e' Vmax 0.1 m/sec - LV E:e' septal ratio 15 ratio - LV E:e' lateral ratio 12 ratio - Name Value Normal Range AV Vmax 1.5 m/sec - AV VTI 44.9 cm - AV peak gradient 9.3 mmHg - AV mean gradient 6.2 mmHg - LVOT Vmax 1.4 m/sec - LVOT VTI 28.7 cm - LVOT peak gradient 8.1 mmHg - LVOT mean gradient 4.9 mmHg - Name Value Normal Range MV Vmax 1.6 m/sec - MV VTI 45.4 cm - MV peak gradient 10.7 mmHg - MV mean gradient 5.6 mmHg - MV PHT 94 msec - MVA (PHT) 2.3 cm2 - Name Value Normal Range PV Vmax 1.1 m/sec -
--- NOTE | 2018-05-02 12:41 | PN ---
Subjective Date of Service: 05/02/18 Interval History: He had episodes where he was desaturating to the low 80's throughout the night and this morning. he also has abnormal telemetry finding of 4-5 second pauses. Pt is asymptomatic. He snores at night and does not use a CPAP. He complains of abdominal pain. he denied any headaches or visual disturbance. He denied any new weakness or paresthesia. he does not recognize his visual deficits until informed that he cannot see on the left. ROS: as per HPI Family History: Unchanged from Admission Social History: Unchanged from Admission Past Medical History: Unchanged from Admission Objective Active Medications: Acetaminophen (Tylenol Tab*) 650 mg PO Q4H PRN PRN Reason: FEVER/PAIN Last Admin: 05/02/18 06:10 Dose: 650 mg Al Hydrox/Mg Hydrox/Simethicone (Maalox Plus*) 30 ml PO Q6H PRN PRN Reason: INDIGESTION Albuterol (Ventolin 2.5 Mg/3 Ml Neb.Yancy*) 2.5 mg INH [id number] AWAKE PRN PRN Reason: sob/wheezing Alprazolam (Xanax Tab*) 2 mg PO QPM [facility] Last Admin: 05/01/18 18:07 Dose: 2 mg Amlodipine Besylate (Norvasc Tab*) 5 mg PO DAILY [facility] Last Admin: 05/02/18 04:20 Dose: 5 mg Aspirin (Aspirin Tab*) 325 mg PO DAILY [facility] Last Admin: 05/02/18 11:27 Dose: 325 mg Atorvastatin Calcium (Lipitor*) 80 mg PO 1700 [facility] Last Admin: 05/01/18 18:06 Dose: 80 mg Dextrose (D50w Syringe 50 Ml*) 12.5 gm IV PUSH .FOR FS < 60 - SS PRN PRN Reason: FS < 60 Duloxetine HCl (Cymbalta Cap*) 60 mg PO 2100 [facility] Heparin Sodium (Porcine) (Heparin Vial(*)) 5,000 units SUBCUT Q8HR [facility] Last Admin: 05/02/18 05:52 Dose: 5,000 units Hydralazine HCl (Apresoline Iv*) 10 mg IV Q4H PRN PRN Reason: Systolic >170 Last Admin: 05/02/18 01:31 Dose: 10 mg Insulin Human Lispro (Humalog*) 0 units SUBCUT Q6HR [facility]; Protocol Last Admin: 05/02/18 05:52 Dose: 3 units Magnesium Hydroxide (Milk Of Magnesia Liq*) 30 ml PO Q4H PRN PRN Reason: CONSTIPATION Mometasone Furoate/Formoterol Fumar (Dulera 200/5 Mdi*) 2 puff INH BID [facility] Last Admin: 05/02/18 07:38 Dose: 2 puff Morphine Sulfate (Morphine Inj (Syringe)*) 2 mg IV Q2H PRN PRN Reason: PAIN Morphine Sulfate (Ms Contin(*)) 15 mg PO Q8H [facility] Last Admin: 05/02/18 11:25 Dose: 15 mg Nitroglycerin (Nitroglycerin Tab 0.4 Mg*) 0.4 mg SL Q5M PRN PRN Reason: PAIN - CHEST Ondansetron HCl (Zofran Inj*) 4 mg IV Q4H PRN PRN Reason: NAUSEA/VOMITING Pentoxifylline (Trental Cr Tab*) 400 mg PO Q8H PRN PRN Reason: PAIN Tapentadol (Nucynta(Nf)) 150 mg PO Q12H PRN PRN Reason: PAIN Thiamine HCl (Vitamin B-1 Tab*) 100 mg PO DAILY [facility] Last Admin: 05/02/18 11:26 Dose: 100 mg Vital Signs 05/01/18 05/01/18 05/01/18 13:28 13:32 13:49 Temperature 99.1 F Pulse Rate Respiratory 16 16 20 Rate Blood Pressure 107/73 (mmHg) O2 Sat by Pulse 97 Oximetry 05/01/18 05/01/18 05/01/18 15:33 15:48 18:07 Temperature 99.4 F Pulse Rate 96 Respiratory 16 16 16 Rate Blood Pressure 135/53 (mmHg) O2 Sat by Pulse 97 Oximetry 05/01/18 05/01/18 05/01/18 19:23 20:00 21:45 Temperature 96.9 F Pulse Rate 83 Respiratory 16 16 20 Rate Blood Pressure 182/75 (mmHg) O2 Sat by Pulse 98 Oximetry 05/01/18 05/02/18 05/02/18 23:48 03:10 03:58 Temperature 97.6 F Pulse Rate 83 80 Respiratory 16 Rate Blood Pressure 185/64 189/71 180/78 (mmHg) O2 Sat by Pulse 97 Oximetry 05/02/18 05/02/18 05/02/18 08:00 11:20 11:25 Temperature 98.1 F Pulse Rate 94 Respiratory 16 24 18 Rate Blood Pressure 187/76 (mmHg) O2 Sat by Pulse 98 Oximetry Oxygen Devices in Use Now: OxyMask Neurology Exam: General: Ill appearing obese man in no acute distress. He is sleeping most of the time. He wakes to verbal command but keeps eyes closed. He told examiner today, " I just want to sleep." HEENT: Normocephelic/atraumstic, sclera anicteric, mucous membranes moist Neck: Supple Chest: Clear to auscultation bilaterally Cardiovascular: Regular rate and rhythm without murmurs, rubs, gallops Abdomen: Soft, but tender in the right upper and middle quadrant. Extremities: No clubbing, cyanosis, or edema. He has hammer toes. Neurological Findings: Drowsy but alert and oriented to self, place and time. No aphasia today. It may have been that he was encephalopathic yesterday rather than aphasic. He is able to comprehend complicated commands. Mild right-left confusion. Mild dysarthria. Cranial Nerve: dysconjugate gaze. left homonymous hemianopsia. No facial droop today. Motor: Malcolm-neglect towards the left. Mild left pronator drift. Otherwise moves all 4 extremities to command. Sensation: Distal to proximal sensory gradient demarcated to the mid shins bilaterally. Deep Tendon Reflex: Trace throughout. Babinski - extensor plantar response on the left. He is too drowsy today to participate with finger to nose. Gait: not assessed Result Diagrams: 05/02/18 05:09 05/02/18 05:09 Additional Lab and Data: Total cholesterol: 141 LDL: 85 Ammonia: 45 Microbiology and Other Data: Microbiology 04/30/18 15:24 Aerobic Blood Culture - Preliminary Blood Venous No Growth Day 1 Anaerobic Blood Culture - Preliminary No Growth Day 1 04/30/18 15:24 Aerobic Blood Culture - Preliminary Blood Venous No Growth Day 1 Anaerobic Blood Culture - Preliminary No Growth Day 1 Diagnostic Imaging: CT head without contrast 04/30/18: hypodensity in the right occipital lobe consistent with an acute infarction. Assessment/Plan Assessment/Plan Mr. Stefan Woodson is a 63-year-old man with history of hypertension, hypercholestrolemia, coronary artery disease, gastric bypass surgery, who presented with visual disturbance and abnormal movements. The patient was found to have an ischemic stroke in the right LATHE SET UP OPERATOR distribution. 1. Acute right LATHE SET UP OPERATOR ischemic stroke involving the right occipital and temporal lobes- He has an Damian like syndrome where he is not aware of his visual deficits. Mechanism- rule out cardio-embolic etiology. He was not a candidate for IV tPA or mechanical thrombectomy since he was outside the therapeutic window on presentation. He was unable to sit still for an MRI. We have attempted an MRI twice with Ativan. A repeat CT head showed the right LATHE SET UP OPERATOR stroke so an MRI is not really needed; however, we have not been able to assess his intracranial vasculature. Given his kidney function, he cannot have a CTA and he was unable to cooperate for the MRA. A CTA can be done once his kidney function improves. 2. Acute toxic and hypoxic encephalopathy- the patient has fluctuation in mentation. I suspect this is multifactorial and related to severe ASHLEE as he had desaturation down to the low 80's when sleeping despite oxygen. He also is probably over medicated with narcotics and benzodiazepine for his chronic pain and anxiety. We have to be extremely careful with the dose of morphine given and to cut down from his home dose-making sure his pain is well controlled. 3. JORDIN-Please continue IV fluids. Hold all nephrotoxic medications. Defer to the primary team. 4. Negative myoclonus- improved. Seems to be correlate with the improvement of his kidney function. Ammonia is normal. 5. Abdominal pain- defer to the primary team. 6. Abnormal telemetry and EKG with 4-5 second pauses seen on telemetry- defer to the primary team. He has no electrolyte abnormalities. Consider cardiac consultation. 7. ASHLEE- CPAP/BiPAP use was encouraged. Plan: - Start DAPT with aspirin 81 mg and Plavix 75 mg daily for 30 days. After that , continue aspirin 81 mg daily (he was aspirin naive) - Pending TTE. If quality is poor, he may need a MARCO. 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 He will need acute rehabilitation. - High intensity atorvastatin 80 mg nightly. - SBP goal: 140-<180 mmHg - Please check a lactate level to rule out any ischemic changes in the GI tract. - VTE prophylaxis: heparin 5,000 units subcutaneous injection every 8 hours. He is not a candidate for anticoagulation therapy at this time. - We discussed stroke education again today and the important of a health diet and routine exercise. - Prognosis- unfortunately retirement disability given his visual deficits. - Discussed fall precautions with patient and bedside nurse aid. - Neuro checks every 4 hours. Time spent: 25 minutes examining the patient, reviewing imaging study, and discussing his plan with the team including radiology.
--- NOTE | 2018-05-02 15:53 | PN ---
Subjective Date of Service: 05/02/18 Interval History: continues to have periods of lucidness and then period of confusion with word salad. Patient was originally evaluated and would respond with yes when name was called, then would start constantly saying " i am so sorry GOD" to all further question. Evaluated approx 1 hour later and patient was able to respond to questions and follow direction appropriately. seems to have no left eye vision. When hold up 2 finger he is able to see them with his right eye and when asked how many finger he saw with the left eye he responded with 7. Denies chest pain or shortness of breath. denies does report abd pain, and back pain. Denies nausea or vomiting. Family History: Unchanged from Admission Social History: Unchanged from Admission Past Medical History: Unchanged from Admission Objective Active Medications: Acetaminophen (Tylenol Tab*) 650 mg PO Q4H PRN PRN Reason: FEVER/PAIN Last Admin: 05/02/18 13:59 Dose: 650 mg Al Hydrox/Mg Hydrox/Simethicone (Maalox Plus*) 30 ml PO Q6H PRN PRN Reason: INDIGESTION Albuterol (Ventolin 2.5 Mg/3 Ml Neb.Yancy*) 2.5 mg INH [id number] AWAKE PRN PRN Reason: sob/wheezing Alprazolam (Xanax Tab*) 2 mg PO QPM COUNTS INCLUDE 234 BEDS AT THE [facility] Last Admin: 05/01/18 18:07 Dose: 2 mg Amlodipine Besylate (Norvasc Tab*) 5 mg PO DAILY COUNTS INCLUDE 234 BEDS AT THE [facility] Last Admin: 05/02/18 04:20 Dose: 5 mg Aspirin (Aspirin Tab*) 325 mg PO DAILY COUNTS INCLUDE 234 BEDS AT THE [facility] Last Admin: 05/02/18 11:27 Dose: 325 mg Atorvastatin Calcium (Lipitor*) 80 mg PO 1700 COUNTS INCLUDE 234 BEDS AT THE [facility] Last Admin: 05/01/18 18:06 Dose: 80 mg Dextrose (D50w Syringe 50 Ml*) 12.5 gm IV PUSH .FOR FS < 60 - SS PRN PRN Reason: FS < 60 Duloxetine HCl (Cymbalta Cap*) 60 mg PO 2100 COUNTS INCLUDE 234 BEDS AT THE [facility] Heparin Sodium (Porcine) (Heparin Vial(*)) 5,000 units SUBCUT Q8HR COUNTS INCLUDE 234 BEDS AT THE [facility] Last Admin: 05/02/18 13:22 Dose: 5,000 units Hydralazine HCl (Apresoline Iv*) 10 mg IV Q4H PRN PRN Reason: Systolic >170 Last Admin: 05/02/18 01:31 Dose: 10 mg Insulin Human Lispro (Humalog*) 0 units SUBCUT Q6HR COUNTS INCLUDE 234 BEDS AT THE [facility]; Protocol Last Admin: 05/02/18 13:21 Dose: 2 units Magnesium Hydroxide (Milk Of Magnesia Liq*) 30 ml PO Q4H PRN PRN Reason: CONSTIPATION Mometasone Furoate/Formoterol Fumar (Dulera 200/5 Mdi*) 2 puff INH BID COUNTS INCLUDE 234 BEDS AT THE [facility] Last Admin: 05/02/18 07:38 Dose: 2 puff Morphine Sulfate (Morphine Inj (Syringe)*) 2 mg IV Q2H PRN PRN Reason: PAIN Morphine Sulfate (Ms Contin(*)) 15 mg PO Q8H COUNTS INCLUDE 234 BEDS AT THE [facility] Last Admin: 05/02/18 11:25 Dose: 15 mg Nitroglycerin (Nitroglycerin Tab 0.4 Mg*) 0.4 mg SL Q5M PRN PRN Reason: PAIN - CHEST Ondansetron HCl (Zofran Inj*) 4 mg IV Q4H PRN PRN Reason: NAUSEA/VOMITING Pentoxifylline (Trental Cr Tab*) 400 mg PO Q8H PRN PRN Reason: PAIN Tapentadol (Nucynta(Nf)) 150 mg PO Q12H PRN PRN Reason: PAIN Thiamine HCl (Vitamin B-1 Tab*) 100 mg PO DAILY COUNTS INCLUDE 234 BEDS AT THE [facility] Last Admin: 05/02/18 11:26 Dose: 100 mg Vital Signs - 8 hr 05/02/18 05/02/18 05/02/18 08:00 11:20 11:25 Temperature 98.1 F Pulse Rate 94 Respiratory 16 24 18 Rate Blood Pressure 187/76 (mmHg) O2 Sat by Pulse 98 Oximetry Oxygen Devices in Use Now: Nasal Cannula Appearance: appears comfortable at times. no acute distress. Ears/Nose/Mouth/Throat: Clear Oropharnyx, Mucous Membranes Moist Neck: NL Appearance and Movements; NL JVP, Trachea Midline Respiratory: Symmetrical Chest Expansion and Respiratory Effort, Clear to Auscultation Cardiovascular: NL Sounds; No Murmurs; No JVD, No Edema Abdominal: NL Sounds; No Tenderness; No Distention, - - obese Extremities: No Edema, No Clubbing, Cyanosis Skin: No Rash or Ulcers Neurological: Alert and Oriented x 3, - - limited fine motor movement of the left arm. able to movement both feet when asked, able to follow simple directions. Nutrition: Taking PO's Result Diagrams: 05/02/18 05:09 05/02/18 05:09 Additional Lab and Data: Total cholesterol: 141 LDL: 85 Microbiology and Other Data: Microbiology 04/30/18 15:24 Aerobic Blood Culture - Preliminary Blood Venous No Growth Day 1 Anaerobic Blood Culture - Preliminary No Growth Day 1 04/30/18 15:24 Aerobic Blood Culture - Preliminary Blood Venous No Growth Day 1 Anaerobic Blood Culture - Preliminary No Growth Day 1 Diagnostic Imaging: CT head without contrast 04/30/18: hypodensity in the right occipital lobe consistent with an acute infarction. Assess/Plan/Problems-Billing Mr. Stefan Woodson is a 63-year-old man with history of hypertension, hypercholestrolemia, coronary artery disease, gastric bypass surgery, who presented with visual disturbance and abnormal movements. The patient was found to have stroke. - Patient Problems (1) CVA (cerebral vascular accident) Current Visit: Yes Status: Acute Code(s): I63.9 - CEREBRAL INFARCTION, UNSPECIFIED SNOMED Code(s): 126284422 Comment: -acute Right INNER LAYER SCRUBBER TENDER infarct on CT - Will continue ASA and start plavix today- he will need dual platelet therapy for 30 days then ASA 81 after - per neurology - Lipitor 80 mg po daily - neurology consulted- MRI/MRA attempted but unsuccessful - will need PT/OT - Neuro checks Q 4 hours - echo with poor quality - Neurology has recommended MARCO for further evaluation of cardioembolic source of his CVA (2) Altered mental status Current Visit: No Status: Acute Priority: High Onset Date: 06/29/14 Code (s): R41.82 - ALTERED MENTAL STATUS, UNSPECIFIED SNOMED Code(s): 728561231 Comment: - Suspect this is related to CVA- Right INNER LAYER SCRUBBER TENDER, could also be related to hypoxia d/ t his sleep apnea as well as over medication - Supportive care - Ammonia level 45 WNL (3) JORDIN (acute kidney injury) Current Visit: Yes Status: Acute Code(s): N17.9 - ACUTE KIDNEY FAILURE, UNSPECIFIED SNOMED Code(s): 35148237 Comment: - continue NS at 100 cc/ hr - BuN and creatinine continue to improve - will repeat BMP in the AM - I suspect that this could be related to lisinopril as the patient recently was started on lisinopril or could be related to dehydration. (4) Diabetes Current Visit: Yes Status: Acute Code(s): E11.9 - TYPE 2 DIABETES MELLITUS WITHOUT COMPLICATIONS SNOMED Code(s): 04274238 Comment: Lispro sliding scale Fingersticks - patient is starting to increase po intake may need to restart his lantus tomorrow (5) Hypertension Current Visit: No Status: Chronic Priority: Medium Code(s): I10 - ESSENTIAL (PRIMARY) HYPERTENSION SNOMED Code(s): 39904032 Comment: Per Neurology blood pressure should 130 to 140 - will hold HCTZ. Lisinopril d/t kidney function - norvasc 5 mg - will increase to 10 mg (6) Chronic pain Current Visit: Yes Status: Acute Code(s): G89.29 - OTHER CHRONIC PAIN SNOMED Code(s): 95377856 Comment: - Patient is on several medications as an outpatient for chronic pain - Will continue morphine iv as needed for pain -restarted Morphine ER 15 mg today - may need to titrate dose as patient was taking 30 mg Q 8 hours at home - continue Nucynta (7) DVT prophylaxis Current Visit: Yes Status: Acute Code(s): ONN1231 - SNOMED Code(s): 720991104 Comment: HSStephanie ok - per neurology (8) Full code status Current Visit: Yes Status: Acute Code(s): Z78.9 - OTHER SPECIFIED HEALTH STATUS SNOMED Code(s): 153554380 Status and Disposition: Will most likely need acute rehab
[2018-05-02] MEDS ORDERED: NS 0.9% 1000 ML* 1,000 ML IV SCH (16:15)
--- NOTE | 2018-05-02 16:53 | RAD ---
INDICATION: Stroke. COMPARISON: Comparison is made with a prior study from June 14, 2011. TECHNIQUE: Multiple grayscale, color and Doppler tracings of the common, internal and external carotid and vertebral arteries were obtained. Stenosis estimations reflect velocity criteria that it been correlated to angiographic stenosis calculations based on the distal internal carotid diameter. The study is limited. The patient was unable to cooperate for the study and the exam was limited due to large body habitus. The carotid arteries were nonvisualized beyond the proximal internal carotid artery. The vertebral arteries were also not visualized. RIGHT CAROTID: There is no plaque within the right carotid artery. The peak systolic velocity in the proximal right internal carotid artery is 50 to cm/s and the maximum end-diastolic velocity is 17 cm/s. The peak systolic velocity in the distal right common carotid artery is 86 cm/s and the maximum end-diastolic velocity is 20 cm/s. The internal to common carotid artery ratio is 0.7. There is no evidence for hemodynamically significant stenosis. LEFT CAROTID: There is no plaque within the left carotid artery. The peak systolic velocity in the proximal left internal carotid artery is 36 cm/s and the maximum end-diastolic velocity is 13 cm/s. The peak systolic velocity in the distal left common carotid artery is 64 cm/s and the maximum end-diastolic velocity is 14 cm/s. The internal to common carotid artery ratio is 0.6. There was no evidence for hemodynamically significant stenosis. VERTEBRALS: The vertebral arteries were not visualized. IMPRESSION: LIMITED STUDY NOTED ABOVE NO EVIDENCE FOR HEMODYNAMICALLY SIGNIFICANT STENOSIS. CPT II Codes: 3100F
[2018-05-02] MEDS: Clopidogrel TAB* 75 MG PO SCH (19:29)
[2018-05-02] MEDS: Atorvastatin* 80 MG TAB PO SCH (19:33)
[2018-05-02] MEDS: ALPRAZolam TAB* 0.5 MG PO SCH (19:49)
[2018-05-02] MEDS ORDERED: DULoxetine DR CAP* 30 MG CAP.DR PO SCH (21:00)
[2018-05-02] MEDS: Morphine INJ* 2 MG/ML 1 ML SYRINGE (TWO MG - NEW SYRINGE VERSION) IV PRN (23:20)
[2018-05-03] MEDS: hydrALAZINE IV* 20 MG/ML VIAL IV PRN ×3 (00:08→18:40)
[2018-05-03] MEDS: Insulin LISPRO* 1 UNITS UNIT SUBCUT SCH ×5 (00:22→23:57)
[2018-05-03] MEDS ORDERED: Metoprolol Tartrate IV* 1 MG/ML 5 ML VIAL IV ONE ×2 (01:15→02:48)
[2018-05-03] MEDS: Acetaminophen TAB* 325 MG PO PRN ×2 (01:51→19:58)
[2018-05-03] MEDS ORDERED: Metoprolol Tartrate IV* 1 MG/ML 5 ML VIAL ONE (02:52)
[2018-05-03] MEDS: Morphine TAB Extended Release (*) 15 MG TAB.ER PO SCH ×3 (02:56→18:11)
[2018-05-03] MEDS: niCARdipine 0.1MG/ML IVPREMIX* 20 MG/200 ML BAG IV SCH ×3 (05:53→18:42)
[2018-05-03] MEDS: Heparin VIAL(*) 5000 UNITS/ML VIAL (FIVE THOUSAND) SUBCUT SCH ×3 (06:19→22:37)
--- NOTE | 2018-05-03 07:28 | PN ---
Progress Note - Progress Note Date of Service: 05/03/18 Note: Transferred to ICU 2nd despite 2 IV doses metoprolol 5mg each his BP continued to escalate becoming a hypertensive urgency due to his admitting diagnosis if CVA. As such, he was transferred to ICU for initiation of nicardipine GTT.
[2018-05-03 08:24] LABS: ABS Basophils 0.1 10^3/ul (0-0.2); ABS Eosinophils 0 10^3/ul (0-0.6); ABS Lymphocytes 0.7 10^3/ul (1.0-4.8); ABS Monocytes 0.6 10^3/ul (0-0.8); ABS Neutrophils 6.8 10^3/ul (1.5-7.7); ABS Nucleated RBC 0 10^3/ul; Eosinophil % 0.2 % (0-6); Hematocrit 50 % (42-52); Hemoglobin 16.8 g/dl (14.0-18.0); Lymphocyte % 9.1 % (25-47); Mean Corpuscular HGB Conc 33 g/dl (31-36); Mean Corpuscular Hemoglobin 26 pg (27-31); Mean Corpuscular Volume 79 fL (80-94); Mean Platelet Volume 9.8 um3 (7.4-10.4); Nucleated Red Blood Cells % 0.1; Platelet Count 154 10^3/ul (150-450); Red Blood Count 6.42 10^6/ul (4.00-5.40); Red Cell Distribution Width 16 % (10.5-15); White Blood Count 8.2 10^3/ul (3.5-10.8)
[2018-05-03] MEDS: Morphine INJ* 2 MG/ML 1 ML SYRINGE (TWO MG - NEW SYRINGE VERSION) IV PRN (09:15)
[2018-05-03 09:16] LABS: EGFR Non-African American 55.6 (>60)
[2018-05-03] MEDS: Aspirin TAB* 325 MG PO SCH (09:36)
[2018-05-03] MEDS: Thiamine TAB* 100 MG TAB PO SCH (09:36)
[2018-05-03] MEDS: amLODIPine TAB* 5 MG PO SCH (09:37)
[2018-05-03] MEDS: Clopidogrel TAB* 75 MG PO SCH (09:37)
[2018-05-03] MEDS: Mometasone/Formoter 200/5 MDI INH SCH ×2 (09:50→22:18)
--- NOTE | 2018-05-03 09:57 | PN ---
Subjective Date of Service: 05/03/18 Interval History: Mr. Woodson is intermittently confused but does not offer any complaint. He denies chest pain, SOB, nausea, abdominal pain, or back pain. Family History: Unchanged from Admission Social History: Unchanged from Admission Past Medical History: Unchanged from Admission Objective Active Medications: Acetaminophen (Tylenol Tab*) 650 mg PO Q4H PRN Al Hydrox/Mg Hydrox/Simethicone (Maalox Plus*) 30 ml PO Q6H PRN Albuterol (Ventolin 2.5 Mg/3 Ml Neb.Yancy*) 2.5 mg INH [id number] AWAKE PRN Alprazolam (Xanax Tab*) 2 mg PO QPM [facility] Amlodipine Besylate (Norvasc Tab*) 10 mg PO DAILY [facility] Aspirin (Aspirin Tab*) 325 mg PO DAILY [facility] Atorvastatin Calcium (Lipitor*) 80 mg PO 1700 [facility] Clopidogrel Bisulfate (Plavix Tab*) 75 mg PO DAILY [facility] Dextrose (D50w Syringe 50 Ml*) 12.5 gm IV PUSH .FOR FS < 60 - SS PRN Duloxetine HCl (Cymbalta Cap*) 60 mg PO 2100 [facility] Heparin Sodium (Porcine) (Heparin Vial(*)) 5,000 units SUBCUT Q8HR [facility] Hydralazine HCl (Apresoline Iv*) 10 mg IV Q4H PRN Sodium Chloride (Ns 0.9% 1000 Ml*) 1,000 mls @ 100 mls/hr IV PER RATE [facility] Nicardipine/Sodium Chloride (Cardene 0.1mg/Ml Ivpremix*) 20 mg in 200 mls @ 50 mls/hr IV .(as Initial Rate) [facility] Insulin Human Lispro (Humalog*) 0 units SUBCUT Q6HR [facility]; Protocol Magnesium Hydroxide (Milk Of Magnesia Liq*) 30 ml PO Q4H PRN Mometasone Furoate/Formoterol Fumar (Dulera 200/5 Mdi*) 2 puff INH BID [facility] Morphine Sulfate (Ms Contin(*)) 15 mg PO Q8H [facility] Morphine Sulfate (Morphine Inj ((Syringe))*) 2 mg IV Q4H PRN Nitroglycerin (Nitroglycerin Tab 0.4 Mg*) 0.4 mg SL Q5M PRN Ondansetron HCl (Zofran Inj*) 4 mg IV Q4H PRN Pentoxifylline (Trental Cr Tab*) 400 mg PO Q8H PRN Tapentadol (Nucynta(Nf)) 150 mg PO Q12H PRN Thiamine HCl (Vitamin B-1 Tab*) 100 mg PO DAILY [facility] Vital Signs: Temp Pulse Resp BP Pulse Ox 99.1 F 108 20 175/84 93 05/03/18 08:00 05/03/18 07:00 05/03/18 09:15 05/03/18 07:00 05/03/18 07:00 Oxygen Devices in Use Now: None Appearance: Male sitting up in bed in NAD Eyes: No Scleral Icterus Ears/Nose/Mouth/Throat: Mucous Membranes Moist Neck: Trachea Midline Respiratory: Symmetrical Chest Expansion and Respiratory Effort, Clear to Auscultation Cardiovascular: NL Sounds; No Murmurs; No JVD, No Edema Abdominal: NL Sounds; No Tenderness; No Distention Extremities: No Edema Skin: No Rash or Ulcers Neurological: NL Muscle Strength and Tone - Left UE weakness, - - Alert, oriented to self, some clear conversation, but not able to state where he is Nutrition: Taking PO's Result Diagrams: 05/03/18 08:15 05/03/18 08:15 Assess/Plan/Problems-Billing Assessment: Mr. 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 - Patient Problems (1) CVA (cerebral vascular accident) Comment: - Persistent waxing and waning mental status. Left sided weakness. - Acute right SURVEILLANCE SENSOR OPERATOR infarct on CT. - Appreciate neurology consultation. Continue atorvastatin, aspirin, plavix - he will need dual platelet therapy for 30 days then ASA 81mg thereafter. - MRI/MRA attempted but unsuccessful. Echo with poor quality - MARCO pending for Saturday. - Continue PT/OT. (2) Altered mental status Comment: - Continues to have waxing and waning confusion. Suspect this is related to CVA as it has not significantly improved despite reduction in narcotics. - Ammonia level 45 WNL, B12 normal. (3) Hypertension Comment: - SBP 120-200s, goal SBP 130-140. - Stop IVF. Continue nicardipine gtt. Continue amlodpine, started this admission. Hold lisinopril and hctz due to JORDIN. (4) JORDIN (acute kidney injury) Comment: - Resolving. Stop IVF given hypertension. - Suspect that this could be related to lisinopril as the patient recently was started on lisinopril or could be related to dehydration. - However, patient also with reported 2L urinary retention overnight? Urinating well without retention since, ? obstruction as cause of JORIDN as well. Monitor closely. (5) Chronic pain Comment: - No complaint of pain this AM. - Continue outpatient meds at reduced dose given altered mental status. Continue Morphine ER 15 mg q 8 (on 30 mg Q 8 hours at home). Continue decreased dose nucynta prn. (6) Diabetes Comment: - BGs 190s. - Continue lispro SSI coverage with meals. - Home lantus on hold for now due to inconsistent oral intake. (7) GERD (gastroesophageal reflux disease) Comment: - Continue omeprazole (8) DVT prophylaxis Comment: - Heparin SQ. Approved per neurology. (9) DNR (do not resuscitate) Comment: Status and Disposition: Inpatient. Will most likely need acute rehab
[2018-05-03] MEDS ORDERED: TAPENTADOL 50 MG PO PRN (10:45)
[2018-05-03] MEDS: Metoprolol Tartrate TAB* 25 MG PO SCH ×2 (15:39→20:00)
[2018-05-03] MEDS: Potassium Chloride LIQUID* 20 MEQ PACKET PO ONE ×2 (15:39→18:31)
[2018-05-03] MEDS ORDERED: Potassium Chlor TAB* 20 MEQ TAB.ER PO ONE (15:53)
[2018-05-03] MEDS ORDERED: guaiFENesin LIQ* 100 MG/5 ML UDC PO PRN (17:33)
[2018-05-03] MEDS: ALPRAZolam TAB* 0.5 MG PO SCH (17:57)
[2018-05-03] MEDS: Atorvastatin* 80 MG TAB PO SCH (18:11)
[2018-05-03] MEDS: DULoxetine DR CAP* 60 MG CAP.DR PO SCH (19:59)
--- NOTE | 2018-05-03 20:28 | CONS ---
NEUROLOGY FOLLOWUP NOTE: DATE OF FOLLOWUP: 05/03/18 HOSPITALIST: Angelic Sher NP. LOCATION: He is ICU bed 6. CHIEF COMPLAINT: Stroke. INTERVAL HISTORY: Since yesterday, Mr. Woodson was transferred back to the intensive care unit because of uncontrolled hypertension. He was put on nicardipine and it is back under control. Currently, luis rosales is pretty alert and conversant. He denies headache. He complaints of back pain. He notes there i s something wrong with his vision, but he cannot specify it. He states that everything looks blue. He denies double vision. MEDICATIONS: Reviewed and he is on: 1. Albuterol p.r.n. wheezing. 2. Alprazolam 2 mg p.o. q.p.m., it was held yesterday. 3. Amlodipine 10 mg p.o. q. day. 4. Aspirin 325 mg p.o. q. day. 5. Atorvastatin 80 mg p.o. q. day. 6. Plavix 75 mg p.o. q. day. 7. Cymbalta 60 mg p.o. q. day. 8. Heparin subcutaneous 5000 units q.8 hours. 9. Hydralazine 10 mg IV q.4 hours as needed for systolic over 170. 10. Insulin sliding scale. 11. Dulera 2 puffs b.i.d. 12. Morphine 15 mg p.o. q.8 hours. 13. Nicardipine drip. 14. Zofran 4 mg IV q.4 hours p.r.n. nausea. 15. Trental 400 mg p.o. q.8 hours. 16. Nucynta 50 mg p.o. q.12 hours. 17. Thiamine 100 mg p.o. q. day. PHYSICAL EXAMINATION: He is obese. Temperature most recently 99.3 temporally, heart rate running in the low 100s, blood pressure most recently 161/99, respiratory rate is 19 and oxygen saturation is 9 2% on room air. Neurologically, facial musculature symmetric. He has right gaze deviation, but is a ble to track fully to the left side. He is a dense left homonymous hemianopsia. He is able to read. He has great difficulty writing brief sentence, but is able to finish it after a prolonged effort. His language is fluent. Facial sensation and sensation in the upper extremities are symmetric and t here is no extinction to double simultaneous stimulation. He is oriented to person and place. DIAGNOSTIC STUDIES/LAB DATA: Laboratory data reviewed. I reviewed his CT scans from the 04/30/18 an d 05/01/18 revealing right occipital infarction extending in to the medial temporal lobe. Carotid ul trasound study did not show the vertebral arteries and there was no significant carotid stenosis. He was not able to tolerate an MRI scan or MR angiogram or CT angiogram was not attempted because of hi s acute renal injury. Other laboratory data from this morning, chemistries notable for potassium at 3.4, creatinine is impr elle at 1.3, it was 2.16 yesterday. Glucose this morning 199. Cholesterol on 05/01/18 was 141, LDL 85. IMPRESSION: Impression is that of resolved encephalopathy and in the setting of a right posterior he misphere stroke. He had a transthoracic echocardiogram, which was suboptimal, and in my understandin g there is a plan to do a transesophageal echocardiogram either tomorrow or Saturday. If his sensorium remains improved, then an MRI of the brain and MR angiogram is recommended to make sure there is mul tiple infarction suggesting emboli or significant posterior circulation stenosis. Meanwhile, his luci l function is improving and his diabetes under improved control as his blood pressure. I will contin carlos to follow along with you. [id number]/[facility] #: [id number]
[2018-05-04] MEDS: niCARdipine 0.1MG/ML IVPREMIX* 20 MG/200 ML BAG IV SCH ×2 (02:59→08:55)
[2018-05-04] MEDS: hydrALAZINE IV* 20 MG/ML VIAL IV PRN (03:21)
[2018-05-04] MEDS: Morphine TAB Extended Release (*) 15 MG TAB.ER PO SCH ×3 (05:06→21:33)
[2018-05-04 06:03] LABS: EGFR Non-African American 55.1 (>60)
[2018-05-04] MEDS: Insulin LISPRO* 1 UNITS UNIT SUBCUT SCH ×3 (06:12→18:08)
[2018-05-04] MEDS: Heparin VIAL(*) 5000 UNITS/ML VIAL (FIVE THOUSAND) SUBCUT SCH ×3 (06:12→21:33)
[2018-05-04] MEDS: Mometasone/Formoter 200/5 MDI INH SCH ×3 (07:54→20:02)
--- NOTE | 2018-05-04 08:25 | PN ---
Subjective Date of Service: 05/04/18 Interval History: Mr. Woodson is much more awake today. His exam is complicated by the fact that he is making jokes throughout. He denies complaint including chest pain, SOB, nausea, or abdominal pain. Family History: Unchanged from Admission Social History: Unchanged from Admission Past Medical History: Unchanged from Admission Objective Active Medications: Acetaminophen (Tylenol Tab*) 650 mg PO Q4H PRN Al Hydrox/Mg Hydrox/Simethicone (Maalox Plus*) 30 ml PO Q6H PRN Albuterol (Ventolin 2.5 Mg/3 Ml Neb.Yancy*) 2.5 mg INH [id number] AWAKE PRN Alprazolam (Xanax Tab*) 2 mg PO QPM [facility] Amlodipine Besylate (Norvasc Tab*) 10 mg PO DAILY [facility] Aspirin (Aspirin Tab*) 325 mg PO DAILY [facility] Atorvastatin Calcium (Lipitor*) 80 mg PO 1700 [facility] Clopidogrel Bisulfate (Plavix Tab*) 75 mg PO DAILY [facility] Dextrose (D50w Syringe 50 Ml*) 12.5 gm IV PUSH .FOR FS < 60 - SS PRN Duloxetine HCl (Cymbalta Cap*) 60 mg PO 2100 [facility] Guaifenesin (Robitussin*) 5 ml PO Q6H PRN Heparin Sodium (Porcine) (Heparin Vial(*)) 5,000 units SUBCUT Q8HR [facility] Hydralazine HCl (Apresoline Iv*) 10 mg IV Q4H PRN Nicardipine/Sodium Chloride (Cardene 0.1mg/Ml Ivpremix*) 20 mg in 200 mls @ 50 mls/hr IV .(as Initial Rate) [facility] Insulin Human Lispro (Humalog*) 0 units SUBCUT Q6HR [facility]; Protocol Magnesium Hydroxide (Milk Of Magnesia Liq*) 30 ml PO Q4H PRN Metoprolol Tartrate (Lopressor Tab*) 25 mg PO BID [facility] Mometasone Furoate/Formoterol Fumar (Dulera 200/5 Mdi*) 2 puff INH BID [facility] Morphine Sulfate (Ms Contin(*)) 15 mg PO Q8H [facility] Nitroglycerin (Nitroglycerin Tab 0.4 Mg*) 0.4 mg SL Q5M PRN Ondansetron HCl (Zofran Inj*) 4 mg IV Q4H PRN Pentoxifylline (Trental Cr Tab*) 400 mg PO Q8H PRN Tapentadol (Nucynta(Nf)) 50 mg PO Q12H PRN Thiamine HCl (Vitamin B-1 Tab*) 100 mg PO DAILY [facility] Vital Signs: Temp Pulse Resp BP Pulse Ox 99.1 F 104 25 171/86 92 05/04/18 08:00 05/04/18 06:16 05/04/18 06:16 05/04/18 06:16 05/04/18 06:16 Oxygen Devices in Use Now: None Appearance: Male lying in bed in NAD Eyes: No Scleral Icterus Ears/Nose/Mouth/Throat: Mucous Membranes Moist Neck: Trachea Midline Respiratory: Clear to Auscultation Cardiovascular: NL Sounds; No Murmurs; No JVD, No Edema Abdominal: NL Sounds; No Tenderness; No Distention Neurological: Alert and Oriented x 3, - - Question if patient has 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 Otherwise, +5 strength throughout. Nutrition: Taking PO's Result Diagrams: 05/03/18 08:15 05/04/18 05:32 Assess/Plan/Problems-Billing Assessment: Mr. 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 - Patient Problems (1) CVA (cerebral vascular accident) Comment: - Mental status much improved this AM, decreased left sided weakness. However, he was impulsive overnight and required one-to-one observation. - Acute right LASER SET UP OPERATOR infarct on CT. - Appreciate neurology consultation. Continue atorvastatin, aspirin, plavix - he will need dual platelet therapy for 30 days then ASA 81mg thereafter. - MRI/MRA attempted but unsuccessful. Echo with poor quality - MARCO pending for Saturday. - Continue PT/OT. (2) Altered mental status Comment: - Resolving. Suspect related to CVA, delirium and possibly narcotics for chronic pain. - Ammonia level 45 WNL, B12 normal. (3) Hypertension Comment: - SBP 170s, goal SBP 130-140. Back on nicardipine gtt overnight. - Continue newly started amlodipine and resume lisinopril and hctz. (4) JORDIN (acute kidney injury) Comment: - Resolving. Stop IVF given hypertension. - Creatine at 1.3, BUN normal. Plan to resume lisinopril and hctz and monitor creatinine closely. (5) Chronic pain Comment: - No complaint of pain this AM. - Continue outpatient meds at reduced dose given altered mental status. Continue Morphine ER 15 mg q 8 (on 30 mg Q 8 hours at home). Continue decreased dose nucynta prn. (6) Diabetes Comment: - BGs 220s. - Continue lispro SSI coverage with meals. - Resume decreased dose home lantus. (7) GERD (gastroesophageal reflux disease) Comment: - Continue omeprazole (8) DVT prophylaxis Comment: - Heparin SQ. Approved per neurology. (9) DNR (do not resuscitate) Comment: Status and Disposition: Inpatient. Anticipate discharge to home when medically stable if continues to improve.
[2018-05-04] MEDS: Lisinopril TAB* 10 MG PO SCH (09:22)
[2018-05-04] MEDS: Thiamine TAB* 100 MG TAB PO SCH (09:22)
[2018-05-04] MEDS: Metoprolol Tartrate TAB* 25 MG PO SCH ×2 (09:22→21:33)
[2018-05-04] MEDS: Clopidogrel TAB* 75 MG PO SCH (09:22)
[2018-05-04] MEDS: Aspirin TAB* 325 MG PO SCH (09:23)
[2018-05-04] MEDS: Hydrochlorothiazide TAB* 25 MG PO SCH (09:23)
[2018-05-04] MEDS: amLODIPine TAB* 5 MG PO SCH (09:23)
[2018-05-04] MEDS: Insulin GLARGINE(*) 1 UNITS UNIT SUBCUT SCH (10:42)
[2018-05-04] MEDS ORDERED: Potassium Chloride LIQUID* 20 MEQ PACKET PO ONE (10:47)
[2018-05-04] MEDS: DULoxetine DR CAP* 60 MG CAP.DR PO SCH (21:33)
[2018-05-04] MEDS: Atorvastatin* 80 MG TAB PO SCH (21:33)
[2018-05-04] MEDS: ALPRAZolam TAB* 0.5 MG PO SCH (21:33)
[2018-05-05] MEDS: Insulin LISPRO* 1 UNITS UNIT SUBCUT SCH ×4 (06:33→17:29)
[2018-05-05] MEDS: Morphine TAB Extended Release (*) 15 MG TAB.ER PO SCH ×4 (06:40→21:46)
[2018-05-05] MEDS: Heparin VIAL(*) 5000 UNITS/ML VIAL (FIVE THOUSAND) SUBCUT SCH ×3 (06:53→21:45)
[2018-05-05] MEDS: Mometasone/Formoter 200/5 MDI INH SCH ×2 (07:17→20:11)
[2018-05-05] MEDS: Thiamine TAB* 100 MG TAB PO SCH (07:35)
[2018-05-05] MEDS: Hydrochlorothiazide TAB* 25 MG PO SCH (07:35)
[2018-05-05] MEDS: Clopidogrel TAB* 75 MG PO SCH (07:35)
[2018-05-05] MEDS: Aspirin TAB* 325 MG PO SCH (07:35)
[2018-05-05] MEDS: Metoprolol Tartrate TAB* 25 MG PO SCH ×2 (07:36→21:45)
[2018-05-05] MEDS: amLODIPine TAB* 5 MG PO SCH (07:37)
[2018-05-05] MEDS: Lisinopril TAB* 10 MG PO SCH (07:37)
[2018-05-05 09:14] LABS: EGFR Non-African American 53.7 (>60)
[2018-05-05] MEDS ORDERED: Lidocaine 2% VISCOUS* 15 ML UDC ONE (10:29)
[2018-05-05] MEDS ORDERED: Naloxone* 0.4 MG/ML 1 ML VIAL ONE (10:29)
[2018-05-05] MEDS ORDERED: Flumazenil* 0.1 MG/ML 5 ML MDV ONE (10:29)
[2018-05-05] MEDS ORDERED: Midazolam* 1 MG/ML 10 ML VIAL (10 MG) ONE (10:29)
[2018-05-05] MEDS ORDERED: fentaNYL* 50 MCG/ML 2 ML VIAL (100 MCG VIAL) ONE (10:29)
--- NOTE | 2018-05-05 10:33 | PN ---
Subjective Date of Service: 05/05/18 Interval History: Alert, ambulating with PT today, gate steady. Denies chest pain or shortness of breath. Denies abd pain ,n/v/d. Family History: Unchanged from Admission Social History: Unchanged from Admission Past Medical History: Unchanged from Admission Objective Active Medications: Acetaminophen (Tylenol Tab*) 650 mg PO Q4H PRN PRN Reason: FEVER/PAIN Last Admin: 05/03/18 19:58 Dose: 650 mg Al Hydrox/Mg Hydrox/Simethicone (Maalox Plus*) 30 ml PO Q6H PRN PRN Reason: INDIGESTION Albuterol (Ventolin 2.5 Mg/3 Ml Neb.Yancy*) 2.5 mg INH [id number] AWAKE PRN PRN Reason: sob/wheezing Alprazolam (Xanax Tab*) 2 mg PO QPM [facility] Last Admin: 05/04/18 21:33 Dose: 2 mg Amlodipine Besylate (Norvasc Tab*) 10 mg PO DAILY [facility] Last Admin: 05/05/18 07:37 Dose: 10 mg Aspirin (Aspirin Tab*) 325 mg PO DAILY [facility] Last Admin: 05/05/18 07:35 Dose: 325 mg Atorvastatin Calcium (Lipitor*) 80 mg PO 1700 [facility] Last Admin: 05/04/18 21:33 Dose: 80 mg Clopidogrel Bisulfate (Plavix Tab*) 75 mg PO DAILY [facility] Last Admin: 05/05/18 07:35 Dose: 75 mg Dextrose (D50w Syringe 50 Ml*) 12.5 gm IV PUSH .FOR FS < 60 - SS PRN PRN Reason: FS < 60 Duloxetine HCl (Cymbalta Cap*) 60 mg PO 2100 [facility] Last Admin: 05/04/18 21:33 Dose: 60 mg Guaifenesin (Robitussin*) 5 ml PO Q6H PRN PRN Reason: COUGH Heparin Sodium (Porcine) (Heparin Vial(*)) 5,000 units SUBCUT Q8HR [facility] Last Admin: 05/05/18 06:53 Dose: 5,000 units Hydralazine HCl (Apresoline Iv*) 10 mg IV Q4H PRN PRN Reason: Systolic >170 Last Admin: 05/04/18 03:21 Dose: 10 mg Hydrochlorothiazide (Hydrodiuril Tab*) 25 mg PO DAILY [facility] Last Admin: 05/05/18 07:35 Dose: 25 mg Insulin Glargine (Lantus(*)) 10 units SUBCUT Q24H [facility] Last Admin: 05/04/18 10:42 Dose: 10 units Insulin Human Lispro (Humalog*) 0 units SUBCUT Q6HR [facility]; Protocol Last Admin: 05/05/18 06:33 Dose: 3 units Lisinopril (Prinivil Tab*) 30 mg PO DAILY [facility] Last Admin: 05/05/18 07:37 Dose: 30 mg Magnesium Hydroxide (Milk Of Magnesia Liq*) 30 ml PO Q4H PRN PRN Reason: CONSTIPATION Metoprolol Tartrate (Lopressor Tab*) 25 mg PO BID [facility] Last Admin: 05/05/18 07:36 Dose: 25 mg Mometasone Furoate/Formoterol Fumar (Dulera 200/5 Mdi*) 2 puff INH BID [facility] Last Admin: 05/05/18 07:17 Dose: Not Given Morphine Sulfate (Ms Contin(*)) 15 mg PO Q8H [facility] Last Admin: 05/05/18 06:40 Dose: Not Given Nitroglycerin (Nitroglycerin Tab 0.4 Mg*) 0.4 mg SL Q5M PRN PRN Reason: PAIN - CHEST Ondansetron HCl (Zofran Inj*) 4 mg IV Q4H PRN PRN Reason: NAUSEA/VOMITING Pentoxifylline (Trental Cr Tab*) 400 mg PO Q8H PRN PRN Reason: PAIN Last Admin: 05/03/18 14:49 Dose: 400 mg Tapentadol (Nucynta(Nf)) 50 mg PO Q12H PRN PRN Reason: PAIN Last Admin: 05/03/18 23:57 Dose: 50 mg Thiamine HCl (Vitamin B-1 Tab*) 100 mg PO DAILY [facility] Last Admin: 05/05/18 07:35 Dose: 100 mg Vital Signs - 8 hr 05/05/18 05/05/18 05/05/18 03:43 06:00 06:40 Temperature 97.8 F Pulse Rate 96 Respiratory 22 18 18 Rate Blood Pressure 174/80 (mmHg) O2 Sat by Pulse 96 Oximetry 05/05/18 05/05/18 05/05/18 07:18 08:00 08:55 Temperature 97.5 F Pulse Rate 86 66 Respiratory 20 Rate Blood Pressure 188/87 186/75 (mmHg) O2 Sat by Pulse 95 Oximetry 05/05/18 05/05/18 08:59 09:39 Temperature Pulse Rate Respiratory 16 Rate Blood Pressure 176/90 (mmHg) O2 Sat by Pulse Oximetry Oxygen Devices in Use Now: None Appearance: Appears comfortable, alert and oreinted x 3, no acute distress Eyes: No Scleral Icterus Ears/Nose/Mouth/Throat: Clear Oropharnyx, Mucous Membranes Moist Neck: NL Appearance and Movements; NL JVP, Trachea Midline Respiratory: Symmetrical Chest Expansion and Respiratory Effort, Clear to Auscultation Cardiovascular: NL Sounds; No Murmurs; No JVD, No Edema Abdominal: NL Sounds; No Tenderness; No Distention Extremities: No Clubbing, Cyanosis Skin: No Rash or Ulcers Neurological: Alert and Oriented x 3 Nutrition: Taking PO's Result Diagrams: 05/06/18 10:28 05/06/18 10:28 Additional Lab and Data: Total cholesterol: 141 LDL: 85 Microbiology and Other Data: Microbiology 04/30/18 15:24 Aerobic Blood Culture - Preliminary Blood Venous No Growth Day 1 Anaerobic Blood Culture - Preliminary No Growth Day 1 04/30/18 15:24 Aerobic Blood Culture - Preliminary Blood Venous No Growth Day 1 Anaerobic Blood Culture - Preliminary No Growth Day 1 Diagnostic Imaging: CT head without contrast 04/30/18: hypodensity in the right occipital lobe consistent with an acute infarction. Assess/Plan/Problems-Billing Assessment: Mr. 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 - Patient Problems (1) CVA (cerebral vascular accident) Current Visit: Yes Status: Acute Code(s): I63.9 - CEREBRAL INFARCTION, UNSPECIFIED SNOMED Code(s): 808274173 Comment: - Mental status much improved this AM, decreased left sided weakness. However, he was impulsive overnight and required one-to-one observation. - Acute right STEWARD RACETRACK infarct on CT. - Appreciate neurology consultation. Continue atorvastatin, aspirin, plavix - he will need dual platelet therapy for 30 days then ASA 81mg thereafter. - MRI/MRA attempted but unsuccessful. -Echo with poor quality - MARCO attempted today - unable to sedate patient - will schedule for tomorrow with anesthesia to assist with sedation - Continue PT/OT. (2) Altered mental status Current Visit: No Status: Acute Priority: High Onset Date: 06/29/14 Code (s): R41.82 - ALTERED MENTAL STATUS, UNSPECIFIED SNOMED Code(s): 988572272 Comment: - Resolving. Suspect related to CVA, delirium and possibly narcotics for chronic pain. - patient alert today- able to follow commands and answer questions appropriately. - Ammonia level 45 WNL, B12 normal. (3) JORDIN (acute kidney injury) Current Visit: Yes Status: Acute Code(s): N17.9 - ACUTE KIDNEY FAILURE, UNSPECIFIED SNOMED Code(s): 99072748 Comment: - Resolving. Stop IVF given hypertension. - Creatine at 1.3, BUN normal. Plan to resume lisinopril and hctz and monitor creatinine closely. - repeat BMP in the AM (4) Diabetes Current Visit: Yes Status: Acute Code(s): E11.9 - TYPE 2 DIABETES MELLITUS WITHOUT COMPLICATIONS SNOMED Code(s): 93421809 Comment: - BGs 220s. - Continue lispro SSI coverage with meals. - increased Lantus to 12 units (5) Hypertension Current Visit: No Status: Chronic Priority: Medium Code(s): I10 - ESSENTIAL (PRIMARY) HYPERTENSION SNOMED Code(s): 34929743 Comment: - SBP 170s, goal SBP 130-140. Back on nicardipine gtt overnight. - Continue newly started amlodipine and resume lisinopril and hctz. (6) Chronic pain Current Visit: Yes Status: Acute Code(s): G89.29 - OTHER CHRONIC PAIN SNOMED Code(s): 93635068 Comment: - No complaint of pain this AM. - Continue outpatient meds at reduced dose given altered mental status. Continue Morphine ER 15 mg q 8 (on 30 mg Q 8 hours at home). Continue decreased dose nucynta prn. (7) DVT prophylaxis Current Visit: Yes Status: Acute Code(s): BEE4146 - SNOMED Code(s): 852107377 Comment: - Heparin SQ. Approved per neurology. Status and Disposition: Inpatient. Anticipate discharge to home when medically stable if continues to improve.
[2018-05-05] MEDS: Insulin GLARGINE(*) 1 UNITS UNIT SUBCUT SCH (13:10)
[2018-05-05] MEDS: Atorvastatin* 80 MG TAB PO SCH (17:28)
[2018-05-05] MEDS: Acetaminophen TAB* 325 MG PO PRN ×2 (17:28→21:44)
[2018-05-05] MEDS: ALPRAZolam TAB* 0.5 MG PO SCH (17:28)
[2018-05-05] MEDS: hydrALAZINE IV* 20 MG/ML VIAL IV PRN (17:28)
--- NOTE | 2018-05-05 19:52 | CONS ---
NEUROLOGY FOLLOWUP NOTE: DATE OF FOLLOWUP: 05/05/18 HOSPITALIST: Kimberly Cohen NP LOCATION: He is an inpatient in room 449. CHIEF COMPLAINT: Stroke. INTERVAL HISTORY: Since last visit day before yesterday, he has been transferred out of to the intensive care unit. He continues to be somewhat encephalopathic, apparently on and off. He was able to ambulate, according to Kimberly Cohen's note, with a gait belt. Currently, he is sleepy again, but he does nod and answer questions with his eyes closed. He denies headaches or problems with his vision. Reviewing the records also indicates that he is still unable to get an MRI scan or tolerate the transesophageal echocardiogram. MEDICATIONS: Reviewed and he is on: 1. Nucynta 50 mg p.o. q.12 hours p.r.n. pain. 2. Thiamine 100 mg p.o. q. day. 3. Zofran 4 mg IV q.4 hours as needed for nausea. 4. MS Contin 15 mg p.o. q.8 hours. 5. Metoprolol 25 mg p.o. b.i.d. 6. Lisinopril 30 mg p.o. q. day. 7. Sliding scale insulin. 8. HydroDIURIL 25 mg p.o. q. day. 9. Subcutaneous heparin 5000 units q.8 hours. 10. Duloxetine 60 mg p.o. q. day. 11. Plavix 75 mg p.o. q. day. 12. Aspirin 325 mg p.o. q. day. 13. Alprazolam 2 mg p.o. p.m. 14. Amlodipine 10 mg p.o. q. day. PHYSICAL EXAM: He is somnolent, but answers questions with his eyes closed and nods his head. Temperature 97.8, most recent blood pressure 183/76, heart rate is running in the 60s, oxygen saturation is 96% on room air. He is somnolent, but I can briefly get him to open his eyes. There is no myoclonus or asterixis. He seems to have better and more full eye movements gaze preference. I cannot keep him awake long enough to do much else in terms of testing his visual zhao. LABORATORY DATA: Indicates a stable creatinine of 1.35. Blood sugars are running in the high 100s and low 200s. IMPRESSION AND PLAN: Impression is that of a right posterior cerebral artery stroke. There has been no evidence of cardioembolic source, but we have not been able to get a transesophageal echocardiogram. I would also like to see imaging of his posterior circulation. I would recommend minimizing sedative medications and continuing to try to get a transesophageal echocardiogram and MRI of the brain and MR angiogram of the brain. If that is not possible, getting a CT angiogram of the brain if his renal function is adequate enough for the radiology is another option. I will continue to follow him with you. [id number]/[facility] #: [id number] CHEN
[2018-05-05] MEDS: DULoxetine DR CAP* 60 MG CAP.DR PO SCH (21:45)
[2018-05-06] MEDS: Morphine TAB Extended Release (*) 15 MG TAB.ER PO SCH ×2 (04:32→13:44)
[2018-05-06] MEDS: Heparin VIAL(*) 5000 UNITS/ML VIAL (FIVE THOUSAND) SUBCUT SCH ×3 (06:17→22:03)
[2018-05-06] MEDS: Insulin LISPRO* 1 UNITS UNIT SUBCUT SCH ×4 (06:17→17:12)
[2018-05-06] MEDS: hydrALAZINE IV* 20 MG/ML VIAL IV PRN (07:39)
[2018-05-06] MEDS ORDERED: Ondansetron INJ* 2 MG/ML VIAL IV PRN (08:07)
[2018-05-06] MEDS ORDERED: Naloxone* 0.4 MG/ML 1 ML VIAL IV PRN (08:07)
[2018-05-06] MEDS ORDERED: Acetaminophen TAB* 325 MG PO PRN (08:07)
[2018-05-06] MEDS: Aspirin TAB* 325 MG PO SCH (08:21)
[2018-05-06] MEDS: Lisinopril TAB* 10 MG PO SCH (08:21)
[2018-05-06] MEDS: Thiamine TAB* 100 MG TAB PO SCH (08:21)
[2018-05-06] MEDS: Hydrochlorothiazide TAB* 25 MG PO SCH (08:21)
[2018-05-06] MEDS: Clopidogrel TAB* 75 MG PO SCH (08:21)
[2018-05-06] MEDS: Metoprolol Tartrate TAB* 25 MG PO SCH ×2 (08:21→22:03)
[2018-05-06] MEDS: amLODIPine TAB* 5 MG PO SCH (08:21)
[2018-05-06] MEDS: Acetaminophen TAB* 325 MG PO PRN ×2 (08:22→17:11)
[2018-05-06] MEDS ORDERED: Midazolam* 1 MG/ML 10 ML VIAL (10 MG) ONE (08:37)
[2018-05-06] MEDS ORDERED: Propofol* 10 MG/ML 20 ML BTL IV PUSH ONE (08:37)
[2018-05-06] MEDS: Mometasone/Formoter 200/5 MDI INH SCH ×2 (08:59→20:40)
[2018-05-06] MEDS ORDERED: Insulin GLARGINE(*) 1 UNITS UNIT SUBCUT SCH (09:00)
[2018-05-06 10:36] LABS: ABS Basophils 0 10^3/ul (0-0.2); ABS Eosinophils 0 10^3/ul (0-0.6); ABS Lymphocytes 1.1 10^3/ul (1.0-4.8); ABS Monocytes 0.6 10^3/ul (0-0.8); ABS Neutrophils 5.5 10^3/ul (1.5-7.7); ABS Nucleated RBC 0 10^3/ul; Eosinophil % 0.4 % (0-6); Hematocrit 48 % (42-52); Lymphocyte % 15.5 % (25-47); Mean Corpuscular HGB Conc 34 g/dl (31-36); Mean Corpuscular Hemoglobin 26 pg (27-31); Mean Corpuscular Volume 78 fL (80-94); Mean Platelet Volume 9.4 um3 (7.4-10.4); Nucleated Red Blood Cells % 0.1; Platelet Count 168 10^3/ul (150-450); Red Blood Count 6.06 10^6/ul (4.00-5.40); Red Cell Distribution Width 16 % (10.5-15); White Blood Count 7.3 10^3/ul (3.5-10.8)
[2018-05-06] MEDS ORDERED: KETAMINE HCL* 50 MG/ML 10 ML VIAL ONE (11:05)
[2018-05-06 11:20] LABS: EGFR Non-African American 59.3 (>60)
--- NOTE | 2018-05-06 15:50 | TEE ---
Patient: JOHN HOROWITZ [facility] Rec#: [id number] : 1955 Date: 05/05/2018 Age: 63y Height: 175.26 cm / 69.0 in Weight: 113.4 kg / 249.9 lbs Sex: M BSA: 2.27 Room#: [facility] Type: Inpatient Referring: Kimberly Cohen Performing: Bienvenido Troy MD Reading: Bienvenido Troy MD Transfer Car Operator Drier: Lisa Jay RDCS Nurse: OR nurse Nurse: Veronica Rey RN CC: CHIVO VALDERRAMA Transesophageal Echocardiogram Indication: CVA BP: 155/74 HR: 93 Rhythm: NSR with PACs Findings History: CAD, MD, s/p PCI, HTN, HLD, asthma, MO. This study was performed in the Operating Room with the assistance of Anesthesiologist, Dr. Jacqueline Johnson. Technical Comments: The study quality is good. Left Ventricle: The left ventricular chamber size is normal. Global left ventricular wall motion and contractility are within normal limits. There is normal left ventricular systolic function. The estimated ejection fraction is 60-65%. Abnormal left ventricular diastolic function is observed. There is an E to A reversal in the mitral valve flow pattern suggestive of diastolic dysfunction. Left Atrium: The left atrium is mild to moderately dilated. The left atrial appendage velocity is normal. No thrombus is visualized within the left atrium. There is no thrombus visualized in the left atrial appendage. Right Ventricle: The right ventricle is mildly dilated. The right ventricular global systolic function is normal. Right Atrium: The right atrium is mild to moderately dilated. Interatrial septum appears intact without evidence of shunting. The bubble study is negative. A patent foramen ovale is not demonstrated with color Doppler and agitated contrast. Aortic Valve: The aortic valve is trileaflet. The aortic valve leaflets are mildly thickened. There is no evidence of aortic regurgitation. There is no evidence of aortic stenosis. Mitral Valve: The mitral valve leaflets are mildly thickened. There is a trace of mitral regurgitation. There is borderline mitral stenosis. Tricuspid Valve: The tricuspid valve leaflets are normal. There is trace tricuspid regurgitation. Unable to estimate the right ventricular systolic pressure. There is no tricuspid stenosis. Pulmonic Valve: The pulmonic valve appears normal. There is a trace pulmonic regurgitation. There is no pulmonic stenosis. Pericardium: There is no significant pericardial effusion. Aorta: There is mild dilatation of the ascending aorta. There is mild dilatation of the aortic root. There is plaque visualized in the transverse aorta. There is mild non-mobile atherosclerotic plaque in the visualized segments of the aorta. There is plaque visualized in the descending aorta. Pulmonary Artery: The main pulmonary artery appears normal. Venous: The bicaval view was obtained and appears normal. The pulmonary veins appear normal. 2 of 4 visualized. The pulmonary veins appear normal in size. MARCO Procedures: All standard views were attempted within the limitations of patient tolerance and safety. History and physical as well as labs were reviewed. The patient was in a fasting state. Risks and benefits of the procedure, including alternatives, were discussed and written informed consent was obtained. The patient and/or their health care apprenticeship representative expressed understanding of the procedure, risks and benefits. Baseline and continuous monitoring of blood pressure, heart rate, pulse oximetry and heart rhythm was performed throughout the procedure. The appropriate time-out procedure was performed as per [facility] [place] protocol. The patient was placed in the supine position. Sedation administered by the anesthesiologist in the operating room. Please see Anesthesiology report for medications administered. An oral bite block was inserted for protection of oral dentition. The multiplane transesophageal echocardiogram probe was inserted through the posterior oropharynx and advanced into the esophagus without difficulty. Multiple 2D images were obtained of the heart and its related structures. Color flow Doppler was used for evaluation. Spectral Doppler was also used. The atrial septum was interrogated with color flow Doppler. At the conclusion of the procedure the probe was removed with continuous suction without complications. The patient tolerated the procedure with no apparent complications. Contrast: Normal saline was used as contrast for the bubble study. Image 30. Intravenous contrast was used to help determine presence of intracardiac shunting. Conclusions Global left ventricular wall motion and contractility are within normal limits. There is normal left ventricular systolic function. The estimated ejection fraction is 60-65%. No thrombus is visualized within the left atrium. There is no thrombus visualized in the left atrial appendage. A patent foramen ovale is not demonstrated with color Doppler and agitated contrast. There is no evidence of aortic stenosis. There is a trace of mitral regurgitation. There is trace tricuspid regurgitation. Unable to estimate the right ventricular systolic pressure. There is no significant pericardial effusion. Measurements Name Value Normal Range Ao root diameter (2D) 3.9 cm (2.1 - 3.5) Ascending Ao 3.9 cm (2.1 - 3.4) Name Value Normal Range MV E-wave Vmax 0.99 m/sec - MV deceleration time 120.31 msec - MV A-wave Vmax 1.53 m/sec - MV E:A ratio 0.64 ratio -
[2018-05-06] MEDS: Atorvastatin* 80 MG TAB PO SCH (17:12)
[2018-05-06] MEDS: ALPRAZolam TAB* 0.5 MG PO SCH (17:12)
--- NOTE | 2018-05-06 21:07 | PN ---
Subjective Date of Service: 05/06/18 Interval History: Alert and oriented x 3, sitting on the edge of the bed talking on the phone to his son, following commands, Denies chest pain or shortness of breath, denies visual disturbances, Abdoul abd pain n/v/d Family History: Unchanged from Admission Social History: Unchanged from Admission Past Medical History: Unchanged from Admission Objective Active Medications: Acetaminophen (Tylenol Tab*) 650 mg PO Q4H PRN PRN Reason: FEVER/PAIN Last Admin: 05/06/18 17:11 Dose: 650 mg Al Hydrox/Mg Hydrox/Simethicone (Maalox Plus*) 30 ml PO Q6H PRN PRN Reason: INDIGESTION Albuterol (Ventolin 2.5 Mg/3 Ml Neb.Yancy*) 2.5 mg INH [id number] AWAKE PRN PRN Reason: sob/wheezing Alprazolam (Xanax Tab*) 2 mg PO QPM [facility] Last Admin: 05/06/18 17:12 Dose: 2 mg Amlodipine Besylate (Norvasc Tab*) 10 mg PO DAILY [facility] Last Admin: 05/06/18 08:21 Dose: 10 mg Aspirin (Aspirin Tab*) 325 mg PO DAILY [facility] Last Admin: 05/06/18 08:21 Dose: 325 mg Atorvastatin Calcium (Lipitor*) 80 mg PO 1700 [facility] Last Admin: 05/06/18 17:12 Dose: 80 mg Clopidogrel Bisulfate (Plavix Tab*) 75 mg PO DAILY [facility] Last Admin: 05/06/18 08:21 Dose: 75 mg Dextrose (D50w Syringe 50 Ml*) 12.5 gm IV PUSH .FOR FS < 60 - SS PRN PRN Reason: FS < 60 Duloxetine HCl (Cymbalta Cap*) 60 mg PO 2100 [facility] Last Admin: 05/05/18 21:45 Dose: 60 mg Guaifenesin (Robitussin*) 5 ml PO Q6H PRN PRN Reason: COUGH Heparin Sodium (Porcine) (Heparin Vial(*)) 5,000 units SUBCUT Q8HR [facility] Last Admin: 05/06/18 13:44 Dose: 5,000 units Hydralazine HCl (Apresoline Iv*) 10 mg IV Q4H PRN PRN Reason: Systolic >170 Last Admin: 05/06/18 07:39 Dose: 10 mg Hydrochlorothiazide (Hydrodiuril Tab*) 25 mg PO DAILY [facility] Last Admin: 05/06/18 08:21 Dose: 25 mg Lactated Ringer's (Lactated Ringers 1000 Ml Bag*) 1,000 mls @ 75 mls/hr IV PER RATE [facility] Last Admin: 05/06/18 08:24 Dose: 75 mls/hr Insulin Glargine (Lantus(*)) 12 units SUBCUT Q24H [facility] Last Admin: 05/06/18 08:22 Dose: 12 unit Insulin Human Lispro (Humalog*) 0 units SUBCUT Q6HR [facility]; Protocol Last Admin: 05/06/18 17:12 Dose: 12 units Lisinopril (Prinivil Tab*) 30 mg PO DAILY [facility] Last Admin: 05/06/18 08:21 Dose: 30 mg Magnesium Hydroxide (Milk Of Magnesia Liq*) 30 ml PO Q4H PRN PRN Reason: CONSTIPATION Metoprolol Tartrate (Lopressor Tab*) 25 mg PO BID [facility] Last Admin: 05/06/18 08:21 Dose: 25 mg Mometasone Furoate/Formoterol Fumar (Dulera 200/5 Mdi*) 2 puff INH BID [facility] Last Admin: 05/06/18 20:40 Dose: Not Given Morphine Sulfate (Ms Contin(*)) 15 mg PO Q8H [facility] Last Admin: 05/06/18 13:44 Dose: 15 mg Nitroglycerin (Nitroglycerin Tab 0.4 Mg*) 0.4 mg SL Q5M PRN PRN Reason: PAIN - CHEST Ondansetron HCl (Zofran Inj*) 4 mg IV Q4H PRN PRN Reason: NAUSEA/VOMITING Pentoxifylline (Trental Cr Tab*) 400 mg PO Q8H PRN PRN Reason: PAIN Last Admin: 05/03/18 14:49 Dose: 400 mg Tapentadol (Nucynta(Nf)) 50 mg PO Q12H PRN PRN Reason: PAIN Last Admin: 05/03/18 23:57 Dose: 50 mg Thiamine HCl (Vitamin B-1 Tab*) 100 mg PO DAILY [facility] Last Admin: 05/06/18 08:21 Dose: 100 mg Vital Signs - 8 hr 05/06/18 05/06/18 05/06/18 13:44 13:49 15:29 Temperature 98.1 F 97.7 F Pulse Rate 88 91 Respiratory 18 18 16 Rate Blood Pressure 166/88 179/75 (mmHg) O2 Sat by Pulse 97 97 Oximetry 05/06/18 05/06/18 15:54 17:12 Temperature Pulse Rate Respiratory 18 18 Rate Blood Pressure (mmHg) O2 Sat by Pulse Oximetry Oxygen Devices in Use Now: None Appearance: alert male, oriented x3, cooperative, no acute distress. Eyes: No Scleral Icterus Ears/Nose/Mouth/Throat: Clear Oropharnyx, Mucous Membranes Moist Neck: NL Appearance and Movements; NL JVP, Trachea Midline Respiratory: Symmetrical Chest Expansion and Respiratory Effort, Clear to Auscultation Cardiovascular: NL Sounds; No Murmurs; No JVD, No Edema Abdominal: NL Sounds; No Tenderness; No Distention Extremities: No Edema, No Clubbing, Cyanosis Skin: No Rash or Ulcers, No Nodules or Sclerosis Neurological: Alert and Oriented x 3, - - CN 2- 12 intact Nutrition: Taking PO's Result Diagrams: 05/06/18 10:28 05/06/18 10:28 Additional Lab and Data: Total cholesterol: 141 LDL: 85 Microbiology and Other Data: Microbiology 04/30/18 15:24 Aerobic Blood Culture - Preliminary Blood Venous No Growth Day 1 Anaerobic Blood Culture - Preliminary No Growth Day 1 04/30/18 15:24 Aerobic Blood Culture - Preliminary Blood Venous No Growth Day 1 Anaerobic Blood Culture - Preliminary No Growth Day 1 Diagnostic Imaging: CT head without contrast 04/30/18: hypodensity in the right occipital lobe consistent with an acute infarction. Assess/Plan/Problems-Billing Assessment: Mr. Stefan Woodson is a 63-year-old man with history of hypertension, hypercholestrolemia, coronary artery disease, gastric bypass surgery, who presented with visual disturbance and abnormal movements, found to have a acute R ACCOUNTING ADVISORY SERVICES MANAGER CVA. - Patient Problems (1) CVA (cerebral vascular accident) Current Visit: Yes Status: Acute Code(s): I63.9 - CEREBRAL INFARCTION, UNSPECIFIED SNOMED Code(s): 287904815 Comment: - Mental status much improved this AM, minimal left sided weakness. 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 - Acute right ACCOUNTING ADVISORY SERVICES MANAGER infarct on CT. - Appreciate neurology consultation. Continue atorvastatin, aspirin, plavix - he will need dual platelet therapy for 30 days then ASA 81mg thereafter. - will re attempt MRI/MRA ordered for tomorrow - MARCO - No thrombus/ no PFO - EF 60-65% - Continue PT/OT. (2) Altered mental status Current Visit: No Status: Acute Priority: High Onset Date: 06/29/14 Code (s): R41.82 - ALTERED MENTAL STATUS, UNSPECIFIED SNOMED Code(s): 354819434 Comment: - Resolving. Suspect related to CVA, delirium and possibly narcotics for chronic pain. - patient alert today- able to follow commands and answer questions appropriately. - Ammonia level 45 WNL, B12 normal. (3) JORDIN (acute kidney injury) Current Visit: Yes Status: Acute Code(s): N17.9 - ACUTE KIDNEY FAILURE, UNSPECIFIED SNOMED Code(s): 37989593 Comment: - Resolving. - Creatine at 1.24, BUN normal. - resume lisinopril and hctz and monitor creatinine closely. - repeat BMP in the AM (4) Diabetes Current Visit: Yes Status: Acute Code(s): E11.9 - TYPE 2 DIABETES MELLITUS WITHOUT COMPLICATIONS SNOMED Code(s): 64564763 Comment: - BGs 220- 333 - Continue lispro SSI coverage with meals. - increased Lantus to 20 units (5) Hypertension Current Visit: No Status: Chronic Priority: Medium Code(s): I10 - ESSENTIAL (PRIMARY) HYPERTENSION SNOMED Code(s): 31626406 Comment: - SBP 170- 180's, goal SBP 130-140 - Continue newly started amlodipine and resume lisinopril and hctz. - hydralizine as needed for SBP >180 (6) Chronic pain Current Visit: Yes Status: Acute Code(s): G89.29 - OTHER CHRONIC PAIN SNOMED Code(s): 85767812 Comment: - No complaint of pain this AM. - Continue outpatient meds at reduced dose given altered mental status. Continue Morphine ER 15 mg q 8 (on 30 mg Q 8 hours at home). Continue decreased dose nucynta prn. (7) DVT prophylaxis Current Visit: Yes Status: Acute Code(s): KDZ2315 - SNOMED Code(s): 525027864 Comment: - Heparin SQ. Approved per neurology. Status and Disposition: Inpatient. Anticipate discharge to home when medically stable if continues to improve.
[2018-05-06] MEDS ORDERED: Potassium Chlor TAB* 10 MEQ TAB.ER PO ONE (21:08)
[2018-05-06] MEDS: DULoxetine DR CAP* 60 MG CAP.DR PO SCH (21:41)
[2018-05-07] MEDS: Insulin LISPRO* 1 UNITS UNIT SUBCUT SCH ×4 (00:35→17:28)
[2018-05-07] MEDS: Morphine TAB Extended Release (*) 15 MG TAB.ER PO SCH ×4 (01:36→22:00)
[2018-05-07] MEDS: Heparin VIAL(*) 5000 UNITS/ML VIAL (FIVE THOUSAND) SUBCUT SCH ×3 (06:44→22:00)
[2018-05-07] MEDS: Mometasone/Formoter 200/5 MDI INH SCH ×2 (08:14→20:47)
[2018-05-07] MEDS: Aspirin TAB* 325 MG PO SCH (08:48)
[2018-05-07] MEDS: Lisinopril TAB* 10 MG PO SCH (08:48)
[2018-05-07] MEDS: Clopidogrel TAB* 75 MG PO SCH (08:49)
[2018-05-07] MEDS: Hydrochlorothiazide TAB* 25 MG PO SCH (08:49)
[2018-05-07] MEDS: Metoprolol Tartrate TAB* 25 MG PO SCH ×2 (08:49→22:00)
[2018-05-07] MEDS: amLODIPine TAB* 5 MG PO SCH (08:49)
[2018-05-07] MEDS: Thiamine TAB* 100 MG TAB PO SCH (08:49)
[2018-05-07] MEDS: Insulin GLARGINE(*) 1 UNITS UNIT SUBCUT SCH (08:51)
[2018-05-07] MEDS: hydrALAZINE IV* 20 MG/ML VIAL IV PRN (09:22)
--- NOTE | 2018-05-07 12:25 | RAD ---
HISTORY: CVA COMPARISONS: Head CT dated May 01, 2018 TECHNIQUE: The following sequences were obtained of the head: Sagittal T1-weighted images, axial FLAIR images, axial susceptibility weighted images, axial T1-weighted images. Additionally, axial diffusion-weighted images were obtained with calculated apparent diffusion coefficients. According to the technologist, the patient was unable to tolerate further imaging. FINDINGS: The study is limited by patient motion artifact. HEMORRHAGE/INFARCT: There is elevated FLAIR signal with restricted diffusion within the right mesial temporal lobe and occipital lobe and inferior thalamus consistent with nonhemorrhagic infarct of the right IMMUNOCHEMIST territory. Elsewhere, there is no hemorrhage or acute infarct. MASSES/SHIFT: There is no mass or shift. EXTRA-AXIAL SPACES/MENINGES: There are no extra-axial fluid collections. SULCI AND VENTRICLES: The sulci and ventricles are normal in size and position for the patient's stated age. CEREBRUM: There is elevated FLAIR signal within the right mesial temporal lobe, right inferior thalamus, and right occipital lobe corresponding to the area of subacute infarct., BRAINSTEM: There are no focal parenchymal abnormalities. CEREBELLUM: There are no focal parenchymal abnormalities. The cerebellar tonsils are normal in size and position. SELLA: The sella is normal. PINEAL: The pineal region is clear. CP ANGLE/TEMPORAL BONES: The labyrinthine structures are grossly normal. VESSELS: Normal flow-voids are noted within the visualized vertebral vasculature. DIFFUSION ABNORMALITIES: There is restricted diffusion within the right mesial temporal lobe, inferior thalamus, and occipital lobe consistent with subacute nonhemorrhagic infarct. PARANASAL SINUSES/MASTOIDS: The paranasal sinuses are clear. ORBITS: The orbits are unremarkable. BONES AND SOFT TISSUE: No bone or soft tissue abnormalities are noted. OTHER: None IMPRESSION: SUBACUTE NONHEMORRHAGIC INFARCT OF THE RIGHT MESIAL TEMPORAL LOBE, OCCIPITAL LOBE, AND INFERIOR THALAMUS CONSISTENT WITH RIGHT IMMUNOCHEMIST TERRITORY INFARCT.
--- NOTE | 2018-05-07 12:29 | RAD ---
HISTORY: cva COMPARISONS: None TECHNIQUE: 3-D axial [id number] MR angiography was performed of the head to include the [place] of [place]. Multiple 3-D maximum intensity projection reconstructions are also submitted for review. FINDINGS: The study is limited by patient motion artifact. RIGHT VERTEBRAL ARTERY: The distal right vertebral artery is unremarkable, without stenosis. LEFT VERTEBRAL ARTERY: The distal left vertebral artery is unremarkable, without stenosis. DOMINANCE: The right vertebral artery is dominant. DISTAL RIGHT CERVICAL INTERNAL CAROTID ARTERY: The distal right cervical internal carotid artery is unremarkable. DISTAL LEFT CERVICAL INTERNAL CAROTID ARTERY: The distal left cervical internal carotid artery is unremarkable. INTRACRANIAL CIRCULATION: There is attenuation of the right posterior cerebral artery beginning at the P1 segment, with decreasing flow related enhancement as it proceeds distally. There is partial distal reconstitution of of the posterior temporal branch. Elsewhere, there is no aneurysm, vascular aspiration, occlusion, or stenosis of the visualized intravenous circulation.. The anterior communicating artery complex is clear, and is dominant over the A1 segment of the left anterior cerebral artery.. The posterior communicating arteries are diminutive if present. OTHER FINDINGS: None IMPRESSION: OCCLUSION OF THE RIGHT POSTERIOR CEREBRAL ARTERY WITH PARTIAL DISTAL RECONSTITUTION.
[2018-05-07] MEDS ORDERED: Potassium Chlor TAB* 10 MEQ TAB.ER PO ONE (12:37)
[2018-05-07] MEDS: Atorvastatin* 80 MG TAB PO SCH (17:19)
[2018-05-07] MEDS: ALPRAZolam TAB* 0.5 MG PO SCH (17:19)
[2018-05-07] MEDS: DULoxetine DR CAP* 60 MG CAP.DR PO SCH (22:00)
[2018-05-07] MEDS: hydrALAZINE TAB* 10 MG PO SCH (22:00)
--- NOTE | 2018-05-08 01:04 | PN ---
Subjective Date of Service: 05/08/18 Interval History: No complaints , denies chest pain or shortness of breath , denies abd pain,n/v/ d. denies headache or dizziness. denies any visual changes Family History: Unchanged from Admission Social History: Unchanged from Admission Past Medical History: Unchanged from Admission Objective Active Medications: Acetaminophen (Tylenol Tab*) 650 mg PO Q4H PRN PRN Reason: FEVER/PAIN Last Admin: 05/06/18 17:11 Dose: 650 mg Al Hydrox/Mg Hydrox/Simethicone (Maalox Plus*) 30 ml PO Q6H PRN PRN Reason: INDIGESTION Albuterol (Ventolin 2.5 Mg/3 Ml Neb.Yancy*) 2.5 mg INH [id number] AWAKE PRN PRN Reason: sob/wheezing Alprazolam (Xanax Tab*) 2 mg PO QPM [facility] Last Admin: 05/07/18 17:19 Dose: 2 mg Amlodipine Besylate (Norvasc Tab*) 10 mg PO DAILY [facility] Last Admin: 05/07/18 08:49 Dose: 10 mg Aspirin (Aspirin 81 Mg Chew Tab*) 81 mg PO DAILY [facility] Atorvastatin Calcium (Lipitor*) 80 mg PO 1700 [facility] Last Admin: 05/07/18 17:19 Dose: 80 mg Clopidogrel Bisulfate (Plavix Tab*) 75 mg PO DAILY [facility] Last Admin: 05/07/18 08:49 Dose: 75 mg Dextrose (D50w Syringe 50 Ml*) 12.5 gm IV PUSH .FOR FS < 60 - SS PRN PRN Reason: FS < 60 Duloxetine HCl (Cymbalta Cap*) 60 mg PO 2100 [facility] Last Admin: 05/07/18 22:00 Dose: 60 mg Guaifenesin (Robitussin*) 5 ml PO Q6H PRN PRN Reason: COUGH Heparin Sodium (Porcine) (Heparin Vial(*)) 5,000 units SUBCUT Q8HR [facility] Last Admin: 05/07/18 22:00 Dose: 5,000 units Hydralazine HCl (Apresoline Iv*) 10 mg IV Q4H PRN PRN Reason: Systolic >170 Last Admin: 05/07/18 09:22 Dose: 10 mg Hydralazine HCl (Apresoline Tab*) 10 mg PO 0900,1400,2100 [facility] Last Admin: 05/07/18 22:00 Dose: 10 mg Hydrochlorothiazide (Hydrodiuril Tab*) 25 mg PO DAILY [facility] Last Admin: 05/07/18 08:49 Dose: 25 mg Insulin Glargine (Lantus(*)) 20 units SUBCUT Q24H [facility] Last Admin: 05/07/18 08:51 Dose: 20 units Insulin Human Lispro (Humalog*) 0 units SUBCUT Q6HR [facility]; Protocol Last Admin: 05/07/18 17:28 Dose: 2 units Lisinopril (Prinivil Tab*) 30 mg PO DAILY [facility] Last Admin: 05/07/18 08:48 Dose: 30 mg Magnesium Hydroxide (Milk Of Magnesia Liq*) 30 ml PO Q4H PRN PRN Reason: CONSTIPATION Metoprolol Tartrate (Lopressor Tab*) 25 mg PO BID [facility] Last Admin: 05/07/18 22:00 Dose: 25 mg Mometasone Furoate/Formoterol Fumar (Dulera 200/5 Mdi*) 2 puff INH BID [facility] Last Admin: 05/07/18 20:47 Dose: 2 puff Morphine Sulfate (Ms Contin(*)) 15 mg PO Q8H [facility] Last Admin: 05/07/18 22:00 Dose: 15 mg Nitroglycerin (Nitroglycerin Tab 0.4 Mg*) 0.4 mg SL Q5M PRN PRN Reason: PAIN - CHEST Ondansetron HCl (Zofran Inj*) 4 mg IV Q4H PRN PRN Reason: NAUSEA/VOMITING Pentoxifylline (Trental Cr Tab*) 400 mg PO Q8H PRN PRN Reason: PAIN Last Admin: 05/03/18 14:49 Dose: 400 mg Tapentadol (Nucynta(Nf)) 50 mg PO Q12H PRN PRN Reason: PAIN Last Admin: 05/03/18 23:57 Dose: 50 mg Thiamine HCl (Vitamin B-1 Tab*) 100 mg PO DAILY [facility] Last Admin: 05/07/18 08:49 Dose: 100 mg Vital Signs - 8 hr 05/07/18 05/07/18 05/07/18 17:19 19:27 20:00 Temperature 98.3 F Pulse Rate 85 Respiratory 18 18 17 Rate Blood Pressure 162/81 (mmHg) O2 Sat by Pulse 97 Oximetry 05/07/18 05/07/18 20:51 22:00 Temperature Pulse Rate 80 Respiratory 14 19 Rate Blood Pressure (mmHg) O2 Sat by Pulse 97 Oximetry Oxygen Devices in Use Now: None Appearance: alert and oriented , sitting in the chair, no acute distress. Eyes: No Scleral Icterus Ears/Nose/Mouth/Throat: Clear Oropharnyx, Mucous Membranes Moist Neck: NL Appearance and Movements; NL JVP, Trachea Midline Respiratory: Symmetrical Chest Expansion and Respiratory Effort, Clear to Auscultation Cardiovascular: NL Sounds; No Murmurs; No JVD, No Edema Abdominal: NL Sounds; No Tenderness; No Distention Extremities: No Edema, No Clubbing, Cyanosis Skin: No Rash or Ulcers Neurological: Alert and Oriented x 3 Nutrition: Taking PO's Result Diagrams: 05/06/18 10:28 05/07/18 10:59 Additional Lab and Data: Total cholesterol: 141 LDL: 85 Microbiology and Other Data: Microbiology 04/30/18 15:24 Aerobic Blood Culture - Preliminary Blood Venous No Growth Day 1 Anaerobic Blood Culture - Preliminary No Growth Day 1 04/30/18 15:24 Aerobic Blood Culture - Preliminary Blood Venous No Growth Day 1 Anaerobic Blood Culture - Preliminary No Growth Day 1 Diagnostic Imaging: CT head without contrast 04/30/18: hypodensity in the right occipital lobe consistent with an acute infarction. Assess/Plan/Problems-Billing Assessment: Mr. 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 - Patient Problems (1) CVA (cerebral vascular accident) Current Visit: Yes Status: Acute Code(s): I63.9 - CEREBRAL INFARCTION, UNSPECIFIED SNOMED Code(s): 815571789 Comment: - Mental status much improved, minimal left sided weakness. 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 - Acute right FIRE LOSS PREVENTION ENGINEER infarct on CT - MRI with subacute Right FIRE LOSS PREVENTION ENGINEER infarct - MRA with total occulsion to the right posterior cerebral artery with partial distal reconstitution - Appreciate neurology consultation. Continue atorvastatin, aspirin, plavix - he will need dual platelet therapy for 30 days then plavix 75 mg daily thereafter- follow up with neurology in 3 weeks - MARCO - No thrombus/ no PFO - EF 60-65% - Continue PT/OT. (2) Altered mental status Current Visit: No Status: Acute Priority: High Onset Date: 06/29/14 Code (s): R41.82 - ALTERED MENTAL STATUS, UNSPECIFIED SNOMED Code(s): 066249111 Comment: - Resolving. Suspect related to CVA, delirium and possibly narcotics for chronic pain. - patient alert today- able to follow commands and answer questions appropriately. - Ammonia level 45 WNL, B12 normal. (3) JORDIN (acute kidney injury) Current Visit: Yes Status: Acute Code(s): N17.9 - ACUTE KIDNEY FAILURE, UNSPECIFIED SNOMED Code(s): 46325879 Comment: - Resolving. - Creatine at 1.24, BUN normal. - resume lisinopril and hctz and monitor creatinine closely. - repeat BMP in the AM (4) Diabetes Current Visit: Yes Status: Acute Code(s): E11.9 - TYPE 2 DIABETES MELLITUS WITHOUT COMPLICATIONS SNOMED Code(s): 06228706 Comment: - BGs 220- 333 - Continue lispro SSI coverage with meals. - increased Lantus to 20 units (5) Hypertension Current Visit: No Status: Chronic Priority: Medium Code(s): I10 - ESSENTIAL (PRIMARY) HYPERTENSION SNOMED Code(s): 76033307 Comment: - SBP 170- 180's, goal SBP 130-140 - Continue newly started amlodipine and resume lisinopril and hctz. - hydralizine as needed for SBP >180 - will add hydralzine 10 mg Tid for continued htn- (6) Chronic pain Current Visit: Yes Status: Acute Code(s): G89.29 - OTHER CHRONIC PAIN SNOMED Code(s): 58266615 Comment: - No complaint of pain this AM. - Continue outpatient meds at reduced dose given altered mental status. Continue Morphine ER 15 mg q 8 (on 30 mg Q 8 hours at home). Continue decreased dose nucynta prn. (7) DVT prophylaxis Current Visit: Yes Status: Acute Code(s): MBG8208 - SNOMED Code(s): 701464893 Comment: - Heparin SQ. Approved per neurology. Status and Disposition: Inpatient. Anticipate discharge to home in AM
[2018-05-08] MEDS: Insulin LISPRO* 1 UNITS UNIT SUBCUT SCH ×4 (05:55→17:32)
[2018-05-08] MEDS: Morphine TAB Extended Release (*) 15 MG TAB.ER PO SCH ×2 (06:19→13:42)
[2018-05-08] MEDS: Heparin VIAL(*) 5000 UNITS/ML VIAL (FIVE THOUSAND) SUBCUT SCH ×2 (06:24→13:43)
[2018-05-08] MEDS ORDERED: Aspirin 81 mg CHEW TAB* 81 MG TAB.CHEW PO SCH (09:00)
[2018-05-08] MEDS ORDERED: Insulin LISPRO* 1 UNITS UNIT SUBCUT ONE (09:19)
[2018-05-08] MEDS: Thiamine TAB* 100 MG TAB PO SCH (09:28)
[2018-05-08] MEDS: Metoprolol Tartrate TAB* 25 MG PO SCH (09:28)
[2018-05-08] MEDS: Clopidogrel TAB* 75 MG PO SCH (09:28)
[2018-05-08] MEDS: Lisinopril TAB* 10 MG PO SCH (09:29)
[2018-05-08] MEDS: hydrALAZINE TAB* 10 MG PO SCH ×2 (09:30→13:42)
[2018-05-08] MEDS: amLODIPine TAB* 5 MG PO SCH (09:30)
[2018-05-08] MEDS: Hydrochlorothiazide TAB* 25 MG PO SCH (09:30)
[2018-05-08] MEDS: Insulin GLARGINE(*) 1 UNITS UNIT SUBCUT SCH (09:31)
[2018-05-08] MEDS: Mometasone/Formoter 200/5 MDI INH SCH (09:42)
[2018-05-08 16:00] VITALS: BP 172/89
[2018-05-08] MEDS: Atorvastatin* 80 MG TAB PO SCH (17:33)
[2018-05-08] MEDS: ALPRAZolam TAB* 0.5 MG PO SCH (17:42)
--- NOTE | 2018-05-08 21:30 | DS ---
DISCHARGE SUMMARY: DATE OF ADMISSION: 04/30/18. DATE OF DISCHARGE: 05/08/18. PROVIDER: Kimberly Cohen NP. ATTENDING PHYSICIAN: Dr. Li Eaton * (dictated by Kimberly Cohen NP). PRIMARY CARE PROVIDER: Dr. Maranda Lorenzana. PRIMARY DIAGNOSES: 1. Subacute nonhemorrhagic infarct of the right medial temporal lobe, occipital lobe, and inferior thalamus consistent with a right OUTPATIENT THERAPIST territory infarct. 2. Acute kidney injury. SECONDARY DIAGNOSES: 1. Insulin-dependent diabetes. 2. Morbid obesity. 3. Hypertension. 4. Coronary artery disease, status post myocardial infarction in 1979, first stent placement in 2010. 5. Chronic pain. 6. Diabetic neuropathy. 7. Gastroesophageal reflux disease. 8. Asthma. 9. Anxiety and depression. 10. Thrombocytopenia. STUDIES COMPLETED WHILE IN THE HOSPITAL: He had an MRI on 05/07/18, which showed subacute non- hemorrhagic infarct of the right medial temporal lobe, occipital lobe, and inferior thalamus consistent with a right OUTPATIENT THERAPIST territory infarct. He also had an MRA of the head, which showed occlusion of the right posterior cerebral artery with partial distal reconstitution. He had a transesophageal echocardiogram, which showed global ventricular wall motion contractility within normal limits. There are normal left ventricular systolic functions. The estimated ejection fraction is 60% to 65%. There is no thrombus visualized in the left atrium. There is no thrombus visualized in the left atrial appendage with a patent foramen ovale is not demonstrated with color Doppler and agitated contrast. There was no evidence of aortic stenosis. There was trace mitral regurgitation, trace tricuspid regurgitation. Unable to estimate the right ventricular systolic pressure and no significant pericardial effusion. DISCHARGE MEDICATIONS: 1. Amlodipine 10 mg p.o. daily. 2. MiraLax 17 g p.o. daily p.r.n. 3. Nitroglycerin 0.4 mg sublingual q.5 minutes as needed for chest pain. 4. Trental CR 400 mg p.o. q.8 hours as needed. 5. Cialis 20 mg p.o. daily as needed. 6. Hydrochlorothiazide 20 mg p.o. daily. 7. Advair Diskus 500/50 one puff b.i.d. 8. Combivent Respimat 1 Aerosol b.i.d. 9. Viagra 100 mg p.o. daily p.r.n. 10. Xanax 2 mg p.o. q.p.m. 11. Nucynta 75 mg p.o. q.12 hours p.r.n. (dose decreased) 12. Morphine ER 15mg p.o. q.8 hours p.r.n. (dose decreased) 13. Hydralazine 10 mg p.o. t.i.d. 14. Thiamine 100 mg p.o. daily. 15. Metoprolol 25 mg p.o. b.i.d. 16. Lisinopril 30 mg p.o. daily. 17. Lantus 20 units subcu q.24 hours. 18. Cymbalta 60 mg p.o. daily. (dose decreased) 19. Clopidogrel 75 mg p.o. daily. 20. Atorvastatin 80 mg p.o. daily. 21. Aspirin 81 mg p.o. daily. 22. Amlodipine 10 mg p.o. daily. 23. Acetaminophen 650 mg p.o. q.4 hours as needed for pain. Discontinued medications: 1. Morphine immediate release 2. BuSpar was also discontinued. 3. Cymbalta was decreased to 60 mg daily. HISTORY OF PRESENT ILLNESS AND HOSPITAL COURSE: Mr. Woodson is a 63-year-old gentleman with a past medical history significant for hypertension, asthma, GERD , insulin-dependent diabetes, coronary artery disease, status post [place] with stent placement in 2011, who presented to the emergency room today after starting to feel dizzy since yesterday approximately 2 o'clock in the afternoon. He reports episode of a severe headache with associated difficulty walking, blurred vision, dizziness, described as the worst headache of his life. He denies any stroke symptoms in the past. The patient himself is very vague and appears to be very drowsy, but easily aroused and answers questions properly. However, quickly closes his eyes and goes back to sleep. He reports feeling tired and did not get much sleep last night. He does report occasional headaches that still persist. He denies any chest pain, double vision, weakness , numbness to the extremities. He does report some confusion. While in the emergency room, the patient was seen and evaluated by Dr. Triplett. The patient initially had a CT of the head that was read as negative. Subsequent CT showed a right posterior infarct and confirmed on MRI on 05/07/18 , reports as noted above. The patient was monitored on telemetry throughout his hospitalization. Initially, the patient was confused and combative, unable to answer questions appropriately, unable to follow commands. Throughout the hospitalization, his condition progressively improved. He is able to walk. He is walking with a cane. He is alert and oriented. He is able to follow commands and his speech is clear. There is no gross focal deficits. He does have some mild left hand weakness. The patient had a full workup for his CVA and at this time, he is stable for discharge home. The patient throughout the hospitalization was hypertensive. He has been placed on several medications. He was started on amlodipine 10, metoprolol 25 mg p.o. b.i.d., hydrochlorothiazide 25, and he was also started on hydralazine 10 mg p.o. t.i.d. for management of his hypertension. At this time, Mr. Woodson is stable for discharge to home, vital signs are as follows: Blood pressure 162/81, heart rate 85, respirations 18, O2 saturation was 97%, temperature was 98.3. DISCHARGE PLAN: Mr. Woodson will be discharged back home. Activity as tolerated. 1. Right posterior OUTPATIENT THERAPIST infarct. The patient will be placed on Plavix 75 mg p.o. daily, aspirin 81 mg p.o. daily, atorvastatin 80 mg p.o. daily. The patient should continue dual-antiplatelet for 30 days. He should follow up with Neurology in 3 weeks. After 30 days, he will be placed on Plavix 75 mg p.o. daily as monotherapy. The patient should not drive until cleared by his primary care doctor or Neurology. The patient's blood pressure was elevated during this hospitalization, he was placed on blood pressure medications. He should continue to have his blood pressure monitored as an outpatient. I would recommend blood pressure recheck next week. 2. Hypertension. The patient was hypertensive throughout his hospitalization. He was placed on amlodipine 10 mg, Lopressor 25 mg p.o. b.i.d., lisinopril 30 mg p.o. daily, and hydralazine 10 mg p.o. t.i.d. He should have his blood pressure checked next week for followup and further management of his blood pressure. 3. Acute kidney injury. The patient should avoid nephrotoxic medications. He should have a BMP repeated next week with the results to his primary care provider. This should be monitored closely as he is on lisinopril and this can cause an elevation in his BUN and creatinine. 4. Chronic pain. The patient's chronic pain medications were decreased during this hospitalization. He should continue on Morphine 1 mL q.8 hours as needed for pain, Nucynta 75 mg p.o. q.12 hours as needed for pain, Tylenol 650 mg p.o. q.4 hours as needed for pain. 5. Diabetes. He should continue on Lantus 20 units subcu q.24 hours. His blood sugars throughout the hospitalization were 140 to 185 after having his Lantus increased to 20 units. He may need further adjustment of his Lantus on return home, has previous Lantus dose with 36 units subcu daily. He should continue with Accu-Cheks with meals and at dinner. 6. Coronary artery disease. He should continue on his metoprolol as previously prescribed. 7. Depression and anxiety. He should continue his Xanax 2 mg p.o. at h.s. 8. Asthma. He should continue on Combivent and Advair as previously prescribed. 9. Chronic Pain- his medications were decreased during this hospitalization. the patient has tolerated the decrease in his medications. I would recommend continuing his pain medications at the reduced dosages listed above. FOLLOWUP: The patient should follow up with his primary care provider as scheduled on 05/16/18. He should have his blood pressure rechecked and a repeat BMP for monitoring of his BUN and creatinine. He was advised not to drive until cleared by his primary care doctor or Neurology. The patient was instructed to return to the emergency room for any one-sided weakness, chest pain, shortness of breath, severe headache, or any other concerning symptoms. This is a summarization of his hospitalization. For further details, please see the entire medical record. TIME SPENT: Time spent on this discharge is approximately 60 minutes, greater than half that time was spent with the patient discussing discharge plans and instructions. CONDITION ON DISCHARGE: Stable. KIMBERLY SHIVANI, ASSOCIATE PROFESSOR OF SURGERY [id number]/[facility] #: [id number] CHEN
== END 2018-05-08 18:45 | disposition home health service (06) | DRG 45 ==
LOC: ED 14:36 → MEDTELE 18:26 → ICU 05-03 05:23 → MEDTELE 05-04 23:14
PROVIDERS: ADMIT Internal Medicine; ATTEND Hospitalist
PROC: B24BZZ4 Ultrasonography of Heart with Aorta, Transesophageal (ICD-10-PCS; principal; 2018-05-05)
DX: I63.531 Cerebral infarction due to unspecified occlusion or stenosis of right posterior cerebral artery (principal); G92 Toxic encephalopathy; G81.94 Hemiplegia, unspecified affecting left nondominant side; N17.9 Acute kidney failure, unspecified; G93.1 Anoxic brain damage, not elsewhere classified; I25.10 Atherosclerotic heart disease of native coronary artery without angina pectoris; K21.9 Gastro-esophageal reflux disease without esophagitis; E66.01 Morbid (severe) obesity due to excess calories; G89.29 Other chronic pain; I50.9 Heart failure, unspecified; I11.0 Hypertensive heart disease with heart failure; J44.9 Chronic obstructive pulmonary disease, unspecified; M19.012 Primary osteoarthritis, left shoulder; M19.011 Primary osteoarthritis, right shoulder; R29.703 NIHSS score 3; R42 Dizziness and giddiness; F41.8 Other specified anxiety disorders; E11.21 Type 2 diabetes mellitus with diabetic nephropathy; H53.8 Other visual disturbances; R51 Headache; E11.42 Type 2 diabetes mellitus with diabetic polyneuropathy; E78.00 Pure hypercholesterolemia, unspecified; H53.47 Heteronymous bilateral field defects; R47.01 Aphasia; G25.3 Myoclonus; G47.33 Obstructive sleep apnea (adult) (pediatric); M54.9 Dorsalgia, unspecified; D69.6 Thrombocytopenia, unspecified; I08.1 Rheumatic disorders of both mitral and tricuspid valves; Z79.4 Long term (current) use of insulin; Z79.82 Long term (current) use of aspirin; Z83.3 Family history of diabetes mellitus; Z82.3 Family history of stroke; I25.2 Old myocardial infarction; Z98.84 Bariatric surgery status; Z82.61 Family history of arthritis; Z95.5 Presence of coronary angioplasty implant and graft; Z82.49 Family history of ischemic heart disease and other diseases of the circulatory system; Z79.02 Long term (current) use of antithrombotics/antiplatelets; E87.6 Hypokalemia; I16.0 Hypertensive urgency; R10.9 Unspecified abdominal pain; I49.5 Sick sinus syndrome
CPT/HCPCS: 36415; 70450; 70544; 70551; 71045; 80048; 80053; 80061; 80307; 80320; 81003; 82140; 82607; 83605; 83735; 84443; 84484; 85025; 85610; 85730; 86850; 86900; 86901; 87040; 87641; 93005; 93306; 93312; 93325; 93880; 94640; 99156; 99284; A9270-GY; C8929; G0480; J0360; J1644; J2060; J2250; J2270; J2310; J2704; J3010; J3490

== ENCOUNTER 2018-05-13 17:49 | Inpatient (IN) | payer OTHER ==
--- NOTE | 2018-05-13 18:32 | RAD ---
Indication: Syncope, confusion, recent ischemic stroke. Comparison: May 07, 2018 MRI and May 01, 2018 CT. Technique: Noncontrast CT vertex of skull through foramen magnum. Report: Subtle persistent reilly matter white matter obscuration at the LEFT occipital lobe and medial aspect of the LEFT temporal lobe corresponding with the site of the previous ischemic infarct. Interval rastafari of cerebral sulci and resolution of previous mass effect on the lateral ventricles and quadrigeminal plate cistern. Negative for hydrocephalus. No new region of reilly matter white matter obscuration evident. Negative for intra or extra-axial hemorrhage. Unremarkable orbital contents. Clear hypoplastic mastoid air spaces. Clear partially visualized paranasal sinuses. Unremarkable calvarium and skull base. Unremarkable scalp. IMPRESSION: #. Resolution of previous mass effect related to the RIGHT posterior cerebral artery distribution infarct. #. No new region of reilly matter white matter obscuration, new mass effect, or intra or extra-axial hemorrhage. #. Results discussed with Dr. Magana 05/13/2018 6:29 PM EDT
[2018-05-13 18:36] LABS: ABS Basophils 0 10^3/ul (0-0.2); ABS Eosinophils 0 10^3/ul (0-0.6); ABS Lymphocytes 1.1 10^3/ul (1.0-4.8); ABS Monocytes 0.4 10^3/ul (0-0.8); ABS Neutrophils 4.3 10^3/ul (1.5-7.7); ABS Nucleated RBC 0 10^3/ul; Eosinophil % 0.8 % (0-6); Hematocrit 42 % (42-52); Hemoglobin 13.8 g/dl (14.0-18.0); Mean Corpuscular HGB Conc 33 g/dl (31-36); Mean Corpuscular Hemoglobin 26 pg (27-31); Mean Corpuscular Volume 80 fL (80-94); Nucleated Red Blood Cells % 0.1; Platelet Count 196 10^3/ul (150-450); Red Blood Count 5.28 10^6/ul (4.00-5.40); Red Cell Distribution Width 16 % (10.5-15); White Blood Count 5.9 10^3/ul (3.5-10.8)
[2018-05-13 18:45] LABS: INR 0.93 (0.77-1.02)
--- NOTE | 2018-05-13 19:00 | RAD ---
Indication: Syncope. Chronic obstructive pulmonary disease. Comparison: April 30, 2018 Technique: Upright AP 1830 hours Report: Large body habitus with superimposed soft tissues limits image quality. Mild prominence of the interstitial markings. No alveolar infiltrate, pleural effusion, or pneumothorax evident. Upper normal heart size. Unremarkable central pulmonary vasculature and mediastinal contours. IMPRESSION: #. No evidence for acute intrathoracic disease.
[2018-05-13 19:17] LABS: EGFR Non-African American 62.1 (>60)
[2018-05-13] MEDS ORDERED: Labetalol IV* 5 MG/ML 20 ML VIAL IV PUSH ONE (19:19)
--- NOTE | 2018-05-13 19:23 | ED ---
Neurological HPI - HPI Summary HPI Summary: This is scribe Harryrachna Agarwal documenting for attending Korina Magana MD. IN ROOM AT 1801. A 63 y/o male DEANDRA presents to ED s/p confusion for the past 3-5 days, and severe posterior headache that started at 1700 today. In the ED at time of initial evaluation, the patient has a pulse of 84 BPM, O2 saturation of 97% and blood pressure of 180/81. As per triage, "Pt called his PCP at [facility] because he felt confused and unsafe in his own home. PCP called 911 as pt was recently dx and DC from [facility] with hemorragic stroke. EMS arrival, pt c/o severe SOSA and had 3x witnessed syncopal episodes in rig". According to nursing staff, he was in [facility] ED for hyperactive/hemorrhagic stroke and discharged 5 days ago.(This was later proven untrue with review of CT and MRI images. Pt had a nonhemorrhagic posterior circulation CVA on 04/30/18) Pt's roommate and health care proxy is Dr. Cason, who lives at home with pt. Pt called [facility] because he does not feel safe and does not understand what is going on. He was confused and could not recognize the inside of his apartment. According to the patient, he feels very confused and it started to scare him. He started to get angry. He stated his speech was always clear and has no weakness. As per Crista SOLORIO, and Jaye from [facility], when the patient got in the EMS rig, he had 3 witnessed "syncopal episodes" that required 3 sternal rubs to wake him , each lasting approximately 30 secs. EMS stated they wondered if pt was even breathing during the episodes. He woke up completely after each episode and c/o of continued right occipital head pain. Pt was very hypertensive prior to each of these episodes. Pt also had a witnessed period of unresponsiveness when OSMIN Tobin, first placed pt in the room and on the monitor, where he stared, did not respond to verbal commands, and RN did a sternal rub and pt "awoke" but had no memory of the incident. [facility] was told that pt had a hemorrhagic stroke by two female nurses who were on the scene at pt's home. (but in fact pt was admitted to [facility] 04/30/18-05/08/18 with nonhemorrhagic posterior circulation stroke). Code Merlin was NOT called upon arrival since pt was not believed to be a TPA candidate due to recent hemorrhagic stroke (pt later noted to be on Plavix ). Prior CT and MRI imaging reviewed and MARCO reviewd from prior admission, showing normal wall motion, EF 55-60% and no patent foramen ovale. I, Dr. Korina Magana, personally performed the services described in this documentation as scribed in my presence and it is both accurate and complete. - History of Current Complaint Chief Complaint: EDNeurologicalDeficit Stated Complaint: SYNCOPE/HEAD PAIN Time Seen by Provider: 05/13/18 17:56 Hx Obtained From: Patient, EMS, Other: - Nursing staff Onset/Duration: Sudden Onset, Started hours ago Timing: Constant Onset Severity: Moderate - 6/10 Current Severity: Moderate - 6/10 Number of Seizures: 0 - no tonic clonic activity noted, unresponsive episodes ? new seizures? Neurological Deficit Location: Generalized - confusion Headache Location: Occipital (Right), Occipital (Left) Pain Intensity: 6 Pain Scale Used: 0-10 Numeric Character: Unable To Describe - occipital SOSA, Confusion, Responsiveness - unresponsive x 4 total (3 in EMS, once in ED, all witnessed) Syncope Timin seconds, some were a few. Episode Lasting: Seconds/Minutes Number of Episodes: 4 Syncope Context: Witnessed, Loss of Consciousness: Yes Frequency: Episodes x___ - 4, Episodes Lasting ____ (in Mins/Days/Weeks/Years) - 30 secs Seizure Character: Partial (Specify) - staring/unresponsive (if seizure) Aggravating: Nothing Alleviating: Nothing Associated Signs and Symptoms: Positive: Headache, Confusion, Loss of Consciousness, Decreased Level of Consciousness. 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 - Additional Pertinent History Primary Care Physician: [id number] - Allergy/Home Medications Allergies/Adverse Reactions: Allergies Allergy/AdvReac Type Severity Reaction Status Date / Time No Known Allergies Allergy Verified 05/13/18 18:21 Home Medications: Home Medications ALPRAZolam TAB* [Xanax TAB*] 2 mg PO QPM 05/13/18 [History Confirmed 05/13/18] Albuterol/Ipratropium RESP(NF) [Combivent Respimat(NF)] 1 puff INH BID 05/13/18 [History Confirmed 05/13/18] DULoxetine DR CAP* [Cymbalta CAP*] 60 mg PO Q12HR 05/13/18 [History Confirmed ] Fluticasone-Salmeterol 500-50* [Advair Diskus 500-50*] 1 puff INH BID 05/13/18 [ History Confirmed 05/13/18] Hydrochlorothiazide TAB* [Hydrodiuril TAB*] 25 mg PO DAILY 05/13/18 [History Confirmed 05/13/18] Lisinopril TAB* [Prinivil TAB*] 40 mg PO DAILY 05/13/18 [History Confirmed 05/13] Montelukast Sodium TAB* [Singulair TAB*] 10 mg PO DAILY 05/13/18 [History Confirmed 05/13/18] Morphine TAB Extended Rel(*) [Ms Contin(*)] 30 mg PO Q8HR PRN MDD 90 mg [History Confirmed 05/13/18] Nitroglycerin TAB 0.4 MG* 0.4 mg SL Q5M PRN 05/13/18 [History Confirmed 05/13/18 ] Omeprazole CAP* [Prilosec CAP* 20 MG] 20 mg PO DAILY 05/13/18 [History Confirmed 05/13/18] Pentoxifylline CR TAB* [TRENtal CR TAB*] 400 mg PO TID PRN 05/13/18 [History Confirmed 05/13/18] Polyethylene Glycol 3350* [Miralax*] 17 gm PO DAILY PRN 05/13/18 [History Confirmed 05/13/18] Sildenafil Citrate [Viagra] 100 mg PO DAILY PRN 05/13/18 [History Confirmed 04/23] Tadalafil (Nf) [Cialis (NF)] 20 mg PO DAILY PRN 05/13/18 [History Confirmed 04/23] Tapentadol ER (NF) [Nucynta ER (NF)] 150 mg PO Q12HR PRN MDD 300 mg 05/13/18 [ History Confirmed 05/13/18] amLODIPine TAB* [Norvasc 5 mg TAB*] 10 mg PO DAILY 05/13/18 [History Confirmed 05/13/18] PMH/Surg Hx/FS Hx/Imm Hx Previously Healthy: No Endocrine/Hematology History: Reports: Hx Diabetes - DMII Cardiovascular History: Reports: Hx Angina, Hx Cardiomegaly, Hx Congestive Heart Failure - on prn bumex, Hx Coronary Artery Disease, Hx Hypertension - on meds, Hx Myocardial Infarction, Hx Valvular Heart Disease, Other Cardiovascular Problems/Disorders Denies: Hx Hypercholesterolemia, Hx Pacemaker/ICD Respiratory History: Reports: Hx Asthma - as a child- outgrew, Hx Chronic Obstructive Pulmonary Disease (COPD), Hx Sleep Apnea GI History: Reports: Hx Gastroesophageal Reflux Disease - omeprazole, Other GI Disorders - hx of PANCREATITIS Denies: Hx Cirrhosis History: Denies: Hx Dialysis, Hx Kidney Stones, Hx Renal Disease Musculoskeletal History: Reports: Hx Arthritis - BILATERAL SHOULDERS, Hx Tendonitis - BILATERAL SHOULDERS Denies: Other Musculoskeletal History Sensory History: Reports: Hx Contacts or Glasses Denies: Hx Hearing Aid Opthamlomology History: Reports: Hx Contacts or Glasses Neurological History: Reports: Hx CVA - 04/30/18; admitted [facility] 04/30/18-05/08/18; post circulation nonhemorrhagic CVA, Hx Nerve Disease - DM neuropathy, Hx Seizures - SEIZURE HISTORY LAST 2004 ONLY TWO TIMES IN LIFE Denies: Hx Transient Ischemic Attacks (TIA) Psychiatric History: Reports: Hx Anxiety, Hx Depression Denies: Hx Panic Disorder - Cancer History Hx Chemotherapy: No - Surgical History Surgery Procedure, Year, and Place: gastric bypass [facility], bilat elbows , [facility]. HEART STENT 07/17 [facility]. GALLBLADDER [facility] Hx Anesthesia Reactions: Yes - woke up angry and swinging after 1 surgery Infectious Disease History: No Infectious Disease History: Denies: Hx Hepatitis, Traveled Outside the [place] in Last 30 Days - Family History Known Family History: Positive: Other - mother - arthritis - Social History Lives: Dormitory/Roommates - Dr. Cason, roommate and health care proxy Alcohol Use: None Hx Substance Use: No Substance Use Type: Reports: None Hx Tobacco Use: Yes Smoking Status (MU): Never Smoked Tobacco Have You Smoked in the Last Year: No Review of Systems Negative: Fever Cardiovascular: Negative Respiratory: Negative Gastrointestinal: Negative Neurological: Other - POSITIVE: Confusion. Positive: Headache, Syncope Positive: Anxious All Other Systems Reviewed And Are Negative: Yes Physical Exam - Summary Physical Exam Summary: Appearance: chronically ill-appearing,moderate pain distress due to SOSA, obese. Skin:Warm, color reflects adequate perfusion, dry Head:Normal Head/Face inspection, atraumatic Eyes: Conjunctiva clear, PERRL, EOMI, no nystagmus. ENT:Normal inspection Neck:Supple, no nodes, no JVD, neck no bruits Respiratory: Lungs clear, normal breath sounds, no respiratory distress Cardio: RRR, No murmur, pulses normal, brisk capillary refill Abdomen: Soft, nontender Bowel sounds: Present Musculoskeletal: Strength Intact/ROM intact, no calf tenderness, no edema. Psychological: Normal Neuro: A&O x3, CN II-XII intact, motor function 5/5, sensation intact, cerebellar normal, NIH 1. GCS: 14 Triage Information Reviewed: Yes Vital Signs On Initial Exam: Initial Vitals Temp Pulse Resp BP Pulse Ox 98.3 F 82 19 180/81 97 05/13/18 17:54 05/13/18 17:54 05/13/18 17:54 05/13/18 17:54 05/13/18 17:54 Vital Signs Reviewed: Yes - [place] Coma Scale Best Eye Response: 4 - Spontaneous Best Motor Response: 6 - Obeys Commands Best Verbal Response: 4 - Confused Coma Scale Total: 14 Diagnostics - Vital Signs Vital Signs Temp Pulse Resp BP Pulse Ox 05/13/18 19:00 73 16 96 05/13/18 18:47 78 18 174/70 94 05/13/18 18:14 79 20 185/104 97 05/13/18 18:00 83 27 97 05/13/18 17:58 81 17 97 05/13/18 17:55 78 15 180/81 96 05/13/18 17:54 98.3 F 82 19 180/81 97 - Laboratory Lab Results: Lab Results 05/13/18 05/13/18 05/13/18 Range/Units 18:26 18:27 18:27 WBC 5.9 (3.5-10.8) 10^3/ul RBC 5.28 (4.00-5.40) 10^6/ul Hgb 13.8 L (14.0-18.0) g/dl Hct 42 (42-52) % MCV 80 (80-94) fL MCH 26 L (27-31) pg MCHC 33 (31-36) g/dl RDW 16 H (10.5-15) % Plt Count 196 (150-450) 10^3/ul MPV 10.0 (7.4-10.4) um3 Neut % (Auto) 72.3 (38-83) % Lymph % (Auto) 19.0 L (25-47) % [place] % (Auto) 7.1 H (0-7) % Eos % (Auto) 0.8 (0-6) % Baso % (Auto) 0.8 (0-2) % Absolute Neuts (auto) 4.3 (1.5-7.7) 10^3/ul Absolute Lymphs (auto) 1.1 (1.0-4.8) 10^3/ul Absolute Monos (auto) 0.4 (0-0.8) 10^3/ul Absolute Eos (auto) 0 (0-0.6) 10^3/ul Absolute Basos (auto) 0 (0-0.2) 10^3/ul Absolute Nucleated RBC 0 10^3/ul Nucleated RBC % 0.1 INR (Anticoag Therapy) 0.93 (0.77-1.02) APTT 29.4 (26.0-36.3) seconds Sodium 139 (135-145) mmol/L Potassium 3.7 (3.5-5.0) mmol/L Chloride 102 (101-111) mmol/L Carbon Dioxide 28 (22-32) mmol/L Anion Gap 9 (2-11) mmol/L BUN Pending Creatinine Pending Est GFR ( Amer) Pending Est GFR (Non-Af Amer) Pending BUN/Creatinine Ratio Pending Glucose Pending Calcium 9.3 (8.6-10.3) mg/dL Total Bilirubin 0.90 (0.2-1.0) mg/dL AST Pending ALT Pending Alkaline Phosphatase Pending CK-MB (CK-2) 1.3 (0.6-6.3) ng/mL Troponin I 0.01 (<0.04) ng/mL Total Protein Pending Albumin 3.5 (3.2-5.2) g/dL Globulin Pending Albumin/Globulin Ratio Pending Triglycerides Pending Cholesterol Pending LDL Cholesterol Pending HDL Cholesterol Pending Result Diagrams: 05/13/18 18:27 05/13/18 18:27 Lab Statement: Any lab studies that have been ordered have been reviewed, and results considered in the medical decision making process. - Radiology CXR Radiology Interpretation Completed By: Radiologist - No evidence for acute intrathoracic disease. ED physician reviewed this radiology report. - CT BRAIN CT CT Interpretation Completed By: Radiologist - Resolution of previous mass effect related to the RIGHT posterior cerebral artery distribution infarct. No new region of boyer matter white matter obscuration, new mass effect, or intra or extra-axial hemorrhage. Results discussed with Dr. Magana 05/13/2018 6:29 PM EDT. ED physician reviewed this radiology report. - EKG 1857 Cardiac Rate: NL - 73 BPM EKG Rhythm: Sinus Rhythm ST Segment: Non-Specific Ectopy: None EKG Interpretation: 1st degree AV block, nl IV CT, nl QTc, left axis -51, negative ectopy, NIH Scale - NIH Scale Level of Consciousness: Alert/Keenly Responsive Ask Patient the Month and His/Her Age: One Correct/Not Aphasic - Month not correct Ask Pt to Open/Close Eyes and Plant Attendant/Release Non-Paretic Hand: Both Correctly Best Gaze (Only Horizontal Eye Movement): Normal Visual Field Testing: No Visual Loss Facial Paresis-Pt to Smile & Close Eyes or Grimace Symmetry: Normal/Symmetrical Motor Function - Right Arm: No Drift-Holds 10 Seconds Motor Function - Left Arm: No Drift-Holds 10 Seconds Motor Function - Right Leg: No Drift-Holds 10 Seconds Motor Function - Left Leg: No Drift-Holds 10 Seconds Limb Ataxia-Must be out of Proportion to Weakness Present: Absent Sensory (Use Pinprick to Test Arms/Legs/Trunk/Face): Normal Best Language (Describe Picture, Name Items): No Aphasia Dysarthria (Read Several Words): Normal Extinction and Inattention: No Abnormality Total Score: 1 Re-Evaluation - Re-Evaluation First Eval Re-Evaluation Time: 18:29 Change: Unchanged Comment: Spoke with Dr. Dietrich about CT. No ICH, mass effect has resolved from prior stroke on 04/30/2018. Stroke on 04/30/2018 was non-hemorrhagic. Second Eval Re-Evaluation Time: 18:41 Change: Unchanged Comment: Put patient in comfortable position as requested by patient. In the ED room, the patient has a rate of 81 BPM, O2 saturation of 95% and blood pressure of 185/104. He does still have a headache but not much. No issues with vision. Patient doesn't know what month it is. Patient knows age. NIH 1, GCS 14. Course/Dx - Course Course Of Treatment: A 63 y/o male DEANDRA presents to ED s/p confusion x 3-5 days , and occipital headache, with 4 witnessed 30 sec unresponsive episodes, 5 days after discharge from [facility] for a post circulation CVA on 04/30/18. Pt was DC'd on 05/08/18. Vargas Boyer was not called on arrival as pt was not considered to be a TPA candidate or endovascular candidate due to what was believed at the time to be a hemorrhagic stroke on 04/30/18. Pt was later still not a TPA candidate due to being on medication, plavix. A Brain CT done with stat code protocol revealed esolution of previous mass effect related to the RIGHT posterior cerebral artery distribution infarct. No new region of boyer matter white matter obscuration, new mass effect, or intra or extra-axial hemorrhage. Results discussed with Dr. Magana 05/13/2018 6:29 PM EDT. A CXR revealed no evidence for acute intrathoracic disease. A EKG revealed a NSR of 73 BPM, non-specific ST-T wave changes, 1st degree AV block, nl IV CT, nl QTc, left axis -51, negative ectopy. In the ED course, the patient recieved labetalol 20mg IV for hypertension 185/104. Patient's medications were reviewed this visit. In the ED , the patient has a rate of 81 BPM, O2 saturation of 95% and blood pressure of 185/104. He does still have a headache but not much. No issues with vision. Patient doesn't know what month it is. Patient knows age. NIH 1, GCS 14. Patient care was discussed with Dr. Dietrich about CT who stated no ICH mass effect has resolved from prior stroke on 04/30/2018. Stroke on 04/30/2018 was non-hemorrhagic. Consult with Dr. Dietrich at 1829: Consult with Dr. Cristino Esparza requested at 1833: Patient is on Plavix is relative contradiction indication to TPA. Requested XR to load CT to life images. Consult with Dr. Gregg at 1836: Non-TPA candidate due to plavix and also not endovascular candidate because of recent CVA. Dr. Gregg advises pt to be admitted at [facility] , and to consider MRI and EEG in the morning. SOSA needs symtomatic treatment only. No further imaging evaluation is necessary at this time for the SOSA, periods of unresponsiveness, HTN per Dr. Gregg. Patient care was also discussed with Dr. Vivas who accepts patient for admission. Patient will be admitted with a diagnosis of headache, acute confusion and S/P CVA. Patient is agreeable with this. - Differential Dx Differential Diagnoses Neuro: Positive: Cephalgia, Cerebrovascular Accident, Concussion, Contusion, Drug Toxicity, Dysrhythmia, Headache, Hemorrhage, Hypoglycemia, Intracranial Bleed, Metabolic Abnormality, Postical, Seizure Disorder, Transient Ischemic Attack, Vasovagal Reaction, Viral Syndrome - Diagnoses Provider Diagnoses: Acute confusion, Headache, Status post CVA, Recurrent episodes of unresponsiveness, Hypertensive emergency without congestive heart failure - Physician Notifications Discussed Care Of Patient With: Harley Vivas Time Discussed With Above Provider: 19:17 Instructed by Provider To: Admit As Inpatient - Accepts patient for admission. Consult with Dr. Dietrich at 1829: Discussed CT. ICH mass effect has resolved from prior stroke on 04/30/2018. Stroke on 04/30/2018 was non-hemorrhagic. Consult with Isaias at 1833: Patient is on Plavix, relative contradiction indication to TPA. Requested XR to load CT to life images. Consult with Dr. Gregg at 1836: Non-TPA candidate and also not endovascular candidate because of recent CVA. TPA contraindication is because of Plavix. Should be admitted to [facility] and to consider MRI and EEG in the morning. SOSA is symtomatic treatment only. No further evaluation is necessary. - Critical Care Time Critical Care Time: 30-74 min - 30 minutes, management of HTN with IV medication and evaluation for acute stroke, consult with [facility] neurologist. Discharge - Sign-Out/Discharge Documenting (check all that apply): Patient Departure - ADMIT - Discharge Plan Condition: Stable Disposition: ADMITTED TO [facility] - Billing Disposition and Condition Condition: STABLE Disposition: Admitted to [facility]
[2018-05-13] MEDS ORDERED: levETIRAcetam IV* 1,000 MG in NS 0.9% 100 ML* 100 ML IVPB ONE (20:49)
[2018-05-13] MEDS ORDERED: Ondansetron ODT TAB* 4 MG PO PRN (21:00)
[2018-05-13] MEDS ORDERED: Polyethylene Glycol 3350* 17 GM PACKET PO PRN (21:02)
--- NOTE | 2018-05-13 22:14 | HP ---
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 He reports having opened 7 cans of tuna last night and not remembering it, becoming lost in his home, looking at vo and wondering why they were there, etc. He called his PCP who advised evaluation in the ED and therefore called EMS. Per report he had 3 staring off/inattentive spells while EMS was present and another in front of the triage nurse who was able to bring him out of it with a sternal rub. Each episode reportedly lasted ~30 seconds. Mr Woodson does not recall these. There was no convulsions reported. Mr Woodson denies chest pain, SOB, F/C, focal W/N/T beyond his baseline diabetic neuropathy or other issues. Case was reviewed with Trung Triplett MD neurology who agreed this sounds like partial seizures which are common post-posterior circulation strokes and advised loading with IV levetiracetam/starting PO and EEG in the AM. Of note he was advised to decreased his duloxetine from 60mg BID to 60mg daily and tapentadol from 150mg BID to 75mg BID at the time of his discharge 05/08. However, he states he has taken neither since discharge. As both have the potential to lower the seizure threshold, will D/C and monitor closely for s/s of abrupt cessation. 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 CAD/VT DM2 requiring insulin & w/ neuropathy asthma HTN thrombocytopenia anxiety/depression chronic pain Ambulatory Orders Acetaminophen TAB* [Tylenol TAB*] 650 mg PO Q4H PRN tab 05/07/18 Aspirin 81 mg CHEW TAB* 81 mg PO DAILY #30 tab.chew 05/07/18 Atorvastatin* [Lipitor 80 MG*] 80 mg PO 1700 #30 tab 05/07/18 Clopidogrel TAB* [Plavix TAB*] 75 mg PO DAILY #30 tab 05/07/18 Insulin GLARGINE(*) [Lantus(*)] 20 units SUBCUT Q24H unit 05/07/18 Metoprolol Tartrate TAB* [Lopressor TAB*] 25 mg PO BID #60 tab 05/07/18 Thiamine TAB* [Vitamin B-1 TAB 100 MG*] 100 mg PO DAILY tab 05/07/18 hydrALAZINE TAB* [Apresoline TAB*] 10 mg PO TID #90 tab 05/07/18 ALPRAZolam TAB* [Xanax TAB*] 2 mg PO QPM 05/13/18 Albuterol/Ipratropium RESP(NF) [Combivent Respimat(NF)] 1 puff INH BID 05/13/[address] CAP* [Cymbalta CAP*] 60 mg PO DAILY 05/13/18 Fluticasone-Salmeterol 500-50* [Advair Diskus 500-50*] 1 puff INH BID 05/13/18 Hydrochlorothiazide TAB* [Hydrodiuril TAB*] 25 mg PO DAILY 05/13/18 Lisinopril TAB* [Prinivil TAB*] 40 mg PO DAILY 05/13/18 Montelukast Sodium TAB* [Singulair TAB*] 10 mg PO DAILY 05/13/18 Morphine TAB Extended Rel(*) [Ms Contin(*)] 30 mg PO Q8HR PRN MDD 90 mg Nitroglycerin TAB 0.4 MG* 0.4 mg SL Q5M PRN 05/13/18 Omeprazole CAP* [Prilosec CAP* 20 MG] 20 mg PO DAILY 05/13/18 Pentoxifylline CR TAB* [TRENtal CR TAB*] 400 mg PO TID PRN 05/13/18 Polyethylene Glycol 3350* [Miralax*] 17 gm PO DAILY PRN 05/13/18 Sildenafil Citrate [Viagra] 100 mg PO DAILY PRN 05/13/18 Tadalafil (Nf) [Cialis (NF)] 20 mg PO DAILY PRN 05/13/18 Tapentadol ER (NF) [Nucynta ER (NF)] 75 mg PO Q12HR PRN MDD 300 mg 05/13/18 amLODIPine TAB* [Norvasc 5 mg TAB*] 10 mg PO DAILY 05/13/18 Allergies No Known Allergies Allergy (Verified 05/13/18 18:21) PSurgHx Ruen-Y 2012 carpal & ulnar tunnel releases SocHx: no tobacco, alcohol, or recreational drugs; lives with Dr Cason who is his HCP; 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; 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 FamHx: positive for DM, CAD, HTN ROS: as above, otherwise reviewed and all were negative vitals: Vital Signs Temp 36.8 C 05/13/18 17:54 Pulse 80 05/13/18 20:04 Resp 16 05/13/18 21:10 BP 171/77 05/13/18 21:10 Pulse Ox 99 05/13/18 20:04 Intake & Output 05/12/18 05/13/18 05/13/18 23:59 11:59 23:59 Weight 110.677 kg Constitutional: NAD, normally developed, obese male HEENM: atraumatic; sclera/conjunctiva: anicteric/clear; hearing: clinically intact; oropharynx: clear, mucosa moist Neck: soft tissue: non-tender; thyroid: normal Pulmonary: clear to auscultation bilaterally, good aeration, no accessory muscle use CV: RR/RR, normal S1S2, no carotid bruit, no jugular venous distention, 2+ B DP/ PT, trace BLE edema Abdominal: soft, non-distended, non-tender, no rebound/guarding/rigidity, normoactive bowel sounds, no hepatosplenomegaly or masses, no costovertebral angle tenderness Musculoskeletal: general: grossly intact, non-tender Integumental: BLE scaling Neurological cranial nerves III/IV/: symmetric light reflex, EOMI/PERRLA V: intact facial sensation & mastication VII: intact facial symmetry & eye clench VIII: hearing clinically intact IX/X: symmetric palatal motion, no dysarthria XII: midline tongue protrusion, normal voice articulation motor: globally 4+/5 Psychiatric orientation: AA&O to PPS affect: anxious mood: pleasant eye contact: good content: reliable memory: impaired to recent events responses: timely insight: good Testing: Lab Results 05/13/18 05/13/18 05/13/18 Range/Units 18:26 18:27 18:27 WBC 5.9 (3.5-10.8) 10^3/ul RBC 5.28 (4.00-5.40) 10^6/ul Hgb 13.8 L (14.0-18.0) g/dl Hct 42 (42-52) % MCV 80 (80-94) fL MCH 26 L (27-31) pg MCHC 33 (31-36) g/dl RDW 16 H (10.5-15) % Plt Count 196 (150-450) 10^3/ul MPV 10.0 (7.4-10.4) um3 Neut % (Auto) 72.3 (38-83) % Lymph % (Auto) 19.0 L (25-47) % Bourbon % (Auto) 7.1 H (0-7) % Eos % (Auto) 0.8 (0-6) % Baso % (Auto) 0.8 (0-2) % Absolute Neuts (auto) 4.3 (1.5-7.7) 10^3/ul Absolute Lymphs (auto) 1.1 (1.0-4.8) 10^3/ul Absolute Monos (auto) 0.4 (0-0.8) 10^3/ul Absolute Eos (auto) 0 (0-0.6) 10^3/ul Absolute Basos (auto) 0 (0-0.2) 10^3/ul Absolute Nucleated RBC 0 10^3/ul Nucleated RBC % 0.1 INR (Anticoag Therapy) 0.93 (0.77-1.02) APTT 29.4 (26.0-36.3) seconds Sodium 139 (135-145) mmol/L Potassium 3.7 (3.5-5.0) mmol/L Chloride 102 (101-111) mmol/L Carbon Dioxide 28 (22-32) mmol/L Anion Gap 9 (2-11) mmol/L BUN 22 (6-24) mg/dL Creatinine 1.19 H (0.67-1.17) mg/dL Est GFR ( Amer) 75.2 (>60) Est GFR (Non-Af Amer) 62.1 (>60) BUN/Creatinine Ratio 18.5 (8-20) Glucose 152 H (70-100) mg/dL Hemoglobin A1c (4.0-5.6) % Calcium 9.3 (8.6-10.3) mg/dL Total Bilirubin 0.90 (0.2-1.0) mg/dL AST 17 (13-39) U/L ALT 16 (7-52) U/L Alkaline Phosphatase 110 H (34-104) U/L CK-MB (CK-2) 1.3 (0.6-6.3) ng/mL Troponin I 0.01 (<0.04) ng/mL Total Protein 6.7 (6.4-8.9) g/dL Albumin 3.5 (3.2-5.2) g/dL Globulin 3.2 (2-4) g/dL Albumin/Globulin Ratio 1.1 (1-3) Triglycerides 80 mg/dL Cholesterol 96 mg/dL LDL Cholesterol 44 mg/dL HDL Cholesterol 35.6 mg/dL 05/13/18 Range/Units 18:27 WBC (3.5-10.8) 10^3/ul RBC (4.00-5.40) 10^6/ul Hgb (14.0-18.0) g/dl Hct (42-52) % MCV (80-94) fL MCH (27-31) pg MCHC (31-36) g/dl RDW (10.5-15) % Plt Count (150-450) 10^3/ul MPV (7.4-10.4) um3 Neut % (Auto) (38-83) % Lymph % (Auto) (25-47) % Bourbon % (Auto) (0-7) % Eos % (Auto) (0-6) % Baso % (Auto) (0-2) % Absolute Neuts (auto) (1.5-7.7) 10^3/ul Absolute Lymphs (auto) (1.0-4.8) 10^3/ul Absolute Monos (auto) (0-0.8) 10^3/ul Absolute Eos (auto) (0-0.6) 10^3/ul Absolute Basos (auto) (0-0.2) 10^3/ul Absolute Nucleated RBC 10^3/ul Nucleated RBC % INR (Anticoag Therapy) (0.77-1.02) APTT (26.0-36.3) seconds Sodium (135-145) mmol/L Potassium (3.5-5.0) mmol/L Chloride (101-111) mmol/L Carbon Dioxide (22-32) mmol/L Anion Gap (2-11) mmol/L BUN (6-24) mg/dL Creatinine (0.67-1.17) mg/dL Est GFR ( Amer) (>60) Est GFR (Non-Af Amer) (>60) BUN/Creatinine Ratio (8-20) Glucose (70-100) mg/dL Hemoglobin A1c 6.3 H (4.0-5.6) % Calcium (8.6-10.3) mg/dL Total Bilirubin (0.2-1.0) mg/dL AST (13-39) U/L ALT (7-52) U/L Alkaline Phosphatase (34-104) U/L CK-MB (CK-2) (0.6-6.3) ng/mL Troponin I (<0.04) ng/mL Total Protein (6.4-8.9) g/dL Albumin (3.2-5.2) g/dL Globulin (2-4) g/dL Albumin/Globulin Ratio (1-3) Triglycerides mg/dL Cholesterol mg/dL LDL Cholesterol mg/dL HDL Cholesterol mg/dL ECG, personally reviewed: NSR rate 73, no ischemia CXR, personally reviewed: IMPRESSION: #. No evidence for acute intrathoracic disease. CT brain WO, personally reviewed: IMPRESSION: #. Resolution of previous mass effect related to the RIGHT posterior cerebral artery distribution infarct. #. No new region of reilly matter white matter obscuration, new mass effect, or intra or extra-axial hemorrhage. #. Results discussed with Dr. 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 CVA : 1000mg IV levetiracetam loading in ED : 500mg levetiracetam PO starting in AM : Trung Triplett MD neurology aware, will evaluate in AM : D/C duloxetine & tapentadol as above : hold morphine to prevent sedation : decrease alprazolam from 2mg to 1mg HS minimizing sedation & prevent acute withdrawal : seizure precautions : telemetry : supportive care Cardiovascular HX CAD/VT & HTN : continue aspirin, clopidogrel, atorvastatin, & pentoxyfylline : continue HCTZ, lisinopril, amlodipine, & hydralazine Pulmonary asthma : continue albuterol/ipratropium, fluticasone/salmeterol, & montelukast Infectious Disease no evidence of infectious burden Gastroenterology omeprazole for GI prophylaxis Renal recent JORDIN, trend renal function periodically Hematologic HX thrombocytopenia, currently WNL Endocrine DM2 requiring insulin : check A1c : basal/bolus/correctional insulin : ACHS glucometry : insulin carb ratio diet Lines peripheral IV Admission Rational: Inpatient to prevent progression to generalized convulsion or status epilepticus as without the above interventions the risk of impending adverse outcome is unacceptably high; inappropriate for the outpatient setting DVTp: SCDs & heparin SQ Code Status: full HCP: Dr Cason Critical Care time: 110minutes with >50% spent at the bedside obtaining a history, performing the examination, advising of diagnosis & treatment options along with risks/benefits/reasoning; remainder spent discussing with ER MD, consulting with neurology via phone, reviewing labs and radiology exams, & documentation
[2018-05-13] MEDS: Docusate CAP* 100 MG PO SCH (23:19)
[2018-05-14] MEDS: Melatonin 3 MG TAB PO PRN ×2 (00:01→21:40)
[2018-05-14] MEDS: NS 0.9% 1000 ML* 1,000 ML IV SCH (06:16)
[2018-05-14] MEDS: Heparin VIAL(*) 5000 UNITS/ML VIAL (FIVE THOUSAND) SUBCUT SCH ×3 (06:16→21:36)
[2018-05-14 06:55] LABS: EGFR Non-African American 72.6 (>60)
[2018-05-14] MEDS: Montelukast Sodium TAB* 10 MG PO SCH (08:54)
[2018-05-14] MEDS: Hydrochlorothiazide TAB* 25 MG PO SCH (08:54)
[2018-05-14] MEDS: Clopidogrel TAB* 75 MG PO SCH (08:54)
[2018-05-14] MEDS: Aspirin 81 mg CHEW TAB* 81 MG TAB.CHEW PO SCH (08:54)
[2018-05-14] MEDS: levETIRAcetam TAB* 500 MG PO SCH ×2 (08:54→21:40)
[2018-05-14] MEDS: hydrALAZINE TAB* 10 MG PO SCH ×3 (08:54→21:41)
[2018-05-14] MEDS: Metoprolol Tartrate TAB* 25 MG PO SCH ×2 (08:54→21:42)
[2018-05-14] MEDS: Acetaminophen TAB* 325 MG PO PRN ×4 (08:54→21:39)
[2018-05-14] MEDS: Insulin LISPRO* 1 UNITS UNIT SUBCUT SCH ×7 (08:55→21:35)
[2018-05-14] MEDS: CMC:Pantoprazole TAB (NF) 40 MG TAB PO SCH (08:55)
[2018-05-14] MEDS: Docusate CAP* 100 MG PO SCH ×2 (08:55→21:41)
[2018-05-14] MEDS: Albuterol/Ipratropium RESP(NF) MDI (Combivent Respimat) INH SCH ×2 (09:00→20:25)
[2018-05-14] MEDS ORDERED: amLODIPine TAB* 5 MG PO SCH (09:00)
[2018-05-14] MEDS ORDERED: Lisinopril TAB* 10 MG PO SCH (09:00)
[2018-05-14] MEDS ORDERED: DULoxetine DR CAP* 20 MG CAP.DR PO SCH (09:00)
[2018-05-14] MEDS: Mometasone/Formoter 200/5 MDI INH SCH ×2 (09:14→20:20)
[2018-05-14 14:57] LABS: Urine Appearance Clear; Urine Blood Negative (Negative); Urine Color Straw; Urine Ketones Negative (Negative); Urine Protein Negative (Negative); Urine Specific Gravity 1.005 (1.010-1.030); Urine Urobilinogen Negative (Negative)
--- NOTE | 2018-05-14 15:03 | CONS ---
CC: Dr. Harley Vivas.* CONSULTATION REPORT: DATE OF CONSULT: 05/14/18 REASON FOR CONSULT: Episode of confusion. CHIEF COMPLAINT: Confusion. HISTORY OF PRESENT ILLNESS: Mr. Woodson is a 63-year-old right-handed obese man with past medical history of coronary artery disease, OR, status post stent placements, insulin dependent type 2 diabetes for 15 years, hypertension, GERD, who I last evaluated on 04/30/18 for a new onset of left visual disturbance. The patient was found to have a right acute posterior cerebral artery ischemic infarction. It was unclear to why he had the stroke. The patient was eventually discharged home with dual antiplatelet therapy and high-intensity statins. The patient eventually did get an MRI and MRA of the head on 05/07/18 that showed a subacute non-hemorrhagic infarct of the right medial temporal lobe , occipital lobe, and inferior thalamus consistent with the right GAS FURNACE INSTALLER territory infarction. He had an MRA of the head done that showed occlusion of the right posterior cerebral artery with partial distal reconstitution. He had a transesophageal echo completed on 05/05/18 that reportedly showed normal global left ventricular wall motion and contractility. There is normal left ventricular systolic function with an EF of 60-65%. There is no thrombus seen in that region. Therefore, the patient's stroke is likely related to atherosclerotic disease of the right posterior cerebral artery causing distal occlusion. The patient presented to [facility] yesterday on with new onset intermittent confusion. The patient stated over the last 1-2 days he has a intermittent outburst of emotional lability, not knowing where he is at in his own home and just extremely confused. He recognized his confusion. He reports opening 7 cans of tuna last night, not remembering why he did that. In the ED, the patient had 3 episodes of staring spells, lasting for 30-60 seconds. The patient does not recall these events. He has not had any reported convulsions. He denied any new weakness or paresthesias. He did have a headache after a few staring spells yesterday that resolved this morning. Today, the patient had cardiac dysrhythmia associated with clinical symptoms of lightheadedness. The patient was loaded with IV levetiracetam 1000 mg x1 and was continued on 500 mg b.i.d. The patient reported that he used to take duloxetine 60 mg b.i.d. , which was decreased on his previous hospitalization. He is not taking any of this medication. PAST MEDICAL HISTORY: Coronary artery disease, right posterior cerebral artery infarction on 04/30/18, diabetes mellitus type 2, chronic pain, anxiety/ depression, thrombocytopenia, hypertension, asthma. PAST SURGICAL HISTORY: Man-en-Y in 2013, carpal and ulnar tunnel release surgeries. MEDICATIONS: 1. Acetaminophen 650 mg p.o. every 4 hours as needed. 2. Aspirin 81 mg daily. 3. Atorvastatin 80 mg nightly. 4. Clopidogrel 75 mg daily. 5. Insulin. 6. Metoprolol. 7. Thiamine. 8. Hydralazine. 9. Alprazolam 2 mg p.o. at nighttime. 10. Duloxetine 60 mg p.o. daily. 11. Fluticasone/Salmeterol. 12. Hydrochlorothiazide 25 mg daily. 13. Lisinopril 40 mg daily. 14. Montelukast sodium 10 mg p.o. daily. 15. Morphine extended-release 30 mg p.o. every 8 hours as needed. 16. Nitroglycerin tablet 0.4 mg every 5 hours as needed. 17. Omeprazole 20 mg p.o. daily. 18. Pentoxifylline 400 mg 3 times daily as needed. 19. Viagra. 20. Cialis. 21. Amlodipine 10 mg p.o. daily. 22. Tapentadol 75 mg p.o. every 12 hours as needed. ALLERGIES: No known drug allergies. FAMILY HISTORY: Positive for coronary artery disease and hypertension both in his father and mother. SOCIAL HISTORY: He denies any tobacco, alcohol use. He denies any recreational drug use. He lives with Dr. Cason who is his healthcare proxy. 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 REVIEW OF SYSTEMS: A 14 point review of systems was obtained, otherwise negative except what was mentioned in the HPI. PHYSICAL EXAM: Vitals: Temperature of 97.7, pulse of 56, respiratory rate of 20, oxygen saturation 99%, blood pressure of 157/78. General: Chronically ill - appearing obese man in no acute distress. He is alert and cooperative. Head is normocephalic without obvious abnormality. Eyes: Conjunctivae/corneas are clear. Neck is supple and symmetrical. There are no carotid bruits. Lungs are clear to auscultation bilaterally, there is non-labored breathing. Cardiovascular: Regular rate and rhythm. Normal S1, S2. Extremities: Normal range of motion with no evidence of hammertoes or high arches. Skin: No skin lesions or lacerations. Psych: Affect is broad and normal mood. Easy to establish rapport. Neurological Examination: Mental Status: Awake, alert and oriented to person, place, time and general circumstances. Speech and language including expression, naming, repetition, and comprehensions were assessed and found to be normal. Left homonymous hemianopsia. Pupils are mid range and reactive to light. Extraocular muscles are intact. No ptosis. Sensation is intact on forehead, cheeks, and jaw region bilaterally. No facial asymmetry. Able to hear throughout the history of process. Symmetrical palate elevation. Normal strength against shoulder shrug resistant. Tongue is symmetric and midline with no atrophy or fasciculation. Motor: No abnormal movements or pronator drift. Normal bulk and tone throughout. 5/5 strength in the upper and lower extremities. Reflexes: Right/left brachioradialis 1/1+, biceps 1/1, triceps 1/1, patella 1/1, ankle 1/1, plantar flexor/mute. Sensation is intact to light touch throughout. He has decreased vibratory sensation at the toes and impaired proprioception at the left great toe. Coordination: Normal finger- to-nose and rapid alternating movement. Gait and station, narrow based. No ataxia. LABORATORY, IMAGING AND OTHER DIAGNOSTIC TESTING: WBC 5.9, hemoglobin 13.8, hematocrit 42, platelet 196. Sodium 140, potassium 3.6, chloride 105, carbon dioxide 28, anion gap is 7, glucose 183, hemoglobin A1c 6.3, LDL 44, cholesterol 96, triglyceride 80, HDL 35. CT head without contrast completed yesterday showed no evidence of acute hemorrhage. There is hypodensity involving the right occipital lobe, right temporal lobe, and right thalamus consistent with a subacute - chronic right GAS F[employer]NACE INSTALLER ischemic infarction. ASSESSMENT AND RECOMMENDATION: 1. Mr. Stefan Woodson is a 63-year-old with history of coronary artery disease , a subacute - chronic right posterior cerebral artery infarction involving the occipital, temporal, and thalamus on the right, hypertension, obstructive sleep apnea who did not use a CPAP last night who presented with intermittent episode of confusion and disorientation over the last 24/36 hours. There is a high suspicion and high risk for localization-related epilepsy in this case given the patient has a risk of post stroke seizures especially having given that the previous ischemic stroke involved the right temporal lobe. He was started on levetiracetam with load given yesterday of a 1000 mg IV and continued on 500 mg p.o. twice daily. We need to be careful with levetiracetam as the patient has history of anxiety and depression: hence this would possibly cause mood behavior and irritability. My suspicion for seizure is high in this case. We are pending an EEG. The seizure precautions including inability to drive, operate any heavy machinery, climb rooftops, ladders or bathe unattended were discussed with the patient. The patient verbalized understanding. 2. Subacute - chronic right GAS FURNACE INSTALLER infarction - the patient is on dual antiplatelet therapy. He should be on dual antiplatelet therapy for 30 days and then switch back to monotherapy with continued aspirin 81 mg daily. 3. Dyslipidemia - LDL and cholesterol levels are within normal range. Please reduce the atorvastatin to 40 mg nightly. 4. Obstructive sleep apnea -If the patient stays overnight make sure he uses the CPAP. 5. Cardiac dysrhythmia - defer to the primary team. I will continue to follow. TIME SPENT: I spent a total of 75 minutes and greater than 50% of that was spent directly reviewing the medical chart, obtaining history, examining the patient, education, counseling and discussing treatment plan and prognosis with the patient and primary team. [id number] #: [id number] MTDD
[2018-05-14] MEDS: Pentoxifylline CR TAB* 400 MG PO PRN ×3 (15:56→21:39)
[2018-05-14] MEDS ORDERED: Atorvastatin* 80 MG TAB PO SCH ×2 (17:00)
--- NOTE | 2018-05-14 17:44 | PN ---
Subjective Date of Service: 05/14/18 Interval History: No discrete seizures on EEG pauses up to 2.3 seconds. 2nd degree heart block (alternating type 1 and type 2) . Feeling well. PT rec of no skilled needs. No fevers, chest pain. Attested to posterior headache yesterday. Objective Active Medications: Acetaminophen (Tylenol Tab*) 650 mg PO Q6H PRN PRN Reason: FEVER/PAIN Last Admin: 05/14/18 15:56 Dose: 650 mg Albuterol/Ipratropium (Combivent Respimat(Nf)) 1 puff INH BID [facility]; Protocol Last Admin: 05/14/18 09:00 Dose: Not Given Alprazolam (Xanax Tab*) 1 mg PO QPM [facility] Last Admin: 05/14/18 17:37 Dose: 1 mg Aspirin (Aspirin 81 Mg Chew Tab*) 81 mg PO DAILY [facility] Last Admin: 05/14/18 08:54 Dose: 81 mg Atorvastatin Calcium (Lipitor*) 40 mg PO 1700 [facility] Last Admin: 05/14/18 17:38 Dose: 40 mg Clopidogrel Bisulfate (Plavix Tab*) 75 mg PO DAILY [facility] Last Admin: 05/14/18 08:54 Dose: 75 mg Docusate Sodium (Colace Cap*) 100 mg PO BID [facility] Last Admin: 05/14/18 08:55 Dose: 100 mg Heparin Sodium (Porcine) (Heparin Vial(*)) 5,000 units SUBCUT Q8HR [facility] Last Admin: 05/14/18 13:12 Dose: 5,000 units Hydralazine HCl (Apresoline Tab*) 10 mg PO TID [facility] Last Admin: 05/14/18 13:11 Dose: 10 mg Hydrochlorothiazide (Hydrodiuril Tab*) 25 mg PO DAILY [facility] Last Admin: 05/14/18 08:54 Dose: 25 mg Sodium Chloride (Ns 0.9% 1000 Ml*) 1,000 mls @ 50 mls/hr IV PER RATE [facility] Last Admin: 05/14/18 06:16 Dose: 50 mls/hr Insulin Glargine (Lantus(*)) 27 units 0.24 units/kg (27 units) SUBCUT 2100 [facility] Insulin Human Lispro (Humalog*) 0 units SUBCUT AC [facility]; Protocol Last Admin: 05/14/18 17:37 Dose: 6 units Insulin Human Lispro (Humalog*) 0 units SUBCUT ACHS [facility]; Protocol Last Admin: 05/14/18 17:38 Dose: 3 units Levetiracetam (Keppra Tab*) 500 mg PO BID [facility] Last Admin: 05/14/18 08:54 Dose: 500 mg Losartan Potassium (Cozaar Tab*) 100 mg PO DAILY [facility] Melatonin (Melatonin) 3 mg PO BEDTIME PRN; Protocol PRN Reason: Sleep Last Admin: 05/14/18 00:01 Dose: 3 mg Metoprolol Tartrate (Lopressor Tab*) 25 mg PO BID [facility] Last Admin: 05/14/18 08:54 Dose: 25 mg Mometasone Furoate/Formoterol Fumar (Dulera 200/5 Mdi*) 2 puff INH BID [facility] Last Admin: 05/14/18 09:14 Dose: 2 puff Montelukast Sodium (Singulair Tab*) 10 mg PO DAILY [facility] Last Admin: 05/14/18 08:54 Dose: 10 mg Ondansetron HCl (Zofran Odt Tab*) 4 mg PO Q6H PRN PRN Reason: n/v Pantoprazole Sodium (Protonix Tab (Nf)) 40 mg PO DAILY [facility] Last Admin: 05/14/18 08:55 Dose: 40 mg Pentoxifylline (Trental Cr Tab*) 400 mg PO TID PRN PRN Reason: PAIN Last Admin: 05/14/18 00:00 Dose: 400 mg Polyethylene Glycol/Electrolytes (Miralax*) 17 gm PO DAILY PRN PRN Reason: CONSTIPATION Last Admin: 05/14/18 08:54 Dose: 17 gm Vital Signs - 8 hr 05/14/18 05/14/18 05/14/18 10:41 12:09 15:44 Temperature 97.7 F 97.5 F 98.3 F Pulse Rate 56 56 67 Respiratory 20 20 16 Rate Blood Pressure 157/78 141/69 160/70 (mmHg) O2 Sat by Pulse 99 98 96 Oximetry 05/14/18 17:37 Temperature Pulse Rate Respiratory 18 Rate Blood Pressure (mmHg) O2 Sat by Pulse Oximetry Oxygen Devices in Use Now: Nasal Cannula Appearance: NAD Eyes: No Scleral Icterus, PERRLA Respiratory: Symmetrical Chest Expansion and Respiratory Effort, Clear to Auscultation Cardiovascular: NL Sounds; No Murmurs; No JVD, RRR Abdominal: NL Sounds; No Tenderness; No Distention, No Hepatosplenomegaly Extremities: No Edema, No Clubbing, Cyanosis Skin: No Rash or Ulcers, No Nodules or Sclerosis Neurological: Alert and Oriented x 3, NL Sensation, NL Muscle Strength and Tone , - - CN II-XII intact. Nutrition: Taking PO's Result Diagrams: 05/13/18 18:27 05/14/18 06:02 Additional Lab and Data: Laboratory Results - last 24 hr 05/13/18 05/13/18 05/13/18 18:26 18:27 18:27 WBC 5.9 RBC 5.28 Hgb 13.8 L Hct 42 MCV 80 MCH 26 L MCHC 33 RDW 16 H Plt Count 196 MPV 10.0 Neut % (Auto) 72.3 Lymph % (Auto) 19.0 L Monroe % (Auto) 7.1 H Eos % (Auto) 0.8 Baso % (Auto) 0.8 Absolute Neuts (auto) 4.3 Absolute Lymphs (auto) 1.1 Absolute Monos (auto) 0.4 Absolute Eos (auto) 0 Absolute Basos (auto) 0 Absolute Nucleated RBC 0 Nucleated RBC % 0.1 INR (Anticoag Therapy) 0.93 APTT 29.4 Sodium 139 Potassium 3.7 Chloride 102 Carbon Dioxide 28 Anion Gap 9 BUN 22 Creatinine 1.19 H Est GFR ( Amer) 75.2 Est GFR (Non-Af Amer) 62.1 BUN/Creatinine Ratio 18.5 Glucose 152 H POC Glucose (mg/dL) Hemoglobin A1c Calcium 9.3 Total Bilirubin 0.90 AST 17 ALT 16 Alkaline Phosphatase 110 H CK-MB (CK-2) 1.3 Troponin I 0.01 Total Protein 6.7 Albumin 3.5 Globulin 3.2 Albumin/Globulin Ratio 1.1 Triglycerides 80 Cholesterol 96 LDL Cholesterol 44 HDL Cholesterol 35.6 Urine Color Urine Appearance Urine pH Ur Specific [place] Urine Protein Urine Ketones Urine Blood Urine Nitrate Urine Bilirubin Urine Urobilinogen Ur Leukocyte Esterase Urine Glucose 05/13/18 05/14/18 05/14/18 18:27 06:02 07:34 WBC RBC Hgb Hct MCV MCH MCHC RDW Plt Count MPV Neut % (Auto) Lymph % (Auto) Monroe % (Auto) Eos % (Auto) Baso % (Auto) Absolute Neuts (auto) Absolute Lymphs (auto) Absolute Monos (auto) Absolute Eos (auto) Absolute Basos (auto) Absolute Nucleated RBC Nucleated RBC % INR (Anticoag Therapy) APTT Sodium 140 Potassium 3.6 Chloride 105 Carbon Dioxide 28 Anion Gap 7 BUN 17 Creatinine 1.04 Est GFR ( Amer) 87.9 Est GFR (Non-Af Amer) 72.6 BUN/Creatinine Ratio 16.3 Glucose 183 H POC Glucose (mg/dL) 194 H Hemoglobin A1c 6.3 H Calcium 9.0 Total Bilirubin AST ALT Alkaline Phosphatase CK-MB (CK-2) Troponin I Total Protein Albumin Globulin Albumin/Globulin Ratio Triglycerides Cholesterol LDL Cholesterol HDL Cholesterol Urine Color Urine Appearance Urine pH Ur Specific [place] Urine Protein Urine Ketones Urine Blood Urine Nitrate Urine Bilirubin Urine Urobilinogen Ur Leukocyte Esterase Urine Glucose 05/14/18 05/14/18 05/14/18 11:26 14:41 16:45 WBC RBC Hgb Hct MCV MCH MCHC RDW Plt Count MPV Neut % (Auto) Lymph % (Auto) Monroe % (Auto) Eos % (Auto) Baso % (Auto) Absolute Neuts (auto) Absolute Lymphs (auto) Absolute Monos (auto) Absolute Eos (auto) Absolute Basos (auto) Absolute Nucleated RBC Nucleated RBC % INR (Anticoag Therapy) APTT Sodium Potassium Chloride Carbon Dioxide Anion Gap BUN Creatinine Est GFR ( Amer) Est GFR (Non-Af Amer) BUN/Creatinine Ratio Glucose POC Glucose (mg/dL) 218 H 162 H Hemoglobin A1c Calcium Total Bilirubin AST ALT Alkaline Phosphatase CK-MB (CK-2) Troponin I Total Protein Albumin Globulin Albumin/Globulin Ratio Triglycerides Cholesterol LDL Cholesterol HDL Cholesterol Urine Color Straw Urine Appearance Clear Urine pH 7.0 Ur Specific [place] 1.005 L Urine Protein Negative Urine Ketones Negative Urine Blood Negative Urine Nitrate Negative Urine Bilirubin Negative Urine Urobilinogen Negative Ur Leukocyte Esterase Negative Urine Glucose 3+(>=500 mg/dl) A Assess/Plan/Problems-Billing Assessment: 63 yo male PMH IDDMT2, anxiety/depression, CAD s/p stent (2 years ago), recent right posterior CVA presenting with confusion, staring episodes. Concern of partial seizures, now on ppx keppra. - Patient Problems (1) Altered mental status Current Visit: No Status: Acute Priority: High Onset Date: 09/23/14 Code (s): R41.82 - ALTERED MENTAL STATUS, UNSPECIFIED SNOMED Code(s): 240815545 Comment: - Resolved. Suspected partial seizures after right posterior CVA. UA checked and not concerning for infection. ?opioid contributing - patient alert today- able to follow commands and answer questions appropriately. (2) CVA (cerebral vascular accident) Current Visit: No Status: Acute Code(s): I63.9 - CEREBRAL INFARCTION, UNSPECIFIED SNOMED Code(s): 261829704 Comment: no focal deficits today. - MRI with subacute Right VP SECURITIES infarct - MRA with total occulsion to the right posterior cerebral artery with partial distal reconstitution - Appreciate neurology recs. Continue atorvastatin, aspirin, plavix - initial plan was for dual platelet therapy for 30 days then plavix 75 mg daily thereafter and follow up with neurology in 3 weeks - MARCO - No thrombus/ no PFO - EF 60-65% - PT rec: no acute needs. (3) Chronic pain Current Visit: No Status: Acute Code(s): G89.29 - OTHER CHRONIC PAIN SNOMED Code(s): 94905990 Comment: - at home was on Morphine ER 30 mg Q 8 hours at home. held initially here currently given AMS but will restart now. has not been taking nucynta (4) DVT prophylaxis Current Visit: No Status: Acute Code(s): WHW4164 - SNOMED Code(s): 979451037 Comment: - Heparin SQ. Approved per neurology. (5) Diabetes Current Visit: No Status: Acute Code(s): E11.9 - TYPE 2 DIABETES MELLITUS WITHOUT COMPLICATIONS SNOMED Code(s): 17143169 Comment: - BGs 160-220 - Continue lispro SSI coverage with meals. - Lantus 27U (6) GERD (gastroesophageal reflux disease) Current Visit: No Status: Chronic Priority: Medium Code(s): K21.9 - GASTRO -ESOPHAGEAL REFLUX DISEASE WITHOUT ESOPHAGITIS SNOMED Code(s): 585519469 Comment: - Continue omeprazole (7) Hypertension Current Visit: No Status: Chronic Priority: Medium Code(s): I10 - ESSENTIAL (PRIMARY) HYPERTENSION SNOMED Code(s): 01019387 Comment: - hold amlodipine given 2nd degree heart block on occasion. Switched lisinopril to losartan 100mg continue hydralazine 10mg TID continue HCTZ 25mg daily. (8) Seizure Current Visit: Yes Status: Acute Code(s): R56.9 - UNSPECIFIED CONVULSIONS SNOMED Code(s): 82348699 Comment: etiology of AMS, staring episodes is thought to be partial seizures. Continue keppra 500mg BID. (9) Anxiety and depression Current Visit: Yes Status: Acute Code(s): F41.9 - ANXIETY DISORDER, UNSPECIFIED; F32.9 - MAJOR DEPRESSIVE DISORDER, SINGLE EPISODE, UNSPECIFIED SNOMED Code(s): 99408881 Comment: restart duloxetine 60mg daily. monitor mood on keppra. Status and Disposition: medicine inpatient.
[2018-05-14] MEDS ORDERED: ALPRAZolam TAB* 0.5 MG PO SCH (18:00)
[2018-05-14] MEDS: Morphine TAB Extended Release (*) 30 MG TAB.ER PO PRN (18:21)
[2018-05-14] MEDS: DULoxetine DR CAP* 60 MG CAP.DR PO SCH (18:45)
[2018-05-14] MEDS ORDERED: Insulin GLARGINE(*) 1 UNITS UNIT SUBCUT SCH (21:00)
--- NOTE | 2018-05-15 00:56 | EEG ---
ELECTROENCEPHALOGRAPHY: DATE OF STUDY: 05/14/18 - ROOM #451 DATE READ: 05/14/18 DURATION OF STUDY: 11:30 a.m. to 11:53 a.m. REFERRING PHYSICIAN: Dr. Harley Vivas. CLINICAL PROBLEM: Mr. Woodson is a 63-year-old with right FRUIT DRYER stroke, who developed intermittent episodes of confusion. This EEG was obtained to evaluate for epileptiform abnormalities. It is important to note that the patient was loaded on levetiracetam last night and was continued on 500 mg twice daily. CLINICAL STATE: Awake and drowsy. REPORT: Most prominent features of this recording are intermittent paroxysms of 2 to 5 Hz theta and delta slowing most prominently seen in the right temporal region at T4 and T6 with some extending to O2. Otherwise, the waking background showed appropriate organization with clearly defined anterior- posterior voltage and frequency gradients. There was a well-defined posterior dominant rhythm of 9 Hz, which was symmetrical and showed normal reactivity. Anteriorly, there was an expected pattern of lower voltage, irregular mixed faster frequencies. Hyperventilation and photic stimulation were not performed. Single electrode EKG showed normal sinus rhythm with a rate of 60 beats per minute. Throughout the recording, there were no electrographic seizures or epileptiform discharges. Attenuation of the occipital rhythm was seen during drowsy state. Stage 2 sleep was not recorded during the study. CLINICAL IMPRESSION: This is an abnormal awake and drowsy EEG due to the presence of intermittent paroxysms of right temporal and occipital slowing. There were no epileptiform abnormalities or electrographic seizures. These findings are suggestive of focal neuronal dysfunction in the right temporooccipital region correlating with the patient's history of a subacute - chronic right FRUIT DRYER stroke. [id number]/[facility] #: [id number] [facility]
[2018-05-15] MEDS: NS 0.9% 1000 ML* 1,000 ML IV SCH (02:57)
[2018-05-15] MEDS: Heparin VIAL(*) 5000 UNITS/ML VIAL (FIVE THOUSAND) SUBCUT SCH (05:56)
[2018-05-15] MEDS: Morphine TAB Extended Release (*) 30 MG TAB.ER PO PRN (08:01)
[2018-05-15] MEDS: Mometasone/Formoter 200/5 MDI INH SCH (08:11)
[2018-05-15] MEDS: Albuterol/Ipratropium RESP(NF) MDI (Combivent Respimat) INH SCH (08:19)
[2018-05-15] MEDS: Insulin LISPRO* 1 UNITS UNIT SUBCUT SCH ×2 (08:31→10:06)
[2018-05-15] MEDS ORDERED: Losartan TAB* 25 MG PO SCH (09:00)
[2018-05-15] MEDS ORDERED: Thiamine TAB* 100 MG TAB PO SCH (09:00)
[2018-05-15] MEDS: levETIRAcetam TAB* 500 MG PO SCH (10:04)
[2018-05-15] MEDS: Clopidogrel TAB* 75 MG PO SCH (10:05)
[2018-05-15] MEDS: Metoprolol Tartrate TAB* 25 MG PO SCH (10:05)
[2018-05-15] MEDS: Hydrochlorothiazide TAB* 25 MG PO SCH (10:05)
[2018-05-15] MEDS: Docusate CAP* 100 MG PO SCH (10:05)
[2018-05-15] MEDS: Montelukast Sodium TAB* 10 MG PO SCH (10:06)
[2018-05-15] MEDS: hydrALAZINE TAB* 10 MG PO SCH (10:06)
[2018-05-15] MEDS: Aspirin 81 mg CHEW TAB* 81 MG TAB.CHEW PO SCH (10:06)
[2018-05-15] MEDS: CMC:Pantoprazole TAB (NF) 40 MG TAB PO SCH (10:14)
[2018-05-15] MEDS: DULoxetine DR CAP* 60 MG CAP.DR PO SCH (10:14)
[2018-05-15 11:41] VITALS: BP 181/81
[2018-05-15] MEDS ORDERED: hydrALAZINE TAB* 25 MG PO SCH (11:45)
--- NOTE | 2018-05-15 23:11 | DS ---
DISCHARGE SUMMARY: DATE OF ADMISSION: 05/13/18 DATE OF DISCHARGE: 05/15/18 ADMITTING PROVIDER: Harley Vivas MD ATTENDING PHYSICIAN: Kyle Araya MD PRIMARY CARE PHYSICIAN: Maranda Lorenzana MD CONSULTING NEUROLOGIST: Dr. Triplett. CHIEF COMPLAINT: Confusion; staring episodes. PRINCIPAL DIAGNOSES: 1. Concern for partial seizures in the setting of recent right posterior cerebral artery territory cerebrovascular accident. 2. Hypertension. HISTORY OF PRESENT ILLNESS AND HOSPITAL COURSE: Stefan Woodson is a 63-year- old male with a past medical history of insulin-dependent diabetes mellitus, type 2, with peripheral neuropathy, on high-dose opioids; CAD; status post stent ; asthma; anxiety; depression; hypertension; thrombocytopenia; recent right EPIC CUPID ANALYST territory CVA (04/30/18 to 05/08/18 admission). Please see H and P of Dr. Harley Vivas for full details, but briefly he reported onset of confusion and emotional lability 24 to 36 hours prior to presentation. He was discovered to have opened 7 cans/ tins of tuna without understanding why or remembering the event. He was looking at vo, wondering why they were there, became lost in his own home. He was talking to a friend on the phone, who was concerned about his confusion, who recommended calling his PCP, who then advised him to seek evaluation in the emergency room. EMS noted 3 staring inattentive spells in the presence of an ED triage nurse and required a sternal rub. Each episode lasted approximately 30 seconds and he had no recollection of these events. No convulsions noted. He was admitted for concern for partial seizures, loaded with IV levetiracetam initially and had an EEG the morning of hospital day #2. EEG did not show any epileptiform activity or seizures, but did show intermittent paroxysms of right temporal and occipital slowing. These areas correlated to the right temporal occipital region associated with his subacute right EPIC CUPID ANALYST stroke. Dr. Triplett recommended continuation of his Keppra and he was advised on seizure precautions such as no driving, operation of heavy equipments, standing at high heights such as on ladder, so forth. The patient was afebrile throughout admission, had no leukocytosis. Urinalysis was checked, which showed no signs of infection. His confusion had resolved on the Keppra. Dr. Lorenzana kindly called to give some additional history and recommendation to switch his recently switched lisinopril back to an ARB. This change was initially made as an outpatient given the recall on his valsartan. Of note, the patient had also recently been started on amlodipine as well as hydralazine and continued on beta blockers on last discharge. Of note, he was noted to be in first-degree heart block with intermittent second-degree heart block; MA interval had progressed, 203 on 05/13/18 and 253 on 05/14/18; continued left anterior fascicular block as known previously. The second-degree heart block was type 1 and type 2 on telemetry . He is recommended to follow with Dr. Troy as an outpatient. He already has scheduled appointment on 06/06/18 at 11: 45 a.m. as he may need a pacemaker. In the setting of his amlodipine being held , the frequency of skipped beats decreased, is mostly back in first-degree heart block currently. He already has scheduled followup with Dr. Lorenzana day after discharge. DISCHARGE MEDICATIONS: Include: 1. Combivent Respimat 1 puff inhaled b.i.d. 2. Aspirin 81 mg daily. 3. Atorvastatin 80 mg 1700 daily. 4. Plavix 75 mg daily. 5. Cymbalta 60 mg p.o. daily. 6. Advair Diskus 1 puff inhaled b.i.d. 7. Metoprolol tartrate 25 mg p.o. b.i.d. 8. Singulair 10 mg p.o. daily. 9. Morphine extended-release 30 mg p.o. q.8 hours p.r.n. for pain. 10. Omeprazole 20 mg p.o. daily. 11. Pentoxifylline (Trental) 400 mg p.o. t.i.d. p.r.n. He states he takes it twice a day most days. 12. MiraLAX 17 g p.o. daily p.r.n. 13. Thiamine 100 mg p.o. daily. 14. Tylenol 650 mg p.o. q.4 hours p.r.n. 15. Xanax 1 mg p.o. q.p.m. p.r.n. (reduced from 2 mg). 16. Docusate 100 mg p.o. b.i.d. p.r.n. (new). 17. Hydralazine 50 mg p.o. t.i.d. (increased dosage). 18. Lantus 20 units q.24 hours. 19. Levetiracetam extended 24-hour release 1000 mg p.o. daily. 20. Losartan/hydrochlorothiazide 100/25 mg daily (losartan is new taking place of lisinopril and hydrochlorothiazide was previously a separate medication). 21. Melatonin 3 mg p.o. q.h.s. p.r.n. for insomnia. 22. Nitroglycerin 0.4 mg sublingual q.5 minutes p.r.n. DISCHARGE DIET: Carbohydrate consistent, heart healthy, unchanged. FOLLOWUP: Please follow up with Dr. Maranda Lorenzana on 05/16/18, Dr. Bienvenido Troy on 06/06/18 or sooner if can be arranged, and Dr. Jose Benoit on . Visiting nurses services will be continued. TIME SPENT ON THIS DISCHARGE: Forty-five minutes. [id number]/[facility] #: [id number] [facility]
== END 2018-05-15 14:25 | disposition home health service (06) | DRG 58 ==
LOC: ED 17:49 → MEDTELE 20:50
PROVIDERS: ADMIT Hospitalist; ATTEND Internal Medicine
PROC: 4A10X4Z Monitoring of Central Nervous Electrical Activity, External Approach (ICD-10-PCS; principal; 2018-05-13)
DX: I69.398 Other sequelae of cerebral infarction (principal); G40.109 Localization-related (focal) (partial) symptomatic epilepsy and epileptic syndromes with simple partial seizures, not intractable, without status epilepticus; E11.42 Type 2 diabetes mellitus with diabetic polyneuropathy; I25.10 Atherosclerotic heart disease of native coronary artery without angina pectoris; I11.0 Hypertensive heart disease with heart failure; I50.9 Heart failure, unspecified; J44.9 Chronic obstructive pulmonary disease, unspecified; K21.9 Gastro-esophageal reflux disease without esophagitis; M19.012 Primary osteoarthritis, left shoulder; M19.011 Primary osteoarthritis, right shoulder; E66.9 Obesity, unspecified; F41.8 Other specified anxiety disorders; R40.2362 Coma scale, best motor response, obeys commands, at arrival to emergency department; G47.33 Obstructive sleep apnea (adult) (pediatric); E78.5 Hyperlipidemia, unspecified; R40.2142 Coma scale, eyes open, spontaneous, at arrival to emergency department; R40.2242 Coma scale, best verbal response, confused conversation, at arrival to emergency department; I44.0 Atrioventricular block, first degree; I49.9 Cardiac arrhythmia, unspecified; I44.4 Left anterior fascicular block; G89.29 Other chronic pain; I44.1 Atrioventricular block, second degree; Z98.84 Bariatric surgery status; Z82.61 Family history of arthritis; Z95.5 Presence of coronary angioplasty implant and graft; I25.2 Old myocardial infarction; Z83.3 Family history of diabetes mellitus; Z82.49 Family history of ischemic heart disease and other diseases of the circulatory system; Z79.82 Long term (current) use of aspirin; Z79.02 Long term (current) use of antithrombotics/antiplatelets; Z68.36 Body mass index [BMI] 36.0-36.9, adult
CPT/HCPCS: 36415; 70450; 71045; 80048; 80053; 80061; 81003; 82553; 83036; 84484; 85025; 85610; 85730; 93005; 94640; 94660; 95819; 99284; A9270-GY; G8978-GP-CI; G8979-GP-CI; G8980-GP-CI; J1644

== ENCOUNTER 2018-05-25 23:39 | Observation (INO) | payer OTHER ==
[2018-05-25] MEDS ORDERED: nitroGLYCERIN DRIP* 25,000 MCG in PREMIX* 0 ML IV ONE (23:48)
[2018-05-25] MEDS ORDERED: Metoprolol Tartrate IV* 1 MG/ML 5 ML VIAL IV ONE (23:50)
--- NOTE | 2018-05-25 23:56 | ED ---
HPI Chest Pain - HPI Summary HPI Summary: This is J Luis light documenting for attending physician Tye Prieto MD. This patient is a 63 year old M BIBA to [facility] with a chief complaint of central crushing CP without radiation that has resolved. Pt states the pain began at 2100 with gradual onset. The patient rates the pain 0/10 in severity currently. Patient reports SOB. Patient denies n/v/d, ABD pain, increased back pain, jaw pain, arm pain, and LE edema. Pt given ASA by EMS and he took NTG at home which alleviated sx. Hx non stemi a month ago, DM, and CVA 2 weeks ago. Pt does not smoke or have HTN both his parents had a history of CAD. Pt had a heart cath 2 years ago and has a stent. - History of Current Complaint Time Seen by Provider: 05/25/18 23:48 Hx Obtained From: Patient Onset/Duration: Resolved Time of Onset: 21:00 Timing: Lasting Hours Initial Severity: Moderate Current Severity: None Pain Intensity: 0 Pain Scale Used: 0-10 Numeric Chest Pain Location: Mid Sternal Chest Pain Radiates: No Character: Crushing Associated Signs and Symptoms: Positive: Negative - n/v/d, ABD pain, increased back pain, jaw pain, arm pain, and LE edema, Shortness of Breath - Additional Pertinent History Primary Care Physician: [id number] - Allergy/Home Medications Allergies/Adverse Reactions: Allergies Allergy/AdvReac Type Severity Reaction Status Date / Time No Known Allergies Allergy Verified 05/13/18 18:21 PMH/Surg Hx/FS Hx/Imm Hx Endocrine/Hematology History: Reports: Hx Diabetes - DMII Cardiovascular History: Reports: Hx Angina, Hx Cardiomegaly, Hx Congestive Heart Failure - on prn bumex, Hx Coronary Artery Disease, Hx Hypertension - on meds, Hx Myocardial Infarction, Hx Valvular Heart Disease, Other Cardiovascular Problems/Disorders Denies: Hx Hypercholesterolemia, Hx Pacemaker/ICD Respiratory History: Reports: Hx Asthma - as a child- outgrew, Hx Chronic Obstructive Pulmonary Disease (COPD), Hx Sleep Apnea GI History: Reports: Hx Gastroesophageal Reflux Disease - omeprazole, Other GI Disorders - hx of PANCREATITIS Denies: Hx Cirrhosis History: Denies: Hx Dialysis, Hx Kidney Stones, Hx Renal Disease Musculoskeletal History: Reports: Hx Arthritis - BILATERAL SHOULDERS, Hx Tendonitis - BILATERAL SHOULDERS Denies: Other Musculoskeletal History Sensory History: Reports: Hx Contacts or Glasses Denies: Hx Hearing Aid Opthamlomology History: Reports: Hx Contacts or Glasses Neurological History: Reports: Hx CVA - 04/30/18; admitted [facility] 04/30/18-05/08/18; post circulation nonhemorrhagic CVA, Hx Nerve Disease - DM neuropathy, Hx Seizures - SEIZURE HISTORY LAST 2004 ONLY TWO TIMES IN LIFE, Other Neuro Impairments/Disorders - SEIZURE R/T STOMACH ULCER - WITH ALCOHOL Denies: Hx Transient Ischemic Attacks (TIA) Psychiatric History: Reports: Hx Anxiety, Hx Depression Denies: Hx Panic Disorder - Cancer History Hx Chemotherapy: No - Surgical History Surgery Procedure, Year, and Place: gastric bypass [facility], bilat elbows , [facility]. [place] [facility] [place] [facility] [place] Anesthesia Reactions: Yes - woke up angry and swinging after 1 surgery Infectious Disease History: Denies: Hx Hepatitis - Family History Known Family History: Positive: Cardiac Disease, Other - mother - arthritis - Social History Alcohol Use: None Alcohol Amount: NONE FOR 14 YEARS AGO Hx Substance Use: No Substance Use Type: Reports: None Hx Tobacco Use: Yes Smoking Status (MU): Never Smoked Tobacco Have You Smoked in the Last Year: No Review of Systems Positive: Chest Pain Positive: Shortness Of Breath Negative: Abdominal Pain, Vomiting, Diarrhea, Nausea Musculoskeletal: Negative - back pain increased from baseline Negative: Edema All Other Systems Reviewed And Are Negative: Yes Physical Exam - Summary Physical Exam Summary: Appearance: Well appearing, no pain distress Skin: warm, dry, reflects adequate perfusion, chronic LE dermatitis Head/face: normal Eyes: EOMI, NIA ENT: normal Neck: supple, non-tender Respiratory: CTA, breath sounds present Cardiovascular: RRR, pulses symmetrical Abdomen: non-tender, soft Bowel Sounds: present Musculoskeletal: normal, strength/ROM intact Neuro: normal, sensory motor intact, A&Ox3 Triage Information Reviewed: Yes Vital Signs Reviewed: Yes Diagnostics - Laboratory Result Diagrams: 05/25/18 23:55 05/25/18 23:55 Lab Statement: Any lab studies that have been ordered have been reviewed, and results considered in the medical decision making process. - Radiology CXR Radiology Interpretation Completed By: ED Physician - No acute changes. Pending offical report. - EKG 2340 Cardiac Rate: NL EKG Rhythm: Sinus Rhythm - at 68 BPM, no acute ST changes EKG Interpretation: first degree av block, Q waves inferiorly, and poor r wave progression, Chest Pain Course/Dx - Course Course Of Treatment: Patient presents with substernal "crushing" chest pain with significant cardiac comorbidity. Recently started on Keppra for seizure. Today his LFTs are elevated. There is no acute ST changes. Nitroglycerin drip started for pain. Some improvement with nitroglycerin at home. Ultrasound of the morning as his LFTs have not been elevated in the past. There is no right upper quadrant abdominal pain. - Chest Pain Differential Diagnosis/HQI/PQRI: Acute OH, ACS, Angina, CHF, Chest Wall, GI Disease, Lower Respiratory Infection - Diagnoses Provider Diagnoses: Unstable angina, Acute hepatitis - Provider Notifications Discussed Care Of Patient With: Harley Vivas Time Discussed With Above Provider: 00:31 Instructed by Provider To: Admit As Inpatient - Critical Care Time Critical Care Time: 30-74 min - Critical care time is exclusive of separately billable procedures Discharge - Sign-Out/Discharge Documenting (check all that apply): Patient Departure - admitted - Discharge Plan Condition: Guarded Disposition: ADMITTED TO [facility] - Billing Disposition and Condition Condition: GUARDED Disposition: Admitted to [facility] Attestation Statement Scribe Attestation: This is J Luis light documenting for attending physician Tye Prieto MD. User Type: Provider with [facility] Provider Attestation: The documentation recorded by the scribe accurately reflects the service I personally performed and the decisions made by me.
[2018-05-26 00:13] LABS: INR 0.98 (0.77-1.02)
[2018-05-26] MEDS ORDERED: nitroGLYCERIN DRIP* 25,000 MCG/250 ML BTL ONE (00:23)
[2018-05-26 00:26] LABS: EGFR Non-African American 76.9 (>60)
[2018-05-26 00:28] LABS: ABS Basophils 0 10^3/ul (0-0.2); ABS Eosinophils 0 10^3/ul (0-0.6); ABS Monocytes 0.6 10^3/ul (0-0.8); ABS Neutrophils 5.3 10^3/ul (1.5-7.7); ABS Nucleated RBC 0 10^3/ul; Eosinophil % 0.5 % (0-6); Hematocrit 45 % (42-52); Hemoglobin 15.3 g/dl (14.0-18.0); Lymphocyte % 14.9 % (25-47); Mean Corpuscular HGB Conc 34 g/dl (31-36); Mean Corpuscular Hemoglobin 27 pg (27-31); Mean Corpuscular Volume 78 fL (80-94); Mean Platelet Volume 10.6 um3 (7.4-10.4); Nucleated Red Blood Cells % 0.2; Platelet Count 169 10^3/ul (150-450); Red Blood Count 5.77 10^6/ul (4.00-5.40); Red Cell Distribution Width 16 % (10.5-15)
--- OUTSIDE RECORDS SUMMARY | 2018-05-26 00:31 | XMS REPORT ---
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 High 70-105 62 Sodium 139 mEq/L 134-149 Total Bilirubin 0.6 mg/dL 0.2-1.3 Total Protein 7.4 g/dL 6.3-8.1 Potassium 4.2 mEq/L 3.6-5.5 Globulin 2.9 g/dL 2.0-4.8 A/G Ratio 1.5 Calc 0.6-2.3 BUN/Creat Ratio 24.2 Calc 8.0-36.0 Laboratory test finding 04/06/2013 Hemoglobin A1c 8.0 % High 4.1-5.7 (a[place] [place] Lipid Profile 08/15/2012 Cholesterol 151 mg/dL 120-200 HDL 33 mg/dL 30-70 Triglycerides 158 mg/dL 30-200 HDL Risk Factor 4.6 CALC High 0.0-4.4 LDL (Calculated) 86 CALC 0-129 VLDL (Calculated) 32 mg/dL 0-50 Laboratory test finding 08/15/2012 Urine Culture No significant g <SEE NOTE > 63 Ua - Micro ([facility]) 08/15/2012 Appearance CLEAR Color YELLOW Glucose NEG Bilirubin NEG Ketones NEG SP Grav 1.015 Blood NEG PH 5.0 Protein NEG Urobil 0.2 Nitrite NEG Leukocytes (a/CMC/[facility]) NEG Hyaline 30-40 /Lpf Granular - /Lpf WBC ([facility]) 2-3 RBC 0-3 Mucus SM AMT /Lpf Epith - /Lpf Bacteria TRACE /Hpf Amorphous - /Lpf Crystals, Fluid (Fma/CMC/CTX) - Z#Comments - CBC Electronic ([facility]) 08/15/2012 WBC 7.4 3.6-9.6 RBC 5.32 3.90-5.70 Hemoglobin (Fma/CMC/CTX) 13.6 g/dL 12.1 - 17.2 Hematocrit (Fma/CMC/CTX) 43.2 % 36.1 - 50.3 Platelets 114 10^3/ul Low 150-400 64 Lymph% 28.0 20.5-51.1 Mixed% 4.1 Neutrophils % 67.9 Mean Corpuscular Vol 81 Low 82.2-97.4 Mean Corpuscular Hemoglobin 25.6 Low 27.6-33.3 Mean Corpuscular Hemo Concen 31.5 Low 32.0-36.0 RDW 13.4 11.6-13.7 Mean Platelet Volume 9.2 6.5-11.0 Laboratory test finding 08/15/2012 Hemoglobin A1c 8.1 % High 4.1-5.7 (Fma/CMC,CX) Comprehensive Metabolic 08/15/2012 Albumin 4.2 g/dL 3.8-5.5 Prof Alk. Phos. 132 U/L High 22-95 65 Alt (SGPT) 20 U/L 10-40 Ast (Sgot) 28 U/L 5-34 BUN 29 mg/dL High 6-26 66 Calcium 9.1 mg/dL 8.6-10.2 Chloride 98 mEq/L 94-112 Creatinine 1.3 mg/dL 0.6-1.4 Carbon Dioxide 31 mEq/L 21-32 Glucose 153 mg/dL High 70-105 67 Sodium 138 mEq/L 134-149 Total Bilirubin 0.4 mg/dL 0.2-1.3 Total Protein 7.6 g/dL 6.3-8.1 Potassium 4.3 mEq/L 3.6-5.5 Globulin 3.4 g/dL 2.0-4.8 A/G Ratio 1.2 Calc 0.6-2.2 BUN/Creat Ratio 21.7 Calc 8.0-36.0 Urinalysis 10/11/2011 Ua Color YELLOW Yellow Appearance-Urine CLEAR Clear Specific [place]-Ur 1.004 Low 1.010-1.030 Esterase-Urine NEGATIVE Negative Nitrite NEGATIVE Negative [id number] NEGATIVE Negative Protein-Urine NEGATIVE Negative PH-Urine 7.5 [...] Redcell Distribution WDTH 18 % High 10.5-15 68 Platelet Count 105 CUMM Low 150-450 Mean [...] High 22-32 Anion Gap 7.0 mmol/L 2-11 69 Glucose 184 mg/dL High 70-100 BUN 14 mg/dL 6-24 Creatinine 0.8 mg/dL 0.50-1.40 One Over Creatinine 1.25 BUN/Creatinine Ratio 17.5 8-20 Calcium 8.8 mg/dL 8.1-9.9 Total Protein 7.9 GM/DL 6.2-8.1 Albumin 3.6 GM/DL 3.6-5.4 Globulin 4.3 GM/DL High 2-4 Albumin/Globulin Ratio 0.8 Low 1-3 Bilirubin Total 0.6 mg/dL 0.4-1.5 70 Alkaline Phosphatase 113 U/L 39-117 Alt (SGPT) 22 U/L 17-63 Ast (Sgot) 22 U/L 12-42 eGFR Non- 100.7 > 60 eGFR 129.6 > 60 71 Laboratory test finding 10/11/2011 CPK (Creatine Kinase) 113 U/L 0-200 CKMB 10/11/2011 CKMB In NG/ML 1.5 NG/ML 0.3-4.0 % CKMB 1 %MB 0-9 72 Laboratory test finding 10/11/2011 Troponin-I 0.01 NG/ML 0-0.06 73 D Dimer Quantitative 298 NG/ML High Less Than 230 74 Comp Metabolic Panel 08/13/2011 Sodium 140 mmol/L 135-145 Potassium 3.7 mmol/L 3.5-5.0 Chloride 97 mmol/L Low 101-111 Co2 (Carbon Dioxide) 35.0 mmol/L High 22-32 Anion Gap 8.0 mmol/L 2-11 75 Glucose 94 mg/dL 70-100 BUN 23 mg/dL 6-24 Creatinine 0.8 mg/dL 0.50-1.40 One Over Creatinine 1.25 BUN/Creatinine Ratio 28.8 High 8-20 Calcium 9.1 mg/dL 8.1-9.9 Total Protein 7.1 GM/DL 6.2-8.1 Albumin 3.5 GM/DL Low 3.6-5.4 Globulin 3.6 GM/DL 2-4 Albumin/Globulin Ratio 1.0 1-3 Bilirubin Total 1.1 mg/dL 0.4-1.5 76 Alkaline Phosphatase 90 U/L 39-117 Alt (SGPT) 29 U/L 17-63 Ast (Sgot) 25 U/L 12-42 eGFR Non- 100.7 > 60 eGFR 129.6 > 60 77 Laboratory test 08/13/2011 Hemoglobin A1c 8.7 % High Less Than 6.0 78 finding Surgical Pathology 08/07/2011 Surgical Pathology 79 --- <SEE NOTE> Basic Metabolic 07/26/2011 BUN 28 mg/dL High 6-26 80 Profile Calcium 9.5 mg/dL 8.6-10.2 Chloride 97 [...] High 22-32 Anion Gap 7.0 mmol/L 2-11 81 Glucose 100 mg/dL 70-100 BUN 25 mg/dL High 6-24 Creatinine 0.8 mg/dL 0.50-1.40 One Over Creatinine 1.25 BUN/Creatinine Ratio 31.3 High 8-20 Calcium 9.2 mg/dL 8.1-9.9 eGFR Non- 100.7 > 60 eGFR 129.6 > 60 82 Protime 07/17/2011 Inr 1.02 0.82-1.17 83 Protime 12.0 SEC 10.2-14.8 84 Laboratory test finding 07/17/2011 PTT (Aptt) 33.2 25.15-38.53 Laboratory test finding 05/24/2011 Vitamin B1 Whole Blood SEE BELOW H.Pylori Igg ([facility]) 05/24/2011 H Pylori Igg, Abs <0.9 U/mL 0.0-0.8 85 Laboratory test finding 05/24/2011 Vitamin D, 25 Oh 32.6 ng/mL 32.0- 100.0 86 Vitamin B1, Plasma 13.6 ug/L 4.0-20.0 Laboratory [...] mEq/L 21-32 Glucose 210 mg/dL High 70-105 87 Sodium 137 mEq/L 134-149 Total Bilirubin 0.7 mg/dL 0.2-1.3 Total Protein 7.5 g/dL 6.3-8.1 Potassium 4.4 mEq/L 3.6-5.5 Globulin 3.2 g/dL 2.0-4.8 A/G Ratio 1.3 Calc 0.6-2.2 BUN/Creat Ratio 15.6 Calc 8.0-36.0 Laboratory test finding 05/24/2011 Iron 50 g/dL Low 60-150 88 Ferritin 38 ng/mL 22-415 Folate >22.00 ng/mL [...] High 22-32 Anion Gap 6.0 mmol/L 2-11 89 Glucose 197 mg/dL High 70-100 BUN 12 mg/dL 6-24 Creatinine 0.80 mg/dL 0.50-1.40 One Over Creatinine 1.20 BUN/Creatinine Ratio 15.0 8-20 Calcium 8.9 mg/dL 8.1-9.9 Total Protein 6.1 GM/DL Low 6.2-8.1 Albumin 3.3 GM/DL Low 3.6-5.4 Globulin 2.8 GM/DL 2-4 Albumin/Globulin Ratio 1.2 1-3 Bilirubin Total 0.4 mg/dL 0.4-1.5 90 Alkaline Phosphatase 93 U/L 39-117 Alt (SGPT) 22 U/L 17-63 Ast (Sgot) 22 U/L 12-42 eGFR Non- 100.7 > 60 eGFR 129.6 > 60 91 Laboratory test finding 04/25/2011 Thyroxine 7.1 g/dL 5-12 T3 Free 2.73 pg/mL 2.39-6.79 TSH 2.49 MIU/ML 0.34-5.60 Estradiol 21 pg/mL 92 Progesterone,17 Hydroxy <40 ng/dL <220 93 Somatomedin C/Ins Growth Fact 60 ng/mL 84-233 94 PSA Free And Total 04/25/2011 Total PSA 0.40 ng/mL <=3.5 Free PSA <0.1 ng/mL () Free PSA/PSA Ratio . () 95 Testosterone Free & Total 04/25/2011 Free Testosterone 2.2 ng/dL 9-30 96 Total Testosterone 81 ng/dL 240-950 97 Comprehensive Metabolic Prof 04/02/2011 Albumin 3.9 g/dL 3.8-5.5 Alk. Phos. 127 U/L High 22-95 98 Alt (SGPT) 21 U/L 10-40 Ast (Sgot) 15 U/L 5-34 BUN 18 mg/dL 6-26 Calcium 9.3 mg/dL 8.6-10.2 Chloride 94 mEq/L 94-112 Creatinine 0.8 mg/dL 0.6-1.4 Carbon Dioxide 30 mEq/L 21-32 Glucose 204 mg/dL High 70-105 99 Sodium 139 mEq/L 134-149 Total Bilirubin 0.3 mg/dL 0.2-1.3 Total Protein 7.3 g/dL 6.3-8.1 Potassium 4.1 mEq/L 3.6-5.5 Globulin 3.4 g/dL 2.0-4.8 A/G Ratio 1.1 Calc 0.6-2.2 BUN/Creat Ratio 21.5 Calc 8.0-36.0 Laboratory test 04/02/2011 Magnesium 1.8 mEq/L 1.2-2.1 finding Laboratory test 04/02/2011 Hemoglobin A1c 8.8 % High 4.1-5.7 finding (Fma/CMC,CX) Surgical Pathology 01/18/2011 Surgical Pathology 100 <SEE NOTE> Laboratory test 01/18/2011 Clotest NEGATIVE finding Creatinine Clearance 01/05/2011 Creatinine Random 54.26 mg/dL Urine Creat Clearance 126 mL/min High 80-125 Hours Of Collection 24 HR 24- Urine Volume Measurement 2350 ML Laboratory test 01/05/2011 Serum Creatinine/Creat 0.7 mg/dL 0.5-1.4 finding CL Laboratory test 12/07/2010 Hemoglobin A1c 10.2 % High Less Than 6.0 39, 101 finding Liver Function 12/07/2010 Bilirubin Direct 0.1 mg/dL 0.1-0.5 39 Panel Indirect Bilirubin 0.7 mg/dL 0.3-1.0 39, 102 Lipid Profile (Trig/Chol/HDL) 12/07/2010 Triglyceride 56 mg/dL 40-200 39 Cholesterol 153 mg/dL Less Than 200 39, 103 High Density Lipoprotein 52 mg/dL 40-60 39, 104 Cholesterol/HDL Ratio 2.94 AVERAGE 1-4.97 39 Low Density Lipoprotein 90 mg/dL Less Than 100 39, 105 Comp Metabolic Panel 12/07/2010 Sodium 137 mmol/L 135-145 39 Potassium 4.3 mmol/L 3.5-5.0 39 Chloride 99 mmol/L Low 101-111 39 Co2 (Carbon Dioxide) 32.0 mmol/L 22-32 39 Anion Gap 6.0 mmol/L 2-11 39, 106 Glucose 127 mg/dL High 70-100 39 BUN 11 mg/dL 6-24 39 Creatinine 0.70 mg/dL 0.50-1.40 39 One Over Creatinine 1.40 39 BUN/Creatinine Ratio 15.7 8-20 39 Calcium 9.1 mg/dL 8.1-9.9 39 Total Protein 7.0 GM/DL 6.2-8.1 39 Albumin 3.5 GM/DL Low 3.6-5.4 39 Globulin 3.5 GM/DL 2-4 39 Albumin/Globulin Ratio 1.0 1-3 39 Bilirubin Total 0.8 mg/dL 0.4-1.5 39, 107 Alkaline Phosphatase 129 U/L High 39-117 39 Alt (SGPT) 29 U/L 17-63 39 Ast (Sgot) 21 U/L 12-42 39 eGFR Non- 118.0 > 60 39 eGFR 151.7 > 60 39, 108 Ua - Non Micro (Fma) 11/23/2010 Appearance CLEAR Color YELLOW Glucose, Urine (Fma/CMC/CTX) NEG Bilirubin NEG Ketones NEG SP Grav 1.015 Blood NEG PH 5.0 Protein NEG Urobil 0.2 Nitrite NEG Leukocytes (Fma/CMC/[facility]rex) NEG 1 Because ethnic data is not always readily [...] 15-29 5 Kidney failure <15 (or dialysis) 2 Desirable: <150 Borderline High: 150-199 High: 200-499 Very High: >500 3 Desirable: <200 Borderline High: 200-239 High: >239 4 Low: <40 Desirable: 40-60 High: >60 5 Desirable: <100 Near Optimal: 100-129 Borderline High: 130-159 High: 160-189 Very High: >189 6 Therapeutic target for the treatment of diabetes mellitus patients is <7% HBA1C, and in selective patients <6.0%. Please refer to [place] [employer] diabetic care guidelines for further information. 7 Serum levels of PSA measured using the [employer] DXI Hybritech immunoassay should not be interpreted [...] methods or kits cannot be used interchangeably. 8 Therapeutic target for the treatment of diabetes Mellitus patients is <7% HBA1C, and in selective patients <6.0%.Please refer to [place] [employer] Diabetic care guidelines for further information. 9 Desirable <150 Borderline high 150-199 High 200-499 Very High >500 10 Desirable <200 Borderline high 200-239 High >239 11 Low <40 Desirable: 40-60 High: >60 12 Desirable: <100 mg/dL Near Optimal: 100-129 mg/dL Borderline High: 130-159 mg/dL High: 160-189 mg/dL Very High: >189 mg/dL 13 Because ethnic data is not always readily [...] 15-29 5 Kidney failure <15 (or dialysis) 14 Because ethnic data is not always [...] 5 Kidney failure <15 (or dialysis) 15 Serum levels of PSA measured using the [employer] DXI Hybritech immunoassay should not be interpreted [...] methods or kits cannot be used interchangeably. 16 RESULTS VERIFIED BY REPEAT ANALYSIS 17 RESULTS VERIFIED BY REPEAT ANALYSIS 18 consistent w/ previous results 19 Customer Care Assistant: [id number] [facility] 20 consistent w/ previous results 21 consistent w/ previous results 22 consistent w/ previous results 23 RESULTS VERIFIED BY REPEAT ANALYSIS 24 RESULTS VERIFIED BY REPEAT ANALYSIS 25 PROTECT FROM LIGHT 26 Please note reference interval change 27 Because ethnic data is not always [...] 5 Kidney failure <15 (or dialysis) 28 Customer Care Assistant: MARIXA ROGERS 29 Please note: The following may produce a false positive D Dimer test: - Rheumatoid factor greater than 60 IU/ml - Plasma hemoglobin greater than 0.05 gm/dl - Bilirubin greater than 50 mg/dl - Lipids greater than 1000 mg/dl - FDP greater than 20 ug/ml 30 Because ethnic data is not always readily [...] 15-29 5 Kidney failure <15 (or dialysis) 31 Acute inflammation: >10.00 32 Reference Range and Interpretation: TnI (ng/mL) Interpretation Less Than 0.03 ng/mL Not supportive of diagnosis of DE 0.03 - 0.50 ng/mL Indeterminate: suggest serial studies if clinically indicated. Greater than 0.5 ng/mL Consistent with diagnosis of DE 33 Because ethnic data is not always readily [...] 15-29 5 Kidney failure <15 (or dialysis) 34 Serum levels of PSA measured using the [employer] DXI Hybritech immunoassay should not be interpreted [...] methods or kits cannot be used interchangeably. 35 FASTING; 1 POUR OFF PLASMA FROM BT -- FROZEN 36 . 37 INTERNATIONAL NORMALIZED RATIO(INR) INDICATIONS INR RANGE PATIENTS [...] WITH AN UNACCEPTABLY HIGH RISK OF BLEEDING. 38 RESULTS VERIFIED BY REPEAT ANALYSIS 39 FASTING 40 Because ethnic data is not always readily [...] 15-29 5 Kidney failure <15 (or dialysis) 41 Normal Range 180 to 914 Indeterminate Range 145 to 180 Deficient Range <145 42 FASTING 43 FASTING 44 FASTING 45 Acute inflammation: >10.00 46 REFERENCE VALUE <1.0 (Negative) Test Performed by: [place] [address] Vault Worker: Twin Neri M.D. 47 REFERENCE VALUE <1.0 (Negative) Test Performed by: [place] [address] Vault Worker: Twin Neri M.D. 48 RESULT: Polyclonal hypergammaglobulinemia Test Performed by: [place] [address] Vault Worker: Twin Neri M.D. 49 Because ethnic data is not always readily [...] 15-29 5 Kidney failure <15 (or dialysis) 50 Because ethnic data is not always readily [...] 15-29 5 Kidney failure <15 (or dialysis) 51 Please note: The following may produce a false positive D Dimer test: - Rheumatoid factor greater than 60 IU/ml - Plasma hemoglobin greater than 0.05 gm/dl - Bilirubin greater than 50 mg/dl - Lipids greater than 1000 mg/dl - FDP greater than 20 ug/ml 52 Platelets clumped. Unable to perform accurate count. 53 Platelets clumped. Unable to perform accurate count. 54 RESULTS VERIFIED BY REPEAT ANALYSIS 55 MARTINE'D 56 Serum levels of PSA measured using the Jordon [employer] DXI Hybritech immunoassay should not be interpreted [...] methods or kits cannot be used interchangeably. 57 Because ethnic data is not always readily [...] 15-29 5 Kidney failure <15 (or dialysis) 58 CKMB interpretation should be made in conjunction with clinical symptoms, patient history and EKG changes. 59 Reference Range and Interpretation: TnI (ng/mL) Interpretation Less Than 0.06 ng/mL Not supportive of diagnosis of DE 0.06 - 0.50 ng/mL Indeterminate: suggest serial studies if clinically indicated. Greater than 0.5 ng/mL Consistent with diagnosis of DE 60 RESULT MARTINE'D 61 RESULT MARTINE'D 62 RESULT MARTINE'D 63 No significant growth. 64 RECHECKED 65 result martine'd 66 result martine'd 67 result martine'd 68 CONSISTENT WITH PREVIOUS RESULTS 69 Anion gap measurement may be of limited value in the presence of any alkalosis, especially in a combined acid base disorder. . 70 A metabolite of Naproxen, O-desmethylnaproxen, has been shown to interfere with the Jendrassik-Ravia method for measuring total bilirubin. Samples from [...] 5 Kidney failure <15 (or dialysis) 72 INTERPRETATION %CK-MB < 5% NOT SUPPORTIVE OF DIAGNOSIS OF DE 5 - <10% INDETERMINATE; SUGGEST SERIAL STUDIES IF CLINICALLY INDICATED 10% OR > CONSISTENT WITH DIAGNOSIS OF DE . 73 New Reference Range and Interpretation effective 07/10/2002 TnI (ng/ml) INTERPRETATION Less Than 0.06 ng/mL NOT SUPPORTIVE OF DIAGNOSIS OF DE 0.06 - 0.50 ng/ml INDETERMINATE: SUGGEST SERIAL STUDIES IF CLINICALLY INDICATED. Greater than 0.5 ng/mL CONSISTENT WITH DIAGNOSIS OF DE . [address] PHELAN BY ASHLIE at 0149 on 10/12/11. Results read back accurately. Please note: The following may produce a false positive D Dimer test: - Rheumatoid factor greater than 1400 IU/ml - Plasma hemoglobin greater than 0.5 gm/dl - Bilirubin greater than 18 mg/dl - Triglycerides greater than 1327 mg/dl - FDP greater than 10 ug/ml . 75 Anion gap measurement may be of limited value in the presence of any alkalosis, especially in a combined acid base disorder. . 76 A metabolite of Naproxen, O-desmethylnaproxen, has been shown to interfere with the Jendrassik-Ravia method for measuring total bilirubin. Samples from patients who have taken Naproxen have shown spurious elevation in total bilirubin levels. 77 Because ethnic data is not always readily [...] 15-29 5 Kidney failure <15 (or dialysis) 78 THERAPEUTIC TARGET FOR THE TREATMENT OF DIABETES MELLITUS PATIENTS IS <7% HBA1C, AND IN SELECTIVE PATIENTS <6.0%. PLEASE REFER TO [place] [employer] DIABETIC CARE GUIDELINES FOR FURTHER INFORMATION. 79 ---- RUN DATE: 08/09/11 [facility] NMI LIVE PAGE 1 RUN TIME: 1251 Specimen Inquiry RUN USER: INTERFACE -- Name: STEFAN WOODSON Status: REG REF Re08/07/11 Age/Sex: 56/M Unit#: [id number] Location: [facility]. : [birth year] -- Specimen: [id number] SOUT Spec Date: 08/07/[address]: Chris [...] 08/09/11 1247 -- -- DEPARTMENT OF PATHOLOGY, [address] [place] [address] [facility] Permit #[id number] Perfecto Cat M.D. Director Seema Hartley M.D. Back Digger Operator Dir tung -- 80 RESULT MARTINE'D 81 Anion gap measurement may be of limited value in the presence of any alkalosis, especially in a combined acid base disorder. . 82 Because ethnic data is not always readily [...] 15-29 5 Kidney failure <15 (or dialysis) 83 Recommended INR for Patients on Oral Anticoagulants Prophylaxis 2.0 - 3.0 Treatment of thrombosis 2.0 - 3.0 Prevention of embolism 2.0 - 3.0 Prevention of embolism from prosthetic heart valves 2.5 - 3.5 84 DIAGNOSIS,TREATMENT,AND THERAPY MUST BE BASED ON THE INR VALUE ALONE. 85 Negative <0.9 Indeterminate 0.9 - 1.0 Positive >1.0 86 Recent studies consider the lower limit of 32.0 ng/mL to be a threshold for optimal health. Des PARK. J Nutr. 2004;135(2):317-22. 87 RESULT MARTINE'D 88 RESULT MARTINE'D 89 Anion gap measurement may be of limited value in the presence of any alkalosis, especially in a combined acid base disorder. . 90 A metabolite of Naproxen, O-desmethylnaproxen, has been shown to interfere with the Jendrassik-Ravia method for measuring total bilirubin. Samples from patients who have taken Naproxen have shown spurious elevation in total bilirubin levels. 91 Because ethnic data is not always readily [...] 15-29 5 Kidney failure <15 (or dialysis) 92 EXPECTED RESULTS (pg/ml) MALES 20-75 POSTMENOPAUSAL FEMALES 20-88 NON FEMALES Mid-Follicular Phase 24-114 Periovulatory 62-534 Mid Luteal Phase 80-273 93 Test Performed by: [facility] D[facility] of Lab Med and Pathology [address] [place] [address] Vault Worker: Gerardo Montana III, M.D. 94 Test Performed by: [facility] [address] [place] [address] Vault Worker: Gerardo Montana III, M.D. 95 Ratio was not calculated because free PSA is less than 0.1 ng/mL. Ratio not calculated because clinical usefulness is not defined except in the range of total PSA 4.0-10.0 ng/mL. The testing method is an electrochemiluminescence assay manufactured by [employer] and performed on the [employer] system. Values obtained with different assay methods or kits may be different and cannot be used interchangeably. Test results cannot be interpreted as absolute evidence for the presence or absence of malignant disease. Test Performed by: [facility] Path[facility] [address] [place] [address] Vault Worker: Gerardo Montana III, M.D. 96 Test Performed by: [facility] [address] [place] [address] Vault Worker: Gerardo Montana III, M.D. 97 Test Performed by: [facility] Path[facility] [address] [place] [address] Vault Worker: Gerardo Montana III, M.D. 98 RESULT MARTINE'D 99 RESULT MARTINE'D 100 ----- RUN DATE: 01/19/11 [facility] NMI LIVE PAGE 1 RUN TIME: 1310 Specimen Inquiry RUN USER: INTERFACE -- Name: STEFAN WOODSON Status: REG REF Re01/18/11 Age/Sex: 56/M Unit#: [id number] Location: [facility]. : 59 -- Specimen: [id number] SOUT Spec Date: 01/18/[address]: Alexis ware MD Spec Type: SURGICAL P Received: 01/18/11-3593 Copies to: Ammon mares MD SPECIMEN BIOPSY RECTAL POLYP HISTORY POST-OP DIAGNOSIS: Esophagus - at 39 cm. grade A eosinophilic esophagitis ; stomach - gastritis, biopsied x2; duodenum - normal; Colon - to cecum, rectal poly p CLINICAL INFORMATION: Obesity; family history of colon cancer GROSS DESCRIPTION The specimen is received in formalin labelled Stefan Thomas Woodson, Biopsy Rectal Polyp, and consists of one fragment of brown tissue measuring 0.3 x 0.3 x 0.2 cm. Submitted entirely, one cassette. DIAGNOSIS Rectum, polyp, biopsy: Hyperplastic polyp. Signed Electronically by: SEEMA HARTLEY 01/19/11 6490 -- -- DEPARTMENT OF PATHOLOGY, [address] [place] [address] [facility] Permit #[id number] Perfecto Cat M.D. Director Seema Hartley M.D. Back Digger Operator Dir cevallosor -- 101 THERAPEUTIC TARGET FOR THE TREATMENT OF DIABETES MELLITUS PATIENTS IS <7% HBA1C, AND IN SELECTIVE PATIENTS <6.0%. PLEASE REFER TO [place] [employer] DIABETIC CARE GUIDELINES FOR FURTHER INFORMATION. 102 Please note updated reference range, effective 04/27/10 103 CHOLESTEROL INTERPRETATION: Desirable: Less than 200 MG/DL Borderline-High Risk: 200-239 MG/DL High-Risk: 240 MG/DL and over 104 HDL INTERPRETATION: Undesirable: High Risk: Less than 40 MG/DL Desirable: Low Risk: Greater than 60 MG/DL 105 LDL INTERPRETATION: Low Risk Optimal Level: LDL Less than 100 MG/DL Near or Above Optimal: LDL 100-129 MG/DL Borderline High Risk: LDL 130-159 MG/DL High Risk: LDL 160-189 MG/DL Very High Risk: LDL Greater than 189 MG/DL 106 Anion gap measurement may be of limited value in the presence of any alkalosis, especially in a combined acid base disorder. . 107 A metabolite of Naproxen, O-desmethylnaproxen, has been shown to interfere with the Jendrassik-Addy method for measuring total bilirubin. Samples from patients who have taken Naproxen have shown spurious elevation in total bilirubin levels. 108 Because ethnic data is not always readily [...] Date CPT Code Description Status Comment 04/17/2018 55857 Electrocardiogram Complete Completed 04/17/2018 97296 Finger Or Heel Stick Completed 12/23/2017 Diabetic Retinal Eye Exam Completed no diabetic retinopathy. 12/18/2017 36269 Finger Or Heel Stick Completed 06/18/2017 15641 Electrocardiogram Complete Completed 03/22/2016 Colonoscopy Completed Normal. Hyperplastic polyp in 2010. father had colon cancer x2. repeat in 5years. 03/12/2016 Colonoscopy Completed 01/23/2016 Colonoscopy Completed 02/14/2015 08784 Electrocardiogram Complete Completed 09/16/2014 68665 Finger Or Heel Stick Completed 04/23/2014 25671 Finger Or Heel Stick Completed 12/14/2013 20493 Finger Or Heel Stick Completed 06/29/2011 35134 Pulse Oximetry Completed 01/18/2011 Colonoscopy Completed Encounters Type Date Location Provider CPT E/M Dx Office Visit 04/17/2018 2:40p [facility] Maranda Lorenzana, 06502 E11.40 Geovanni I10 I25.10 Office Visit 01/21/2018 7:00p [facility] ANGELA Cooper 18925 R19.7 K92.1 Office Visit 01/15/2018 3:20p [facility] Maranda Lorenzana M.D. 46678 I10 E11.40 M48.061 H10.32 Office Visit 12/18/2017 1:40p [facility] Maranda Lorenzana M.D. 18784 E11.40 I10 M48.061 I25.10 Office Visit 06/18/2017 3:40p [facility] John Paul Brower M.D. 10838 E11.40 I10 M54.5 S82.112A Z01.818 Office Visit 04/25/2017 3:20p [facility] Maranda Lorenzana M.D. 12417 E11.40 I10 K59.09 F43.21 Office Visit 02/28/2017 1:40p [facility] Maranda Lorenzana M.D. 46847 R10.84 M54.5 E11.40 E55.9 Office Visit 11/08/2016 10:40a [facility] Maranda Lorenzana M.D. 89599 M54.5 M54.16 Office Visit 06/12/2016 3:40p [facility] Maranda Lorenzana M.D. 20391 E11.40 F43.21 Office Visit 05/08/2016 3:00p [facility] Maranda Lorenzana M.D. 46424 E11.40 I10 M53.3 Z98.84 Office Visit 01/31/2016 2:00p [facility] Maranda Lorenzana M.D. 30798 Z00.01 M48.07 I10 E11.40 I73.89 M53.3 E55.9 Z98.84 Office Visit 01/05/2016 2:40p [facility] Maranda Lorenzana M.D. 67065 M48.07 I10 E11.40 Z85.038 M53.3 Office Visit 10/31/2015 1:15p [facility] Jaye Lawson [facility] 60709 Z98.84 R63.4 M48.07 Office Visit 08/09/2015 4:00p [facility] Maranda Lorenzana M.D. 44199 K62.89 Office Visit 05/03/2015 2:50p [facility] Maranda Lorenzana M.D. 95950 786.05 564.09 724.02 Office Visit 02/14/2015 7:50p [facility] Maranda Lorenzana M.D. 76912 780.4 V72.83 788.64 Office Visit 11/02/2014 1:40p [facility] Maranda Lorenzana M.D. 95677 401.1 250.60 338.4 357.2 Office Visit 09/16/2014 3:20p [facility] Maranda Lorenzana M.D. 75156 250.60 338.4 357.2 401.1 724.02 Office Visit 07/16/2014 3:00p [facility] Maranda Lorenzana M.D. 63633 574.21 250.60 401.1 E885.9 724.02 Office Visit 05/29/2014 10:45a Main Office CorreakirstieC 03997 401.1 250.00 Office Visit 04/23/2014 3:40p [facility] Maranda Lorenzana M.D. 87629 724.02 250.60 V45.86 357.2 Office Visit 03/11/2014 3:20p [facility] Maranda Lorenzana M.D. 60115 338.4 250.60 724.2 724.02 Office Visit 12/14/2013 6:00p Main Office Maranda Lorenzana M.D. 22722 354.2 250.00 338.4 428.0 Office Visit 11/10/2013 2:40p Main Office Maranda Lorenzana M.D. 88838 724.2 E885.9 Office Visit 09/18/2013 11:10a [facility] Maranda Lorenzana M.D. 11745 E880.9 780.79 257.2 250.00 Office Visit 09/01/2013 3:40p Main Office Maranda Lorenzana M.D. 90844 354.2 250.00 401.1 327.23 257.2 V04.81 V72.83 V72.84 Office Visit 05/25/2013 8:30p Main Office Maranda Lorenzana M.D. 99965 278.00 401.1 250.00 729.2 Office Visit 04/06/2013 7:30p Main Office Maranda Lorenzana M.D. 31519 719.44 250.00 278.00 788.1 Office Visit 08/15/2012 9:00a [facility] Maranda Lorenzana M.D. 06844 788.1 250.00 401.1 428.0 309.0 V03.82 Office Visit 05/29/2012 3:30p [facility] Chana Medley Afnp-C 17165 719.45 250.00 368.10 Office Visit 09/10/2011 7:30p Main Office Maranda Lorenzana M.D. 00786 728.85 719.99 Office Visit 08/03/2011 10:20a [facility] Maranda Lorenzana M.D. 70629 250.00 726.19 782.9 525.9 278.00 Office Visit 07/12/2011 11:00a [facility] Maranda Lorenzana M.D. 06304 278.00 428.0 327.23 401.1 Office Visit 06/29/2011 11:00a [facility] Maranda Lorenzana M.D. 79906 428.0 Office Visit 05/24/2011 1:30p Main Office Maranda Lorenzana M.D. 84295 278.00 250.00 428.0 783.1 300.5 530.81 327.23 Office Visit 05/01/2011 10:30a Main Office Maranda Lorenzana M.D. 27263 278.00 250.00 729.2 368.8 Office Visit 04/02/2011 5:30p Main Office Maranda Lorenzana M.D. 24521 278.00 250.00 782.3 728.85 Office Visit 01/25/2011 2:10p [facility] Maranda Lorenzana M.D. 29453 278.00 250.00 729.2 428.0 Office Visit 12/12/2010 1:00p Main Office Maranda Lorenzana M.D. 48884 729.2 278.00 250.00 Office Visit 11/23/2010 2:10p [facility] Maranda Lorenzana M.D. 42184 V70.0 250.00 401.1 357.2 278.00 Plan of Care Future Appointment(s):05/27/2018 1:40 pm - Maranda Lorenzana M.D. at Main Ftlagm6005/16/2018 - Liz Arriola, Afnp-CI10 Essential (primary) iciumvoishhzC73.9 Cerebral infarction, unspecifiedAllComments:~B_~U_Medication Management~b_~u_ Patient Understands medications he's taking? Yes No Are there Barriers to Adherence? Yes No Has the patient been asked about herbal supplements and therapies, and OTC meds? Yes No ~B_~U_Care Plan~b_~u_1. Patient has been queried about patient's goals/preferences and functional/lifestyle goals at relevant visits. If relevant, describe: na2. Treatment goals as explained to the patient: abovefurther monitering of sx 3. Are there barriers to meeting treatment goals? Yes No If Yes, please describe:4. Self-Management goals as described to the patient: Yes No your blood pressure continues elevated but your meds heve just been adjusted your condition appears stable-- [facility] next week , call sooner prn
--- OUTSIDE RECORDS SUMMARY | 2018-05-26 00:31 | XMS REPORT ---
:1955 External Reference #:[id number] Author Organization [facility] Address [address] [place] [address] Phone [phone] Care Team Providers Name Role Phone Maranda Lorenzana MD Primary Care Physician Unavailable Payers Type Date Identification Numbers Payment Provider Subscriber Commercial Effective: Policy Number: [id number] [employer] Stefan Woodson 2010 Medicaid PayID: [id number] [place] [id number] Problems Date Description Provider Status Onset: 06/27/2011 [...] lumbar region Jose A Jeong M.D. 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 / ps morning, 3 Stackman, at at M.D. bedtime Oxycodone HCL Active Concentrate 100mg/5ML as needed Unknown Omeprazole Active Capsules DR 20mg 1 po qd Harriett, Maranda Vazquez MD Insucynthia Active long acting Unknown insulin, not sure of name Oxycodone-Acet 06/21 Hx Tablets 5-325mg 45tab 1-2 by Stefan Nino aminojarett s mouth every Kiana, - 4-6 hours 08/21 as needed for pain. Enoxaparin 06/21 Hx Solution 40mg/0.4M 9unit administer Stefan Nino Sodium Madhav L s once per Kiana, - day until 08/21 done Cephalexin 06/21 Hx Tablets 500mg 20tab take 1 by Stefan Nino Madhav s mouth four Kiana, - times a day 08/21 x 5 days Cymbalta 06/[address] Hodges 30mg 60cap 1-2 tabs by 357.2 Trini Ortiz s mouth every Stack, - day as M.D. 10/27. Gabapentin 02/24 Hx Tablets 600mg 120ta 2 tabs by Trini Ortiz bs mouth in am Dandre, - , 3 tabs at M.D. 02/15 Fentanyl 06/17 Hx Patches 72HR 100mcg/HR topical, change Ordering - every 3 Provider Toprol XL 07/09 Hx Tablets ER 25mg 90tab 1/2 (12.5 24HR s mg) po qd Esther, - D.O. 07/07 Oxygen 07/09 Hx 5L nasal cannula qhs - and prn 01/28 Diovan 06/26 Hx Tablets 160mg 30tab 1 tablet po s bid - 06/17 Lac-Hydrin Hx Cream 12% 385gm apply bid Unknown /0000 prn 385 - gm tube 3 supply Potassium / Hx Granules 20Meq prn Unknown Chloride /0000 - 07/13 Plavix 00/00 Hx Tablets 75mg [...] Sulfate /0000 release - tid 06/17 Lantus Hx Solution 100Unit/M 1mont sliding Unknown Solostar /0000 L ivory scale in - the evening 09/26 Humalog Mix 00/ Hx Suspension 75-25% Unknown 75/25 Kwikpen /0000 - 11/19 Procardia XL 00 Hx Tablets ER 30mg 90tab 1 po [...] tablet by - mouth a Alpha Lipoic Hx Capsules 600mg 1 tab daily Unknown Acid /0000 - 06/17 Vitamin D-3 00/00 Hx Tablets 1000Unit 90tab 1 po qd Unknown /0000 s - 06/17 Calcium & 00/00 Hx Tablets 1000mg/50 2 po qam, 1 Unknown Magnesium /0000 0mg po qpm - 06/17 Novolog 00/00 Hx Solution 100Unit/M 1box sliding Unknown Flexpen /0000 L scale - insulin 02/24 meals Dilaudid 00/00 Hx Tablets 4mg 180ta 1-2 po q12h Unknown /0000 bs - 06/17 Morphine 00/00 Hx Tablets 30mg 2 tablets Unknown Sulfate /0000 po daily - 06/17 Oxycontin 00/00 Hx Suspension 100ML/5ML 5mL q 4h Unknown /0000 - 05/09 Cymbalta 00/[address] Part 60mg 1 by mouth E11.42 Unknown /0000 bid - 02/15 Aripiprazole 00/00 Hx Tablets 2mg 1 by mouth Unknown [...] VALUE <1.0 (Negative) Test Performed by: [facility] - [address] [address] Barrel Inspector: Twin Neri M.D. 3 REFERENCE VALUE <1.0 (Negative) Test Performed by: [place] [address] Barrel Inspector: Twin Neri M.D. 4 RESULT: Polyclonal hypergammaglobulinemia Test Performed by: [place] [address] Barrel Inspector: Twin Neri M.D. 5 FASTING 6 FASTING [...] Procedures Date CPT Code Description Status Comment 05/05/2018 50631 Color Flow Doppler/Interp & Completed Reprt 05/05/2018 87633 Pulse Completed Wave/Continuous-Interp.RPT 05/05/2018 64604 Echocardiography, Completed Transesophageal, Real Time W/Image 2D W/W/O M-M 05/02/2018 98234 ECHO Transthorasic Realtime Completed 2D W Doppler & Color Flow Hosp 04/18/2018 16771 Treadmill Interp/Report Only Completed 04/18/2018 24363 Stress Test Supervsn W/Out Completed I/R 09/27/2017 90681 EKG Tracing & Interpretation Completed 06/21/2017 94739 Open TX Intercondylar Completed Spine(S) And/Or Tuberosity FX Of Knee 06/21/2017 88209 Open TX Intercondylar Completed Spine(S) And/Or Tuberosity FX Of Knee 06/22/2016 29082 EEG Recording Awake & Asleep Completed 05/10/2016 48640 EKG Tracing & Interpretation Completed 09/14/2014 19337 Nerve Conduction 03-04 Completed Studies 08/31/2014 11092 Nerve Conduction 03-04 Completed Studies 07/02/2014 78764 Laparoscopy Cholecystectomy Completed 06/29/2014 90495 EKG, Interpretation Only Completed 01/29/2014 65129 EKG Tracing & Interpretation Completed 12/11/2013 15876 Neuroplasty &/Or Completed Transposition; Ulnar Nerve AT Elbow 09/15/2013 55848 Neuroplasty &/Or Completed Transposition; Ulnar Nerve AT Elbow 08/15/201169764 Inject/Drain Joint/Bursa Completed Major W/O US 07/19/2011 58333 Left Heart Cath. Incl S/I Completed Coronaries, Angio S/I V Gram If Done 07/19/2011 43238 EKG, Interpretation Only Completed 06/27/2011 97635 EKG Tracing & Interpretation Completed 01/18/2011 Colonoscopy Completed Hyperplastic polyp repeat in 5 years 09/19/2010 63164 Color Flow Doppler/Interp & Completed Reprt 09/19/2010 58378 Pulse Completed Wave/Continuous-Interp.RPT 09/19/2010 88991 ECHO Transthorasic Realtime Completed 2D W Doppler & Color Flow Hosp Encounters Type Date Location Provider CPT E/M Dx Office Visit 04/17/2018 [facility] [address] R07.9 12:37p Hospitalists E11.40 I10 Office Visit 12/12/2017 3:30p [facility] Stefan Nino 59581 S82.152D Of Amanda Bruno MD Office Visit 10/14/2017 3:00p [facility] Stefan Nino 17324 S82.152D Of Amanda Bruno MD Office Visit 09/27/2017 2:30p [facility] [place], 90010 R94.31 Jamshid Galarza I10 I25.10 Office Visit 06/17/2017 2:15p [facility] Stefna Nino 32333 S82.152A Of Amanda Bruno MD Office Visit 02/22/2017 3:15p Barto/Ronak Payne, 87134 R55 [facility] Serv Of M.D. Retail Account Executive R26.81 Office Visit 12/03/2016 4:00p [facility] [place] PA-C 83797 M48.06 Retail Account Executive Office Visit 06/21/2016 2:30p [facility] Trini Payne, 80206 R26.81 Services Of Retail Account Executive M.D. R55 Office Visit 05/10/2016 11:30a [facility] [place], 18473 R94.31 Retail Account Executive M.D. I10 E66.01 Z68.39 Office Visit 02/16/2016 2:00p [facility] Trini Payne, 13874 R55 Services Of Retail Account Executive M.D. E11.40 Office Visit 10/27/2015 2:45p [facility] Trini Payne, 45931 E11.42 Services Of Retail Account Executive M.D. R26.81 Office Visit 06/23/2015 1:45p [facility] Trini Payne, 63170 250.60 Services Of Retail Account Executive M.D. 357.2 781.2 780.4 Office Visit 02/24/2015 2:15p [facility] Trini Payne, 46364 357.2 Services Of Retail Account Executive M.D. 781.2 780.4 250.60 Office Visit 09/14/2014 2:00p [facility] Trini Payne, 54122 356.9 Services Of Retail Account Executive M.D. 780.4 Office Visit 07/13/2014 11:00a [facility] Trini Payne, 69836 250.60 Services Of Retail Account Executive M.D. 357.2 781.2 Office Visit 07/06/2014 10:33a [facility], Samia Sesay, 21747 790.7 Hospitalists MMalcolm 576.1 038.9 250.00 Office Visit 07/05/2014 10:32a [facility], Samia Sesay, 83847 576.1 Hospitalists MMalcolm 790.7 250.00 038.9 Office Visit 07/04/2014 10:32a [facility], Samia Seymourhn, 49997 576.1 Hospitalists MMalcolm 790.7 038.9 250.00 Office Visit 07/03/2014 10:32a [facility], Samia Seymourhn, 86569 576.1 Hospitalists M.DSaw 574.50 038.9 250.00 Office Visit 07/02/2014 10:31a [facility], Samia Lázaro, 26576 575.0 Hospitalists M.Jan 576.1 250.00 038.9 Office Visit 07/01/2014 10:31a [facility], Samia Seymourhn, 88939 576.1 Hospitalists MMalcolm 574.50 575.0 038.9 Office Visit 06/30/2014 10:30a [facility], Naun Fernando M.D. 47902 576.1 Hospitalists 574.50 038.9 250.00 Office Visit 06/29/2014 10:30a [facility], 46695 575.0 Assoc, Hospitalists MMalcolm 577.0 535.60 250.00 Office Visit 01/29/2014 12:45p [facility] [place] [place], 15588 401.1 [facility] Geovanni 278.01 428.32 Office Visit 09/10/2013 1:20p [facility] AT [place], 12809 V72.81 [facility] D.OSaw 401.1 250.02 278.01 Office Visit 08/27/2013 11:45a [facility] Taylor Garvey 73159 354.2 Of Amanda Galarza Office Visit 06/18/2013 9:30a [facility] Taylor Garvey 55951 354.2 Of Amanda Galarza Office Visit 06/17/2013 10:20a [facility] Taylor Del Cidesther 24883 V45.89 D.O. 401.1 250.02 278.01 Office Visit 03/31/2013 2:00p [facility] AT Taylor Santana, 59573 V72.81 [facility] D.O. 401.1 428.32 250.02 278.01 780.53 Office Visit 11/19/2011 2:20p [facility] Taylor Santana D.O. 95648 278.01 428.32 250.02 401.1 Office Visit 10/15/2011 11:15a [facility] Of Urban Armenta M.D. 01008 726.10 C.M.A. 726.2 Office Visit 08/15/2011 9:30a [facility] Urban Armenta M.D. 22206 726.10 Of C.M.A. Office Visit 08/01/2011 1:20p [facility] Taylor Santana 49161 V72.81 D.O. 428.33 250.02 278.01 Office Visit 07/17/2011 3:00p [facility] [place] [address] V72.81 428.0 780.53 250.02 401.9 278.01 Office Visit 07/09/2011 2:40p [facility] Taylor Santana D.O. 53617 428.0 V72.81 780.53 250.02 401.9 278.01 Office Visit 06/27/2011 10:20a [facility] Taylor Santana D.O. 60048 V72.81 250.02 401.9 278.03 Plan of Care Future Appointment(s):06/06/2018 11:45 am - Bienvenido Troy M.D. at [facility]05/20/2018 9:30 am - Jose Benoit M.D. at [facility]06/12/2018 3:30 pm - Stefan Bruno MD at [facility]12/12/2017 - Stefan Bruno, [id number] Disp fx of l tibial tuberosity, 7thDFollow up:Follow up: 6 months with xrays
[2018-05-26] MEDS ORDERED: Melatonin 3 MG TAB PO PRN ×2 (00:34→02:37)
[2018-05-26] MEDS ORDERED: Ondansetron ODT TAB* 4 MG PO PRN (00:34)
[2018-05-26] MEDS ORDERED: NS 0.9% 1000 ML* 1,000 ML IV SCH (00:45)
--- NOTE | 2018-05-26 00:52 | HP ---
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 He was subsequently re-admitted with diagnosis of partial seizures and started on levetiracetam. Tonight he returns reporting onset of non-exertional non- radiating substernal chest pressure at 2100 associated with SOB, but no N/V, sweats, palpitations, or light-headedness for which he called EMS. Nitroglycerin taken at home alleviated his pain. 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 Acetaminophen TAB* [Tylenol TAB*] 650 mg PO Q4H PRN tab 05/07/18 Aspirin 81 mg CHEW TAB* 81 mg PO DAILY #30 tab.chew 05/07/18 Atorvastatin* [Lipitor 80 MG*] 80 mg PO 1700 #30 tab 05/07/18 Clopidogrel TAB* [Plavix TAB*] 75 mg PO DAILY #30 tab 05/07/18 Insulin GLARGINE(*) [Lantus(*)] 20 units SUBCUT Q24H unit 05/07/18 Metoprolol Tartrate TAB* [Lopressor TAB*] 25 mg PO BID #60 tab 05/07/18 Thiamine TAB* [Vitamin B-1 TAB 100 MG*] 100 mg PO DAILY tab 05/07/18 Albuterol/Ipratropium RESP(NF) [Combivent Respimat (NF)] 1 puff INH BID DULoxetine DR CAP* [Cymbalta CAP*] 60 mg PO DAILY 05/13/18 Fluticasone-Salmeterol 500-50* [Advair Diskus 500-50*] 1 puff INH BID 05/13/18 Montelukast Sodium TAB* [Singulair 10 MG TAB*] 10 mg PO DAILY 05/13/18 Morphine TAB Extended Rel(*) [Ms Contin(*)] 30 mg PO Q8HR PRN MDD 90 mg Nitroglycerin TAB 0.4 MG* 0.4 mg SL Q5M PRN 05/13/18 Omeprazole CAP* [Prilosec CAP* 20 MG] 20 mg PO DAILY 05/13/18 Pentoxifylline CR TAB* [Trental CR TAB*] 400 mg PO TID PRN 05/13/18 Polyethylene Glycol 3350* [Miralax*] 17 gm PO DAILY PRN 05/13/18 ALPRAZolam TAB* [Xanax TAB*] 1 mg PO QPM #10 tab MDD 1mg 05/15/18 Docusate CAP* [Colace Cap*] 100 mg PO BID PRN #30 cap 05/15/18 Losartan/Hydrochlorothiazide [Losartan-Hctz 100-25 mg Tab] 1 each PO DAILY #30 tablet 05/15/18 Melatonin 3 mg PO BEDTIME PRN #30 tab 05/15/18 hydrALAZINE TAB* [Apresoline TAB*] 50 mg PO TID #180 tab 05/15/18 levETIRAcetam [Roweepra Xr] 1,000 mg PO DAILY #30 tab.er.24h 05/15/18 Allergies No Known Allergies Allergy (Verified 05/13/18 18:21) PSurgHx Ruen-Y 2012 carpal & ulnar tunnel releases SocHx: no tobacco, alcohol, or recreational drugs; lives with Dr Cason who is his HCP; 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; 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 FamHx: positive for DM, CAD, HTN ROS: as above, otherwise reviewed and all were negative vitals: Vital Signs Temp 36.6 C 05/25/18 23:54 Pulse 65 05/26/18 00:29 Resp 21 05/26/18 00:29 BP 176/76 05/26/18 00:29 Pulse Ox 97 05/26/18 00:29 Intake & Output 05/25/18 05/25/18 05/26/18 11:59 23:59 11:59 Weight 107.048 kg Constitutional: NAD, normally developed, obese male HEENM: atraumatic; sclera/conjunctiva: anicteric/clear; hearing: clinically intact; oropharynx: clear, mucosa moist Neck: soft tissue: non-tender; thyroid: normal Pulmonary: clear to auscultation bilaterally, good aeration, no accessory muscle use CV: RR/RR, normal S1S2, no carotid bruit, no jugular venous distention, 2+ B DP/ PT, trace BLE edema Abdominal: soft, non-distended, non-tender, no rebound/guarding/rigidity, normoactive bowel sounds, no hepatosplenomegaly or masses, no costovertebral angle tenderness Musculoskeletal: general: grossly intact, non-tender Integumental: BLE mild scaling Psychiatric orientation: AA&O to PPS affect: calm mood: pleasant eye contact: good content: reliable responses: timely insight: good Testing: Lab Results 05/25/18 05/25/18 05/25/18 Range/Units 23:55 23:55 23:55 WBC 7.0 (3.5-10.8) 10^3/ul RBC 5.77 H (4.00-5.40) 10^6/ul Hgb 15.3 (14.0-18.0) g/dl Hct 45 (42-52) % MCV 78 L (80-94) fL MCH 27 (27-31) pg MCHC 34 (31-36) g/dl RDW 16 H (10.5-15) % Plt Count 169 (150-450) 10^3/ul MPV 10.6 H (7.4-10.4) um3 Neut % (Auto) 75.3 (38-83) % Lymph % (Auto) 14.9 L (25-47) % [place] % (Auto) 8.7 H (0-7) % Eos % (Auto) 0.5 (0-6) % Baso % (Auto) 0.6 (0-2) % Absolute Neuts (auto) 5.3 (1.5-7.7) 10^3/ul Absolute Lymphs (auto) 1.0 (1.0-4.8) 10^3/ul Absolute Monos (auto) 0.6 (0-0.8) 10^3/ul Absolute Eos (auto) 0 (0-0.6) 10^3/ul Absolute Basos (auto) 0 (0-0.2) 10^3/ul Absolute Nucleated RBC 0 10^3/ul Nucleated RBC % 0.2 INR (Anticoag Therapy) 0.98 (0.77-1.02) APTT 31.6 (26.0-36.3) seconds Sodium 134 L (135-145) mmol/L Potassium 3.9 (3.5-5.0) mmol/L Chloride 101 (101-111) mmol/L Carbon Dioxide 25 (22-32) mmol/L Anion Gap 8 (2-11) mmol/L BUN 17 (6-24) mg/dL Creatinine 0.99 (0.67-1.17) mg/dL Est GFR ( Amer) 93.0 (>60) Est GFR (Non-Af Amer) 76.9 (>60) BUN/Creatinine Ratio 17.2 (8-20) Glucose 296 H (70-100) mg/dL Lactic Acid (0.5-2.0) mmol/L Calcium 9.2 (8.6-10.3) mg/dL Total Bilirubin 1.60 H (0.2-1.0) mg/dL AST 162 H (13-39) U/L ALT 246 H (7-52) U/L Alkaline Phosphatase 303 H (34-104) U/L Total Creatine Kinase 42 (10-223) U/L CK-MB (CK-2) 1.4 (0.6-6.3) ng/mL Troponin I 0.02 (<0.04) ng/mL B-Natriuretic Peptide ( - 100) pg/mL Total Protein 6.9 (6.4-8.9) g/dL Albumin 3.7 (3.2-5.2) g/dL Globulin 3.2 (2-4) g/dL Albumin/Globulin Ratio 1.2 (1-3) 05/25/18 05/25/18 Range/Units 23:55 23:55 WBC (3.5-10.8) 10^3/ul RBC (4.00-5.40) 10^6/ul Hgb (14.0-18.0) g/dl Hct (42-52) % MCV (80-94) fL MCH (27-31) pg MCHC (31-36) g/dl RDW (10.5-15) % Plt Count (150-450) 10^3/ul MPV (7.4-10.4) um3 Neut % (Auto) (38-83) % Lymph % (Auto) (25-47) % [place] % (Auto) (0-7) % Eos % (Auto) (0-6) % Baso % (Auto) (0-2) % Absolute Neuts (auto) (1.5-7.7) 10^3/ul Absolute Lymphs (auto) (1.0-4.8) 10^3/ul Absolute Monos (auto) (0-0.8) 10^3/ul Absolute Eos (auto) (0-0.6) 10^3/ul Absolute Basos (auto) (0-0.2) 10^3/ul Absolute Nucleated RBC 10^3/ul Nucleated RBC % INR (Anticoag Therapy) (0.77-1.02) APTT (26.0-36.3) seconds Sodium (135-145) mmol/L Potassium (3.5-5.0) mmol/L Chloride (101-111) mmol/L Carbon Dioxide (22-32) mmol/L Anion Gap (2-11) mmol/L BUN (6-24) mg/dL Creatinine (0.67-1.17) mg/dL Est GFR ( Amer) (>60) Est GFR (Non-Af Amer) (>60) BUN/Creatinine Ratio (8-20) Glucose (70-100) mg/dL Lactic Acid 1.9 (0.5-2.0) mmol/L Calcium (8.6-10.3) mg/dL Total Bilirubin (0.2-1.0) mg/dL AST (13-39) U/L ALT (7-52) U/L Alkaline Phosphatase (34-104) U/L Total Creatine Kinase (10-223) U/L CK-MB (CK-2) (0.6-6.3) ng/mL Troponin I (<0.04) ng/mL B-Natriuretic Peptide 65 ( - 100) pg/mL Total Protein (6.4-8.9) g/dL Albumin (3.2-5.2) g/dL Globulin (2-4) g/dL Albumin/Globulin Ratio (1-3) ECG, personally reviewed: NSR rate 68, mild anterior upwardly concave J-point elevation; similar to comparison 05/14/2018 CXR, personally reviewed: suboptimal inspiration w/o acute process Impression: 63M HX 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 CVA 04/30/2018 complicated by onset of partial seizures , DM2 w/ neuropathy, CAD/DE/stent, chronic pain, asthma, anxiety/depression, HTN , thrombocytopenia presenting with unstable angina Primary Diagnoses: unstable angina, HX CAD : aspirin reported as given by EMS : continue clopidogrel, atorvastatin, & pentoxyfylline : no heparin 2nd recent CVA : PO metoprolol : nitro GTT : ICU monitoring : supplemental oxygen : trend troponin : consider cardiology consult in AM : supportive care Secondary Diagnoses: 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
[2018-05-26] MEDS ORDERED: Docusate CAP* 100 MG PO PRN (02:37)
[2018-05-26] MEDS ORDERED: Morphine TAB Extended Release (*) 30 MG TAB.ER PO PRN (02:37)
[2018-05-26] MEDS ORDERED: Polyethylene Glycol 3350* 17 GM PACKET PO PRN (02:37)
[2018-05-26] MEDS ORDERED: Pentoxifylline CR TAB* 400 MG PO PRN (02:37)
[2018-05-26] MEDS ORDERED: Insulin GLARGINE(*) 1 UNITS UNIT SUBCUT SCH (03:00)
[2018-05-26] MEDS: Insulin LISPRO* 1 UNITS UNIT SUBCUT SCH ×3 (03:27→11:11)
[2018-05-26] MEDS ORDERED: Omeprazole CAP* 20 MG PO SCH (06:00)
--- NOTE | 2018-05-26 07:24 | RAD ---
HISTORY: CP, chest pain COMPARISONS: May 13, 2018 VIEWS: 1: frontal portable view of the chest at 12:16 AM FINDINGS: LINES AND TUBES: None. CARDIOMEDIASTINAL SILHOUETTE: The cardiomediastinal silhouette is normal for portable technique. PLEURA: The costophrenic angles are sharp. No pleural abnormalities are noted. LUNG PARENCHYMA: The lungs are clear. ABDOMEN: The upper abdomen is clear. There is no subphrenic gas. BONES AND SOFT TISSUES: No bone or soft tissue abnormalities are noted. IMPRESSION: NO ACTIVE CARDIOPULMONARY DISEASE. R0
--- NOTE | 2018-05-26 08:57 | RAD ---
HISTORY: Elevated LFTs. Relevant surgical history includes a cholecystectomy. COMPARISONS: Similar ultrasound dated April 17, 2018 TECHNIQUE: Multiple transverse and longitudinal ultrasound images were obtained of the right upper quadrant. FINDINGS: LIVER: Similar to the prior ultrasound, the liver exhibits mildly increased echogenicity. The liver is normal in size measuring 16.8 cm in greatest cephalocaudal dimension. There are no suspicious masses or obvious surface irregularity. Normal hepatic and portal venous blood flow is duplicated with color flow imaging. There is no gross intrahepatic biliary duct dilatation. GALLBLADDER AND EXTRAHEPATIC BILIARY DUCT: The gallbladder is surgically absent. There is no fluid collection in the gallbladder fossa. The common bile duct measures a maximum diameter of 3 mm. PANCREAS: The portions of the pancreas not obscured by bowel gas are normal in appearance. RIGHT KIDNEY: The right kidney is normal in size, morphology and echogenicity. AORTA AND IVC: The visualized portions are normal in appearance and not pathologically dilated. IMPRESSION: 1. NO SONOGRAPHIC SIGNS OF BILIARY OBSTRUCTION IN A PATIENT STATUS POST CHOLECYSTECTOMY. 2. MILDLY INCREASED ECHOGENICITY OF THE LIVER COULD BE SEEN WITH HEPATIC STEATOSIS OR OTHER INFILTRATIVE DISEASE OF THE LIVER.
[2018-05-26] MEDS ORDERED: Mometasone/Formoter 200/5 MDI INH SCH (09:00)
[2018-05-26] MEDS ORDERED: Albuterol/Ipratropium RESP(NF) MDI (Combivent Respimat) INH SCH (09:00)
[2018-05-26] MEDS ORDERED: CMCS:Levetiracetam XR TAB(NF) 500 MG TAB.XR PO SCH (09:00)
[2018-05-26] MEDS ORDERED: Aspirin 81 mg CHEW TAB* 81 MG TAB.CHEW PO SCH (09:00)
[2018-05-26] MEDS ORDERED: hydrALAZINE TAB* 25 MG PO SCH (09:00)
[2018-05-26] MEDS ORDERED: CMCS:Pantoprazole TAB (NF) 40 MG TAB PO SCH (09:00)
[2018-05-26] MEDS ORDERED: Thiamine TAB* 100 MG TAB PO SCH (09:00)
[2018-05-26] MEDS ORDERED: Hydrochlorothiazide TAB* 25 MG PO SCH (09:00)
[2018-05-26] MEDS ORDERED: Montelukast Sodium TAB* 10 MG PO SCH (09:00)
[2018-05-26] MEDS ORDERED: Losartan TAB* 25 MG PO SCH (09:00)
[2018-05-26] MEDS ORDERED: Docusate CAP* 100 MG PO SCH (09:00)
[2018-05-26] MEDS ORDERED: Clopidogrel TAB* 75 MG PO SCH (09:00)
[2018-05-26] MEDS ORDERED: Metoprolol Tartrate TAB* 25 MG PO SCH (09:00)
[2018-05-26] MEDS ORDERED: DULoxetine DR CAP* 60 MG CAP.DR PO SCH (09:00)
[2018-05-26] MEDS ORDERED: Metoprolol Tartrate TAB* 25 MG PO ONE (10:55)
[2018-05-26 14:07] VITALS: BP 169/83
--- NOTE | 2018-05-26 16:01 | DS ---
CC: Dr. Lorenzana; Dr. Troy DATE OF ADMISSION: 05/26/2018. DATE OF DISCHARGE: 05/26/2018. HISTORY OF PRESENT ILLNESS: This 63-year-old man presented with chest pain. It was midsternal. The re was no radiation. There was some shortness of breath, but no nausea or diaphoresis. He took a fe w nitroglycerin without any relief. The pain lasted a total of about 20 minutes. He called 911. Th e rest of the history is detailed in the admission note. The patient was monitored in the Intensive Care Unit. He was put on a nitroglycerin infusion. This was stopped an hour or two before discharge. His Metoprolol dose was increased in the morning of dis charge to 50 mg b.i.d. He was pain free after his arrival to the emergency room. EKG and troponin l evels were all unremarkable. FINAL DIAGNOSES: 1. Angina with known coronary artery disease. 2. Chronic pain syndrome. 3. Anxiety and depression. 4. Thrombocytopenia. 5. Old stroke. 6. Asthma. DISCHARGE MEDICATIONS: 1. Metoprolol Tartrate 50 mg b.i.d. 2. Acetaminophen 650 mg every 4 hours prn. 3. Aspirin 81 mg daily. 4. Atorvastatin 80 mg daily. 5. Clopidogrel 75 mg daily. 6. Glargine insulin 20 units daily. 7. Thiamine 100 mg daily. 8. Albuterol Ipratropium Respimat one puff b.i.d. 9. Nitroglycerin 0.4 mg sublingual every 5 minutes prn. 10. Fluticasone Salmeterol 500/50 one puff b.i.d. 11. Pentoxifylline 400 mg t.i.d. 12. Propylene Glycol 17 gm daily. 13. Montelukast 10 mg daily. 14. Morphine extended release 30 mg every 8 hours prn. 15. Omeprazole 20 mg daily. 16. Duloxetine 60 mg daily. 17. Alprazolam 1 mg at bedtime. 18. Hydralazine 50 mg t.i.d. 19. Levetiracetam 1,000 mg daily. 20. Melatonin 3 mg at bedtime prn. 21. Losartan/Hydrochlorothiazide 100/25 one daily. 22. Docusate 100 mg b.i.d. prn. DISCHARGE CONDITION: Improved. DISCHARGE DISPOSITION: Discharged to home. FOLLOW-UP: Follow-up with Dr. Lorenzana and Dr. Troy. [id number]/[facility] #: [id number]
[2018-05-26] MEDS ORDERED: Atorvastatin* 80 MG TAB PO SCH (17:00)
[2018-05-26] MEDS ORDERED: ALPRAZolam TAB* 0.5 MG PO SCH (18:00)
[2018-05-26] MEDS ORDERED: Metoprolol Tartrate TAB* 50 mg PO SCH (21:00)
[2018-05-27] MEDS ORDERED: Omeprazole CAP* 20 MG PO SCH (07:30)
[2018-05-27] MEDS ORDERED: Aspirin EC TAB* 81 MG TAB.EC PO SCH (09:00)
== END 2018-05-26 03:30 | disposition home or self-care (01) ==
LOC: ED 23:39 → INTOOBSV 05-26 00:32 → ICU 05-26 00:32
PROVIDERS: ADMIT Hospitalist; ATTEND Internal Medicine
DX: I25.119 Atherosclerotic heart disease of native coronary artery with unspecified angina pectoris (principal); G89.4 Chronic pain syndrome; F41.8 Other specified anxiety disorders; D69.6 Thrombocytopenia, unspecified; Z86.73 Personal history of transient ischemic attack (TIA), and cerebral infarction without residual deficits; J45.909 Unspecified asthma, uncomplicated; Z79.82 Long term (current) use of aspirin; R07.9 Chest pain, unspecified; R06.02 Shortness of breath; I25.2 Old myocardial infarction; E11.9 Type 2 diabetes mellitus without complications; Z79.4 Long term (current) use of insulin; I10 Essential (primary) hypertension
CPT/HCPCS: 36415; 71045; 76705; 80053; 82550; 82553; 83605; 83690; 83880; 84484; 85025; 85610; 85730; 87641; 93005; 94640; 96374; 99285; A9270-GY; G0378; J3490

== ENCOUNTER 2020-06-30 15:58 | Observation (INO) ==
[2020-06-30] MEDS ORDERED: NS 0.9% 1000 ml BAG 1,000 ML IV ONE (16:06)
[2020-06-30 17:03] LABS: Urine Appearance Clear; Urine Bilirubin Negative (Negative); Urine Blood Negative (Negative); Urine Color Straw; Urine Glucose Negative (Negative); Urine Ketones Negative (Negative); Urine Nitrite Negative (Negative); Urine Protein 1+(30 mg/dL) (Negative); Urine Specific Gravity 1.003 (1.010-1.030); Urine Urobilinogen Negative (Negative)
[2020-06-30 17:11] LABS: Urine Bacteria Absent (Absent); Urine Red Blood Cell Trace(0-2/hpf) (Absent); Urine Squamous Epithelial Cell Present (Absent); Urine White Blood Cell Trace(0-5/hpf) (Absent)
[2020-06-30 17:12] LABS: Hematocrit 43 % (42-52); Hemoglobin 13.8 g/dL (14.0-18.0); Mean Corpuscular HGB Conc 33 g/dL (31-36); Mean Corpuscular Hemoglobin 24 pg (27-31); Mean Corpuscular Volume 73 fL (80-94); Red Blood Count 5.87 10^6 /uL (4.18-5.48); Red Cell Distribution Width 20 % (10-15); White Blood Count 6.6 10^3/uL (3.5-10.8)
[2020-06-30 17:24] LABS: ALT 12 U/L (7-52); AST 19 U/L (13-39); Albumin/Globulin Ratio 1.3 (1-3); Alkaline Phosphatase 91 U/L (34-104); Anion Gap 7 mmol/L (2-11); Blood Urea Nitrogen 13 mg/dL (6-24); CO2 Carbon Dioxide 24 mmol/L (22-32); Calcium 8.5 mg/dL (8.6-10.3); Chloride 106 mmol/L (101-111); Creatine Kinase 101 U/L (10-223); Globulin 3.2 g/dL (2-4); Glucose 96 mg/dL (70-100); Potassium 3.8 mmol/L (3.5-5.0); Sodium 137 mmol/L (135-145); Total Protein 7.2 g/dL (6.4-8.9)
[2020-06-30 17:44] LABS: ABS Basophils 0.1 10^3/ul (0-0.2); ABS Eosinophils 0.1 10^3/ul (0-0.6); ABS Lymphocytes 1.5 10^3/ul (1.0-4.8); ABS Monocytes 0.6 10^3/ul (0-0.8); ABS Neutrophils 4.4 10^3/ul (1.5-7.7); Lymphocyte % 23.1 %; Platelet Count 165 10^3/uL (150-450)
[2020-06-30 17:50] LABS: BUN/Creatinine Ratio 12.1 (8-20); EGFR African American 84.5 (>60); EGFR Non-African American 69.8 (>60)
[2020-06-30 17:53] LABS: Alcohol, S 155 mg/dL (<10)
[2020-06-30 18:24] LABS: Troponin I 0.03 ng/mL (<0.03)
[2020-06-30] MEDS ORDERED: Ondansetron 4 mg VIAL 2 MG/ML 2 ml VIAL IV PRN (19:49)
[2020-06-30] MEDS ORDERED: Dextrose 50% Syringe 50 ml 25 GM/50 ML SYRINGE IV PUSH PRN (19:52)
[2020-06-30] MEDS ORDERED: NS 0.9% 1000 ml BAG 1,000 ML IV SCH (20:00)
[2020-06-30] MEDS: Heparin 5000 UNITS/ML 1 mL VIAL SUBCUT SCH (23:18)
[2020-07-01] MEDS: Heparin 5000 UNITS/ML 1 mL VIAL SUBCUT SCH ×2 (05:42→13:20)
[2020-07-01 05:52] LABS: INR 1.05 (0.82-1.09)
[2020-07-01 06:01] LABS: BUN/Creatinine Ratio 12.1 (8-20); Calcium 8.2 mg/dL (8.6-10.3); EGFR African American 101.8 (>60); EGFR Non-African American 84.1 (>60)
[2020-07-01 06:36] LABS: Troponin I 0.04 ng/mL (<0.03)
[2020-07-01 06:47] LABS: ABS Basophils 0.1 10^3/ul (0-0.2); ABS Eosinophils 0.1 10^3/ul (0-0.6); ABS Lymphocytes 1.4 10^3/ul (1.0-4.8); ABS Monocytes 0.5 10^3/ul (0-0.8); ABS Neutrophils 2.8 10^3/ul (1.5-7.7); Eosinophil % 1.8 %; Hematocrit 41 % (42-52); Hemoglobin 13.1 g/dL (14.0-18.0); Lymphocyte % 28.6 %; Mean Corpuscular HGB Conc 32 g/dL (31-36); Mean Corpuscular Hemoglobin 23 pg (27-31); Mean Corpuscular Volume 72 fL (80-94); Nucleated Red Blood Cells % 0.1; Platelet Count 140 10^3/uL (150-450); Red Cell Distribution Width 20 % (10-15); White Blood Count 4.8 10^3/uL (3.5-10.8)
[2020-07-01] MEDS ORDERED: Insulin GLARGINE 100 un/ml 10 ml VIAL SUBCUT SCH (09:00)
[2020-07-01] MEDS ORDERED: Influenza VAC *QUAD* 2020-21* 0.5 ML SYRINGE IM ONE (09:00)
[2020-07-01] MEDS ORDERED: MORPHINE 2 MG/ML PO PRN (13:04)
[2020-07-01] MEDS ORDERED: Morphine ORAL.SOLN 10 mg 2 mg/ml UDC 5 ml (10 mg) PO PRN (13:15)
[2020-07-01] MEDS ORDERED: Thiamine 100 MG/ML 2 ml VIAL (200 mg) IM ONE (13:20)
[2020-07-01] MEDS ORDERED: Multivitamins/Minerals TAB PO SCH (14:00)
[2020-07-01 16:05] VITALS: BP 153/66
== END 2020-07-01 16:45 | disposition home or self-care (01) ==
LOC: MEDTELE 15:58 → ED 15:58 → MEDTELE 21:21
PROVIDERS: ADMIT Hospitalist; ATTEND Internal Medicine